=== PATIENT | male | born 1950 | race Two or more races ===

== ENCOUNTER 2017-04-08 11:06 | Inpatient (IN) | payer MEDICARE, OTHER ==
[~2017-04-08] VITALS: Ht 152.4 cm; Wt 89.8 kg
[~2017-04-08 11:06] MED LIST: ATIVAN1 MG ORAL; PEPCID40 MG PO; PREDNISONE10 MG ORAL; PRILOSEC20 MG ORAL; TRAMADOL HCL50 MG ORAL; [UNRECOGNIZED DRUG - REMARK]; allopurinol; benazepril PO; metformin PO
[2017-04-08 11:28] VITALS: BP 143/82
[2017-04-08] MEDS ORDERED: Ketorolac 30mg Inj IV ONE (11:30)
--- NOTE | 2017-04-08 11:33 | Emergency Room Report ---
History of Present Illness General Chief Complaint: General Complaint Source: Patient Present Illness HPI Patient presents with complaints of fever cough congestion Patient also reports headache Bodyache Patient's fevers higher at nighttime Denies any difficulty swallowing he does have a mild sore throat patient also complaining of right back and flank pain Headache with some component of his neck Denies any rash denies any recent travel Denies any photophobia Allergies: Coded Allergies: No Known Allergies (Unverified , 12/31/12) Patient History Past Medical History: see triage record Pertinent Family History: none Reviewed Nursing Documentation: PMH: Agreed, PSxH: Agreed Nursing Documentation-PMH Hx Cardiac Problems: Yes Hx Hypertension: Yes Hx Diabetes: Yes - TYPE II Hx Cancer: No Hx Gastrointestinal Problems: Yes - HX OF GASTRITIS, CHOLELITHIASIS Hx Dialysis: No History Of Psychiatric Problem: No Hx Neurological Problems: No Hx Cerebrovascular Accident: No Hx Seizures: No Review of Systems All Other Systems: negative except mentioned in HPI Physical Exam Vital Signs Date Time Temp Pulse Resp B/P (MAP) Pulse Ox O2 Delivery O2 Flow Rate FiO2 04/08/17 11:12 99.1 103 20 178/96 92 Room Air Sp02 EP Interpretation: reviewed, normal General Appearance: well appearing, no apparent distress Head: normocephalic, atraumatic Eyes: bilateral eye PERRL, bilateral eye EOMI ENT: hearing grossly normal, normal pharynx, TMs + canals normal, uvula midline Neck: full range of motion, supple, no meningismus, no bony tend Respiratory: lungs clear, normal breath sounds, no rhonchi, no respiratory distress, no retraction, no accessory muscle use Cardiovascular #1: normal peripheral pulses, regular rate, rhythm, no edema, no gallop, no JVD, no murmur Gastrointestinal: normal bowel sounds, non tender, soft, no mass, no organomegaly, non-distended, no guarding, no hernia, no pulsatile mass, no rebound Genitourinary: no CVA tenderness Musculoskeletal: normal inspection Neurologic: oriented x3, responsive, children's ministry director III-XII nml as tested, motor strength/ tone normal, sensory intact Psychiatric: mood/affect normal Skin: normal color, no rash, warm/dry, palpation normal Lymphatic: normal inspection, no adenopathy Medical Decision Making Diagnostic Impression: Primary Impression: Pneumonia ER Course Multiple differentials considered Including but not limited to meningitis, sepsis, pneumonia Patient has blood work initiated Patient does not show any signs of obvious meningitis/meningismal findings at this time Patient's x-ray imaging shows abnormal findings in the right upper lobe Concerning for infiltrate versus other Patient was given antibiotics at this time still felt fairly uncomfortable and therefore required admission Labs Test 04/08/17 11:43 04/08/17 12:50 White Blood Count 7.9 K/UL (4.8-10.8) Red Blood Count 4.24 M/UL (4.70-6.10) Hemoglobin 13.5 G/DL (14.2-18.0) Hematocrit 39.1 % (42.0-52.0) Mean Corpuscular Volume 92 FL (80-99) Mean Corpuscular Hemoglobin 31.7 PG (27.0-31.0) Mean Corpuscular Hemoglobin Concent 34.5 G/DL (32.0-36.0) Red Cell Distribution Width 11.8 % (11.6-14.8) Platelet Count 157 K/UL (150-450) Mean Platelet Volume 6.7 FL (6.5-10.1) Neutrophils (%) (Auto) 80.9 % (45.0-75.0) Lymphocytes (%) (Auto) 10.9 % (20.0-45.0) Monocytes (%) (Auto) 7.4 % (1.0-10.0) Eosinophils (%) (Auto) 0.4 % (0.0-3.0) Basophils (%) (Auto) 0.4 % (0.0-2.0) Sodium Level 136 MMOL/L (136-145) Potassium Level 4.0 MMOL/L (3.5-5.1) Chloride Level 101 MMOL/L (98-107) Carbon Dioxide Level 26 MMOL/L (21-32) Anion Gap 9 mmol/L (5-15) Blood Urea Nitrogen 16 mg/dL (7-18) Creatinine 0.8 MG/DL (0.55-1.30) Estimat Glomerular Filtration Rate > 60 mL/min (>60) Glucose Level 133 MG/DL (74-106) Calcium Level 8.6 MG/DL (8.5-10.1) Total Bilirubin 0.9 MG/DL (0.2-1.0) Aspartate Amino Transf (AST/SGOT) 19 U/L (15-37) Alanine Aminotransferase (ALT/SGPT) 32 U/L (12-78) Alkaline Phosphatase 50 U/L (46-116) Total Creatine Kinase 167 U/L (26-308) Creatine Kinase MB < 0.5 NG/ML (0.0-3.6) Creatine Kinase MB Relative Index 0.2 Total Protein 7.1 G/DL (6.4-8.2) Albumin 3.6 G/DL (3.4-5.0) Globulin 3.5 g/dL Albumin/Globulin Ratio 1.0 (1.0-2.7) Lipase 112 U/L (73-393) Urine Color Yellow Urine Appearance Clear Urine pH 5 (4.5-8.0) Urine Specific [place] 1.015 (1.005-1.035) Urine Protein 3+ (NEGATIVE) Urine Glucose (UA) Negative (NEGATIVE) Urine Ketones Negative (NEGATIVE) Urine Occult Blood 3+ (NEGATIVE) Urine Nitrite Negative (NEGATIVE) Urine Bilirubin Negative (NEGATIVE) Urine Urobilinogen Normal MG/DL (0.0-1.0) Urine Leukocyte Esterase Negative (NEGATIVE) Urine RBC 5-10 /HPF (0 - 0) Urine WBC 0-2 /HPF (0 - 0) Urine Squamous Epithelial Cells Occasional /LPF Urine Bacteria Occasional /HPF (NONE) Urine Mucus Few /LPF (NONE/OCC) Rhythm Strip Diag. Results EP Interpretation: yes Rate: 66 Rhythm: NSR, no PVC's, no ectopy Chest X-Ray Diagnostic Results Chest X-Ray Diagnostic Results : Chest X-Ray Ordered: Yes # of Views/Limited/Complete: 1 View Indication: Shortness of Breath EP Interpretation: Yes Interpretation: no effusion, no pneumothorax, other - right upper lobe marking, infiltrate vs other Impression: Other - right upper lobe marking Electronically Signed by: Jeremiah Julian DO Last Vital Signs Date Time Temp Pulse Resp B/P (MAP) Pulse Ox O2 Delivery O2 Flow Rate FiO2 04/08/17 11:12 99.1 103 20 178/96 92 Room Air Status: improved Disposition: ADMITTED INPATIENT Condition: Serious JEREMIAH JULIAN D.O. Apr 08, 2017 11:33
[2017-04-08 11:56] LABS: BASOPHILS % (AUTO) 0.4 % (0.0-2.0); EOSINOPHILS % (AUTO) 0.4 % (0.0-3.0); LYMPHOCYTES % (AUTO) 10.9 % (20.0-45.0); MEAN CORPUSCULAR HEMOGLOBIN 31.7 PG (27.0-31.0); MEAN CORPUSCULAR HGB CONC 34.5 G/DL (32.0-36.0); MEAN CORPUSCULAR VOLUME 92 FL (80-99); MEAN PLATELET VOLUME 6.7 FL (6.5-10.1); MONOCYTES % (AUTO) 7.4 % (1.0-10.0); NEUTROPHILS % (AUTO) 80.9 % (45.0-75.0); PLATELET COUNT 157 K/UL (150-450); RED BLOOD COUNT 4.24 M/UL (4.70-6.10); RED CELL DISTRIBUTION WIDTH 11.8 % (11.6-14.8); WHITE BLOOD COUNT 7.9 K/UL (4.8-10.8)
[2017-04-08 12:07] LABS: ANION GAP 9 mmol/L (5-15); CALCIUM 8.6 MG/DL (8.5-10.1); CARBON DIOXIDE 26 MMOL/L (21-32); CHLORIDE 101 MMOL/L (98-107); CREATININE 0.8 MG/DL (0.55-1.30); GLOMERULAR FILTRATION RATE > 60 mL/min (>60); SODIUM 136 MMOL/L (136-145)
[2017-04-08] MEDS ORDERED: LISINOPRIL5 MG ORAL (12:09)
--- NOTE | 2017-04-08 12:13 | Diagnostic Imaging Report ---
Indications: Headache headache Technique: Spiral acquisitions obtained through the brain. Angled axial and coronal 5 x 5 mm slices were reconstructed. Total dose length product 1421 mGycm. CTDI vol(s) 70 mGy. Dose reduction achieved using automated exposure control Comparison: None Findings: There is minimal age-related enlargement of the frontal parietal extra-axial CSF spaces. Normal size ventricles. No acute intracranial hemorrhage or edema. No mass effect or midline shift. Normal mccray-white differentiation. Mastoids are clear. Sinuses are clear. Intact calvarium Impression: Minimal age-related volume loss Negative for acute intracranial bleed or mass effect The CT scanner at [facility] is accredited by the [employer] and the scans are performed using protocols designed to limit radiation exposure to as low as reasonably achievable to attain images of sufficient resolution adequate for diagnostic evaluation.
[2017-04-08 12:22] LABS: ALANINE AMINOTRANSFERASE 32 U/L (12-78); ASPARTATE AMINO TRANSFERASE 19 U/L (15-37); CKMB < 0.5 NG/ML (0.0-3.6); LIPASE 112 U/L (73-393); TOTAL PROTEIN 7.1 G/DL (6.4-8.2)
[2017-04-08 13:04] LABS: APPEARANCE,URINE CLEAR; KETONES,URINE NEGATIVE (NEGATIVE); LEUKOCYTE ESTERASE ,URINE NEGATIVE (NEGATIVE); NITRITE,URINE NEGATIVE (NEGATIVE); PH,URINE 5 (4.5-8.0); PROTEIN,URINE 3+ (NEGATIVE); UROBILINOGEN,URINE NORMAL MG/DL (0.0-1.0)
[2017-04-08 13:22] LABS: BACTERIA,URINE OCCASIONAL /HPF; MUCUS,URINE FEW /LPF (NONE/OCC); SQUAMOUS EPITHELIAL CELL,UR OCCASIONAL /LPF (NONE/OCC); WBC,URINE 0-2 /HPF (0 - 0)
--- NOTE | 2017-04-08 13:26 | Diagnostic Imaging Report ---
Indication: SOB Technique: One view of the chest Comparison: none Findings: There is a right apical opacity which measures approximately 4 cm in diameter. There appears to be some associated pleural thickening. This is a new finding. The remainder of the lungs and pleural spaces are clear. Heart size is normal. Aorta is tortuous. Impression: Right apical mass versus infiltrate. Consider CT for better characterization graft Findings discussed by phone with Dr. Mao in the emergency room at the time of interpretation
[2017-04-08] MEDS ORDERED: Morphine Sulfate 4mg/ml Inj IVP ONE (13:45)
[2017-04-08 14:20] VITALS: BP 141/74
[2017-04-08 14:30] VITALS: BP 143/80
[2017-04-08] MEDS ORDERED: Promethazine/Codeine 5ml UD ORAL PRN (15:15)
[2017-04-08] MEDS ORDERED: Albuterol/Ipratropium 3ml neb HHN PRN (15:15)
[2017-04-08] MEDS ORDERED: Miralax 17gm pkt ORAL PRN (15:15)
[2017-04-08] MEDS ORDERED: LORazepam Inj 2mg/ml 1ml IV PRN (15:15)
[2017-04-08 16:00] VITALS: BP 143/80
[2017-04-08] MEDS: NovoLOG Insulin Flexpen SUBQ SCH ×2 (16:30→20:37)
[2017-04-08] MEDS ORDERED: Vancomycin 1.5 GM/D5W 250ML IVPB ONE (17:00)
[2017-04-08 20:00] VITALS: BP 148/83
[2017-04-08] MEDS ORDERED: Cefepime HCl 2 GM in D5W 110 ML IV SCH (20:00)
[2017-04-08] MEDS: Cefepime HCl 2 GM in D5W 55 ML IV SCH (20:35)
[2017-04-08] MEDS: Heparin 5000 units/ml inj SUBQ SCH (20:36)
--- NOTE | 2017-04-08 22:14 | History and Physical ---
History of Present Illness General Date patient seen: Apr 08, 2017 Reason for Hospitalization: General Complaint Present Illness HPI Patient presents with complaints of fever cough congestion Patient also reports headache Bodyache Patient's fevers higher at nighttime Denies any difficulty swallowing he does have a mild sore throat patient also complaining of right back and flank pain Headache with some component of his neck Denies any rash denies any recent travel Denies any photophobia Allergies: Coded Allergies: No Known Allergies (Unverified , 12/31/12) Medication History Scheduled Famotidine (Pepcid), 40 MG PO DAILY Lorazepam* (Ativan*), 1 MG ORAL BID Omeprazole (Prilosec), 20 MG ORAL DAILY, (Reported) Tramadol Hcl* (Ultram*), 50 MG ORAL Q12HR, (Reported) [benazepril], 20 MG PO DAILY, (Reported) [metformin], 500 MG PO BID, (Reported) Miscellaneous Medications [allopurinol], (Reported) [pill for diabetes], (Reported) Discontinued Medications Lisinopril (Lisinopril*), 5 MG ORAL DAILY, (Reported) Discontinued Reason: Pt stopped taking med Prednisone* (Prednisone*), 10 MG ORAL DAILY, (Reported) Discontinued Reason: Therapy completed Patient History Healthcare decision maker N Resuscitation status Full Code Advanced Directive on File Past Medical/Surgical History Past Medical/Surgical History: (1) History of hypertension (2) Gout (3) Diabetes mellitus Review of Systems Constitutional: Reports: sweats, malaise, weakness Respiratory: Reports: cough All Other Systems: negative except mentioned in HPI Physical Exam General Appearance: WD/WN Lines, tubes and drains: peripheral HEENT: normocephalic, atraumatic Neck: non-tender, normal alignment Respiratory/Chest: lungs clear, normal breath sounds Cardiovascular/Chest: normal peripheral pulses, regular rhythm, no gallop/ murmur Abdomen: soft Genitourinary/Rectal: normal genital exam Last 24 Hour Vital Signs Date Time Temp Pulse Resp B/P (MAP) Pulse Ox O2 Delivery O2 Flow Rate FiO2 04/08/17 16:00 99.0 77 18 143/80 98 Room Air 04/08/17 14:30 99.0 77 18 143/80 98 Room Air 04/08/17 14:22 100.6 82 20 141/74 95 Room Air 04/08/17 14:20 99.1 82 20 141/74 95 Room Air 04/08/17 11:28 100.6 97 20 143/82 95 Room Air 04/08/17 11:12 99.1 103 20 178/96 92 Room Air Intake and Output 04/08/17 04/09/17 19:00 07:00 Intake Total 1000 ml Balance 1000 ml Intake Oral 0 ml IV Total 1000 ml # Bowel Movements 1 Laboratory Tests Test 04/08/17 11:43 04/08/17 12:50 White Blood Count 7.9 K/UL (4.8-10.8) Red Blood Count 4.24 M/UL (4.70-6.10) L Hemoglobin 13.5 G/DL (14.2-18.0) L Hematocrit 39.1 % (42.0-52.0) L Mean Corpuscular Volume 92 FL (80-99) Mean Corpuscular Hemoglobin 31.7 PG (27.0-31.0) H Mean Corpuscular Hemoglobin Concent 34.5 G/DL (32.0-36.0) Red Cell Distribution Width 11.8 % (11.6-14.8) Platelet Count 157 K/UL (150-450) Mean Platelet Volume 6.7 FL (6.5-10.1) Neutrophils (%) (Auto) 80.9 % (45.0-75.0) H Lymphocytes (%) (Auto) 10.9 % (20.0-45.0) L Monocytes (%) (Auto) 7.4 % (1.0-10.0) Eosinophils (%) (Auto) 0.4 % (0.0-3.0) Basophils (%) (Auto) 0.4 % (0.0-2.0) Sodium Level 136 MMOL/L (136-145) Potassium Level 4.0 MMOL/L (3.5-5.1) Chloride Level 101 MMOL/L (98-107) Carbon Dioxide Level 26 MMOL/L (21-32) Anion Gap 9 mmol/L (5-15) Blood Urea Nitrogen 16 mg/dL (7-18) Creatinine 0.8 MG/DL (0.55-1.30) Estimat Glomerular Filtration Rate > 60 mL/min (>60) Glucose Level 133 MG/DL (74-106) H Calcium Level 8.6 MG/DL (8.5-10.1) Total Bilirubin 0.9 MG/DL (0.2-1.0) Aspartate Amino Transf (AST/SGOT) 19 U/L (15-37) Alanine Aminotransferase (ALT/SGPT) 32 U/L (12-78) Alkaline Phosphatase 50 U/L (46-116) Total Creatine Kinase 167 U/L (26-308) Creatine Kinase MB < 0.5 NG/ML (0.0-3.6) Creatine Kinase MB Relative Index 0.2 Total Protein 7.1 G/DL (6.4-8.2) Albumin 3.6 G/DL (3.4-5.0) Globulin 3.5 g/dL Albumin/Globulin Ratio 1.0 (1.0-2.7) Lipase 112 U/L (73-393) Urine Color Yellow Urine Appearance Clear Urine pH 5 (4.5-8.0) Urine Specific [place] 1.015 (1.005-1.035) Urine Protein 3+ (NEGATIVE) H Urine Glucose (UA) Negative (NEGATIVE) Urine Ketones Negative (NEGATIVE) Urine Occult Blood 3+ (NEGATIVE) H Urine Nitrite Negative (NEGATIVE) Urine Bilirubin Negative (NEGATIVE) Urine Urobilinogen Normal MG/DL (0.0-1.0) Urine Leukocyte Esterase Negative (NEGATIVE) Urine RBC 5-10 /HPF (0 - 0) H Urine WBC 0-2 /HPF (0 - 0) Urine Squamous Epithelial Cells Occasional /LPF Urine Bacteria Occasional /HPF (NONE) Urine Mucus Few /LPF (NONE/OCC) H Height (Feet): 5 Height (Inches): 0.00 Weight (Pounds): 198 Medications Current Medications Medications (Trade) Dose Ordered Sig/Tamiko Route PRN Reason Start Time Stop Time Status Last Admin Dose Admin Acetaminophen (Tylenol) 650 mg Q4H PRN ORAL T>100.5 04/08/17 15:15 05/08/17 15:14 04/08/17 20:38 Albuterol/ Ipratropium (Albuterol/ Ipratropium) 3 ml Q4H PRN HHN Shortness of Breath 04/08/17 15:15 04/13/17 15:14 Allopurinol (Zyloprim) 100 mg DAILY ORAL 04/09/17 09:00 05/09/17 08:59 Benazepril HCl (Lotensin) 20 mg DAILY ORAL 04/09/17 09:00 05/09/17 08:59 Cefepime HCl 2 gm/ Dextrose 55 ml @ 110 mls/hr EVERY 12 HOURS IV 04/08/17 20:00 04/15/17 19:59 04/08/17 20:35 Dextrose (Dextrose 50%) STAT PRN IV Hypoglycemia 04/08/17 15:30 05/08/17 15:29 Heparin Sodium (Porcine) (Heparin 5000 units/ml) 5,000 units EVERY 12 HOURS SUBQ 04/08/17 21:00 05/08/17 20:59 04/08/17 20:36 Insulin Aspart (NovoLOG) BEFORE MEALS AND HS SUBQ 04/08/17 16:30 05/08/17 16:29 04/08/17 20:37 Lorazepam (Ativan 2mg/ml 1ml) 2 mg Q2H PRN IV For Anxiety 04/08/17 15:15 04/15/17 15:14 Morphine Sulfate (Morphine Sulfate) 4 mg Q4H PRN IVP Severe Pain (Pain Scale 7-10) 04/08/17 15:15 04/15/17 15:14 Ondansetron HCl (Zofran) 4 mg Q6H PRN IVP Nausea & Vomiting 04/08/17 15:15 05/08/17 15:14 Pantoprazole (Protonix) 40 mg DAILY IV 04/09/17 09:00 05/09/17 08:59 Polyethylene Glycol (Miralax) 17 gm DAILYPRN PRN ORAL Constipation 04/08/17 15:15 05/08/17 15:14 Promethazine HCl/ Codeine (Phenergan with Codeine) 5 ml Q4H PRN ORAL For Cough 04/08/17 15:15 05/08/17 15:14 Sodium Chloride 1,000 ml @ 50 mls/hr Q20H IV 04/08/17 16:30 05/08/17 16:29 04/08/17 16:38 Tramadol HCl (Ultram) 50 mg Q12H PRN ORAL Moderate Pain (Pain Scale 4-6) 04/08/17 16:00 04/15/17 15:59 Vancomycin HCl (Vanco rx to dose) 1 ea DAILY PRN MISC . 04/08/17 15:30 05/08/17 15:29 Vancomycin/Sodium Chloride 250 ml @ 166.667 mls/hr Q12HR@0500,1700 IVPB 04/09/17 05:00 04/14/17 04:59 Assessment/Plan Problem List: (1) Pneumonia ICD Codes: J18.9 - Pneumonia, unspecified organism SNOMED: 832487747 (2) Diabetes mellitus ICD Codes: E11.9 - Type 2 diabetes mellitus without complications SNOMED: 60588163 (3) Gout ICD Codes: M10.9 - Gout, unspecified SNOMED: 67918297 (4) History of hypertension ICD Codes: Z86.79 - Personal history of other diseases of the circulatory system SNOMED: 540638329 Assessment/Plan check Ct check sputum IV abx monitor BP dvt porphylaxis/ LUIZ RENTERIA Apr 08, 2017 22:14
[2017-04-08] MEDS ORDERED: Vancomycin 1 GM in D5W 275 ML IV SCH (23:00)
[2017-04-09] VITALS: BP 137/86
[2017-04-09 04:00] VITALS: BP 142/84
[2017-04-09] MEDS: Vancomycin 750mg/NS 250ml IVPB SCH ×2 (05:00→18:10)
[2017-04-09] MEDS: NovoLOG Insulin Flexpen SUBQ SCH ×4 (06:52→22:35)
[2017-04-09 08:00] VITALS: BP 152/82
[2017-04-09 08:17] LABS: BASOPHILS % (AUTO) 0.3 % (0.0-2.0); EOSINOPHILS % (AUTO) 1.6 % (0.0-3.0); LYMPHOCYTES % (AUTO) 14.5 % (20.0-45.0); MEAN CORPUSCULAR HEMOGLOBIN 32.6 PG (27.0-31.0); MEAN CORPUSCULAR HGB CONC 35.2 G/DL (32.0-36.0); MEAN CORPUSCULAR VOLUME 92 FL (80-99); MEAN PLATELET VOLUME 7.2 FL (6.5-10.1); MONOCYTES % (AUTO) 9.5 % (1.0-10.0); NEUTROPHILS % (AUTO) 74.1 % (45.0-75.0); PLATELET COUNT 142 K/UL (150-450); RED BLOOD COUNT 3.74 M/UL (4.70-6.10); RED CELL DISTRIBUTION WIDTH 11.8 % (11.6-14.8); WHITE BLOOD COUNT 6.6 K/UL (4.8-10.8)
[2017-04-09 08:42] LABS: ANION GAP 7 mmol/L (5-15); CARBON DIOXIDE 26 MMOL/L (21-32); CHLORIDE 103 MMOL/L (98-107); CREATININE 0.8 MG/DL (0.55-1.30); GLOMERULAR FILTRATION RATE > 60 mL/min (>60); PHOSPHORUS 2.8 MG/DL (2.5-4.9); POTASSIUM 3.8 MMOL/L (3.5-5.1); SODIUM 136 MMOL/L (136-145)
[2017-04-09] MEDS: Heparin 5000 units/ml inj SUBQ SCH ×2 (09:00→21:00)
[2017-04-09] MEDS: Cefepime HCl 2 GM in D5W 55 ML IV SCH ×2 (09:00→22:36)
[2017-04-09] MEDS: Allopurinol 100mg Tab ORAL SCH (09:01)
[2017-04-09] MEDS: Benazepril 10mg tab ORAL SCH (09:01)
[2017-04-09] MEDS: Pantoprazole Inj IV SCH (09:01)
[2017-04-09] MEDS ORDERED: 1/2 NS 1000ml IV ONE (10:54)
[2017-04-09] MEDS ORDERED: NS Irrig 1000ml ONE (10:54)
[2017-04-09] MEDS ORDERED: Tubing IV Secondary IV ONE (10:54)
--- NOTE | 2017-04-09 10:58 | Diagnostic Imaging Report ---
Indication: Shortness of breath Technique: CT chest was performed utilizing automated exposure control without intravenous contrast material. Axial and coronal images were generated. CT dose: Total DLP 728 mGycm; CTDI vol 21.4 mGy Comparison: 06/13/15 Findings: There is an approximately 7 x 7.7 cm area of consolidation involving the right upper lobe with nodular groundglass densities at its inferior margin. A small right pleural effusion is present. There is a calcified granuloma in the right lower lobe. No significant pericardial effusion is identified. The heart size is normal. Atherosclerotic changes are present. Small mediastinal nodes are present measuring up to 1.2 cm in long axis. Gallstones are seen in the partially visualized upper abdomen. Degenerative changes of the spine are noted. Impression: Approximately 7 x 7.7 cm area of consolidation involving the right upper lobe with nodular groundglass at its inferior margin. Findings may be compatible with pneumonia but the possibility of underlying mass cannot be excluded. Clinical correlation recommended. Followup to resolution/further evaluation recommended. Small right pleural effusion. Right lower lobe calcified granuloma. Mild atherosclerotic changes. Cholelithiasis. The CT scanner at [facility] is accredited by the [employer] and the scans are performed using protocols designed to limit radiation exposure to as low as reasonably achievable to attain images of sufficient resolution adequate for diagnostic evaluation.
--- NOTE | 2017-04-09 10:59 | Pulmonology Progress Note ---
Assessment/Plan Problems: (1) Pneumonia (2) Diabetes mellitus (3) Gout (4) History of hypertension Assessment/Plan CT reviewed, Dense infiltrate/ mass in right upper lobe will do PPD and respiratory isolation CT guided biopsy. Pt agreed. continue abx f/u clinically sputum induction Subjective ROS Limited/Unobtainable: No Constitutional: Reports: no symptoms HEENT: Repors: no symptoms Respiratory: Reports: no symptoms Allergies: Coded Allergies: No Known Allergies (Unverified , 12/31/12) Objective Last 24 Hour Vital Signs Date Time Temp Pulse Resp B/P (MAP) Pulse Ox O2 Delivery O2 Flow Rate FiO2 04/09/17 09:01 152/82 04/09/17 08:00 98.9 83 18 152/82 94 Room Air 04/09/17 04:00 98.3 86 16 142/84 96 Room Air 04/09/17 00:00 98.8 82 17 137/86 96 Room Air 04/08/17 20:00 100.1 82 18 148/83 98 Room Air 04/08/17 16:00 99.0 77 18 143/80 98 Room Air 04/08/17 14:30 99.0 77 18 143/80 98 Room Air 04/08/17 14:22 100.6 82 20 141/74 95 Room Air 04/08/17 14:20 99.1 82 20 141/74 95 Room Air 04/08/17 11:28 100.6 97 20 143/82 95 Room Air 04/08/17 11:12 99.1 103 20 178/96 92 Room Air General Appearance: WD/WN HEENT: normocephalic Respiratory/Chest: chest wall non-tender, lungs clear Cardiovascular: normal peripheral pulses, normal rate Abdomen: normal bowel sounds, soft, non tender Genitourinary: normal external genitalia Extremities: no clubbing Skin: no rash, no lesions Laboratory Tests 04/08/17 11:43: White Blood Count 7.9, Red Blood Count 4.24L, Hemoglobin 13.5L, Hematocrit 39.1L , Mean Corpuscular Volume 92, Mean Corpuscular Hemoglobin 31.7H, Mean Corpuscular Hemoglobin Concent 34.5, Red Cell Distribution Width 11.8, Platelet Count 157, Mean Platelet Volume 6.7, Neutrophils (%) (Auto) 80.9H, Lymphocytes ( %) (Auto) 10.9L, Monocytes (%) (Auto) 7.4, Eosinophils (%) (Auto) 0.4, Basophils (%) (Auto) 0.4, Sodium Level 136, Potassium Level 4.0, Chloride Level 101, Carbon Dioxide Level 26, Anion Gap 9, Blood Urea Nitrogen 16, Creatinine 0.8, Estimat Glomerular Filtration Rate > 60, Glucose Level 133H, Calcium Level 8.6, Total Bilirubin 0.9, Aspartate Amino Transf (AST/SGOT) 19, Alanine Aminotransferase (ALT/SGPT) 32, Alkaline Phosphatase 50, Total Creatine Kinase 167, Creatine Kinase MB < 0.5, Creatine Kinase MB Relative Index 0.2, Total Protein 7.1, Albumin 3.6, Globulin 3.5, Albumin/Globulin Ratio 1.0, Lipase 112 04/08/17 12:50: Urine Color Yellow, Urine Appearance Clear, Urine pH 5, Urine Specific [place] 1.015, Urine Protein 3+H, Urine Glucose (UA) Negative, Urine Ketones Negative, Urine Occult Blood 3+H, Urine Nitrite Negative, Urine Bilirubin Negative, Urine Urobilinogen Normal, Urine Leukocyte Esterase Negative, Urine RBC 5-10H, Urine WBC 0-2, Urine Squamous Epithelial Cells Occasional, Urine Bacteria Occasional, Urine Mucus FewH 04/09/17 06:35: White Blood Count 6.6, Red Blood Count 3.74L, Hemoglobin 12.2L, Hematocrit 34.6L , Mean Corpuscular Volume 92, Mean Corpuscular Hemoglobin 32.6H, Mean Corpuscular Hemoglobin Concent 35.2, Red Cell Distribution Width 11.8, Platelet Count 142L, Mean Platelet Volume 7.2, Neutrophils (%) (Auto) 74.1, Lymphocytes ( %) (Auto) 14.5L, Monocytes (%) (Auto) 9.5, Eosinophils (%) (Auto) 1.6, Basophils (%) (Auto) 0.3, Sodium Level 136, Potassium Level 3.8, Chloride Level 103, Carbon Dioxide Level 26, Anion Gap 7, Blood Urea Nitrogen 17, Creatinine 0.8, Estimat Glomerular Filtration Rate > 60, Glucose Level 113H, Calcium Level 8.0L, Albumin 3.0L, Phosphorus Level 2.8 Current Medications Medications (Trade) Dose Ordered Sig/Tamiko Route PRN Reason Start Time Stop Time Status Last Admin Dose Admin Acetaminophen (Tylenol) 650 mg Q4H PRN ORAL T>100.5 04/08/17 15:15 05/08/17 15:14 04/09/17 07:51 Albuterol/ Ipratropium (Albuterol/ Ipratropium) 3 ml Q4H PRN HHN Shortness of Breath 04/08/17 15:15 04/13/17 15:14 Allopurinol (Zyloprim) 100 mg DAILY ORAL 04/09/17 09:00 05/09/17 08:59 04/09/17 09:01 Benazepril HCl (Lotensin) 20 mg DAILY ORAL 04/09/17 09:00 05/09/17 08:59 04/09/17 09:01 Cefepime HCl 2 gm/ Dextrose 55 ml @ 110 mls/hr EVERY 12 HOURS IV 04/08/17 20:00 04/15/17 19:59 04/09/17 09:00 Dextrose (Dextrose 50%) STAT PRN IV Hypoglycemia 04/08/17 15:30 05/08/17 15:29 Heparin Sodium (Porcine) (Heparin 5000 units/ml) 5,000 units EVERY 12 HOURS SUBQ 04/08/17 21:00 05/08/17 20:59 04/08/17 20:36 Insulin Aspart (NovoLOG) BEFORE MEALS AND HS SUBQ 04/08/17 16:30 05/08/17 16:29 04/09/17 06:52 Lorazepam (Ativan 2mg/ml 1ml) 2 mg Q2H PRN IV For Anxiety 04/08/17 15:15 04/15/17 15:14 Morphine Sulfate (Morphine Sulfate) 4 mg Q4H PRN IVP Severe Pain (Pain Scale 7-10) 04/08/17 15:15 04/15/17 15:14 Ondansetron HCl (Zofran) 4 mg Q6H PRN IVP Nausea & Vomiting 04/08/17 15:15 05/08/17 15:14 Pantoprazole (Protonix) 40 mg DAILY IV 04/09/17 09:00 05/09/17 08:59 04/09/17 09:01 Polyethylene Glycol (Miralax) 17 gm DAILYPRN PRN ORAL Constipation 04/08/17 15:15 05/08/17 15:14 Promethazine HCl/ Codeine (Phenergan with Codeine) 5 ml Q4H PRN ORAL For Cough 04/08/17 15:15 05/08/17 15:14 Sodium Chloride 1,000 ml @ 50 mls/hr Q20H IV 04/08/17 16:30 05/08/17 16:29 04/08/17 16:38 Tramadol HCl (Ultram) 50 mg Q12H PRN ORAL Moderate Pain (Pain Scale 4-6) 04/08/17 16:00 04/15/17 15:59 Vancomycin HCl (Vanco rx to dose) 1 ea DAILY PRN MISC . 04/08/17 15:30 05/08/17 15:29 Vancomycin/Sodium Chloride 250 ml @ 166.667 mls/hr Q12HR@0500,1700 IVPB 04/09/17 05:00 04/14/17 04:59 04/09/17 05:00 LUIZ RENTERIA Apr 09, 2017 10:59
[2017-04-09 12:00] VITALS: BP 147/90
[2017-04-09] MEDS ORDERED: PPD Tuberculin Skin Test 5TU IDERMAL ONE (12:00)
[2017-04-09 16:00] VITALS: BP 141/80
--- NOTE | 2017-04-09 17:53 | Consultation ---
Consult Note Consult Note ID DIC # [id number] JANESSA ARMANDO M.D. Apr 09, 2017 17:53
[2017-04-09 20:00] VITALS: BP 140/81
[2017-04-09] MEDS: Azithromycin 500 MG in D5W 275 ML IV SCH (20:25)
[2017-04-10] VITALS (7 sets, daily range): BP systolic 121–160; BP diastolic 76–90
[2017-04-10] MEDS: Vancomycin 750mg/NS 250ml IVPB SCH (05:00)
[2017-04-10 05:15] LABS: EOSINOPHILS % (AUTO) 1.4 % (0.0-3.0); MEAN CORPUSCULAR HGB CONC 35.3 G/DL (32.0-36.0); MEAN CORPUSCULAR VOLUME 91 FL (80-99); MEAN PLATELET VOLUME 6.2 FL (6.5-10.1); MONOCYTES % (AUTO) 7.6 % (1.0-10.0); PLATELET COUNT 165 K/UL (150-450); RED BLOOD COUNT 3.83 M/UL (4.70-6.10); RED CELL DISTRIBUTION WIDTH 11.2 % (11.6-14.8); WHITE BLOOD COUNT 6.1 K/UL (4.8-10.8)
[2017-04-10] MEDS: NovoLOG Insulin Flexpen SUBQ SCH ×4 (06:23→22:05)
[2017-04-10] MEDS ORDERED: Vancomycin 1.5 GM/D5W 250ML IVPB SCH (06:30)
[2017-04-10] MEDS: Cefepime HCl 2 GM in D5W 55 ML IV SCH ×2 (09:22→22:00)
[2017-04-10] MEDS: Allopurinol 100mg Tab ORAL SCH (09:29)
[2017-04-10] MEDS: Pantoprazole Inj IV SCH (09:29)
[2017-04-10] MEDS: Benazepril 10mg tab ORAL SCH (09:29)
[2017-04-10] MEDS: Heparin 5000 units/ml inj SUBQ SCH ×2 (09:39→21:00)
--- NOTE | 2017-04-10 11:19 | Diagnostic Imaging Report ---
Indication: Chest mass Technique: CT cervical spine was performed utilizing automated exposure control without intravenous contrast material. Axial and coronal images were generated. CT dose: Total DLP 732 mGycm; CTDI vol 22.1 mGy Comparison: CT of the chest 04/09/17 Findings: As compared to the prior examination, there is no significant interval change with redemonstration of consolidation involving the right upper lobe with adjacent inferior nodular groundglass densities. A small right pleural effusion is unchanged. There is a stable calcified granuloma in the right lower lobe. Mediastinal nodes measure up to 1.2 cm. The heart is unchanged. Atherosclerotic changes are present. Gallstones are present. Osseous structures are stable. Impression: Stable large area of consolidation involving the right upper lobe with nodular groundglass densities at its inferior margin. Again findings may be compatible with pneumonia but the possibility of underlying mass or bronchoalveolar carcinoma cannot be excluded. Again followup to resolution recommended. Further evaluation recommended as indicated. Other stable findings as above. The CT scanner at [facility] is accredited by the [employer] and the scans are performed using protocols designed to limit radiation exposure to as low as reasonably achievable to attain images of sufficient resolution adequate for diagnostic evaluation.
--- NOTE | 2017-04-10 14:33 | Pulmonology Progress Note ---
Assessment/Plan Problems: (1) Pneumonia (2) Diabetes mellitus (3) Gout (4) History of hypertension Assessment/Plan asymptoamtic ID consult appreciated PPD pending respiratory isolation CT guided biopsy. Pt agreed. continue abx f/u clinically sputum induction Subjective ROS Limited/Unobtainable: No Interval Events: asymptomatic Allergies: Coded Allergies: No Known Allergies (Unverified , 12/31/12) Objective Last 24 Hour Vital Signs Date Time Temp Pulse Resp B/P (MAP) Pulse Ox O2 Delivery O2 Flow Rate FiO2 04/10/17 12:00 97.3 81 19 145/85 93 Room Air 04/10/17 09:29 145/76 04/10/17 08:00 98.8 80 20 145/76 95 Room Air 04/10/17 06:29 76 140/90 04/10/17 04:25 Room Air 04/10/17 04:23 98.8 85 20 160/85 95 Room Air 04/10/17 00:00 98.2 84 18 152/89 95 Room Air 04/09/17 20:00 Room Air 04/09/17 20:00 97.3 83 19 140/81 93 Room Air 04/09/17 16:00 98.2 97 20 141/80 98 Room Air General Appearance: WD/WN HEENT: normocephalic Respiratory/Chest: chest wall non-tender, lungs clear Cardiovascular: normal rate Abdomen: normal bowel sounds, soft, non tender Extremities: no cyanosis Skin: no rash 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, no motor/sensory deficits, abnormal gait Microbiology Date/Time Source Procedure Growth Status 04/08/17 11:43 Blood Blood Culture - Preliminary NO GROWTH AFTER 24 HOURS Resulted 04/08/17 11:43 Blood Blood Culture - Preliminary NO GROWTH AFTER 24 HOURS Resulted 04/10/17 05:46 Nasopharynx Influenza Types A,B Antigen (ALEX) - Final Complete Laboratory Tests 04/10/17 04:50: White Blood Count 6.1, Red Blood Count 3.83L, Hemoglobin 12.3L, Hematocrit 34.8L , Mean Corpuscular Volume 91, Mean Corpuscular Hemoglobin 32.0H, Mean Corpuscular Hemoglobin Concent 35.3, Red Cell Distribution Width 11.2L, Platelet Count 165, Mean Platelet Volume 6.2L, Neutrophils (%) (Auto) 74.0, Lymphocytes (%) (Auto) 16.0L, Monocytes (%) (Auto) 7.6, Eosinophils (%) (Auto) 1.4, Basophils (%) (Auto) 1.0, Vancomycin Level Trough 4.8L, Coccidioides Antibody (Comp Fix) [Pending] Current Medications Medications (Trade) Dose Ordered Sig/Tamiko Route PRN Reason Start Time Stop Time Status Last Admin Dose Admin Acetaminophen (Tylenol) 650 mg Q4H PRN ORAL T>100.5 04/08/17 15:15 05/08/17 15:14 04/09/17 07:51 Acetaminophen (Tylenol) 650 mg Q4H PRN ORAL Mild Pain 04/09/17 11:30 05/09/17 11:29 Albuterol/ Ipratropium (Albuterol/ Ipratropium) 3 ml Q4H PRN HHN Shortness of Breath 04/08/17 15:15 04/13/17 15:14 Allopurinol (Zyloprim) 100 mg DAILY ORAL 04/09/17 09:00 05/09/17 08:59 04/10/17 09:29 Azithromycin 500 mg/Dextrose 275 ml @ 275 mls/hr DAILY@1800 IV 04/09/17 18:30 04/15/17 18:59 04/09/17 20:25 Benazepril HCl (Lotensin) 20 mg DAILY ORAL 04/09/17 09:00 05/09/17 08:59 04/10/17 09:29 Cefepime HCl 2 gm/ Dextrose 55 ml @ 110 mls/hr EVERY 12 HOURS IV 04/08/17 20:00 04/15/17 19:59 04/10/17 09:22 Dextrose (Dextrose 50%) STAT PRN IV Hypoglycemia 04/08/17 15:30 05/08/17 15:29 Heparin Sodium (Porcine) (Heparin 5000 units/ml) 5,000 units EVERY 12 HOURS SUBQ 04/08/17 21:00 05/08/17 20:59 04/10/17 09:39 Insulin Aspart (NovoLOG) BEFORE MEALS AND HS SUBQ 04/08/17 16:30 05/08/17 16:29 04/10/17 12:39 Lorazepam (Ativan 2mg/ml 1ml) 2 mg Q2H PRN IV For Anxiety 04/08/17 15:15 04/15/17 15:14 Morphine Sulfate (Morphine Sulfate) 4 mg Q4H PRN IVP Severe Pain (Pain Scale 7-10) 04/08/17 15:15 04/15/17 15:14 Ondansetron HCl (Zofran) 4 mg Q6H PRN IVP Nausea & Vomiting 04/08/17 15:15 05/08/17 15:14 Pantoprazole (Protonix) 40 mg DAILY IV 04/09/17 09:00 05/09/17 08:59 04/10/17 09:29 Polyethylene Glycol (Miralax) 17 gm DAILYPRN PRN ORAL Constipation 04/08/17 15:15 05/08/17 15:14 Promethazine HCl/ Codeine (Phenergan with Codeine) 5 ml Q4H PRN ORAL For Cough 04/08/17 15:15 05/08/17 15:14 Sodium Chloride 1,000 ml @ 50 mls/hr Q20H IV 04/08/17 16:30 05/08/17 16:29 04/09/17 15:30 Tramadol HCl (Ultram) 50 mg Q12H PRN ORAL Moderate Pain (Pain Scale 4-6) 04/08/17 16:00 04/15/17 15:59 Vancomycin HCl (Vanco rx to dose) 1 ea DAILY PRN MISC . 04/08/17 15:30 05/08/17 15:29 Vancomycin HCl/ Dextrose 250 ml @ 166.667 mls/hr Q12HR@0600,1800 IVPB 04/10/17 18:00 04/15/17 17:59 LUIZ RENTERIA Apr 10, 2017 14:33
--- NOTE | 2017-04-10 15:35 | Cardiology Report ---
APPROVED REPORT EKG Measurement Heart [id number] Normal sinus rhythm Normal ECG
[2017-04-10] MEDS: Azithromycin 500 MG in D5W 275 ML IV SCH (17:33)
[2017-04-10] MEDS: Vancomycin 1250mg/D5W 250ml IVPB SCH (18:32)
[2017-04-11] VITALS: BP 130/80
[2017-04-11 04:00] VITALS: BP 129/76
[2017-04-11] MEDS: NovoLOG Insulin Flexpen SUBQ SCH ×4 (06:14→20:36)
[2017-04-11] MEDS: Vancomycin 1250mg/D5W 250ml IVPB SCH ×2 (06:53→18:30)
[2017-04-11 07:13] LABS: BASOPHILS % (AUTO) 1.5 % (0.0-2.0); EOSINOPHILS % (AUTO) 2.9 % (0.0-3.0); LYMPHOCYTES % (AUTO) 19.4 % (20.0-45.0); MEAN CORPUSCULAR HEMOGLOBIN 31.8 PG (27.0-31.0); MEAN CORPUSCULAR HGB CONC 34.9 G/DL (32.0-36.0); MEAN CORPUSCULAR VOLUME 91 FL (80-99); MEAN PLATELET VOLUME 6.5 FL (6.5-10.1); MONOCYTES % (AUTO) 7.4 % (1.0-10.0); NEUTROPHILS % (AUTO) 68.8 % (45.0-75.0); PLATELET COUNT 212 K/UL (150-450); RED BLOOD COUNT 4.16 M/UL (4.70-6.10); RED CELL DISTRIBUTION WIDTH 11.3 % (11.6-14.8); WHITE BLOOD COUNT 7.1 K/UL (4.8-10.8)
--- NOTE | 2017-04-11 07:45 | Consultation ---
DATE OF CONSULTATION: 04/09/2017 INFECTIOUS DISEASE CONSULT CONSULTING PHYSICIAN: Jaycob Penaloza M.D. REQUESTING PHYSICIAN: Laura Lin M.D. REASON FOR CONSULTATION: Evaluation of the patient for pneumonia, rule out tuberculosis. HISTORY OF PRESENT ILLNESS: The patient is a 66-year-old male, who came to the hospital with chief complaint of cough and chest congestion x3 days. Also, the patient has headaches that has improved. Denies having nausea, vomiting, or photophobia. The patient's workup showed upper lobe infiltrate and the patient has been placed in airborne isolation to rule out possible tuberculosis. Infectious Disease consultation has been requested for further evaluation of the patient and antibiotic management. PAST MEDICAL HISTORY: 1. Hypertension. 2. History of diverticulosis. 3. History of gout. 4. History of GERD. 5. History of diabetes. 6. Anxiety. MEDICATIONS: IV vancomycin and cefepime. ALLERGIES: No known drug allergies. SOCIAL HISTORY: Negative for smoking. Drinks alcohol occasionally. No history of drug abuse. However, the patient used to smoke up to 10 years ago and history of alcohol abuse in the past, stopped three years ago. No history of smoking or drug abuse. PHYSICAL EXAMINATION: VITAL SIGNS: Temperature 100.1, pulse 86, respiratory rate 18, and blood pressure 141/80. HEENT: No pale conjunctivae. No icterus. NECK: No lymphadenopathy. CHEST: Coarse breathing sounds in bilateral lung blake. HEART: S1 and S2. ABDOMEN: Soft and obese. EXTREMITIES: No cyanosis at this time. NEUROLOGIC: Awake and alert. LABORATORY AND DIAGNOSTIC DATA: WBC 6.6, hemoglobin 12.2, platelet 142,000. UA unremarkable. BUN 17 and creatinine 0.8. ALT, AST, and alkaline phosphatase unremarkable. CT of the chest showed a 7 x cm consolidation involving the right upper lobe with nodular ground glass at the inferior, cannot rule out mass, small right pleural effusion, and right lower lobe calcified granuloma. CT of head, unremarkable. ASSESSMENT: The patient is a 66-year-old male with: 1. Low-grade fever. 2. Rule out influenza. 3. Right upper lobe mass versus pneumonia, rule out tuberculosis. 4. Headache, however, clinical exam and history is not suggestive of meningitis. The patient is improving. No photophobia, nausea, or vomiting. PLAN: 1. We will continue the patient on cefepime and vancomycin. We will add Zithromax for coverage of atypical. 2. Monitor CBC. 3. Monitor BMP. 4. We will send sputum for AFB and cultures, bacterial culture and fungal culture. So, we will follow serologies and we will follow cryptococcal antigen, histoplasma antibody and coccidiosis serology. 5. CEA. 6. Recheck HIV test. 7. We will send sputum for MTB PCR. 8. QuantiFERON gold TB. 9. Placed on airborne isolation for now. 10. Monitor blood culture. 11. Based on the patient's clinical course and labs, we will do further recommendation. Thank you, Dr. Lin for allowing me to see this patient. I will follow the patient with you during this hospitalization. Jaycob Penaloza M.D. DR: Gabo JOB#: [id number] CC:
[2017-04-11 07:51] LABS: ALANINE AMINOTRANSFERASE 30 U/L (12-78); ALBUMIN/GLOBULIN RATIO 0.9 (1.0-2.7); ANION GAP 10 mmol/L (5-15); ASPARTATE AMINO TRANSFERASE 22 U/L (15-37); CALCIUM 8.9 MG/DL (8.5-10.1); CARBON DIOXIDE 26 MMOL/L (21-32); CHLORIDE 103 MMOL/L (98-107); CREATININE 0.8 MG/DL (0.55-1.30); CRP QUANT 4.7 mg/dL (0.00-0.90); GLOMERULAR FILTRATION RATE > 60 mL/min (>60); MAGNESIUM 1.9 MG/DL (1.8-2.4); PHOSPHORUS 3.1 MG/DL (2.5-4.9); POTASSIUM 4.1 MMOL/L (3.5-5.1); SODIUM 139 MMOL/L (136-145)
[2017-04-11] MEDS: Heparin 5000 units/ml inj SUBQ SCH ×2 (08:36→20:32)
[2017-04-11 08:38] LABS: PROTHROMBIN TIME 10.4 SEC (9.30-11.50)
[2017-04-11 08:46] LABS: ERYTHROCYTE SEDIMENTATION RATE 52 MM/HR (0-20)
[2017-04-11] MEDS: Pantoprazole Inj IV SCH (08:53)
[2017-04-11] MEDS: Cefepime HCl 2 GM in D5W 55 ML IV SCH ×2 (08:53→20:31)
[2017-04-11] MEDS: Allopurinol 100mg Tab ORAL SCH (08:53)
[2017-04-11] MEDS: Benazepril 10mg tab ORAL SCH ×2 (09:36→09:43)
[2017-04-11] MEDS ORDERED: Lidocaine 2% MPF 5ml Vial INJ ONE (11:45)
[2017-04-11 12:00] VITALS: BP 126/74
[2017-04-11] MEDS ORDERED: Lidocaine 1% Plain 30 ml INJ ONE (13:00)
--- NOTE | 2017-04-11 13:00 | Brief Operative Note ---
Immediate Post Operative Note Operative Note Chief Complaint: SOB Pre-op Diagnosis: Lung mass R Procedure: CT guided R lung bx Post-op Diagnosis: Same Post-op Diagnosis: same as pre-op Findings: consistent w/pre-op dx studies Surgeon: Dontrell CEDENO Specimen: yes - 3 18 g cores. sent for histology and Cx Complications: none Condition: stable Fluids: none Implant(s) used?: No ETHAN CEDENO M.D. Apr 11, 2017 13:00
[2017-04-11] MEDS: traMADol 50mg tab ORAL PRN (13:52)
--- NOTE | 2017-04-11 14:01 | Pulmonology Progress Note ---
Assessment/Plan Problems: (1) Pneumonia (2) Diabetes mellitus (3) Gout (4) History of hypertension Assessment/Plan asymptoamtic ID consult appreciated PPD is [address] guided biopsy done today, d/w dr Gaona continue abx f/u clinically sputum induction sent one today Subjective ROS Limited/Unobtainable: No Constitutional: Reports: no symptoms HEENT: Repors: no symptoms Respiratory: Reports: no symptoms Allergies: Coded Allergies: No Known Allergies (Unverified , 12/31/12) Objective Last 24 Hour Vital Signs Date Time Temp Pulse Resp B/P (MAP) Pulse Ox O2 Delivery O2 Flow Rate FiO2 04/11/17 12:00 97.3 76 18 126/74 94 04/11/17 09:43 121/79 04/11/17 08:00 94 Room Air 04/11/17 04:00 96.5 73 17 129/76 96 Room Air 04/11/17 00:51 Room Air 04/11/17 00:00 98.0 80 21 130/80 96 Room Air 04/10/17 20:00 Room Air 04/10/17 20:00 98.4 81 21 132/83 95 Room Air 04/10/17 16:00 98.7 86 19 121/76 97 Room Air Intake and Output 04/11/17 04/12/17 19:00 07:00 Intake Total 160 ml Balance 160 ml IV Total 160 ml General Appearance: WD/WN HEENT: normocephalic, anicteric Respiratory/Chest: chest wall non-tender, lungs clear Cardiovascular: normal peripheral pulses, normal rate Abdomen: normal bowel sounds, soft, non tender Extremities: no cyanosis Skin: no rash, no lesions Microbiology Date/Time Source Procedure Growth Status 04/11/17 06:14 Sputum Gram Stain - Final Resulted 04/11/17 06:14 Sputum Sputum Culture Pending Resulted 04/10/17 05:46 Sputum AFB Specimen Processing Tissue - Final Resulted 04/10/17 05:46 Sputum Acid Fast Bacilli Smear - Final Resulted 04/10/17 05:46 Sputum Acid Fast Bacilli Culture Pending Resulted 04/10/17 05:46 Nasopharynx Influenza Types A,B Antigen (ALEX) - Final Complete Laboratory Tests 04/11/17 05:15: White Blood Count 7.1, Red Blood Count 4.16L, Hemoglobin 13.2L, Hematocrit 37.9L , Mean Corpuscular Volume 91, Mean Corpuscular Hemoglobin 31.8H, Mean Corpuscular Hemoglobin Concent 34.9, Red Cell Distribution Width 11.3L, Platelet Count 212, Mean Platelet Volume 6.5, Neutrophils (%) (Auto) 68.8, Lymphocytes (%) (Auto) 19.4L, Monocytes (%) (Auto) 7.4, Eosinophils (%) (Auto) 2.9, Basophils (%) (Auto) 1.5, Erythrocyte Sedimentation Rate 52H, Sodium Level 139, Potassium Level 4.1, Chloride Level 103, Carbon Dioxide Level 26, Anion Gap 10, Blood Urea Nitrogen 12, Creatinine 0.8, Estimat Glomerular Filtration Rate > 60, Glucose Level 122H, Calcium Level 8.9, Phosphorus Level 3.1, Magnesium Level 1.9, Total Bilirubin 0.6, Aspartate Amino Transf (AST/SGOT) 22, Alanine Aminotransferase (ALT/SGPT) 30, Alkaline Phosphatase 53, C-Reactive Protein, Quantitative 4.7H, Total Protein 7.0, Albumin 3.3L, Globulin 3.7, Albumin/Globulin Ratio 0.9L, TB Test (T-Spot) [Pending], TB Test Nil Control (T- Spot) [Pending], TB Test Panel A (T-Spot) [Pending], TB Test Panel B (T-Spot) [ Pending], TB Test Positive Control (T-Spot) [Pending] 04/11/17 07:55: Prothrombin Time 10.4, Prothromb Time International Ratio 1.0, Activated Partial Thromboplast Time 26 Current Medications Medications (Trade) Dose Ordered Sig/Tamiko Route PRN Reason Start Time Stop Time Status Last Admin Dose Admin Acetaminophen (Tylenol) 650 mg Q4H PRN ORAL T>100.5 04/08/17 15:15 05/08/17 15:14 04/09/17 07:51 Acetaminophen (Tylenol) 650 mg Q4H PRN ORAL Mild Pain 04/09/17 11:30 05/09/17 11:29 Albuterol/ Ipratropium (Albuterol/ Ipratropium) 3 ml Q4H PRN HHN Shortness of Breath 04/08/17 15:15 04/13/17 15:14 Allopurinol (Zyloprim) 100 mg DAILY ORAL 11/25/17 09:00 05/09/17 08:59 04/11/17 08:53 Azithromycin 500 mg/Dextrose 275 ml @ 275 mls/hr DAILY@1800 IV 04/09/17 18:30 04/15/17 18:59 04/10/17 17:33 Benazepril HCl (Lotensin) 20 mg DAILY ORAL 04/09/17 09:00 05/09/17 08:59 04/11/17 09:43 Cefepime HCl 2 gm/ Dextrose 55 ml @ 110 mls/hr EVERY 12 HOURS IV 04/08/17 20:00 04/15/17 19:59 04/11/17 08:53 Dextrose (Dextrose 50%) STAT PRN IV Hypoglycemia 04/08/17 15:30 05/08/17 15:29 Heparin Sodium (Porcine) (Heparin 5000 units/ml) 5,000 units EVERY 12 HOURS SUBQ 04/08/17 21:00 05/08/17 20:59 04/10/17 09:39 Insulin Aspart (NovoLOG) BEFORE MEALS AND HS SUBQ 04/08/17 16:30 05/08/17 16:29 04/11/17 13:48 Lorazepam (Ativan 2mg/ml 1ml) 2 mg Q2H PRN IV For Anxiety 04/08/17 15:15 04/15/17 15:14 Morphine Sulfate (Morphine Sulfate) 4 mg Q4H PRN IVP Severe Pain (Pain Scale 7-10) 04/08/17 15:15 04/15/17 15:14 Ondansetron HCl (Zofran) 4 mg Q6H PRN IVP Nausea & Vomiting 04/08/17 15:15 05/08/17 15:14 Pantoprazole (Protonix) 40 mg DAILY IV 04/09/17 09:00 05/09/17 08:59 04/11/17 08:53 Polyethylene Glycol (Miralax) 17 gm DAILYPRN PRN ORAL Constipation 04/08/17 15:15 05/08/17 15:14 Promethazine HCl/ Codeine (Phenergan with Codeine) 5 ml Q4H PRN ORAL For Cough 04/08/17 15:15 05/08/17 15:14 Sodium Chloride 1,000 ml @ 50 mls/hr Q20H IV 04/08/17 16:30 05/08/17 16:29 04/10/17 17:34 Temazepam (Restoril) 15 mg HSPRN PRN ORAL Insomnia 04/10/17 20:15 04/17/17 20:14 04/10/17 22:00 Tramadol HCl (Ultram) 50 mg Q12H PRN ORAL Moderate Pain (Pain Scale 4-6) 04/08/17 16:00 04/15/17 15:59 04/11/17 13:52 Vancomycin HCl (Vanco rx to dose) 1 ea DAILY PRN MISC . 04/08/17 15:30 05/08/17 15:29 Vancomycin HCl/ Dextrose 250 ml @ 166.667 mls/hr Q12HR@0600,1800 IVPB 04/10/17 18:00 04/15/17 17:59 04/11/17 06:53 LUIZ RENTERIA Apr 11, 2017 14:01
--- NOTE | 2017-04-11 14:14 | Infectious Diseases Prog Note ---
Assessment/Plan Assessment/Plan ASSESSMENT: The patient is a 66-year-old male with: 1. Low-grade fever.- improving -Flu neg -Bcx NTD 2 Right upper lobe mass versus pneumonia, rule out tuberculosis., r/o fungal PNA -neg: HIV ag/ab -AFB smear neg x1, MTB PCR p -pending: COcci ,histo, blasto, TB spot -sp cx p CT chest w/: Stable large area of consolidation involving the right upper lobe with nodular groundglass densities at its inferior margin. Again findings may be compatible with pneumonia but the possibility of underlying mass or bronchoalveolar carcinoma cannot be excluded. Again followup to resolution recommended. Further evaluation recommended as indicated. 4. Headache, however, clinical exam and history is not suggestive of meningitis. The patient is improving. No photophobia, nausea, or vomiting. PLAN: 1. Continue the patient on cefepime and vancomycin #4 and Azithromycin #3 pending sputum cultures. 2. Monitor CBC/BMP,temperatures 3 F/u sputum for AFB and cultures, bacterial culture and fungal culture, cryptococcal antigen, histoplasma antibody and coccidiosis serology, MTB PCR, TB spot 4. Continue airborne isolation for now. 5. f/u blood culture. Thank you, Dr. Lin for allowing me to see this patient. I will follow the patient with you during this hospitalization. Subjective Allergies: Coded Allergies: No Known Allergies (Unverified , 12/31/12) Subjective afebrile in >48hrs awaiting studies Objective Vital Signs Last 24 Hour Vital Signs Date Time Temp Pulse Resp B/P (MAP) Pulse Ox O2 Delivery O2 Flow Rate FiO2 04/11/17 12:00 97.3 76 18 126/74 94 04/11/17 09:43 121/79 04/11/17 08:00 94 Room Air 04/11/17 04:00 96.5 73 17 129/76 96 Room Air 04/11/17 00:51 Room Air 04/11/17 00:00 98.0 80 21 130/80 96 Room Air 04/10/17 20:00 Room Air 04/10/17 20:00 98.4 81 21 132/83 95 Room Air 04/10/17 16:00 98.7 86 19 121/76 97 Room Air Height (Feet): 5 Height (Inches): 0.00 Weight (Pounds): 198 Objective PHYSICAL EXAMINATION: HEENT: No pale conjunctivae. No icterus. NECK: No lymphadenopathy. CHEST: Coarse breathing sounds in bilateral lung blake. HEART: S1 and S2. ABDOMEN: Soft and obese. EXTREMITIES: No cyanosis at this time. NEUROLOGIC: Awake and alert. Microbiology Date/Time Source Procedure Growth Status 04/11/17 06:14 Sputum Gram Stain - Final Resulted 04/11/17 06:14 Sputum Sputum Culture Pending Resulted 04/10/17 05:46 Sputum AFB Specimen Processing Tissue - Final Resulted 04/10/17 05:46 Sputum Acid Fast Bacilli Smear - Final Resulted 04/10/17 05:46 Sputum Acid Fast Bacilli Culture Pending Resulted 04/10/17 05:46 Nasopharynx Influenza Types A,B Antigen (ALEX) - Final Complete Laboratory Tests Test 04/11/17 05:15 04/11/17 07:55 White Blood Count 7.1 K/UL (4.8-10.8) Red Blood Count 4.16 M/UL (4.70-6.10) L Hemoglobin 13.2 G/DL (14.2-18.0) L Hematocrit 37.9 % (42.0-52.0) L Mean Corpuscular Volume 91 FL (80-99) Mean Corpuscular Hemoglobin 31.8 PG (27.0-31.0) H Mean Corpuscular Hemoglobin Concent 34.9 G/DL (32.0-36.0) Red Cell Distribution Width 11.3 % (11.6-14.8) L Platelet Count 212 K/UL (150-450) Mean Platelet Volume 6.5 FL (6.5-10.1) Neutrophils (%) (Auto) 68.8 % (45.0-75.0) Lymphocytes (%) (Auto) 19.4 % (20.0-45.0) L Monocytes (%) (Auto) 7.4 % (1.0-10.0) Eosinophils (%) (Auto) 2.9 % (0.0-3.0) Basophils (%) (Auto) 1.5 % (0.0-2.0) Erythrocyte Sedimentation Rate 52 MM/HR (0-20) H Sodium Level 139 MMOL/L (136-145) Potassium Level 4.1 MMOL/L (3.5-5.1) Chloride Level 103 MMOL/L (98-107) Carbon Dioxide Level 26 MMOL/L (21-32) Anion Gap 10 mmol/L (5-15) Blood Urea Nitrogen 12 mg/dL (7-18) Creatinine 0.8 MG/DL (0.55-1.30) Estimat Glomerular Filtration Rate > 60 mL/min (>60) Glucose Level 122 MG/DL (74-106) H Calcium Level 8.9 MG/DL (8.5-10.1) Phosphorus Level 3.1 MG/DL (2.5-4.9) Magnesium Level 1.9 MG/DL (1.8-2.4) Total Bilirubin 0.6 MG/DL (0.2-1.0) Aspartate Amino Transf (AST/SGOT) 22 U/L (15-37) Alanine Aminotransferase (ALT/SGPT) 30 U/L (12-78) Alkaline Phosphatase 53 U/L (46-116) C-Reactive Protein, Quantitative 4.7 mg/dL (0.00-0.90) H Total Protein 7.0 G/DL (6.4-8.2) Albumin 3.3 G/DL (3.4-5.0) L Globulin 3.7 g/dL Albumin/Globulin Ratio 0.9 (1.0-2.7) L TB Test (T-Spot) Pending TB Test Nil Control (T-Spot) Pending TB Test Panel A (T-Spot) Pending TB Test Panel B (T-Spot) Pending TB Test Positive Control (T-Spot) Pending Prothrombin Time 10.4 SEC (9.30-11.50) Prothromb Time International Ratio 1.0 (0.9-1.1) Activated Partial Thromboplast Time 26 SEC (23-33) Current Medications Medications (Trade) Dose Ordered Sig/Tamiko Route PRN Reason Start Time Stop Time Status Last Admin Dose Admin Acetaminophen (Tylenol) 650 mg Q4H PRN ORAL T>100.5 04/08/17 15:15 05/08/17 15:14 04/09/17 07:51 Acetaminophen (Tylenol) 650 mg Q4H PRN ORAL Mild Pain 04/09/17 11:30 05/09/17 11:29 Albuterol/ Ipratropium (Albuterol/ Ipratropium) 3 ml Q4H PRN HHN Shortness of Breath 04/08/17 15:15 04/13/17 15:14 Allopurinol (Zyloprim) 100 mg DAILY ORAL 04/09/17 09:00 05/09/17 08:59 04/11/17 08:53 Azithromycin 500 mg/Dextrose 275 ml @ 275 mls/hr DAILY@1800 IV 04/09/17 18:30 04/15/17 18:59 04/10/17 17:33 Benazepril HCl (Lotensin) 20 mg DAILY ORAL 04/09/17 09:00 05/09/17 08:59 04/11/17 09:43 Cefepime HCl 2 gm/ Dextrose 55 ml @ 110 mls/hr EVERY 12 HOURS IV 04/08/17 20:00 04/15/17 19:59 04/11/17 08:53 Dextrose (Dextrose 50%) STAT PRN IV Hypoglycemia 04/08/17 15:30 05/08/17 15:29 Heparin Sodium (Porcine) (Heparin 5000 units/ml) 5,000 units EVERY 12 HOURS SUBQ 04/08/17 21:00 05/08/17 20:59 04/10/17 09:39 Insulin Aspart (NovoLOG) BEFORE MEALS AND HS SUBQ 04/08/17 16:30 05/08/17 16:29 04/11/17 13:48 Lorazepam (Ativan 2mg/ml 1ml) 2 mg Q2H PRN IV For Anxiety 04/08/17 15:15 04/15/17 15:14 Morphine Sulfate (Morphine Sulfate) 4 mg Q4H PRN IVP Severe Pain (Pain Scale 7-10) 04/08/17 15:15 04/15/17 15:14 Ondansetron HCl (Zofran) 4 mg Q6H PRN IVP Nausea & Vomiting 04/08/17 15:15 05/08/17 15:14 Pantoprazole (Protonix) 40 mg DAILY IV 04/09/17 09:00 05/09/17 08:59 04/11/17 08:53 Polyethylene Glycol (Miralax) 17 gm DAILYPRN PRN ORAL Constipation 04/08/17 15:15 05/08/17 15:14 Promethazine HCl/ Codeine (Phenergan with Codeine) 5 ml Q4H PRN ORAL For Cough 04/08/17 15:15 05/08/17 15:14 Sodium Chloride 1,000 ml @ 50 mls/hr Q20H IV 04/08/17 16:30 05/08/17 16:29 04/10/17 17:34 Temazepam (Restoril) 15 mg HSPRN PRN ORAL Insomnia 04/10/17 20:15 04/17/17 20:14 04/10/17 22:00 Tramadol HCl (Ultram) 50 mg Q12H PRN ORAL Moderate Pain (Pain Scale 4-6) 04/08/17 16:00 04/15/17 15:59 04/11/17 13:52 Vancomycin HCl (Vanco rx to dose) 1 ea DAILY PRN MISC . 04/08/17 15:30 05/08/17 15:29 Vancomycin HCl/ Dextrose 250 ml @ 166.667 mls/hr Q12HR@0600,1800 IVPB 04/10/17 18:00 04/15/17 17:59 04/11/17 06:53 Fartun Pitt M.D. Apr 11, 2017 14:14
[2017-04-11] MEDS ORDERED: Tubing IV Secondary IV ONE (14:44)
[2017-04-11] MEDS ORDERED: 1/2 NS 1000ml IV ONE (14:44)
--- NOTE | 2017-04-11 15:17 | Diagnostic Imaging Report ---
Indication: Status post CT-guided lung biopsy Technique: One view of the chest Comparison: 06/08/2016 Findings: Again demonstrated is right apical opacity, equivocally slightly less prominent than previously. The remainder the lungs and pleural spaces are clear. No pneumothorax. Normal heart size Impression: No evidence of pneumothorax, status post right lung biopsy
[2017-04-11 16:00] VITALS: BP 120/78
[2017-04-11 16:15] LABS: MTB PROCESSING Concentration (.)
[2017-04-11] MEDS: Azithromycin 500 MG in D5W 275 ML IV SCH (17:04)
[2017-04-11 20:00] VITALS: BP 145/80
[2017-04-12] VITALS: BP 124/65
[2017-04-12 04:07] VITALS: BP 125/70
[2017-04-12] MEDS: Vancomycin 1250mg/D5W 250ml IVPB SCH ×2 (05:06→19:08)
[2017-04-12] MEDS: traMADol 50mg tab ORAL PRN (05:06)
[2017-04-12] MEDS: NovoLOG Insulin Flexpen SUBQ SCH ×4 (06:14→21:10)
[2017-04-12 08:00] VITALS: BP 149/82
[2017-04-12] MEDS: Pantoprazole Inj IV SCH (08:12)
[2017-04-12] MEDS: Cefepime HCl 2 GM in D5W 55 ML IV SCH ×2 (08:12→20:59)
[2017-04-12] MEDS: Allopurinol 100mg Tab ORAL SCH (08:12)
[2017-04-12] MEDS: Heparin 5000 units/ml inj SUBQ SCH ×2 (08:14→21:09)
[2017-04-12] MEDS: Benazepril 10mg tab ORAL SCH (08:17)
[2017-04-12 10:20] LABS: CA 125 13.1 U/mL (Not Estab.); CA 27.29 9.7 U/mL (0.0-38.6); CA15-3 9.5 U/mL (0.0-25.0)
[2017-04-12 11:15] LABS: CRYPTOCOCCAL ANTIGEN SERUM Negative (Negative)
[2017-04-12] MEDS: Morphine Sulfate 4mg/ml Inj IVP PRN (11:51)
[2017-04-12 12:00] VITALS: BP 144/84
--- NOTE | 2017-04-12 12:24 | Infectious Diseases Prog Note ---
Assessment/Plan Assessment/Plan ASSESSMENT: The patient is a 66-year-old male with: 1. Low-grade fever.- improving -Flu neg -Bcx NTD 2 Right upper lobe mass versus pneumonia, rule out tuberculosis., r/o fungal PNA - s/p lung biopsy 04/11 -neg: HIV ag/ab -AFB smear neg x1, MTB PCR p -pending: COcci ,histo, blasto, TB spot -sp cx normal ingrid to datye CT chest w/: Stable large area of consolidation involving the right upper lobe with nodular groundglass densities at its inferior margin. Again findings may be compatible with pneumonia but the possibility of underlying mass or bronchoalveolar carcinoma cannot be excluded. Again followup to resolution recommended. Further evaluation recommended as indicated. 4. Headache, however, clinical exam and history is not suggestive of meningitis. The patient is improving. No photophobia, nausea, or vomiting. PLAN: 1. D/C IV Vancomycin #5 and Continue cefepime #5 and Azithromycin #4/5 pending sputum cultures. 2. Monitor CBC/BMP,temperatures 3 F/u sputum for AFB and cultures, bacterial culture and fungal culture, cryptococcal antigen, histoplasma antibody and coccidiosis serology, MTB PCR, TB spot -f/u lung tissue path and cultures 4. Continue airborne isolation for now. 5. f/u blood culture. Thank you, Dr. Lin for allowing me to see this patient. I will follow the patient with you during this hospitalization. Subjective Allergies: Coded Allergies: No Known Allergies (Unverified , 12/31/12) Subjective afebrile in >72hrs awaiting studies and AFB sputum s/p lung mass biopsy yesterday- tissue sent for path and cx Objective Vital Signs Last 24 Hour Vital Signs Date Time Temp Pulse Resp B/P (MAP) Pulse Ox O2 Delivery O2 Flow Rate FiO2 04/12/17 08:17 152/82 04/12/17 08:00 97.2 87 18 149/82 94 Room Air 04/12/17 04:07 98.2 82 18 125/70 97 04/12/17 00:00 97.9 78 20 124/65 95 Room Air 04/11/17 20:00 97.1 80 20 145/80 96 Room Air 04/11/17 16:00 97.9 77 18 120/78 93 Height (Feet): 5 Height (Inches): 0.00 Weight (Pounds): 198 Objective PHYSICAL EXAMINATION: HEENT: No pale conjunctivae. No icterus. NECK: No lymphadenopathy. CHEST: Coarse breathing sounds in bilateral lung blake. HEART: S1 and S2. ABDOMEN: Soft and obese. EXTREMITIES: No cyanosis at this time. NEUROLOGIC: Awake and alert. Microbiology Date/Time Source Procedure Growth Status 04/11/17 06:14 Sputum Gram Stain - Final Resulted 04/11/17 06:14 Sputum Sputum Culture - Preliminary NORMAL UPPER RESPIRATORY INGRID AT 24 ... Resulted 04/10/17 05:46 Sputum AFB Specimen Processing Tissue - Final Resulted 04/10/17 05:46 Sputum Acid Fast Bacilli Smear - Final Resulted 04/10/17 05:46 Sputum Acid Fast Bacilli Culture Pending Resulted 04/10/17 05:46 Nasopharynx Influenza Types A,B Antigen (ALEX) - Final Complete Laboratory Tests Test 04/11/17 17:16 04/12/17 04:30 Vancomycin Level Trough 10.7 ug/mL (5.0-12.0) Coccidioides Antibody (Comp Fix) Pending Current Medications Medications (Trade) Dose Ordered Sig/Tamiko Route PRN Reason Start Time Stop Time Status Last Admin Dose Admin Acetaminophen (Tylenol) 650 mg Q4H PRN ORAL T>100.5 04/08/17 15:15 05/08/17 15:14 04/09/17 07:51 Acetaminophen (Tylenol) 650 mg Q4H PRN ORAL Mild Pain 04/09/17 11:30 05/09/17 11:29 Albuterol/ Ipratropium (Albuterol/ Ipratropium) 3 ml Q4H PRN HHN Shortness of Breath 04/08/17 15:15 04/13/17 15:14 Allopurinol (Zyloprim) 100 mg DAILY ORAL 04/09/17 09:00 05/09/17 08:59 04/12/17 08:12 Azithromycin 500 mg/Dextrose 275 ml @ 275 mls/hr DAILY@1800 IV 04/09/17 18:30 04/15/17 18:59 04/11/17 17:04 Benazepril HCl (Lotensin) 20 mg DAILY ORAL 04/09/17 09:00 05/09/17 08:59 04/12/17 08:17 Cefepime HCl 2 gm/ Dextrose 55 ml @ 110 mls/hr EVERY 12 HOURS IV 04/08/17 20:00 04/15/17 19:59 04/12/17 08:12 Dextrose (Dextrose 50%) STAT PRN IV Hypoglycemia 04/08/17 15:30 05/08/17 15:29 Heparin Sodium (Porcine) (Heparin 5000 units/ml) 5,000 units EVERY 12 HOURS SUBQ 04/08/17 21:00 05/08/17 20:59 04/12/17 08:14 Insulin Aspart (NovoLOG) BEFORE MEALS AND HS SUBQ 04/08/17 16:30 05/08/17 16:29 04/12/17 11:54 Lorazepam (Ativan 2mg/ml 1ml) 2 mg Q2H PRN IV For Anxiety 04/08/17 15:15 04/15/17 15:14 Morphine Sulfate (Morphine Sulfate) 4 mg Q4H PRN IVP Severe Pain (Pain Scale 7-10) 04/08/17 15:15 04/15/17 15:14 04/12/17 11:51 Ondansetron HCl (Zofran) 4 mg Q6H PRN IVP Nausea & Vomiting 04/08/17 15:15 05/08/17 15:14 Pantoprazole (Protonix) 40 mg DAILY IV 04/09/17 09:00 05/09/17 08:59 04/12/17 08:12 Polyethylene Glycol (Miralax) 17 gm DAILYPRN PRN ORAL Constipation 04/08/17 15:15 05/08/17 15:14 Promethazine HCl/ Codeine (Phenergan with Codeine) 5 ml Q4H PRN ORAL For Cough 04/08/17 15:15 05/08/17 15:14 Sodium Chloride 1,000 ml @ 50 mls/hr Q20H IV 04/08/17 16:30 05/08/17 16:29 04/11/17 20:31 Temazepam (Restoril) 15 mg HSPRN PRN ORAL Insomnia 04/10/17 20:15 04/17/17 20:14 04/11/17 22:38 Tramadol HCl (Ultram) 50 mg Q12H PRN ORAL Moderate Pain (Pain Scale 4-6) 04/08/17 16:00 12/1/17 15:59 04/12/17 05:06 Vancomycin HCl (Vanco rx to dose) 1 ea DAILY PRN MISC . 04/08/17 15:30 05/08/17 15:29 Vancomycin HCl/ Dextrose 250 ml @ 166.667 mls/hr Q12HR@0600,1800 IVPB 04/10/17 18:00 04/15/17 17:59 04/12/17 05:06 Fartun Pitt M.D. Apr 12, 2017 12:24
[2017-04-12 13:11] LABS: BLASTOMYCES AB - ID Negative (Neg:<1:1)
[2017-04-12 16:00] VITALS: BP 150/89
[2017-04-12] MEDS: Azithromycin 500 MG in D5W 275 ML IV SCH (17:56)
--- NOTE | 2017-04-12 18:52 | Pulmonology Progress Note ---
Assessment/Plan Problems: (1) Pneumonia (2) Diabetes mellitus (3) Gout (4) History of hypertension Assessment/Plan asymptoamtic ID f/u reviewed and appreciated PPD is [address] guided biopsy done today, d/w dr Gaona continue abx f/u clinically sputum induction sent one today Subjective ROS Limited/Unobtainable: No Constitutional: Reports: no symptoms HEENT: Repors: no symptoms Allergies: Coded Allergies: No Known Allergies (Unverified , 12/31/12) Objective Last 24 Hour Vital Signs Date Time Temp Pulse Resp B/P (MAP) Pulse Ox O2 Delivery O2 Flow Rate FiO2 04/12/17 16:00 97.9 87 18 150/89 97 Room Air 04/12/17 12:00 96.6 88 18 144/84 95 Room Air 04/12/17 08:17 152/82 04/12/17 08:00 97.2 87 18 149/82 94 Room Air 04/12/17 04:07 98.2 82 18 125/70 97 04/12/17 00:00 97.9 78 20 124/65 95 Room Air 04/11/17 20:00 97.1 80 20 145/80 96 Room Air Intake and Output 04/12/17 04/13/17 19:00 07:00 Intake Total 260 ml Output Total 600 ml Balance -340 ml IV Total 260 ml Output Urine Total 600 ml General Appearance: WD/WN HEENT: normocephalic, atraumatic Respiratory/Chest: chest wall non-tender, lungs clear Cardiovascular: normal peripheral pulses, normal rate Abdomen: normal bowel sounds, soft, non tender Genitourinary: normal external genitalia Extremities: no clubbing 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 Resulted 04/11/17 06:14 Sputum AFB Specimen Processing Tissue - Final Resulted 04/11/17 06:14 Sputum Acid Fast Bacilli Smear - Final Resulted 04/11/17 06:14 Sputum Acid Fast Bacilli Culture Pending Resulted 04/10/17 05:46 Sputum AFB Specimen Processing Tissue - Final Resulted 04/10/17 05:46 Sputum Acid Fast Bacilli Smear - Final Resulted 04/10/17 05:46 Sputum Acid Fast Bacilli Culture Pending Resulted 04/10/17 05:46 Nasopharynx Influenza Types A,B Antigen (ALEX) - Final Complete Laboratory Tests 04/12/17 04:30: Coccidioides Antibody (Comp Fix) [Pending] Current Medications Medications (Trade) Dose Ordered Sig/Tamiko Route PRN Reason Start Time Stop Time Status Last Admin Dose Admin Acetaminophen (Tylenol) 650 mg Q4H PRN ORAL T>100.5 04/08/17 15:15 05/08/17 15:14 04/09/17 07:51 Acetaminophen (Tylenol) 650 mg Q4H PRN ORAL Mild Pain 04/09/17 11:30 05/09/17 11:29 Albuterol/ Ipratropium (Albuterol/ Ipratropium) 3 ml Q4H PRN HHN Shortness of Breath 04/08/17 15:15 04/13/17 15:14 Allopurinol (Zyloprim) 100 mg DAILY ORAL 04/09/17 09:00 05/09/17 08:59 04/12/17 08:12 Azithromycin 500 mg/Dextrose 275 ml @ 275 mls/hr DAILY@1800 IV 04/09/17 18:30 04/15/17 18:59 04/12/17 17:56 Benazepril HCl (Lotensin) 20 mg DAILY ORAL 04/09/17 09:00 05/09/17 08:59 04/12/17 08:17 Cefepime HCl 2 gm/ Dextrose 55 ml @ 110 mls/hr EVERY 12 HOURS IV 04/08/17 20:00 04/15/17 19:59 04/12/17 08:12 Dextrose (Dextrose 50%) STAT PRN IV Hypoglycemia 04/08/17 15:30 05/08/17 15:29 Heparin Sodium (Porcine) (Heparin 5000 units/ml) 5,000 units EVERY 12 HOURS SUBQ 04/08/17 21:00 05/08/17 20:59 04/12/17 08:14 Insulin Aspart (NovoLOG) BEFORE MEALS AND HS SUBQ 04/08/17 16:30 05/08/17 16:29 04/12/17 17:58 Lorazepam (Ativan 2mg/ml 1ml) 2 mg Q2H PRN IV For Anxiety 04/08/17 15:15 12/1/17 15:14 Morphine Sulfate (Morphine Sulfate) 4 mg Q4H PRN IVP Severe Pain (Pain Scale 7-10) 04/08/17 15:15 04/15/17 15:14 04/12/17 11:51 Ondansetron HCl (Zofran) 4 mg Q6H PRN IVP Nausea & Vomiting 04/08/17 15:15 05/08/17 15:14 Pantoprazole (Protonix) 40 mg DAILY IV 04/09/17 09:00 05/09/17 08:59 04/12/17 08:12 Polyethylene Glycol (Miralax) 17 gm DAILYPRN PRN ORAL Constipation 04/08/17 15:15 05/08/17 15:14 Promethazine HCl/ Codeine (Phenergan with Codeine) 5 ml Q4H PRN ORAL For Cough 04/08/17 15:15 05/08/17 15:14 Sodium Chloride 1,000 ml @ 50 mls/hr Q20H IV 04/08/17 16:30 05/08/17 16:29 04/11/17 20:31 Temazepam (Restoril) 15 mg HSPRN PRN ORAL Insomnia 04/10/17 20:15 04/17/17 20:14 04/11/17 22:38 Tramadol HCl (Ultram) 50 mg Q12H PRN ORAL Moderate Pain (Pain Scale 4-6) 04/08/17 16:00 04/15/17 15:59 04/12/17 05:06 Vancomycin HCl (Vanco rx to dose) 1 ea DAILY PRN MISC . 04/08/17 15:30 05/08/17 15:29 Vancomycin HCl/ Dextrose 250 ml @ 166.667 mls/hr Q12HR@0600,1800 IVPB 04/10/17 18:00 04/15/17 17:59 04/12/17 05:06 LUIZ RENTERIA Apr 12, 2017 18:52
[2017-04-12 19:55] VITALS: BP 136/71
[2017-04-12 21:55] LABS: HISTO AB MYCELIAL Negative (Neg:<1:2); HISTOPLASMA MYCELIAL ID AB Negative (Negative)
[2017-04-13] VITALS (7 sets, daily range): BP systolic 98–152; BP diastolic 53–96
[2017-04-13] MEDS: Vancomycin 1250mg/D5W 250ml IVPB SCH (05:07)
[2017-04-13] MEDS: NovoLOG Insulin Flexpen SUBQ SCH ×4 (06:08→20:44)
[2017-04-13] MEDS: Pantoprazole Inj IV SCH (09:07)
[2017-04-13] MEDS: Allopurinol 100mg Tab ORAL SCH (09:08)
[2017-04-13] MEDS: Benazepril 10mg tab ORAL SCH (09:08)
[2017-04-13] MEDS: Cefepime HCl 2 GM in D5W 55 ML IV SCH (09:09)
[2017-04-13] MEDS: Heparin 5000 units/ml inj SUBQ SCH ×2 (09:11→20:46)
[2017-04-13] MEDS: Morphine Sulfate 4mg/ml Inj IVP PRN ×3 (09:30→20:38)
--- NOTE | 2017-04-13 11:38 | Infectious Diseases Prog Note ---
Assessment/Plan Assessment/Plan ASSESSMENT: The patient is a 66-year-old male with: 1. Low-grade fever.- intermittent, ongoing -Flu neg -Bcx NTD 2 Right upper lobe mass versus pneumonia, rule out tuberculosis., r/o fungal PNA - s/p lung biopsy 04/11 -neg: HIV ag/ab -AFB smear neg x2, MTB PCR p -pending: COcci ,histo, blasto, TB spot, path -sp cx normal ingrid CT chest w/: Stable large area of consolidation involving the right upper lobe with nodular groundglass densities at its inferior margin. Again findings may be compatible with pneumonia but the possibility of underlying mass or bronchoalveolar carcinoma cannot be excluded. Again followup to resolution recommended. Further evaluation recommended as indicated. 4. Headache, however, clinical exam and history is not suggestive of meningitis. The patient is improving. No photophobia, nausea, or vomiting. PLAN: 1. Switch cefepime #6/7-10 to Ceftriaxone and continue Azithromycin #5/5 for presumed bacterial superimposed pNA -04/12 SP IV Vancomycin #5 2. Monitor CBC/BMP,temperatures 3 F/u sputum for AFB and cultures, bacterial culture and fungal culture, cryptococcal antigen, histoplasma antibody and coccidiosis serology, MTB PCR, TB spot -f/u lung tissue path and cultures 4. Continue airborne isolation for now. 5. f/u blood culture. Thank you, Dr. Lin for allowing me to see this patient. I will follow the patient with you during this hospitalization. Subjective Allergies: Coded Allergies: No Known Allergies (Unverified , 12/31/12) Subjective low grade fevers Tm 100.3 awaiting AFB sputum and lung path sp cx normal ingrid Objective Vital Signs Last 24 Hour Vital Signs Date Time Temp Pulse Resp B/P (MAP) Pulse Ox O2 Delivery O2 Flow Rate FiO2 04/13/17 09:08 152/83 04/13/17 08:15 97.2 85 21 152/83 97 Room Air 04/13/17 04:00 97.5 79 17 136/76 94 Room Air 04/13/17 00:00 100.2 87 18 126/79 94 Room Air 04/12/17 19:55 100.3 90 19 136/71 98 Room Air 04/12/17 16:00 97.9 87 18 150/89 97 Room Air 04/12/17 12:00 96.6 88 18 144/84 95 Room Air Height (Feet): 5 Height (Inches): 0.00 Weight (Pounds): 198 Objective PHYSICAL EXAMINATION: HEENT: No pale conjunctivae. No icterus. NECK: No lymphadenopathy. CHEST: Coarse breathing sounds in bilateral lung blake. HEART: S1 and S2. ABDOMEN: Soft and obese. EXTREMITIES: No cyanosis at this time. NEUROLOGIC: Awake and alert. Microbiology Date/Time Source Procedure Growth Status 04/11/17 06:14 Sputum Gram Stain - Final Complete 04/11/17 06:14 Sputum Sputum Culture - Final NORMAL UPPER RESPIRATORY INGRID PRESENT Complete 04/11/17 06:14 Sputum AFB Specimen Processing Tissue - Final Resulted 04/11/17 06:14 Sputum Acid Fast Bacilli Smear - Final Resulted 04/11/17 06:14 Sputum Acid Fast Bacilli Culture Pending Resulted Current Medications Medications (Trade) Dose Ordered Sig/Tamiko Route PRN Reason Start Time Stop Time Status Last Admin Dose Admin Acetaminophen (Tylenol) 650 mg Q4H PRN ORAL T>100.5 04/08/17 15:15 05/08/17 15:14 04/09/17 07:51 Acetaminophen (Tylenol) 650 mg Q4H PRN ORAL Mild Pain 04/09/17 11:30 05/09/17 11:29 Albuterol/ Ipratropium (Albuterol/ Ipratropium) 3 ml Q4H PRN HHN Shortness of Breath 04/08/17 15:15 04/13/17 15:14 Allopurinol (Zyloprim) 100 mg DAILY ORAL 04/09/17 09:00 05/09/17 08:59 04/13/17 09:08 Azithromycin 500 mg/Dextrose 275 ml @ 275 mls/hr DAILY@1800 IV 04/09/17 18:30 04/15/17 18:59 04/12/17 17:56 Benazepril HCl (Lotensin) 20 mg DAILY ORAL 04/09/17 09:00 05/09/17 08:59 04/13/17 09:08 Cefepime HCl 2 gm/ Dextrose 55 ml @ 110 mls/hr EVERY 12 HOURS IV 04/08/17 20:00 04/15/17 19:59 04/13/17 09:09 Dextrose (Dextrose 50%) STAT PRN IV Hypoglycemia 04/08/17 15:30 05/08/17 15:29 Heparin Sodium (Porcine) (Heparin 5000 units/ml) 5,000 units EVERY 12 HOURS SUBQ 04/08/17 21:00 05/08/17 20:59 04/13/17 09:11 Insulin Aspart (NovoLOG) BEFORE MEALS AND HS SUBQ 04/08/17 16:30 05/08/17 16:29 04/12/17 21:10 Lorazepam (Ativan 2mg/ml 1ml) 2 mg Q2H PRN IV For Anxiety 04/08/17 15:15 04/15/17 15:14 Morphine Sulfate (Morphine Sulfate) 4 mg Q4H PRN IVP Severe Pain (Pain Scale 7-10) 04/08/17 15:15 04/15/17 15:14 04/13/17 09:30 Ondansetron HCl (Zofran) 4 mg Q6H PRN IVP Nausea & Vomiting 04/08/17 15:15 05/08/17 15:14 Pantoprazole (Protonix) 40 mg DAILY IV 04/09/17 09:00 05/09/17 08:59 04/13/17 09:07 Polyethylene Glycol (Miralax) 17 gm DAILYPRN PRN ORAL Constipation 04/08/17 15:15 05/08/17 15:14 Promethazine HCl/ Codeine (Phenergan with Codeine) 5 ml Q4H PRN ORAL For Cough 04/08/17 15:15 05/08/17 15:14 Sodium Chloride 1,000 ml @ 50 mls/hr Q20H IV 04/08/17 16:30 05/08/17 16:29 04/12/17 20:58 Temazepam (Restoril) 15 mg HSPRN PRN ORAL Insomnia 04/10/17 20:15 04/17/17 20:14 04/12/17 23:48 Tramadol HCl (Ultram) 50 mg Q12H PRN ORAL Moderate Pain (Pain Scale 4-6) 04/08/17 16:00 04/15/17 15:59 04/12/17 05:06 Vancomycin HCl (Vanco rx to dose) 1 ea DAILY PRN MISC . 04/08/17 15:30 05/08/17 15:29 Vancomycin HCl/ Dextrose 250 ml @ 166.667 mls/hr Q12HR@0600,1800 IVPB 04/10/17 18:00 04/15/17 17:59 04/13/17 05:07 Fartun Pitt M.D. Apr 13, 2017 11:38
[2017-04-13 12:13] LABS: MTB DETECTION NAA Negative (Negative)
--- NOTE | 2017-04-13 17:01 | Pulmonology Progress Note ---
Assessment/Plan Problems: (1) Pneumonia (2) Diabetes mellitus (3) Gout (4) History of hypertension Assessment/Plan asymptoamtic ID f/u reviewed and appreciated PPD is [address] guided biopsy done today, d/w dr Gaona continue abx TB PCR negative called pathology, their voice mail is full sputum induction sent one today Subjective ROS Limited/Unobtainable: No Constitutional: Reports: no symptoms HEENT: Repors: no symptoms Respiratory: Reports: no symptoms Allergies: Coded Allergies: No Known Allergies (Unverified , 12/31/12) Objective Last 24 Hour Vital Signs Date Time Temp Pulse Resp B/P (MAP) Pulse Ox O2 Delivery O2 Flow Rate FiO2 04/13/17 16:29 98.1 04/13/17 16:00 98.1 78 20 137/86 95 Room Air 04/13/17 12:14 98.8 88 22 140/96 97 Room Air 04/13/17 09:08 152/83 04/13/17 08:15 97.2 85 21 152/83 97 Room Air 04/13/17 04:00 97.5 79 17 136/76 94 Room Air 04/13/17 00:00 100.2 87 18 126/79 94 Room Air 04/12/17 19:55 100.3 90 19 136/71 98 Room Air Intake and Output 04/13/17 04/14/17 19:00 07:00 Intake Total 935 ml Output Total 1600 ml Balance -665 ml Intake Oral 480 ml IV Total 455 ml Output Urine Total 1600 ml # Voids 4 General Appearance: WD/WN HEENT: normocephalic, atraumatic, mucous membranes moist Respiratory/Chest: chest wall non-tender, lungs clear Cardiovascular: normal peripheral pulses, regular rhythm Abdomen: normal bowel sounds, soft, non tender Genitourinary: normal external genitalia Extremities: no cyanosis Skin: no rash, no lesions Microbiology Date/Time Source Procedure Growth Status 04/12/17 05:30 Sputum AFB Specimen Processing Tissue - Final Resulted 04/12/17 05:30 Sputum Acid Fast Bacilli Smear - Final Resulted 04/12/17 05:30 Sputum Acid Fast Bacilli Culture Pending Resulted 04/11/17 06:14 Sputum Gram Stain - Final Complete 04/11/17 06:14 Sputum Sputum Culture - Final NORMAL UPPER RESPIRATORY MARKO PRESENT Complete 04/11/17 06:14 Sputum AFB Specimen Processing Tissue - Final Resulted 04/11/17 06:14 Sputum Acid Fast Bacilli Smear - Final Resulted 04/11/17 06:14 Sputum Acid Fast Bacilli Culture Pending Resulted Current Medications Medications (Trade) Dose Ordered Sig/Tamiko Route PRN Reason Start Time Stop Time Status Last Admin Dose Admin Acetaminophen (Tylenol) 650 mg Q4H PRN ORAL T>100.5 04/08/17 15:15 05/08/17 15:14 04/09/17 07:51 Acetaminophen (Tylenol) 650 mg Q4H PRN ORAL Mild Pain 04/09/17 11:30 05/09/17 11:29 Allopurinol (Zyloprim) 100 mg DAILY ORAL 04/09/17 09:00 05/09/17 08:59 04/13/17 09:08 Azithromycin (Zithromax) 500 mg ONCE ONCE ORAL 04/13/17 18:00 04/13/17 18:01 Benazepril HCl (Lotensin) 20 mg DAILY ORAL 04/09/17 09:00 05/09/17 08:59 04/13/17 09:08 Ceftriaxone Sodium 1 gm/ Dextrose 55 ml @ 110 mls/hr Q24H IVPB 04/13/17 21:00 04/20/17 20:59 Dextrose (Dextrose 50%) STAT PRN IV Hypoglycemia 04/08/17 15:30 05/08/17 15:29 Heparin Sodium (Porcine) (Heparin 5000 units/ml) 5,000 units EVERY 12 HOURS SUBQ 04/08/17 21:00 05/08/17 20:59 04/13/17 09:11 Insulin Aspart (NovoLOG) BEFORE MEALS AND HS SUBQ 04/08/17 16:30 05/08/17 16:29 04/13/17 12:32 Lorazepam (Ativan 2mg/ml 1ml) 2 mg Q2H PRN IV For Anxiety 04/08/17 15:15 04/15/17 15:14 Morphine Sulfate (Morphine Sulfate) 4 mg Q4H PRN IVP Severe Pain (Pain Scale 7-10) 04/08/17 15:15 04/15/17 15:14 04/13/17 15:59 Ondansetron HCl (Zofran) 4 mg Q6H PRN IVP Nausea & Vomiting 04/08/17 15:15 05/08/17 15:14 Pantoprazole (Protonix) 40 mg DAILY IV 04/09/17 09:00 05/09/17 08:59 04/13/17 09:07 Polyethylene Glycol (Miralax) 17 gm DAILYPRN PRN ORAL Constipation 04/08/17 15:15 05/08/17 15:14 Promethazine HCl/ Codeine (Phenergan with Codeine) 5 ml Q4H PRN ORAL For Cough 04/08/17 15:15 05/08/17 15:14 Sodium Chloride 1,000 ml @ 50 mls/hr Q20H IV 04/08/17 16:30 05/08/17 16:29 04/12/17 20:58 Temazepam (Restoril) 15 mg HSPRN PRN ORAL Insomnia 04/10/17 20:15 04/17/17 20:14 04/12/17 23:48 Tramadol HCl (Ultram) 50 mg Q12H PRN ORAL Moderate Pain (Pain Scale 4-6) 04/08/17 16:00 04/15/17 15:59 04/12/17 05:06 LUIZ RENTERIA Apr 13, 2017 17:01
[2017-04-13] MEDS ORDERED: Azithromycin 250mg tab ORAL ONE (18:00)
[2017-04-13] MEDS: cefTRIAXone 1 GM in D5W 55 ML IVPB SCH (20:37)
[2017-04-14 04:06] VITALS: BP 113/66
[2017-04-14] MEDS: NovoLOG Insulin Flexpen SUBQ SCH ×4 (06:17→21:00)
[2017-04-14 08:15] VITALS: BP 138/74
[2017-04-14] MEDS: Allopurinol 100mg Tab ORAL SCH (09:21)
[2017-04-14] MEDS: Benazepril 10mg tab ORAL SCH (09:21)
[2017-04-14] MEDS: Pantoprazole Inj IV SCH (09:22)
[2017-04-14] MEDS: Heparin 5000 units/ml inj SUBQ SCH ×2 (09:25→21:13)
--- NOTE | 2017-04-14 10:44 | Infectious Diseases Prog Note ---
Assessment/Plan Assessment/Plan ASSESSMENT: The patient is a 66-year-old male with: 1. Low-grade fever.- intermittent, improving -Flu neg -Bcx NTD 2 Right upper lobe mass versus pneumonia, rule out tuberculosis., r/o fungal PNA - s/p lung biopsy 04/11 -neg: HIV ag/ab, Cr Ag, Histoplasma Ab, Blastomyces ab. -AFB smear neg x3, MTB PCR neg -PPD+28mm -pending: COcciTB spot, path -sp cx normal ingrid CT chest w/: Stable large area of consolidation involving the right upper lobe with nodular groundglass densities at its inferior margin. Again findings may be compatible with pneumonia but the possibility of underlying mass or bronchoalveolar carcinoma cannot be excluded. Again followup to resolution recommended. Further evaluation recommended as indicated. 4. Headache, however, clinical exam and history is not suggestive of meningitis. The patient is improving. No photophobia, nausea, or vomiting. PLAN: 1. Continue Ceftriaxone abx d # 7/7-10 for presumed bacterial superimposed pNA -04/13 Cefepime #6, Azithromycin #5 -04/12 SP IV Vancomycin #5 2. Monitor CBC/BMP,temperatures 3 F/u sputum for AFB and cultures, bacterial culture and fungal culture, coccidiosis serology, TB spot -f/u lung tissue path and cultures 4. Continue airborne isolation for now. 5. f/u blood culture. Thank you, Dr. Lin for allowing me to see this patient. I will follow the patient with you during this hospitalization. Subjective Allergies: Coded Allergies: No Known Allergies (Unverified , 12/31/12) Subjective afebrile in 24hrs prelimiinary path shows acute on chronic inflammation non evidence of malignancy AFB cx smear neg x3 and MTB PCR neg x1 PPD +28mm sp cx normal ingrid Objective Vital Signs Last 24 Hour Vital Signs Date Time Temp Pulse Resp B/P (MAP) Pulse Ox O2 Delivery O2 Flow Rate FiO2 04/14/17 09:21 138/74 04/14/17 08:15 97.3 83 21 138/74 99 Room Air 04/14/17 04:06 98.1 74 20 113/66 98 Room Air 04/13/17 23:28 98.0 79 20 98/53 98 Room Air 04/13/17 20:10 Room Air 04/13/17 20:08 98.1 81 20 144/92 97 Room Air 04/13/17 16:29 98.1 04/13/17 16:00 98.1 78 20 137/86 95 Room Air 04/13/17 12:14 98.8 88 22 140/96 97 Room Air Height (Feet): 5 Height (Inches): 0.00 Weight (Pounds): 198 Objective PHYSICAL EXAMINATION: HEENT: No pale conjunctivae. No icterus. NECK: No lymphadenopathy. CHEST: Coarse breathing sounds in bilateral lung blake. HEART: S1 and S2. ABDOMEN: Soft and obese. EXTREMITIES: No cyanosis at this time. NEUROLOGIC: Awake and alert. Microbiology Date/Time Source Procedure Growth Status 04/12/17 05:30 Sputum AFB Specimen Processing Tissue - Final Resulted 04/12/17 05:30 Sputum Acid Fast Bacilli Smear - Final Resulted 04/12/17 05:30 Sputum Acid Fast Bacilli Culture Pending Resulted Current Medications Medications (Trade) Dose Ordered Sig/Tamiko Route PRN Reason Start Time Stop Time Status Last Admin Dose Admin Acetaminophen (Tylenol) 650 mg Q4H PRN ORAL T>100.5 04/08/17 15:15 05/08/17 15:14 04/09/17 07:51 Acetaminophen (Tylenol) 650 mg Q4H PRN ORAL Mild Pain 04/09/17 11:30 05/09/17 11:29 Allopurinol (Zyloprim) 100 mg DAILY ORAL 04/09/17 09:00 05/09/17 08:59 04/14/17 09:21 Benazepril HCl (Lotensin) 20 mg DAILY ORAL 04/09/17 09:00 05/09/17 08:59 04/14/17 09:21 Ceftriaxone Sodium 1 gm/ Dextrose 55 ml @ 110 mls/hr Q24H IVPB 04/13/17 21:00 04/20/17 20:59 04/13/17 20:37 Dextrose (Dextrose 50%) STAT PRN IV Hypoglycemia 04/08/17 15:30 05/08/17 15:29 Heparin Sodium (Porcine) (Heparin 5000 units/ml) 5,000 units EVERY 12 HOURS SUBQ 04/08/17 21:00 05/08/17 20:59 04/14/17 09:25 Insulin Aspart (NovoLOG) BEFORE MEALS AND HS SUBQ 04/08/17 16:30 05/08/17 16:29 04/13/17 20:44 Lorazepam (Ativan 2mg/ml 1ml) 2 mg Q2H PRN IV For Anxiety 04/08/17 15:15 04/15/17 15:14 Morphine Sulfate (Morphine Sulfate) 4 mg Q4H PRN IVP Severe Pain (Pain Scale 7-10) 04/08/17 15:15 04/15/17 15:14 04/13/17 20:38 Ondansetron HCl (Zofran) 4 mg Q6H PRN IVP Nausea & Vomiting 04/08/17 15:15 05/08/17 15:14 Pantoprazole (Protonix) 40 mg DAILY IV 04/09/17 09:00 05/09/17 08:59 04/14/17 09:22 Polyethylene Glycol (Miralax) 17 gm DAILYPRN PRN ORAL Constipation 04/08/17 15:15 05/08/17 15:14 Promethazine HCl/ Codeine (Phenergan with Codeine) 5 ml Q4H PRN ORAL For Cough 04/08/17 15:15 05/08/17 15:14 Sodium Chloride 1,000 ml @ 50 mls/hr Q20H IV 04/08/17 16:30 05/08/17 16:29 04/13/17 17:22 Temazepam (Restoril) 15 mg HSPRN PRN ORAL Insomnia 04/10/17 20:15 04/17/17 20:14 04/13/17 22:56 Tramadol HCl (Ultram) 50 mg Q12H PRN ORAL Moderate Pain (Pain Scale 4-6) 04/08/17 16:00 04/15/17 15:59 04/12/17 05:06 Fartun Pitt M.D. Apr 14, 2017 10:44
[2017-04-14 12:15] VITALS: BP 134/74
[2017-04-14 12:21] LABS: NIL (NEG) CONTROL SPOT COUNT 0 (0-9); PANEL A SPOT COUNT 0; PANEL B SPOT COUNT 1; POSITIVE CONTROL SPOT COUNT > 20; T SPOT TB NEGATIVE
[2017-04-14] MEDS ORDERED: 1/2 NS 1000ml IV ONE (13:34)
[2017-04-14 16:05] VITALS: BP 138/81
--- NOTE | 2017-04-14 16:58 | Pulmonology Progress Note ---
Assessment/Plan Problems: (1) Pneumonia (2) Diabetes mellitus (3) Gout (4) History of hypertension Assessment/Plan asymptoamtic ID f/u reviewed and appreciated PPD is [address] guided biopsy done today, d/w dr Gaona continue abx TB PCR negative called pathology, their voice mail is full sputum induction sent one today Subjective ROS Limited/Unobtainable: No Respiratory: Reports: productive cough, sputum, shortness of breath, wheezing, pleuritic pain Allergies: Coded Allergies: No Known Allergies (Unverified , 12/31/12) Objective Last 24 Hour Vital Signs Date Time Temp Pulse Resp B/P (MAP) Pulse Ox O2 Delivery O2 Flow Rate FiO2 04/14/17 16:05 98.6 85 21 138/81 99 Room Air 04/14/17 12:15 97.9 78 21 134/74 99 Room Air 04/14/17 09:21 138/74 04/14/17 08:15 97.3 83 21 138/74 99 Room Air 04/14/17 04:06 98.1 74 20 113/66 98 Room Air 04/13/17 23:28 98.0 79 20 98/53 98 Room Air 04/13/17 20:10 Room Air 04/13/17 20:08 98.1 81 20 144/92 97 Room Air Intake and Output 04/14/17 04/15/17 19:00 07:00 Intake Total 1095 ml Balance 1095 ml Intake Oral 720 ml IV Total 375 ml General Appearance: no acute distress HEENT: normocephalic, atraumatic, anicteric, PERRL Respiratory/Chest: chest wall non-tender, decreased breath sounds, accessory muscle use, rhonchi, expiratory wheezing, inspiratory wheezing Cardiovascular: normal peripheral pulses, normal rate, regular rhythm, no JVD Abdomen: normal bowel sounds, soft, non tender, no organomegaly, non distended , no mass Genitourinary: normal external genitalia Extremities: no cyanosis Skin: no rash, no lesions Neurologic/Psychiatric: ball racker II-XII grossly normal, no motor/sensory deficits Microbiology Date/Time Source Procedure Growth Status 04/12/17 05:30 Sputum AFB Specimen Processing Tissue - Final Resulted 04/12/17 05:30 Sputum Acid Fast Bacilli Smear - Final Resulted 04/12/17 05:30 Sputum Acid Fast Bacilli Culture Pending Resulted Current Medications Medications (Trade) Dose Ordered Sig/Tamiko Route PRN Reason Start Time Stop Time Status Last Admin Dose Admin Acetaminophen (Tylenol) 650 mg Q4H PRN ORAL T>100.5 04/08/17 15:15 05/08/17 15:14 04/09/17 07:51 Acetaminophen (Tylenol) 650 mg Q4H PRN ORAL Mild Pain 04/09/17 11:30 05/09/17 11:29 Allopurinol (Zyloprim) 100 mg DAILY ORAL 04/09/17 09:00 05/09/17 08:59 04/14/17 09:21 Benazepril HCl (Lotensin) 20 mg DAILY ORAL 04/09/17 09:00 05/09/17 08:59 04/14/17 09:21 Ceftriaxone Sodium 1 gm/ Dextrose 55 ml @ 110 mls/hr Q24H IVPB 04/13/17 21:00 04/20/17 20:59 04/13/17 20:37 Dextrose (Dextrose 50%) STAT PRN IV Hypoglycemia 04/08/17 15:30 05/08/17 15:29 Heparin Sodium (Porcine) (Heparin 5000 units/ml) 5,000 units EVERY 12 HOURS SUBQ 04/08/17 21:00 05/08/17 20:59 04/14/17 09:25 Insulin Aspart (NovoLOG) BEFORE MEALS AND HS SUBQ 04/08/17 16:30 05/08/17 16:29 04/14/17 12:49 Lorazepam (Ativan 2mg/ml 1ml) 2 mg Q2H PRN IV For Anxiety 04/08/17 15:15 04/15/17 15:14 Morphine Sulfate (Morphine Sulfate) 4 mg Q4H PRN IVP Severe Pain (Pain Scale 7-10) 04/08/17 15:15 04/15/17 15:14 04/13/17 20:38 Ondansetron HCl (Zofran) 4 mg Q6H PRN IVP Nausea & Vomiting 04/08/17 15:15 05/08/17 15:14 Pantoprazole (Protonix) 40 mg DAILY IV 04/09/17 09:00 05/09/17 08:59 04/14/17 09:22 Polyethylene Glycol (Miralax) 17 gm DAILYPRN PRN ORAL Constipation 04/08/17 15:15 05/08/17 15:14 Promethazine HCl/ Codeine (Phenergan with Codeine) 5 ml Q4H PRN ORAL For Cough 04/08/17 15:15 05/08/17 15:14 Sodium Chloride 1,000 ml @ 50 mls/hr Q20H IV 04/08/17 16:30 05/08/17 16:29 04/14/17 16:25 Temazepam (Restoril) 15 mg HSPRN PRN ORAL Insomnia 04/10/17 20:15 04/17/17 20:14 04/13/17 22:56 Tramadol HCl (Ultram) 50 mg Q12H PRN ORAL Moderate Pain (Pain Scale 4-6) 04/08/17 16:00 04/15/17 15:59 04/12/17 05:06 LUIZ RENTERIA Apr 14, 2017 16:58
[2017-04-14 20:00] VITALS: BP 127/84
[2017-04-14] MEDS: cefTRIAXone 1 GM in D5W 55 ML IVPB SCH (21:08)
[2017-04-15] VITALS: BP 125/84
[2017-04-15 04:00] VITALS: BP 131/71
[2017-04-15] MEDS: NovoLOG Insulin Flexpen SUBQ SCH ×4 (06:34→21:00)
[2017-04-15 07:15] LABS: BASOPHILS % (AUTO) 1.4 % (0.0-2.0); EOSINOPHILS % (AUTO) 3.8 % (0.0-3.0); LYMPHOCYTES % (AUTO) 23.2 % (20.0-45.0); MEAN CORPUSCULAR HEMOGLOBIN 31.6 PG (27.0-31.0); MEAN CORPUSCULAR HGB CONC 34.2 G/DL (32.0-36.0); MEAN CORPUSCULAR VOLUME 92 FL (80-99); MEAN PLATELET VOLUME 5.9 FL (6.5-10.1); MONOCYTES % (AUTO) 6.9 % (1.0-10.0); NEUTROPHILS % (AUTO) 64.7 % (45.0-75.0); PLATELET COUNT 272 K/UL (150-450); RED BLOOD COUNT 3.94 M/UL (4.70-6.10); RED CELL DISTRIBUTION WIDTH 11.3 % (11.6-14.8); WHITE BLOOD COUNT 6.8 K/UL (4.8-10.8)
--- NOTE | 2017-04-15 07:39 | Pulmonology Progress Note ---
Assessment/Plan Assessment/Plan ASSESSMENT RUL mass Possible PNA r/o malignancy r/o TB s/p lung biopsy 04/11 DM HTN gout PLAN OF CARE MS floor airborne isolation ID follows empiric abx sputum cx negative, blood cx negative, influenza screen negative CT chest noted Sputum AFB x 3 pending O2 HHN prn T spot, TB by PCR, HIV status all negative serology for Cocci pending a/tussive prn fup with lung tissue pathology results CXR 04/15 - Improving right apical opacity, likely reflects clearing pneumonia. gentle IVF BS management with SS of insulin BP management with ROSANNA and optimize further as needed continue Allopurinol DVT/GI prophylaxis case discussed and evaluated by supervising physician Subjective Allergies: Coded Allergies: No Known Allergies (Unverified , 12/31/12) Subjective afebrile, no leukocytosis no signs of respiratory distress + cough, minimally productive, no hemoptysis, no wheezing no chest pain Objective Last 24 Hour Vital Signs Date Time Temp Pulse Resp B/P (MAP) Pulse Ox O2 Delivery O2 Flow Rate FiO2 04/15/17 04:00 98.6 80 18 131/71 99 Room Air 04/15/17 00:00 98.9 79 18 125/84 96 Room Air 04/14/17 20:00 99.2 80 18 127/84 96 Room Air 04/14/17 16:05 98.6 85 21 138/81 99 Room Air 04/14/17 12:15 97.9 78 21 134/74 99 Room Air 04/14/17 09:21 138/74 04/14/17 08:15 97.3 83 21 138/74 99 Room Air General Appearance: WD/WN, no acute distress, other - A/A/O x 3 Azeri speaking obese male in NAD HEENT: normocephalic, atraumatic, anicteric, mucous membranes moist, EOMI, supple, no JVD Respiratory/Chest: chest wall non-tender, lungs clear, normal breath sounds, no respiratory distress, no accessory muscle use Cardiovascular: normal rate, regular rhythm, no JVD Abdomen: normal bowel sounds, soft, non tender - obese Extremities: no edema, pedal pulses normal Neurologic/Psychiatric: no motor/sensory deficits, alert, oriented x 3, responsive Musculoskeletal: normal muscle bulk Laboratory Tests 04/15/17 05:45: White Blood Count 6.8, Red Blood Count 3.94L, Hemoglobin 12.5L, Hematocrit 36.5L , Mean Corpuscular Volume 92, Mean Corpuscular Hemoglobin 31.6H, Mean Corpuscular Hemoglobin Concent 34.2, Red Cell Distribution Width 11.3L, Platelet Count 272, Mean Platelet Volume 5.9L, Neutrophils (%) (Auto) 64.7, Lymphocytes (%) (Auto) 23.2, Monocytes (%) (Auto) 6.9, Eosinophils (%) (Auto) 3.8H, Basophils (%) (Auto) 1.4, Erythrocyte Sedimentation Rate [Pending], Sodium Level [Pending], Potassium Level [Pending], Chloride Level [Pending], Carbon Dioxide Level [Pending], Blood Urea Nitrogen [Pending], Creatinine [ Pending], Estimat Glomerular Filtration Rate [Pending], Glucose Level [Pending] , Calcium Level [Pending], Phosphorus Level [Pending], Magnesium Level [Pending] , Total Bilirubin [Pending], Aspartate Amino Transf (AST/SGOT) [Pending], Alanine Aminotransferase (ALT/SGPT) [Pending], Alkaline Phosphatase [Pending], C -Reactive Protein, Quantitative [Pending], Total Protein [Pending], Albumin [ Pending], Globulin [Pending] Current Medications Medications (Trade) Dose Ordered Sig/Tamiko Route PRN Reason Start Time Stop Time Status Last Admin Dose Admin Acetaminophen (Tylenol) 650 mg Q4H PRN ORAL T>100.5 04/08/17 15:15 05/08/17 15:14 04/09/17 07:51 Acetaminophen (Tylenol) 650 mg Q4H PRN ORAL Mild Pain 04/09/17 11:30 05/09/17 11:29 Allopurinol (Zyloprim) 100 mg DAILY ORAL 04/09/17 09:00 05/09/17 08:59 04/14/17 09:21 Benazepril HCl (Lotensin) 20 mg DAILY ORAL 04/09/17 09:00 05/09/17 08:59 04/14/17 09:21 Ceftriaxone Sodium 1 gm/ Dextrose 55 ml @ 110 mls/hr Q24H IVPB 04/13/17 21:00 04/20/17 20:59 04/14/17 21:08 Dextrose (Dextrose 50%) STAT PRN IV Hypoglycemia 04/08/17 15:30 05/08/17 15:29 Heparin Sodium (Porcine) (Heparin 5000 units/ml) 5,000 units EVERY 12 HOURS SUBQ 04/08/17 21:00 05/08/17 20:59 04/14/17 21:13 Insulin Aspart (NovoLOG) BEFORE MEALS AND HS SUBQ 04/08/17 16:30 05/08/17 16:29 04/15/17 06:34 Lorazepam (Ativan 2mg/ml 1ml) 2 mg Q2H PRN IV For Anxiety 04/08/17 15:15 04/15/17 15:14 Morphine Sulfate (Morphine Sulfate) 4 mg Q4H PRN IVP Severe Pain (Pain Scale 7-10) 04/08/17 15:15 04/15/17 15:14 04/13/17 20:38 Ondansetron HCl (Zofran) 4 mg Q6H PRN IVP Nausea & Vomiting 04/08/17 15:15 05/08/17 15:14 Pantoprazole (Protonix) 40 mg DAILY IV 04/09/17 09:00 05/09/17 08:59 04/14/17 09:22 Polyethylene Glycol (Miralax) 17 gm DAILYPRN PRN ORAL Constipation 04/08/17 15:15 05/08/17 15:14 Promethazine HCl/ Codeine (Phenergan with Codeine) 5 ml Q4H PRN ORAL For Cough 04/08/17 15:15 05/08/17 15:14 Sodium Chloride 1,000 ml @ 50 mls/hr Q20H IV 04/08/17 16:30 05/08/17 16:29 04/14/17 16:25 Temazepam (Restoril) 15 mg HSPRN PRN ORAL Insomnia 04/10/17 20:15 04/17/17 20:14 04/14/17 21:08 Tramadol HCl (Ultram) 50 mg Q12H PRN ORAL Moderate Pain (Pain Scale 4-6) 04/08/17 16:00 04/15/17 15:59 04/12/17 05:06 Thien VeronicaE.J. Noble HospitalAnuja Goode NP Apr 15, 2017 07:39
[2017-04-15 07:42] LABS: ALANINE AMINOTRANSFERASE 31 U/L (12-78); ALBUMIN/GLOBULIN RATIO 0.9 (1.0-2.7); ANION GAP 6 mmol/L (5-15); ASPARTATE AMINO TRANSFERASE 16 U/L (15-37); CALCIUM 9.1 MG/DL (8.5-10.1); CARBON DIOXIDE 32 MMOL/L (21-32); CHLORIDE 102 MMOL/L (98-107); CREATININE 0.9 MG/DL (0.55-1.30); CRP QUANT 2.4 mg/dL (0.00-0.90); GLOMERULAR FILTRATION RATE > 60 mL/min (>60); PHOSPHORUS 3.5 MG/DL (2.5-4.9); POTASSIUM 4.5 MMOL/L (3.5-5.1); SODIUM 140 MMOL/L (136-145); TOTAL PROTEIN 6.7 G/DL (6.4-8.2)
[2017-04-15 08:00] VITALS: BP 135/78
[2017-04-15 08:43] LABS: ERYTHROCYTE SEDIMENTATION RATE 64 MM/HR (0-20)
[2017-04-15] MEDS: Heparin 5000 units/ml inj SUBQ SCH ×2 (09:02→21:22)
[2017-04-15] MEDS: Allopurinol 100mg Tab ORAL SCH (09:03)
[2017-04-15] MEDS: Pantoprazole Inj IV SCH (09:05)
[2017-04-15] MEDS: Benazepril 10mg tab ORAL SCH (09:05)
[2017-04-15 12:00] VITALS: BP 125/80
--- NOTE | 2017-04-15 12:17 | Infectious Diseases Prog Note ---
Assessment/Plan Assessment/Plan ASSESSMENT: The patient is a 66-year-old male with: 1. 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 -neg: HIV ag/ab, Cr Ag, Histoplasma Ab, Blastomyces ab. -AFB smear neg x3, MTB PCR neg -PPD+28mm, but TB Spot neg (hx of BCG) -pending: COcci,path -sp cx normal ingrid CT chest w/: Stable large area of consolidation involving the right upper lobe with nodular groundglass densities at its inferior margin. Again findings may be compatible with pneumonia but the possibility of underlying mass or bronchoalveolar carcinoma cannot be excluded. Again followup to resolution recommended. Further evaluation recommended as indicated. 4. Headache, however, clinical exam and history is not suggestive of meningitis. The patient is improving. No photophobia, nausea, or vomiting. PLAN: - Continue to monitor off abx -04/14 Ceftriaxone #7 -04/13 Cefepime #6, Azithromycin #5 -04/12 SP IV Vancomycin #5 -Await final path and Cocci serologies- unclear etiology thus far and patient now assymptomatic -if Biopsy neg and COcci ab neg then will probably need a 2nd more extensive biopsy (?VATS) vs ? tx empirically for TB pending final AFB sputum cx -f/u lung tissue path and cultures - Continue airborne isolation for now. Thank you, Dr. Lin for allowing me to see this patient. I will follow the patient with you during this hospitalization. Subjective Allergies: Coded Allergies: No Known Allergies (Unverified , 12/31/12) Subjective afebrile in 48 hrs prelimiinary path shows acute on chronic inflammation non evidence of malignancy ; final report pending AFB cx smear neg x3 and MTB PCR neg x1 PPD +28mmn but T spot neg (hx of BCG) sp cx normal ingrid Objective Vital Signs Last 24 Hour Vital Signs Date Time Temp Pulse Resp B/P (MAP) Pulse Ox O2 Delivery O2 Flow Rate FiO2 04/15/17 09:05 140/82 04/15/17 04:00 98.6 80 18 131/71 99 Room Air 04/15/17 00:00 98.9 79 18 125/84 96 Room Air 04/14/17 20:00 99.2 80 18 127/84 96 Room Air 04/14/17 16:05 98.6 85 21 138/81 99 Room Air Height (Feet): 5 Height (Inches): 0.00 Weight (Pounds): 198 Objective PHYSICAL EXAMINATION: HEENT: No pale conjunctivae. No icterus. NECK: No lymphadenopathy. CHEST: Coarse breathing sounds in bilateral lung blake. HEART: S1 and S2. ABDOMEN: Soft and obese. EXTREMITIES: No cyanosis at this time. NEUROLOGIC: Awake and alert. Laboratory Tests Test 04/15/17 05:45 White Blood Count 6.8 K/UL (4.8-10.8) Red Blood Count 3.94 M/UL (4.70-6.10) L Hemoglobin 12.5 G/DL (14.2-18.0) L Hematocrit 36.5 % (42.0-52.0) L Mean Corpuscular Volume 92 FL (80-99) Mean Corpuscular Hemoglobin 31.6 PG (27.0-31.0) H Mean Corpuscular Hemoglobin Concent 34.2 G/DL (32.0-36.0) Red Cell Distribution Width 11.3 % (11.6-14.8) L Platelet Count 272 K/UL (150-450) Mean Platelet Volume 5.9 FL (6.5-10.1) L Neutrophils (%) (Auto) 64.7 % (45.0-75.0) Lymphocytes (%) (Auto) 23.2 % (20.0-45.0) Monocytes (%) (Auto) 6.9 % (1.0-10.0) Eosinophils (%) (Auto) 3.8 % (0.0-3.0) H Basophils (%) (Auto) 1.4 % (0.0-2.0) Erythrocyte Sedimentation Rate 64 MM/HR (0-20) H Sodium Level 140 MMOL/L (136-145) Potassium Level 4.5 MMOL/L (3.5-5.1) Chloride Level 102 MMOL/L (98-107) Carbon Dioxide Level 32 MMOL/L (21-32) Anion Gap 6 mmol/L (5-15) Blood Urea Nitrogen 18 mg/dL (7-18) Creatinine 0.9 MG/DL (0.55-1.30) Estimat Glomerular Filtration Rate > 60 mL/min (>60) Glucose Level 114 MG/DL (74-106) H Calcium Level 9.1 MG/DL (8.5-10.1) Phosphorus Level 3.5 MG/DL (2.5-4.9) Magnesium Level 2.0 MG/DL (1.8-2.4) Total Bilirubin 0.4 MG/DL (0.2-1.0) Aspartate Amino Transf (AST/SGOT) 16 U/L (15-37) Alanine Aminotransferase (ALT/SGPT) 31 U/L (12-78) Alkaline Phosphatase 59 U/L (46-116) C-Reactive Protein, Quantitative 2.4 mg/dL (0.00-0.90) H Total Protein 6.7 G/DL (6.4-8.2) Albumin 3.2 G/DL (3.4-5.0) L Globulin 3.5 g/dL Albumin/Globulin Ratio 0.9 (1.0-2.7) L Current Medications Medications (Trade) Dose Ordered Sig/Tamiko Route PRN Reason Start Time Stop Time Status Last Admin Dose Admin Acetaminophen (Tylenol) 650 mg Q4H PRN ORAL T>100.5 04/08/17 15:15 05/08/17 15:14 04/09/17 07:51 Acetaminophen (Tylenol) 650 mg Q4H PRN ORAL Mild Pain 04/09/17 11:30 05/09/17 11:29 Allopurinol (Zyloprim) 100 mg DAILY ORAL 04/09/17 09:00 05/09/17 08:59 04/15/17 09:03 Benazepril HCl (Lotensin) 20 mg DAILY ORAL 04/09/17 09:00 05/09/17 08:59 04/15/17 09:05 Ceftriaxone Sodium 1 gm/ Dextrose 55 ml @ 110 mls/hr Q24H IVPB 04/13/17 21:00 04/20/17 20:59 04/14/17 21:08 Dextrose (Dextrose 50%) STAT PRN IV Hypoglycemia 04/08/17 15:30 05/08/17 15:29 Heparin Sodium (Porcine) (Heparin 5000 units/ml) 5,000 units EVERY 12 HOURS SUBQ 04/08/17 21:00 05/08/17 20:59 04/15/17 09:02 Insulin Aspart (NovoLOG) BEFORE MEALS AND HS SUBQ 04/08/17 16:30 05/08/17 16:29 04/15/17 12:01 Lorazepam (Ativan 2mg/ml 1ml) 2 mg Q2H PRN IV For Anxiety 04/08/17 15:15 04/15/17 15:14 Morphine Sulfate (Morphine Sulfate) 4 mg Q4H PRN IVP Severe Pain (Pain Scale 7-10) 04/08/17 15:15 04/15/17 15:14 04/13/17 20:38 Ondansetron HCl (Zofran) 4 mg Q6H PRN IVP Nausea & Vomiting 04/08/17 15:15 05/08/17 15:14 Pantoprazole (Protonix) 40 mg DAILY IV 04/09/17 09:00 05/09/17 08:59 04/15/17 09:05 Polyethylene Glycol (Miralax) 17 gm DAILYPRN PRN ORAL Constipation 04/08/17 15:15 05/08/17 15:14 Promethazine HCl/ Codeine (Phenergan with Codeine) 5 ml Q4H PRN ORAL For Cough 04/08/17 15:15 05/08/17 15:14 Sodium Chloride 1,000 ml @ 50 mls/hr Q20H IV 04/08/17 16:30 05/08/17 16:29 04/15/17 09:02 Temazepam (Restoril) 15 mg HSPRN PRN ORAL Insomnia 04/10/17 20:15 04/17/17 20:14 04/14/17 21:08 Tramadol HCl (Ultram) 50 mg Q12H PRN ORAL Moderate Pain (Pain Scale 4-6) 04/08/17 16:00 04/15/17 15:59 04/12/17 05:06 Fartun Pitt M.D. Apr 15, 2017 12:17
--- NOTE | 2017-04-15 13:52 | Diagnostic Imaging Report ---
Indication: DYSPNEA Technique: One view of the chest Comparison: 04/11/2017 Findings: As the previous study, interim decrease in density of the previously demonstrated right apical opacity, likely reflects clearing infiltrates. There is some residual opacity and pleural thickening, however. The remainder of the lungs and pleural spaces are clear. No new infiltrates. Left basilar nodular opacity most likely represents a nipple shadow, particularly as the nodules were evident in this area on recent chest CT. Impression: Improving right apical opacity, likely reflects clearing pneumonia. Further followup to resolution recommended.
[2017-04-15 16:00] VITALS: BP 129/77
[2017-04-15 20:00] VITALS: BP 139/82
[2017-04-15] MEDS ORDERED: Albuterol/Ipratropium 3ml neb HHN PRN (22:30)
[2017-04-16] VITALS: BP 130/73
[2017-04-16 04:00] VITALS: BP 134/78
[2017-04-16] MEDS: NovoLOG Insulin Flexpen SUBQ SCH ×4 (06:14→22:41)
[2017-04-16 07:08] LABS: BASOPHILS % (AUTO) 0.9 % (0.0-2.0); EOSINOPHILS % (AUTO) 3.8 % (0.0-3.0); LYMPHOCYTES % (AUTO) 26.1 % (20.0-45.0); MEAN CORPUSCULAR HEMOGLOBIN 30.9 PG (27.0-31.0); MEAN CORPUSCULAR HGB CONC 34.2 G/DL (32.0-36.0); MEAN CORPUSCULAR VOLUME 90 FL (80-99); MONOCYTES % (AUTO) 5.8 % (1.0-10.0); NEUTROPHILS % (AUTO) 63.4 % (45.0-75.0); PLATELET COUNT 305 K/UL (150-450); RED BLOOD COUNT 4.21 M/UL (4.70-6.10); RED CELL DISTRIBUTION WIDTH 10.9 % (11.6-14.8); WHITE BLOOD COUNT 7.3 K/UL (4.8-10.8)
[2017-04-16 07:28] LABS: ANION GAP 6 mmol/L (5-15); CALCIUM 9.5 MG/DL (8.5-10.1); CARBON DIOXIDE 29 MMOL/L (21-32); CHLORIDE 102 MMOL/L (98-107); CREATININE 0.9 MG/DL (0.55-1.30); GLOMERULAR FILTRATION RATE > 60 mL/min (>60); POTASSIUM 4.1 MMOL/L (3.5-5.1); SODIUM 137 MMOL/L (136-145)
[2017-04-16 08:00] VITALS: BP 129/78
--- NOTE | 2017-04-16 10:13 | Infectious Diseases Prog Note ---
Assessment/Plan Assessment/Plan ASSESSMENT: The patient is a 66-year-old male with: 1. 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 -neg: HIV ag/ab, Cr Ag, Histoplasma Ab, Blastomyces ab. -AFB smear neg x3, MTB PCR neg -PPD+28mm, but TB Spot neg (hx of BCG) -pending: COcci,path -sp cx normal ingrid CT chest w/: Stable large area of consolidation involving the right upper lobe with nodular groundglass densities at its inferior margin. Again findings may be compatible with pneumonia but the possibility of underlying mass or bronchoalveolar carcinoma cannot be excluded. Headache, however, clinical exam and history is not suggestive of meningitis. The patient is improving. No photophobia, nausea, or vomiting. PLAN: - Continue to monitor off abx -04/14 Ceftriaxone #7 -04/13 Cefepime #6, Azithromycin #5 -04/12 SP IV Vancomycin #5 -Await final path and Cocci serologies- unclear etiology thus far and patient now asymptomatic -if Biopsy neg and Cocci ab neg then will probably need a 2nd more extensive biopsy (?VATS) vs ? tx empirically for TB pending final AFB sputum cx -f/u lung tissue path and cultures - Continue airborne isolation for now. Subjective Constitutional: Denies: no symptoms, fever, chills, fatigue, anorexia, drenching sweats, other Allergies: Coded Allergies: No Known Allergies (Unverified , 12/31/12) Objective Vital Signs Last 24 Hour Vital Signs Date Time Temp Pulse Resp B/P (MAP) Pulse Ox O2 Delivery O2 Flow Rate FiO2 04/16/17 08:00 97.9 78 19 129/78 93 Room Air 04/16/17 04:00 Room Air 04/16/17 04:00 97.7 67 18 134/78 97 04/16/17 00:00 97.9 71 21 130/73 97 04/15/17 20:00 98.2 78 21 139/82 98 04/15/17 16:00 97.7 75 20 129/77 04/15/17 16:00 97 Room Air 04/15/17 14:00 96 Room Air 04/15/17 12:00 92 Room Air 04/15/17 12:00 97.9 75 20 125/80 92 Height (Feet): 5 Height (Inches): 0.00 Weight (Pounds): 198 HEENT: mucous membranes moist Respiratory/Chest: no accessory muscle use Cardiovascular: regularly irregular Abdomen: non distended Laboratory Tests Test 04/16/17 05:50 White Blood Count 7.3 K/UL (4.8-10.8) Red Blood Count 4.21 M/UL (4.70-6.10) L Hemoglobin 13.0 G/DL (14.2-18.0) L Hematocrit 38.0 % (42.0-52.0) L Mean Corpuscular Volume 90 FL (80-99) Mean Corpuscular Hemoglobin 30.9 PG (27.0-31.0) Mean Corpuscular Hemoglobin Concent 34.2 G/DL (32.0-36.0) Red Cell Distribution Width 10.9 % (11.6-14.8) L Platelet Count 305 K/UL (150-450) Mean Platelet Volume 6.0 FL (6.5-10.1) L Neutrophils (%) (Auto) 63.4 % (45.0-75.0) Lymphocytes (%) (Auto) 26.1 % (20.0-45.0) Monocytes (%) (Auto) 5.8 % (1.0-10.0) Eosinophils (%) (Auto) 3.8 % (0.0-3.0) H Basophils (%) (Auto) 0.9 % (0.0-2.0) Sodium Level 137 MMOL/L (136-145) Potassium Level 4.1 MMOL/L (3.5-5.1) Chloride Level 102 MMOL/L (98-107) Carbon Dioxide Level 29 MMOL/L (21-32) Anion Gap 6 mmol/L (5-15) Blood Urea Nitrogen 15 mg/dL (7-18) Creatinine 0.9 MG/DL (0.55-1.30) Estimat Glomerular Filtration Rate > 60 mL/min (>60) Glucose Level 107 MG/DL (74-106) H Calcium Level 9.5 MG/DL (8.5-10.1) Current Medications Medications (Trade) Dose Ordered Sig/Tamiko Route PRN Reason Start Time Stop Time Status Last Admin Dose Admin Acetaminophen (Tylenol) 650 mg Q4H PRN ORAL T>100.5 04/08/17 15:15 05/08/17 15:14 04/09/17 07:51 Acetaminophen (Tylenol) 650 mg Q4H PRN ORAL Mild Pain 04/09/17 11:30 05/09/17 11:29 Albuterol/ Ipratropium (Albuterol/ Ipratropium) 3 ml Q4H PRN HHN sob 04/15/17 22:30 04/20/17 22:29 Allopurinol (Zyloprim) 100 mg DAILY ORAL 04/09/17 09:00 05/09/17 08:59 04/15/17 09:03 Benazepril HCl (Lotensin) 20 mg DAILY ORAL 04/09/17 09:00 05/09/17 08:59 04/15/17 09:05 Dextrose (Dextrose 50%) STAT PRN IV Hypoglycemia 04/08/17 15:30 05/08/17 15:29 Heparin Sodium (Porcine) (Heparin 5000 units/ml) 5,000 units EVERY 12 HOURS SUBQ 04/08/17 21:00 05/08/17 20:59 04/15/17 21:22 Insulin Aspart (NovoLOG) BEFORE MEALS AND HS SUBQ 04/08/17 16:30 05/08/17 16:29 04/15/17 17:01 Ondansetron HCl (Zofran) 4 mg Q6H PRN IVP Nausea & Vomiting 04/08/17 15:15 05/08/17 15:14 Pantoprazole (Protonix) 40 mg DAILY IV 04/09/17 09:00 05/09/17 08:59 04/15/17 09:05 Polyethylene Glycol (Miralax) 17 gm DAILYPRN PRN ORAL Constipation 04/08/17 15:15 05/08/17 15:14 Promethazine HCl/ Codeine (Phenergan with Codeine) 5 ml Q4H PRN ORAL For Cough 04/08/17 15:15 05/08/17 15:14 Sodium Chloride 1,000 ml @ 50 mls/hr Q20H IV 04/08/17 16:30 05/08/17 16:29 04/16/17 02:13 Temazepam (Restoril) 15 mg HSPRN PRN ORAL Insomnia 04/10/17 20:15 04/17/17 20:14 04/15/17 21:22 JANESSA ARMANDO M.D. Apr 16, 2017 10:13
[2017-04-16] MEDS: Allopurinol 100mg Tab ORAL SCH (10:17)
[2017-04-16] MEDS: Heparin 5000 units/ml inj SUBQ SCH ×2 (10:17→22:40)
[2017-04-16] MEDS: Pantoprazole Inj IV SCH (10:23)
[2017-04-16] MEDS: Benazepril 10mg tab ORAL SCH (10:57)
[2017-04-16 12:00] VITALS: BP 148/81
--- NOTE | 2017-04-16 14:48 | Pulmonology Progress Note ---
Assessment/Plan Assessment/Plan ASSESSMENT RUL mass Possible PNA r/o malignancy r/o TB s/p lung biopsy 04/11 DM HTN gout PLAN OF CARE MS floor airborne isolation ID follows s/p abx, monitor off abx sputum cx negative, blood cx negative, influenza screen negative CT chest noted Sputum AFB x 3 negative O2 HHN prn T spot, TB by PCR, HIV status all negative serology for Cocci pending a/tussive prn pathology of lung tissue - negative for malignancy, no microorganism, inflammatory process with ill defined granulomas CXR 04/15 - Improving right apical opacity, likely reflects clearing pneumonia. CXR on Tuesday gentle IVF BS management with SS of insulin BP management with ROSANNA and optimize further as needed continue Allopurinol DVT/GI prophylaxis case discussed and evaluated by supervising physician Subjective Allergies: Coded Allergies: No Known Allergies (Unverified , 12/31/12) Subjective afebrile, no leukocytosis no signs of respiratory distress + cough, minimally productive, no hemoptysis, no wheezing no chest pain Objective Last 24 Hour Vital Signs Date Time Temp Pulse Resp B/P (MAP) Pulse Ox O2 Delivery O2 Flow Rate FiO2 04/16/17 12:00 97.9 74 19 148/81 97 Room Air 04/16/17 10:57 128/78 04/16/17 08:00 97.9 78 19 129/78 93 Room Air 04/16/17 04:00 Room Air 04/16/17 04:00 97.7 67 18 134/78 97 04/16/17 00:00 97.9 71 21 130/73 97 04/15/17 20:00 98.2 78 21 139/82 98 04/15/17 16:00 97.7 75 20 129/77 04/15/17 16:00 97 Room Air Intake and Output 04/16/17 04/17/17 19:00 07:00 Intake Total 490 ml Balance 490 ml Intake Oral 240 ml IV Total 250 ml Objective General Appearance: WD/WN, no acute distress, other - A/A/O x 3 Hebrew speaking obese male in NAD HEENT: normocephalic, atraumatic, anicteric, mucous membranes moist, EOMI, supple, no JVD Respiratory/Chest: chest wall non-tender, lungs clear, normal breath sounds, no respiratory distress, no accessory muscle use Cardiovascular: normal rate, regular rhythm, no JVD Abdomen: normal bowel sounds, soft, non tender - obese Extremities: no edema, pedal pulses normal Neurologic/Psychiatric: no motor/sensory deficits, alert, oriented x 3, responsive Musculoskeletal: normal muscle bulk Laboratory Tests 04/16/17 05:50: White Blood Count 7.3, Red Blood Count 4.21L, Hemoglobin 13.0L, Hematocrit 38.0L , Mean Corpuscular Volume 90, Mean Corpuscular Hemoglobin 30.9, Mean Corpuscular Hemoglobin Concent 34.2, Red Cell Distribution Width 10.9L, Platelet Count 305, Mean Platelet Volume 6.0L, Neutrophils (%) (Auto) 63.4, Lymphocytes (%) (Auto) 26.1, Monocytes (%) (Auto) 5.8, Eosinophils (%) (Auto) 3.8H, Basophils (%) (Auto) 0.9, Sodium Level 137, Potassium Level 4.1, Chloride Level 102, Carbon Dioxide Level 29, Anion Gap 6, Blood Urea Nitrogen 15, Creatinine 0.9, Estimat Glomerular Filtration Rate > 60, Glucose Level 107H, Calcium Level 9.5 Current Medications Medications (Trade) Dose Ordered Sig/Tamiko Route PRN Reason Start Time Stop Time Status Last Admin Dose Admin Acetaminophen (Tylenol) 650 mg Q4H PRN ORAL T>100.5 04/08/17 15:15 05/08/17 15:14 04/09/17 07:51 Acetaminophen (Tylenol) 650 mg Q4H PRN ORAL Mild Pain 04/09/17 11:30 05/09/17 11:29 Albuterol/ Ipratropium (Albuterol/ Ipratropium) 3 ml Q4H PRN HHN sob 04/15/17 22:30 04/20/17 22:29 Allopurinol (Zyloprim) 100 mg DAILY ORAL 04/09/17 09:00 05/09/17 08:59 04/16/17 10:17 Benazepril HCl (Lotensin) 20 mg DAILY ORAL 04/09/17 09:00 05/09/17 08:59 04/16/17 10:57 Dextrose (Dextrose 50%) STAT PRN IV Hypoglycemia 04/08/17 15:30 05/08/17 15:29 Heparin Sodium (Porcine) (Heparin 5000 units/ml) 5,000 units EVERY 12 HOURS SUBQ 04/08/17 21:00 05/08/17 20:59 04/16/17 10:17 Insulin Aspart (NovoLOG) BEFORE MEALS AND HS SUBQ 04/08/17 16:30 05/08/17 16:29 04/16/17 12:07 Ondansetron HCl (Zofran) 4 mg Q6H PRN IVP Nausea & Vomiting 04/08/17 15:15 05/08/17 15:14 Pantoprazole (Protonix) 40 mg DAILY IV 04/09/17 09:00 05/09/17 08:59 04/16/17 10:23 Polyethylene Glycol (Miralax) 17 gm DAILYPRN PRN ORAL Constipation 04/08/17 15:15 05/08/17 15:14 Promethazine HCl/ Codeine (Phenergan with Codeine) 5 ml Q4H PRN ORAL For Cough 04/08/17 15:15 05/08/17 15:14 Sodium Chloride 1,000 ml @ 50 mls/hr Q20H IV 04/08/17 16:30 05/08/17 16:29 04/16/17 02:13 Temazepam (Restoril) 15 mg HSPRN PRN ORAL Insomnia 04/10/17 20:15 04/17/17 20:14 04/15/17 21:22 [facility] CenterAnuja Goode NP Apr 16, 2017 14:48
[2017-04-16 19:05] VITALS: BP 137/82
[2017-04-16 23:39] VITALS: BP 116/74
[2017-04-17] VITALS (7 sets, daily range): BP systolic 122–139; BP diastolic 70–88
[2017-04-17] MEDS: NovoLOG Insulin Flexpen SUBQ SCH ×4 (06:06→21:23)
[2017-04-17 07:45] LABS: EOSINOPHILS % (AUTO) 3.2 % (0.0-3.0); LYMPHOCYTES % (AUTO) 28.3 % (20.0-45.0); MEAN CORPUSCULAR HEMOGLOBIN 31.9 PG (27.0-31.0); MEAN CORPUSCULAR HGB CONC 34.9 G/DL (32.0-36.0); MEAN CORPUSCULAR VOLUME 91 FL (80-99); MEAN PLATELET VOLUME 5.7 FL (6.5-10.1); MONOCYTES % (AUTO) 6.2 % (1.0-10.0); NEUTROPHILS % (AUTO) 61.4 % (45.0-75.0); PLATELET COUNT 276 K/UL (150-450); RED BLOOD COUNT 4.03 M/UL (4.70-6.10); RED CELL DISTRIBUTION WIDTH 11.3 % (11.6-14.8); WHITE BLOOD COUNT 6.7 K/UL (4.8-10.8)
[2017-04-17 07:57] LABS: ANION GAP 6 mmol/L (5-15); CALCIUM 9.3 MG/DL (8.5-10.1); CARBON DIOXIDE 31 MMOL/L (21-32); CHLORIDE 102 MMOL/L (98-107); GLOMERULAR FILTRATION RATE > 60 mL/min (>60); POTASSIUM 4.4 MMOL/L (3.5-5.1); SODIUM 139 MMOL/L (136-145)
[2017-04-17] MEDS: Benazepril 10mg tab ORAL SCH (09:05)
[2017-04-17] MEDS: Allopurinol 100mg Tab ORAL SCH (09:05)
[2017-04-17] MEDS: Pantoprazole Inj IV SCH (09:06)
[2017-04-17] MEDS: Heparin 5000 units/ml inj SUBQ SCH ×2 (09:13→21:25)
--- NOTE | 2017-04-17 13:35 | Pulmonology Progress Note ---
Assessment/Plan Assessment/Plan ASSESSMENT RUL mass Possible PNA r/o malignancy r/o TB s/p lung biopsy 04/11 DM HTN gout PLAN OF CARE MS floor airborne isolation ID follows s/p abx rx per ID continue to monitor off abx sputum cx negative, blood cx negative, influenza screen negative CT chest noted Sputum AFB x 3 negtaive O2 HHN prn positive PPD but T spot, TB by PCR, negative HIV status negative serology for Cocci pending a/tussive prn pathology of lung tissue - negative for malignancy, no microorganism, inflammatory process with ill defined granulomas CXR 04/15 - Improving right apical opacity, likely reflects clearing pneumonia. CXR in am gentle IVF BS management with SS of insulin BP management with ROSANNA and optimize further as needed continue Allopurinol DVT/GI prophylaxis will need department of health clearance discussed with ashley and his daughter ( over the [id number] case discussed and evaluated by supervising physician Subjective Allergies: Coded Allergies: No Known Allergies (Unverified , 12/31/12) Subjective afebrile, no leukocytosis no signs of respiratory distress + cough, minimally productive, no hemoptysis, no wheezing no chest pain Objective Last 24 Hour Vital Signs Date Time Temp Pulse Resp B/P (MAP) Pulse Ox O2 Delivery O2 Flow Rate FiO2 04/17/17 09:05 132/88 04/17/17 08:58 97.2 89 15 132/88 96 Room Air 04/17/17 08:00 97.2 89 20 132/88 96 Room Air 04/17/17 07:55 88 16 Room Air 21 04/17/17 04:00 97.7 70 20 125/74 97 Room Air 04/16/17 23:39 97.7 69 18 116/74 99 Room Air 04/16/17 19:05 97.7 79 18 137/82 94 Room Air 04/16/17 16:00 Objective General Appearance: WD/WN, no acute distress, other - A/A/O x 3 Albanian speaking obese male in NAD HEENT: normocephalic, atraumatic, anicteric, mucous membranes moist, EOMI, supple, no JVD Respiratory/Chest: chest wall non-tender, lungs clear, normal breath sounds, no respiratory distress, no accessory muscle use Cardiovascular: normal rate, regular rhythm, no JVD Abdomen: normal bowel sounds, soft, non tender - obese Extremities: no edema, pedal pulses normal Neurologic/Psychiatric: no motor/sensory deficits, alert, oriented x 3, responsive Musculoskeletal: normal muscle bulk Laboratory Tests 04/17/17 05:25: White Blood Count 6.7, Red Blood Count 4.03L, Hemoglobin 12.9L, Hematocrit 36.8L , Mean Corpuscular Volume 91, Mean Corpuscular Hemoglobin 31.9H, Mean Corpuscular Hemoglobin Concent 34.9, Red Cell Distribution Width 11.3L, Platelet Count 276, Mean Platelet Volume 5.7L, Neutrophils (%) (Auto) 61.4, Lymphocytes (%) (Auto) 28.3, Monocytes (%) (Auto) 6.2, Eosinophils (%) (Auto) 3.2H, Basophils (%) (Auto) 1.0, Sodium Level 139, Potassium Level 4.4, Chloride Level 102, Carbon Dioxide Level 31, Anion Gap 6, Blood Urea Nitrogen 16, Creatinine 1.0, Estimat Glomerular Filtration Rate > 60, Glucose Level 98, Calcium Level 9.3 Current Medications Medications (Trade) Dose Ordered Sig/Tamiko Route PRN Reason Start Time Stop Time Status Last Admin Dose Admin Acetaminophen (Tylenol) 650 mg Q4H PRN ORAL T>100.5 04/08/17 15:15 05/08/17 15:14 04/09/17 07:51 Acetaminophen (Tylenol) 650 mg Q4H PRN ORAL Mild Pain 04/09/17 11:30 05/09/17 11:29 Albuterol/ Ipratropium (Albuterol/ Ipratropium) 3 ml Q4H PRN HHN sob 04/15/17 22:30 04/20/17 22:29 Allopurinol (Zyloprim) 100 mg DAILY ORAL 04/09/17 09:00 05/09/17 08:59 04/17/17 09:05 Benazepril HCl (Lotensin) 20 mg DAILY ORAL 04/09/17 09:00 05/09/17 08:59 04/17/17 09:05 Dextrose (Dextrose 50%) STAT PRN IV Hypoglycemia 04/08/17 15:30 05/08/17 15:29 Heparin Sodium (Porcine) (Heparin 5000 units/ml) 5,000 units EVERY 12 HOURS SUBQ 04/08/17 21:00 05/08/17 20:59 04/17/17 09:13 Insulin Aspart (NovoLOG) BEFORE MEALS AND HS SUBQ 04/08/17 16:30 05/08/17 16:29 04/17/17 13:00 Ondansetron HCl (Zofran) 4 mg Q6H PRN IVP Nausea & Vomiting 04/08/17 15:15 05/08/17 15:14 Pantoprazole (Protonix) 40 mg DAILY IV 04/09/17 09:00 05/09/17 08:59 04/17/17 09:06 Polyethylene Glycol (Miralax) 17 gm DAILYPRN PRN ORAL Constipation 04/08/17 15:15 05/08/17 15:14 Promethazine HCl/ Codeine (Phenergan with Codeine) 5 ml Q4H PRN ORAL For Cough 04/08/17 15:15 05/08/17 15:14 Sodium Chloride 1,000 ml @ 50 mls/hr Q20H IV 04/08/17 16:30 05/08/17 16:29 04/16/17 22:38 Temazepam (Restoril) 15 mg HSPRN PRN ORAL Insomnia 04/10/17 20:15 04/17/17 20:14 04/16/17 22:37 Thien ([facility])Anuja NP Apr 17, 2017 13:34
[2017-04-17] MEDS ORDERED: 1/2 NS 1000ml IV ONE (14:50)
[2017-04-18 04:00] VITALS: BP 122/72
[2017-04-18] MEDS: NovoLOG Insulin Flexpen SUBQ SCH ×4 (06:30→20:30)
[2017-04-18 07:12] LABS: BASOPHILS % (AUTO) 1.3 % (0.0-2.0); LYMPHOCYTES % (AUTO) 27.4 % (20.0-45.0); MEAN CORPUSCULAR HEMOGLOBIN 32.5 PG (27.0-31.0); MEAN CORPUSCULAR HGB CONC 35.5 G/DL (32.0-36.0); MEAN CORPUSCULAR VOLUME 92 FL (80-99); MEAN PLATELET VOLUME 5.7 FL (6.5-10.1); MONOCYTES % (AUTO) 5.4 % (1.0-10.0); PLATELET COUNT 272 K/UL (150-450); RED BLOOD COUNT 3.96 M/UL (4.70-6.10); RED CELL DISTRIBUTION WIDTH 11.4 % (11.6-14.8); WHITE BLOOD COUNT 7.2 K/UL (4.8-10.8)
[2017-04-18 07:22] LABS: ANION GAP 7 mmol/L (5-15); CALCIUM 9.2 MG/DL (8.5-10.1); CARBON DIOXIDE 27 MMOL/L (21-32); CHLORIDE 103 MMOL/L (98-107); CREATININE 0.8 MG/DL (0.55-1.30); GLOMERULAR FILTRATION RATE > 60 mL/min (>60); POTASSIUM 4.1 MMOL/L (3.5-5.1); SODIUM 137 MMOL/L (136-145)
[2017-04-18 08:00] VITALS: BP 140/84
--- NOTE | 2017-04-18 08:42 | Diagnostic Imaging Report ---
Indication: Right apical lung mass versus infiltrate on prior imaging studies Technique: Informed consent obtained prior to commencement of the procedure. Procedure not performed. With the patient prone, spiral acquisitions obtained through the lung apices. Intended puncture site marked, sterilely prepped and draped. Sinuses with 1% lidocaine. Using a posterior approach in the first intercostal space, the right upper lobe lung mass was accessed using a 17-gauge guide needle. 18-gauge Achieve needle was inserted coaxially. Three 18-gauge core specimens were obtained. 2 were submitted for histology, and one for culture/AFB. Total dose length product 2762 mGycm. CTDIvol(s) 24 x 2, 29 x 9, 20 mGy. Radiation dose was minimized using automated exposure control Comparison: CT scan dated 04/09/2017 Findings: Intraprocedural images document needle placement at the periphery of the target lesion. Completion images post needle removal demonstrate no evidence of pneumothorax or hemorrhage. Impression: Apparently successful CT-guided biopsy of right upper lobe lesion, as described. Pathology report describes inflammatory changes no evidence of malignancy. This is concordant with the findings on CT as well as subsequent findings The CT scanner at [facility] is accredited by the [employer] and the scans are performed using protocols designed to limit radiation exposure to as low as reasonably achievable to attain images of sufficient resolution adequate for diagnostic evaluation.
[2017-04-18] MEDS: Allopurinol 100mg Tab ORAL SCH (09:48)
[2017-04-18] MEDS: Pantoprazole Inj IV SCH (09:48)
--- NOTE | 2017-04-18 09:53 | Infectious Diseases Prog Note ---
Assessment/Plan Assessment/Plan ASSESSMENT: The patient is a 66-year-old male with: 1. Low-grade fever., SP -Flu neg -Bcx Neg 2 Right upper lobe PNA- acute symptoms, now resolved/ asymptomatic. Repeat CT. CXR with essentially cleared infiltrate. Extensive w/u negative; Given acute symptoms and resolution with radiografic resolution, most likely this was a acute bacterial process. s/p Rx -CT chest 04/18: Since 04/10/2017 interim resolution of previous demonstrated right apical infiltrate. Minimal residual opacity in the area most likely represents scarring. No new or acute process. Evidence of old granulomatous disease, also previously described. Cholelithiasis, minimal perinephric fat stranding, also previously described -CXR 04/18: Previously demonstrated right apical infiltrate has essentially cleared, except for a small amount of pleural thickening -neg: HIV ag/ab, Cr Ag, Histoplasma Ab, Blastomyces ab. -AFB smear neg x3, MTB PCR neg -PPD+28mm, but TB Spot neg (hx of BCG) -pending: COcci ab -path: inflammatory process with ill-defined granulomas, AFB, GMS, immunohistochemical stains for AFB neg; neg for malignancy -sp cx normal ingrid -CXR 04/15: Improving right apical opacity, likely reflects clearing pneumonia. CT chest w04/10: Stable large area of consolidation involving the right upper lobe with nodular groundglass densities at its inferior margin. Again findings may be compatible with pneumonia but the possibility of underlying mass or bronchoalveolar carcinoma cannot be excluded. Headache, however, clinical exam and history is not suggestive of meningitis. The patient is improving. No photophobia, nausea, or vomiting. PLAN: - Ok to discharge home off abx -04/14 Ceftriaxone #7 -04/13 Cefepime #6, Azithromycin #5 -04/12 SP IV Vancomycin #5 - Can dc airborne precautions -F/u with PCP as outpatient -f/u pending cultures, COcci ab Discussed with Dr Lin, micro lab staff Subjective Allergies: Coded Allergies: No Known Allergies (Unverified , 12/31/12) Subjective remains afebrile VSS no leukocytosis Objective Vital Signs Last 24 Hour Vital Signs Date Time Temp Pulse Resp B/P (MAP) Pulse Ox O2 Delivery O2 Flow Rate FiO2 04/18/17 07:31 109 17 Room Air 21 04/18/17 04:00 97.5 79 18 122/72 97 04/17/17 23:56 97.5 68 18 132/70 95 04/17/17 21:40 79 17 Room Air 21 04/17/17 19:51 98.6 75 18 122/75 95 04/17/17 16:41 97.7 71 18 132/80 96 04/17/17 16:00 Room Air 04/17/17 12:00 Room Air 04/17/17 12:00 97.0 78 20 139/77 95 Height (Feet): 5 Height (Inches): 0.00 Weight (Pounds): 198 Objective PHYSICAL EXAMINATION: HEENT: No pale conjunctivae. No icterus. NECK: No lymphadenopathy. CHEST: Coarse breathing sounds in bilateral lung blake. HEART: S1 and S2. ABDOMEN: Soft and obese. EXTREMITIES: No cyanosis at this time. NEUROLOGIC: Awake and alert. Laboratory Tests Test 04/18/17 04:40 White Blood Count 7.2 K/UL (4.8-10.8) Red Blood Count 3.96 M/UL (4.70-6.10) L Hemoglobin 12.9 G/DL (14.2-18.0) L Hematocrit 36.3 % (42.0-52.0) L Mean Corpuscular Volume 92 FL (80-99) Mean Corpuscular Hemoglobin 32.5 PG (27.0-31.0) H Mean Corpuscular Hemoglobin Concent 35.5 G/DL (32.0-36.0) Red Cell Distribution Width 11.4 % (11.6-14.8) L Platelet Count 272 K/UL (150-450) Mean Platelet Volume 5.7 FL (6.5-10.1) L Neutrophils (%) (Auto) 63.0 % (45.0-75.0) Lymphocytes (%) (Auto) 27.4 % (20.0-45.0) Monocytes (%) (Auto) 5.4 % (1.0-10.0) Eosinophils (%) (Auto) 3.0 % (0.0-3.0) Basophils (%) (Auto) 1.3 % (0.0-2.0) Sodium Level 137 MMOL/L (136-145) Potassium Level 4.1 MMOL/L (3.5-5.1) Chloride Level 103 MMOL/L (98-107) Carbon Dioxide Level 27 MMOL/L (21-32) Anion Gap 7 mmol/L (5-15) Blood Urea Nitrogen 17 mg/dL (7-18) Creatinine 0.8 MG/DL (0.55-1.30) Estimat Glomerular Filtration Rate > 60 mL/min (>60) Glucose Level 106 MG/DL (74-106) Calcium Level 9.2 MG/DL (8.5-10.1) Current Medications Medications (Trade) Dose Ordered Sig/Tamiko Route PRN Reason Start Time Stop Time Status Last Admin Dose Admin Acetaminophen (Tylenol) 650 mg Q4H PRN ORAL T>100.5 04/08/17 15:15 05/08/17 15:14 04/09/17 07:51 Acetaminophen (Tylenol) 650 mg Q4H PRN ORAL Mild Pain 04/09/17 11:30 05/09/17 11:29 Albuterol/ Ipratropium (Albuterol/ Ipratropium) 3 ml Q4H PRN HHN sob 04/15/17 22:30 04/20/17 22:29 Allopurinol (Zyloprim) 100 mg DAILY ORAL 04/09/17 09:00 05/09/17 08:59 04/17/17 09:05 Benazepril HCl (Lotensin) 20 mg DAILY ORAL 04/09/17 09:00 05/09/17 08:59 04/17/17 09:05 Dextrose (Dextrose 50%) STAT PRN IV Hypoglycemia 04/08/17 15:30 05/08/17 15:29 Heparin Sodium (Porcine) (Heparin 5000 units/ml) 5,000 units EVERY 12 HOURS SUBQ 04/08/17 21:00 05/08/17 20:59 04/17/17 21:25 Insulin Aspart (NovoLOG) BEFORE MEALS AND HS SUBQ 04/08/17 16:30 05/08/17 16:29 04/17/17 21:23 Ondansetron HCl (Zofran) 4 mg Q6H PRN IVP Nausea & Vomiting 04/08/17 15:15 05/08/17 15:14 Pantoprazole (Protonix) 40 mg DAILY IV 04/09/17 09:00 05/09/17 08:59 04/17/17 09:06 Polyethylene Glycol (Miralax) 17 gm DAILYPRN PRN ORAL Constipation 04/08/17 15:15 05/08/17 15:14 Promethazine HCl/ Codeine (Phenergan with Codeine) 5 ml Q4H PRN ORAL For Cough 04/08/17 15:15 05/08/17 15:14 Sodium Chloride 1,000 ml @ 50 mls/hr Q20H IV 04/08/17 16:30 05/08/17 16:29 04/17/17 18:36 Temazepam (Restoril) 15 mg HSPRN PRN ORAL Insomnia 04/17/17 23:00 04/24/17 22:59 04/18/17 00:36 Fartun Pitt M.D. Apr 18, 2017 09:53
[2017-04-18] MEDS: Heparin 5000 units/ml inj SUBQ SCH ×2 (09:55→20:29)
[2017-04-18] MEDS: Benazepril 10mg tab ORAL SCH (09:56)
--- NOTE | 2017-04-18 11:14 | Diagnostic Imaging Report ---
Indication: SOB Technique: One view of the chest Comparison: none Findings: Interim further clearing of previously demonstrated right apical opacity, now essentially clear except for small amount of pleural thickening. No new infiltrates. Left basilar presumed nipple shadow is again noted Impression: Previously demonstrated right apical infiltrate has essentially cleared, except for a small amount of pleural thickening
[2017-04-18 12:00] VITALS: BP 135/84
--- NOTE | 2017-04-18 13:05 | Diagnostic Imaging Report ---
Clinical Indication: Right upper lobe infiltrate seen on prior CT scan Technique: Spiral acquisitions obtained through the chest. No IV contrast utilized, reason not stated. Multiplanar reconstructions generated. Total dose length product a 12 mGycm. CTDIvol(s) 22 mGy. Dose reduction achieved using automated exposure control Comparison: 04/10/2017 Findings:Previously demonstrated right upper lobe infiltrates have nearly completely resolved. There is now only some residual irregular opacity in the right lung apex, likely reflecting some scarring. There is minimal very faint groundglass opacity within the more inferior right upper lobe. The remainder of the lungs are clear. No new infiltrates. No masses or nodules. Previously demonstrated small right pleural effusion is no longer evident. Right lower lobe calcified granuloma is again demonstrated The thyroid is unremarkable. No mediastinal or hilar mass or adenopathy. Normal heart size. Normal esophagus. No pericardial effusion. No axillary or chest wall mass or adenopathy. Included upper abdomen demonstrates gallstones. Minimal perinephric fat stranding is demonstrated, left greater than right. There are questionably colonic diverticula. Impression: Since 04/10/2017 interim resolution of previous demonstrated right apical infiltrate. Minimal residual opacity in the area most likely represents scarring No new or acute process Evidence of old granulomatous disease, also previously described Cholelithiasis, minimal perinephric fat stranding, also previously described The CT scanner at [facility] is accredited by the [employer] and the scans are performed using protocols designed to limit radiation exposure to as low as reasonably achievable to attain images of sufficient resolution adequate for diagnostic evaluation.
[2017-04-18 16:00] VITALS: BP 141/86
--- NOTE | 2017-04-18 16:43 | Pulmonology Progress Note ---
Assessment/Plan Problems: (1) Pneumonia (2) Diabetes mellitus (3) Gout (4) History of hypertension Assessment/Plan pathology reviewed, was negative for AFB and granulomas dc respiratory isolation CT guided biopsy done today, d/w dr Candelaria dewitt abx TB PCR negative dc home when ok with department of health. Subjective ROS Limited/Unobtainable: No Interval Events: no new complains Constitutional: Reports: no symptoms HEENT: Repors: no symptoms Respiratory: Reports: no symptoms Allergies: Coded Allergies: No Known Allergies (Unverified , 12/31/12) Objective Last 24 Hour Vital Signs Date Time Temp Pulse Resp B/P (MAP) Pulse Ox O2 Delivery O2 Flow Rate FiO2 04/18/17 12:00 96.0 69 17 135/84 95 Room Air 04/18/17 09:56 140/84 04/18/17 08:00 97.2 76 18 140/84 96 Room Air 04/18/17 07:31 109 17 Room Air 21 04/18/17 04:00 97.5 79 18 122/72 97 04/17/17 23:56 97.5 68 18 132/70 95 04/17/17 21:40 79 17 Room Air 21 04/17/17 19:51 98.6 75 18 122/75 95 Intake and Output 04/18/17 04/19/17 19:00 07:00 Intake Total 650 ml Balance 650 ml Intake Oral 250 ml IV Total 400 ml # Voids 1 General Appearance: WD/WN HEENT: normocephalic, atraumatic Respiratory/Chest: chest wall non-tender, lungs clear Cardiovascular: normal peripheral pulses, normal rate Abdomen: normal bowel sounds, soft, non tender Genitourinary: normal external genitalia Extremities: no clubbing 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, no motor/sensory deficits Musculoskeletal: normal muscle bulk Laboratory Tests 04/18/17 04:40: White Blood Count 7.2, Red Blood Count 3.96L, Hemoglobin 12.9L, Hematocrit 36.3L , Mean Corpuscular Volume 92, Mean Corpuscular Hemoglobin 32.5H, Mean Corpuscular Hemoglobin Concent 35.5, Red Cell Distribution Width 11.4L, Platelet Count 272, Mean Platelet Volume 5.7L, Neutrophils (%) (Auto) 63.0, Lymphocytes (%) (Auto) 27.4, Monocytes (%) (Auto) 5.4, Eosinophils (%) (Auto) 3.0, Basophils (%) (Auto) 1.3, Sodium Level 137, Potassium Level 4.1, Chloride Level 103, Carbon Dioxide Level 27, Anion Gap 7, Blood Urea Nitrogen 17, Creatinine 0.8, Estimat Glomerular Filtration Rate > 60, Glucose Level 106, Calcium Level 9.2 Current Medications Medications (Trade) Dose Ordered Sig/Tamiko Route PRN Reason Start Time Stop Time Status Last Admin Dose Admin Acetaminophen (Tylenol) 650 mg Q4H PRN ORAL T>100.5 04/08/17 15:15 05/08/17 15:14 04/09/17 07:51 Acetaminophen (Tylenol) 650 mg Q4H PRN ORAL Mild Pain 04/09/17 11:30 05/09/17 11:29 Albuterol/ Ipratropium (Albuterol/ Ipratropium) 3 ml Q4H PRN HHN sob 04/15/17 22:30 04/20/17 22:29 Allopurinol (Zyloprim) 100 mg DAILY ORAL 04/09/17 09:00 05/09/17 08:59 04/18/17 09:48 Benazepril HCl (Lotensin) 20 mg DAILY ORAL 04/09/17 09:00 05/09/17 08:59 04/18/17 09:56 Dextrose (Dextrose 50%) STAT PRN IV Hypoglycemia 04/08/17 15:30 05/08/17 15:29 Heparin Sodium (Porcine) (Heparin 5000 units/ml) 5,000 units EVERY 12 HOURS SUBQ 04/08/17 21:00 05/08/17 20:59 04/18/17 09:55 Insulin Aspart (NovoLOG) BEFORE MEALS AND HS SUBQ 04/08/17 16:30 05/08/17 16:29 04/17/17 21:23 Ondansetron HCl (Zofran) 4 mg Q6H PRN IVP Nausea & Vomiting 04/08/17 15:15 05/08/17 15:14 Pantoprazole (Protonix) 40 mg DAILY IV 04/09/17 09:00 05/09/17 08:59 04/18/17 09:48 Polyethylene Glycol (Miralax) 17 gm DAILYPRN PRN ORAL Constipation 04/08/17 15:15 05/08/17 15:14 Promethazine HCl/ Codeine (Phenergan with Codeine) 5 ml Q4H PRN ORAL For Cough 04/08/17 15:15 05/08/17 15:14 Sodium Chloride 1,000 ml @ 50 mls/hr Q20H IV 04/08/17 16:30 05/08/17 16:29 04/17/17 18:36 Temazepam (Restoril) 15 mg HSPRN PRN ORAL Insomnia 04/17/17 23:00 04/24/17 22:59 04/18/17 00:36 LUIZ RENTERIA Apr 18, 2017 16:43
[2017-04-18 20:08] VITALS: BP 137/83
[2017-04-19] VITALS: BP 129/78
[2017-04-19 04:00] VITALS: BP 139/84
[2017-04-19] MEDS: NovoLOG Insulin Flexpen SUBQ SCH ×2 (06:30→11:30)
[2017-04-19 08:15] VITALS: BP 134/75
[2017-04-19] MEDS: Benazepril 10mg tab ORAL SCH (08:51)
[2017-04-19] MEDS: Allopurinol 100mg Tab ORAL SCH (08:51)
[2017-04-19] MEDS: Pantoprazole Inj IV SCH (08:51)
[2017-04-19] MEDS: Heparin 5000 units/ml inj SUBQ SCH (09:00)
--- NOTE | 2017-04-19 10:41 | Infectious Diseases Prog Note ---
Assessment/Plan Assessment/Plan ASSESSMENT: The patient is a 66-year-old male with: 1. Low-grade fever., SP -Flu neg -Bcx Neg 2 Right upper lobe PNA- acute symptoms, now resolved/ asymptomatic. Repeat CT. CXR with essentially cleared infiltrate. Extensive w/u negative; Given acute symptoms and resolution with radiographic resolution, most likely this was a acute bacterial process. s/p Rx -CT chest 04/18: Since 04/10/2017 interim resolution of previous demonstrated right apical infiltrate. Minimal residual opacity in the area most likely represents scarring. No new or acute process. Evidence of old granulomatous disease, also previously described. Cholelithiasis, minimal perinephric fat stranding, also previously described -CXR 04/18: Previously demonstrated right apical infiltrate has essentially cleared, except for a small amount of pleural thickening -neg: HIV ag/ab, Cr Ag, Histoplasma Ab, Blastomyces ab. -AFB smear neg x3, MTB PCR neg -PPD+28mm, but TB Spot neg (hx of BCG) -pending: COcci ab -path: inflammatory process with ill-defined granulomas, AFB, GMS, immunohistochemical stains for AFB neg; neg for malignancy -sp cx normal ingrid -CXR 04/15: Improving right apical opacity, likely reflects clearing pneumonia. CT chest w04/10: Stable large area of consolidation involving the right upper lobe with nodular groundglass densities at its inferior margin. Again findings may be compatible with pneumonia but the possibility of underlying mass or bronchoalveolar carcinoma cannot be excluded. Headache, however, clinical exam and history is not suggestive of meningitis. The patient is improving. No photophobia, nausea, or vomiting. PLAN: - Ok to discharge home off abx, awaiting Dept PH authorization -04/14 Ceftriaxone #7 -04/13 Cefepime #6, Azithromycin #5 -04/12 SP IV Vancomycin #5 - Can dc airborne precautions -F/u with PCP as outpatient -f/u pending cultures, COcci ab Discussed with Dr Lni Subjective Allergies: Coded Allergies: No Known Allergies (Unverified , 12/31/12) Subjective remains afebrile VSS no leukocytosis assymptomatic cx NTD Objective Vital Signs Last 24 Hour Vital Signs Date Time Temp Pulse Resp B/P (MAP) Pulse Ox O2 Delivery O2 Flow Rate FiO2 04/19/17 08:51 134/75 04/19/17 08:15 97.3 79 19 134/75 96 Room Air 04/19/17 06:44 76 16 Room Air 21 04/19/17 04:00 97.9 77 17 139/84 97 04/19/17 00:00 97.9 69 18 129/78 97 Room Air 04/18/17 20:08 97.7 69 20 137/83 95 04/18/17 19:05 101 17 Room Air 21 04/18/17 16:00 97.7 78 18 141/86 98 Room Air 04/18/17 12:00 96.0 69 17 135/84 95 Room Air Height (Feet): 5 Height (Inches): 0.00 Weight (Pounds): 198 Objective PHYSICAL EXAMINATION: HEENT: No pale conjunctivae. No icterus. NECK: No lymphadenopathy. CHEST: Coarse breathing sounds in bilateral lung blake. HEART: S1 and S2. ABDOMEN: Soft and obese. EXTREMITIES: No cyanosis at this time. NEUROLOGIC: Awake and alert. Current Medications Medications (Trade) Dose Ordered Sig/Tamiko Route PRN Reason Start Time Stop Time Status Last Admin Dose Admin Acetaminophen (Tylenol) 650 mg Q4H PRN ORAL T>100.5 04/08/17 15:15 05/08/17 15:14 04/09/17 07:51 Acetaminophen (Tylenol) 650 mg Q4H PRN ORAL Mild Pain 04/09/17 11:30 05/09/17 11:29 Albuterol/ Ipratropium (Albuterol/ Ipratropium) 3 ml Q4H PRN HHN sob 04/15/17 22:30 04/20/17 22:29 Allopurinol (Zyloprim) 100 mg DAILY ORAL 04/09/17 09:00 05/09/17 08:59 04/19/17 08:51 Benazepril HCl (Lotensin) 20 mg DAILY ORAL 04/09/17 09:00 05/09/17 08:59 04/19/17 08:51 Dextrose (Dextrose 50%) STAT PRN IV Hypoglycemia 04/08/17 15:30 05/08/17 15:29 Heparin Sodium (Porcine) (Heparin 5000 units/ml) 5,000 units EVERY 12 HOURS SUBQ 04/08/17 21:00 05/08/17 20:59 04/19/17 09:00 Insulin Aspart (NovoLOG) BEFORE MEALS AND HS SUBQ 04/08/17 16:30 05/08/17 16:29 04/18/17 20:30 Ondansetron HCl (Zofran) 4 mg Q6H PRN IVP Nausea & Vomiting 04/08/17 15:15 05/08/17 15:14 Pantoprazole (Protonix) 40 mg DAILY IV 04/09/17 09:00 05/09/17 08:59 04/19/17 08:51 Polyethylene Glycol (Miralax) 17 gm DAILYPRN PRN ORAL Constipation 04/08/17 15:15 05/08/17 15:14 Promethazine HCl/ Codeine (Phenergan with Codeine) 5 ml Q4H PRN ORAL For Cough 04/08/17 15:15 05/08/17 15:14 Sodium Chloride 1,000 ml @ 50 mls/hr Q20H IV 04/08/17 16:30 05/08/17 16:29 04/17/17 18:36 Temazepam (Restoril) 15 mg HSPRN PRN ORAL Insomnia 04/17/17 23:00 04/24/17 22:59 04/18/17 21:33 Fartun Pitt M.D. Apr 19, 2017 10:41
[2017-04-19 11:53] VITALS: BP 110/63
--- NOTE | 2017-04-19 15:21 | Pulmonology Progress Note ---
Assessment/Plan Problems: (1) Pneumonia (2) Diabetes mellitus (3) Gout (4) History of hypertension Assessment/Plan dc respiratory isolation DHS agreed to dc isolation BS controlled BP controlled asymptomatic dc home Subjective ROS Limited/Unobtainable: No Constitutional: Reports: no symptoms HEENT: Repors: no symptoms Respiratory: Reports: no symptoms Allergies: Coded Allergies: No Known Allergies (Unverified , 12/31/12) Objective Last 24 Hour Vital Signs Date Time Temp Pulse Resp B/P (MAP) Pulse Ox O2 Delivery O2 Flow Rate FiO2 04/19/17 11:53 98.9 88 22 110/63 99 Room Air 04/19/17 08:51 134/75 04/19/17 08:15 97.3 79 19 134/75 96 Room Air 04/19/17 06:44 76 16 Room Air 21 04/19/17 04:00 97.9 77 17 139/84 97 04/19/17 00:00 97.9 69 18 129/78 97 Room Air 04/18/17 20:08 97.7 69 20 137/83 95 04/18/17 19:05 101 17 Room Air 21 04/18/17 16:00 97.7 78 18 141/86 98 Room Air Intake and Output 04/19/17 04/20/17 19:00 07:00 Intake Total 480 ml Balance 480 ml Intake Oral 480 ml General Appearance: WD/WN HEENT: normocephalic, atraumatic Respiratory/Chest: chest wall non-tender, lungs clear Cardiovascular: normal peripheral pulses, normal rate Abdomen: normal bowel sounds, soft, non tender Genitourinary: normal external genitalia Skin: no rash Neurologic/Psychiatric: no motor/sensory deficits Lymphatic: no neck adenopathy Current Medications Medications (Trade) Dose Ordered Sig/Tamiko Route PRN Reason Start Time Stop Time Status Last Admin Dose Admin Acetaminophen (Tylenol) 650 mg Q4H PRN ORAL T>100.5 04/08/17 15:15 05/08/17 15:14 04/09/17 07:51 Acetaminophen (Tylenol) 650 mg Q4H PRN ORAL Mild Pain 04/09/17 11:30 05/09/17 11:29 Albuterol/ Ipratropium (Albuterol/ Ipratropium) 3 ml Q4H PRN HHN sob 04/15/17 22:30 04/20/17 22:29 Allopurinol (Zyloprim) 100 mg DAILY ORAL 04/09/17 09:00 05/09/17 08:59 04/19/17 08:51 Benazepril HCl (Lotensin) 20 mg DAILY ORAL 04/09/17 09:00 05/09/17 08:59 04/19/17 08:51 Dextrose (Dextrose 50%) STAT PRN IV Hypoglycemia 04/08/17 15:30 05/08/17 15:29 Heparin Sodium (Porcine) (Heparin 5000 units/ml) 5,000 units EVERY 12 HOURS SUBQ 04/08/17 21:00 05/08/17 20:59 04/19/17 09:00 Insulin Aspart (NovoLOG) BEFORE MEALS AND HS SUBQ 04/08/17 16:30 05/08/17 16:29 04/18/17 20:30 Ondansetron HCl (Zofran) 4 mg Q6H PRN IVP Nausea & Vomiting 04/08/17 15:15 05/08/17 15:14 Pantoprazole (Protonix) 40 mg DAILY IV 04/09/17 09:00 05/09/17 08:59 04/19/17 08:51 Polyethylene Glycol (Miralax) 17 gm DAILYPRN PRN ORAL Constipation 04/08/17 15:15 05/08/17 15:14 Promethazine HCl/ Codeine (Phenergan with Codeine) 5 ml Q4H PRN ORAL For Cough 04/08/17 15:15 05/08/17 15:14 Sodium Chloride 1,000 ml @ 50 mls/hr Q20H IV 04/08/17 16:30 05/08/17 16:29 04/17/17 18:36 Temazepam (Restoril) 15 mg HSPRN PRN ORAL Insomnia 04/17/17 23:00 04/24/17 22:59 04/18/17 21:33 LUIZ RENTERIA Apr 19, 2017 15:21
[2017-04-19 16:04] VITALS: BP 131/75
[2017-04-19] MEDS ORDERED: 1/2 NS 1000ml IV ONE (16:19)
--- NOTE | 2017-04-22 15:10 | Discharge Summary ---
Discharge Summary Hospital Course Date of Admission Apr 08, 2017 at 12:50 Date of Discharge Apr 19, 2017 at 16:20 Admitting Diagnosis PNEUMONIA, SEPSIS HPI Josue Pandya is a 66 year old male who was admitted on Apr 08, 2017 at 12 :50 for Pneumonia, Sepsis Hospital Course [id number] Discharge Discharge Disposition Patient was discharged to Home (01) Discharge Diagnoses: Karley Vinson NP Apr 22, 2017 15:09
--- NOTE | 2017-04-23 04:15 | Discharge Summary 2 SIG ---
DATE OF ADMISSION: 04/08/2017 DATE OF DISCHARGE: 04/19/2017 INDUSTRIAL TECHNOLOGY EDUCATION TEACHER: Fartun Pitt M.D. BRIEF HOSPITAL COURSE: The patient is a 66-year-old male, who presented to ED complaining of cough and chest congestion and also reported headaches and body aches. He was having fever which was higher at nighttime. Denies any recent travel. On evaluation at ED, chest x-ray showed right apical mass versus infiltrate. There was no leukocytosis, however, due to chest x-ray findings, the patient was admitted for possible pneumonia, rule out tuberculosis. He was placed on airborne isolation and tuberculosis workup was done. He was given cefepime and vancomycin and Zithromax was added. He had a chest CT that showed 7 x 7 area of consolidation in the right upper lobe with nodular ground-glass at its inferior margin. He was continued on respiratory isolation and on 04/11/2017, underwent CT-guided right lung mass biopsy by interventional radiology. He had PPD that measured 28 mm. He continued to have low-grade fever. Tuberculosis workup was pending. He had subsequent surveillance chest x-ray. AFB sputum was negative x3. Influenza screen was negative. Sputum culture was negative. Pathology report from lung mass showed inflammatory process with negative microorganisms, negative for malignancy. Subsequent chest x-ray showed interim resolution of previously demonstrated right apical infiltrate. Tuberculosis PCR was negative. T-SPOT was negative. The patient was cleared by [facility] from airborne isolation. He was eventually discharged home to follow up with PCP as an outpatient. FINAL DIAGNOSES: 1. Pneumonia. 2. Diabetes mellitus. 3. Gout. 4. Hypertension. 5. Headache. DISPOSITION: The patient was discharged home. DISCHARGE MEDICATIONS: Refer to medication list. FOLLOWUP: Follow up with PCP. Laura Lin M.D. I have been assigned to dictate discharge summary on this account and I was not involved in the patient's management. Karley Vinson N.P. DR: YE JOB#: [id number] CC: CAITLIN
== END 2017-04-19 16:20 | disposition home or self-care (01) | DRG 195 ==
LOC: EMR 11:46 → 3E 12:50 → EDBEDREQ 13:51 → 4E 04-09 12:30
PROC: 0BBC3ZX Excision of Right Upper Lung Lobe, Percutaneous Approach, Diagnostic (ICD-10-PCS; principal; 2017-04-11)
DX: J18.9 Pneumonia, unspecified organism (principal); I10 Essential (primary) hypertension; E11.9 Type 2 diabetes mellitus without complications; R91.8 Other nonspecific abnormal finding of lung field; M10.9 Gout, unspecified; K21.9 Gastro-esophageal reflux disease without esophagitis; R51 Headache
CPT/HCPCS: 36415; 70450; 71010; 71250; 71260; 80048; 80053; 80069; 80202; 81003; 82550; 82553; 82962; 83615; 83690; 83735; 84100; 85025; 85610; 85651; 85730; 86140; 86171; 86300; 86301; 86304; 86580; 86612; 86635; 86703; 86710; 87040; 87070; 87116; 87205; 87449; 87556; 93005; 94664; 99285; J1815; J2405

== ENCOUNTER 2018-03-18 22:22 | Inpatient (IN) | payer MEDICARE, MEDICAID ==
[~2018-03-18] VITALS: Ht 160 cm; Wt 87.5 kg
[~2018-03-18 22:22] MED LIST changes: +LISINOPRIL5 MG ORAL
[2018-03-18 23:08] LABS: BASOPHILS % (AUTO) 1.1 % (0.0-2.0); EOSINOPHILS % (AUTO) 0.5 % (0.0-3.0); HEMATOCRIT 38.6 % (42.0-52.0); HEMOGLOBIN 13.7 G/DL (14.2-18.0); LYMPHOCYTES % (AUTO) 11.3 % (20.0-45.0); MEAN CORPUSCULAR VOLUME 88 FL (80-99); MONOCYTES % (AUTO) 6.1 % (1.0-10.0); PLATELET COUNT 184 K/UL (150-450); RED BLOOD COUNT 4.39 M/UL (4.70-6.10); RED CELL DISTRIBUTION WIDTH 10.8 % (11.6-14.8); WHITE BLOOD COUNT 12.4 K/UL (4.8-10.8)
[2018-03-18] MEDS ORDERED: Morphine Sulfate 4mg/ml Inj (IV/IM USE ONLY) IVP ONE (23:15)
[2018-03-18 23:18] LABS: ANION GAP 7 mmol/L (5-15); BLOOD UREA NITROGEN 14 mg/dL (7-18); CARBON DIOXIDE 28 MMOL/L (21-32); CHLORIDE 97 MMOL/L (98-107); CREATININE 0.8 MG/DL (0.55-1.30); POTASSIUM 3.8 MMOL/L (3.5-5.1); SODIUM 132 MMOL/L (136-145)
[2018-03-18 23:29] LABS: ALANINE AMINOTRANSFERASE 53 U/L (12-78); ALBUMIN 3.9 G/DL (3.4-5.0); ALKALINE PHOSPHATASE 75 U/L (46-116); ASPARTATE AMINO TRANSFERASE 22 U/L (15-37); BILIRUBIN,TOTAL 1.3 MG/DL (0.2-1.0)
[2018-03-18 23:30] LABS: BILIRUBIN,DIRECT 0.4 MG/DL (0.0-0.3)
[2018-03-19] VITALS (8 sets, daily range): BP systolic 123–161; BP diastolic 78–98
[2018-03-19 00:55] LABS: APPEARANCE,URINE CLEAR; BILIRUBIN, URINE NEGATIVE (NEGATIVE); COLOR,URINE PALE YELLOW; GLUCOSE, URINE (UA) NEGATIVE (NEGATIVE); KETONES,URINE NEGATIVE (NEGATIVE); LEUKOCYTE ESTERASE ,URINE NEGATIVE (NEGATIVE); NITRITE,URINE NEGATIVE (NEGATIVE); PH,URINE 6.5 (4.5-8.0); PROTEIN,URINE 2+ (NEGATIVE); UROBILINOGEN,URINE NORMAL MG/DL (0.0-1.0)
[2018-03-19] MEDS ORDERED: Morphine Sulfate 4mg/ml Inj (IV/IM USE ONLY) ONE (01:11)
[2018-03-19] MEDS ORDERED: Morphine Sulfate 4mg/ml Inj (IV/IM USE ONLY) IVP ONE (01:15)
--- NOTE | 2018-03-19 01:29 | Emergency Room Report ---
History of Present Illness General Chief Complaint: Abdominal Pain Present Illness HPI This patient had lap beronica three days ago and c/o increased RUQ pain today. Surgery/surgeon not here. He does not know names of any meds. He denies fever, denies vomiting, c/o increased sharp, severe RUQ constant pain. Normal flatus. No urinary pain. No diarrhea. Allergies: Coded Allergies: No Known Allergies (Unverified , 12/31/12) Nursing Documentation-PMH Hx Cardiac Problems: Yes Hx Hypertension: Yes Hx Diabetes: Yes Hx Cancer: No Hx Gastrointestinal Problems: Yes - cholecystectomy 03/15/18 Hx Dialysis: No Hx Neurological Problems: No Hx Cerebrovascular Accident: No Hx Seizures: No Review of Systems Constitutional: Reports: no symptoms Eye: Reports: no symptoms ENT: Reports: no symptoms Respiratory: Reports: no symptoms Cardiovascular: Reports: no symptoms Gastrointestinal: Reports: see HPI, abdominal pain Genitourinary: Reports: no symptoms Musculoskeletal: Reports: no symptoms Skin: Reports: no symptoms Psychiatric: Reports: no symptoms Neurological: Reports: no symptoms Endocrine: Reports: no symptoms Hematologic/Lymphatic: Reports: no symptoms Allergic: Reports: no symptoms All Other Systems: negative except mentioned in HPI Physical Exam Vital Signs Date Time Temp Pulse Resp B/P (MAP) Pulse Ox O2 Delivery O2 Flow Rate FiO2 03/18/18 22:31 99.9 92 20 129/78 94 Room Air Sp02 EP Interpretation: reviewed, normal General Appearance: normal inspection, well appearing, no apparent distress, alert, GCS 15, non-toxic Head: normocephalic, atraumatic Eyes: bilateral eye normal inspection, bilateral eye PERRL, bilateral eye EOMI ENT: normal ENT inspection, hearing grossly normal, normal pharynx, no angioedema, normal voice, moist mucus membranes Neck: normal inspection, full range of motion, supple, no meningismus, no bony tend Respiratory: normal inspection, lungs clear, normal breath sounds, no rhonchi, no respiratory distress, no retraction, no accessory muscle use, no wheezing Cardiovascular #1: normal inspection, regular rate, rhythm, no edema Gastrointestinal: normal inspection, normal bowel sounds, soft, no mass, non- distended, other - three exp lap incisions no cellulitis, there is significant tenderness to palpation Musculoskeletal: gait/station normal, normal range of motion Neurologic: normal inspection, alert, oriented x3, responsive, motor strength/ tone normal Psychiatric: normal inspection, judgement/insight normal, memory normal Suicide Risk Assessment: Suicidal Ideation: No Had intent to initiate attempt: No Pt's plan for suicide attempt: No Has means to complete attempt: No Skin: normal inspection, normal color, no rash, warm/dry Medical Decision Making Diagnostic Impression: Primary Impression: Abdominal pain Additional Impression: Hx laparoscopic cholecystectomy ER Course There is significant tenderness to even light palpation RUQ. It is difficult to know if this is c/w post op day three or increased compared to expected. The patient says pain is worse than yesterday. No seriously abnormal labs but due to tenderness I think patient should have surgical evaluation and therefore will admit for pain control, IV antibiotics and surgery consult prn. CT/US obtained and noted. Rhythm Strip Diag. Results Rhythm Strip Time: 01:28 EP Interpretation: yes Rate: 86 Rhythm: NSR Last Vital Signs Date Time Temp Pulse Resp B/P (MAP) Pulse Ox O2 Delivery O2 Flow Rate FiO2 18 01:00 98.8 68 18 159/85 97 Room Air Status: unchanged Disposition: ADMITTED INPATIENT Condition: Serious Referrals: NON PHYSICIAN (PCP) Anish Navas M.D. Mar 19, 2018 01:29
[2018-03-19] MEDS ORDERED: Piperacillin/Tazobactam 3.375 GM in NS 110 ML IVPB ONE (01:30)
--- NOTE | 2018-03-19 01:53 | Diagnostic Imaging Report ---
EXAM: CT Abdomen and Pelvis Without Intravenous Contrast CLINICAL HISTORY: PAIN TECHNIQUE: Axial computed tomography images of the abdomen and pelvis without intravenous contrast. CTDI is 14.63 mGy and DLP is 711.5 mGy-cm. One or more of the following dose reduction techniques were used: automated exposure control, adjustment of the mA and/or kV according to patient size, use of iterative reconstruction technique. COMPARISON: Ultrasound 03/18/18 FINDINGS: Trace pleural fluid. Small hiatal hernia. Atelectasis. Findings compatible with recent cholecystectomy. Free fluid. There is more focal fluid and emphysema in the cholecystectomy bed. Would question whether some of this is surgical packing material. Suggest correlation with surgical history. Fluid collection of indeterminate sterility not entirely excluded No calcified choledocholithiasis. Allowing for free fluid, no convincing evidence for acute pancreatitis but will defer to enzymes. No appendicitis. No bowel obstruction. Portions of bowel underdistended limiting evaluation for wall thickening. Osseous degenerative changes. L5 pars defect. IMPRESSION: Trace pleural fluid. Cholecystectomy changes with free fluid and more focal fluid and emphysema in the cholecystectomy bed. Some of this could represent surgical material. Fluid collection of indeterminate sterility not entirely excluded. Correlate clinically. Other findings, as above. Critical Value Communications 03/19/18 01:12 Call From [facility] Dr. enamorado
[2018-03-19] MEDS ORDERED: Morphine Sulfate 2mg/ml Inj IVP PRN (03:45)
[2018-03-19] MEDS ORDERED: UNOBMED (04:04)
[2018-03-19] MEDS ORDERED: Sodium Chloride 500ML 500 ML IV PRN (04:30)
[2018-03-19] MEDS: D5NS 1,000 ML IV SCH ×2 (04:55→16:39)
[2018-03-19] MEDS ORDERED: Vancomycin 1.5 GM/D5W 250ML IVPB ONE (05:00)
[2018-03-19] MEDS ORDERED: Morphine Sulfate 4mg/ml Inj (IV/IM USE ONLY) IVP PRN (08:15)
--- NOTE | 2018-03-19 08:34 | History & Physical ---
History and Physical History & Physicial Seen and examined. Full Dictation in progress. Tamera Esteves MD Mar 19, 2018 08:34
[2018-03-19] MEDS ORDERED: Tubing IV Secondary IV ONE (08:42)
[2018-03-19] MEDS ORDERED: D5NS 1000ml IV ONE (08:42)
[2018-03-19] MEDS: Pantoprazole Inj IVP SCH (08:49)
[2018-03-19] MEDS: Heparin 5000 units/ml inj SUBQ SCH ×2 (08:52→20:13)
--- NOTE | 2018-03-19 09:25 | Infectious Diseases Prog Note ---
Assessment/Plan Problems: (1) S/P laparoscopic cholecystectomy Assessment & Plan: complicated with fluids collection at the gallbladder site , suspect seroma VS abscess , continue antibiotics , consider I&D and fluids culture (2) Sepsis Assessment & Plan: due to the above , continue antibiotics pending blood culture (3) Diabetes mellitus Assessment & Plan: recommend tight glycemic control to keep blood glucose between 100-140 (4) Abdominal pain Assessment & Plan: due to the above , continue antibiotics and pain management as needed Subjective Allergies: Coded Allergies: No Known Allergies (Unverified , 12/31/12) Objective Vital Signs Last 24 Hour Vital Signs Date Time Temp Pulse Resp B/P (MAP) Pulse Ox O2 Delivery O2 Flow Rate FiO2 03/19/18 08:48 123/78 03/19/18 08:00 97.3 86 16 123/78 (93) 99 03/19/18 04:49 Room Air 03/19/18 04:00 98.2 84 18 157/93 (114) 93 03/19/18 03:45 98.8 77 18 158/90 97 Room Air 03/19/18 03:00 98.8 77 18 158/90 97 Room Air 03/19/18 01:00 98.8 68 18 159/85 97 Room Air 03/19/18 00:00 99.9 80 18 149/88 94 Room Air 03/18/18 22:45 92 20 Room Air 03/18/18 22:31 99.9 92 20 129/78 94 Room Air Height (Feet): 5 Height (Inches): 4.00 Weight (Pounds): 194 Laboratory Tests Test 03/18/18 22:45 03/19/18 00:30 03/19/18 08:35 White Blood Count 12.4 K/UL (4.8-10.8) H Red Blood Count 4.39 M/UL (4.70-6.10) L Hemoglobin 13.7 G/DL (14.2-18.0) L Hematocrit 38.6 % (42.0-52.0) L Mean Corpuscular Volume 88 FL (80-99) Mean Corpuscular Hemoglobin 31.2 PG (27.0-31.0) H Mean Corpuscular Hemoglobin Concent 35.5 G/DL (32.0-36.0) Red Cell Distribution Width 10.8 % (11.6-14.8) L Platelet Count 184 K/UL (150-450) Mean Platelet Volume 7.1 FL (6.5-10.1) Neutrophils (%) (Auto) 81.0 % (45.0-75.0) H Lymphocytes (%) (Auto) 11.3 % (20.0-45.0) L Monocytes (%) (Auto) 6.1 % (1.0-10.0) Eosinophils (%) (Auto) 0.5 % (0.0-3.0) Basophils (%) (Auto) 1.1 % (0.0-2.0) Sodium Level 132 MMOL/L (136-145) L Potassium Level 3.8 MMOL/L (3.5-5.1) Chloride Level 97 MMOL/L (98-107) L Carbon Dioxide Level 28 MMOL/L (21-32) Anion Gap 7 mmol/L (5-15) Blood Urea Nitrogen 14 mg/dL (7-18) Creatinine 0.8 MG/DL (0.55-1.30) Estimat Glomerular Filtration Rate > 60 mL/min (>60) Glucose Level 169 MG/DL (74-106) H Calcium Level 9.0 MG/DL (8.5-10.1) Total Bilirubin 1.3 MG/DL (0.2-1.0) H Direct Bilirubin 0.4 MG/DL (0.0-0.3) H Aspartate Amino Transf (AST/SGOT) 22 U/L (15-37) Alanine Aminotransferase (ALT/SGPT) 53 U/L (12-78) Alkaline Phosphatase 75 U/L (46-116) Total Protein 7.9 G/DL (6.4-8.2) Albumin 3.9 G/DL (3.4-5.0) Globulin 4.0 g/dL Albumin/Globulin Ratio 1.0 (1.0-2.7) Lipase 94 U/L (73-393) Urine Color Pale yellow Urine Appearance Clear Urine pH 6.5 (4.5-8.0) Urine Specific [place] 1.010 (1.005-1.035) Urine Protein 2+ (NEGATIVE) H Urine Glucose (UA) Negative (NEGATIVE) Urine Ketones Negative (NEGATIVE) Urine Blood 1+ (NEGATIVE) H Urine Nitrite Negative (NEGATIVE) Urine Bilirubin Negative (NEGATIVE) Urine Urobilinogen Normal MG/DL (0.0-1.0) Urine Leukocyte Esterase Negative (NEGATIVE) Urine RBC 0-2 /HPF (0 - 0) H Urine WBC 0-2 /HPF (0 - 0) Urine Squamous Epithelial Cells None /LPF (NONE/OCC) Urine Bacteria None /HPF (NONE) Hemoglobin A1c Pending Current Medications Medications (Trade) Dose Ordered Sig/Tamiko Route PRN Reason Start Time Stop Time Status Last Admin Dose Admin Acetaminophen (Tylenol) 650 mg Q4H PRN ORAL Mild Pain/Temp > 100.5 03/19/18 03:45 04/18/18 03:44 Benazepril HCl (Lotensin) 20 mg DAILY ORAL 03/20/18 09:00 04/19/18 08:59 Benazepril HCl (Lotensin) 20 mg ONCE ORAL 03/19/18 08:30 03/19/18 09:30 03/19/18 08:48 Dextrose (Dextrose 50%) 25 ml Q30M PRN IV Hypoglycemia 03/19/18 08:15 04/18/18 08:14 Dextrose (Dextrose 50%) 50 ml Q30M PRN IV Hypoglycemia 03/19/18 08:15 04/18/18 08:14 Dextrose/Sodium Chloride 1,000 ml @ 100 mls/hr Q10H IV 03/19/18 05:00 04/18/18 04:59 03/19/18 04:55 Heparin Sodium (Porcine) (Heparin 5000 units/ml) 5,000 units EVERY 12 HOURS SUBQ 03/19/18 09:00 04/18/18 08:59 03/19/18 08:52 Insulin Aspart (NovoLOG) BEFORE MEALS AND HS SUBQ 03/19/18 11:30 04/18/18 11:29 Morphine Sulfate (Morphine Sulfate) 3 mg Q6H PRN IVP Severe Pain (Pain Scale 7-10) 03/19/18 08:15 03/26/18 08:14 03/19/18 08:49 Ondansetron HCl (Zofran) 4 mg Q4H PRN IVP Nausea & Vomiting 03/19/18 03:45 04/18/18 03:44 Pantoprazole (Protonix) 40 mg DAILY IVP 03/19/18 09:00 04/18/18 08:59 03/19/18 08:49 Piperacillin Sod/ Tazobactam Sod 3.375 gm/Sodium Chloride 110 ml @ 27.5 mls/hr Q8H IVPB 03/19/18 10:00 03/26/18 09:59 Sodium Chloride 500 ml @ 999 mls/hr Q31M PRN IV SYSTOLIC BLOOD PRESSURE <100 03/19/18 04:30 04/18/18 04:29 Vancomycin HCl (Vanco rx to dose) 1 ea DAILY PRN MISC Per rx protocol 03/19/18 03:45 04/18/18 03:44 Vancomycin HCl 1 gm/Dextrose 275 ml @ 183.708 mls/hr Q12H IVPB 03/19/18 17:00 03/24/18 16:59 Apryl Curry M.D. Mar 19, 2018 09:25
--- NOTE | 2018-03-19 10:03 | General Progress Note ---
Assessment/Plan Assessment/Plan GI CONSULT Assessment - Post lap beronica RUQ pain and TTP - Fluid/air in GB fossa, ? normal post op finding, ? bile leak, ? infection - DM - HTN Recommendations - surgical evaluation - HIDA, to r/o bile leak - abx per ID - If Bile leak on HIDA --> ERCP/Stent Thank you Ivelisse Butler MD Subjective Allergies: Coded Allergies: No Known Allergies (Unverified , 12/31/12) Objective Last 24 Hour Vital Signs Date Time Temp Pulse Resp B/P (MAP) Pulse Ox O2 Delivery O2 Flow Rate FiO2 03/19/18 09:19 97.3 03/19/18 08:48 123/78 03/19/18 08:00 97.3 86 16 123/78 (93) 99 03/19/18 04:49 Room Air 03/19/18 04:00 98.2 84 18 157/93 (114) 93 03/19/18 03:45 98.8 77 18 158/90 97 Room Air 03/19/18 03:00 98.8 77 18 158/90 97 Room Air 03/19/18 01:00 98.8 68 18 159/85 97 Room Air 03/19/18 00:00 99.9 80 18 149/88 94 Room Air 03/18/18 22:45 92 20 Room Air 03/18/18 22:31 99.9 92 20 129/78 94 Room Air Intake and Output 03/18/18 03/19/18 18:59 06:59 Intake Total 200 ml Balance 200 ml Intake IV Total 200 ml Laboratory Tests 03/18/18 22:45: White Blood Count 12.4H, Red Blood Count 4.39L, Hemoglobin 13.7L, Hematocrit 38.6L, Mean Corpuscular Volume 88, Mean Corpuscular Hemoglobin 31.2H, Mean Corpuscular Hemoglobin Concent 35.5, Red Cell Distribution Width 10.8L, Platelet Count 184, Mean Platelet Volume 7.1, Neutrophils (%) (Auto) 81.0H, Lymphocytes (%) (Auto) 11.3L, Monocytes (%) (Auto) 6.1, Eosinophils (%) (Auto) 0.5, Basophils (%) (Auto) 1.1, Sodium Level 132L, Potassium Level 3.8, Chloride Level 97L, Carbon Dioxide Level 28, Anion Gap 7, Blood Urea Nitrogen 14, Creatinine 0.8, Estimat Glomerular Filtration Rate > 60, Glucose Level 169H, Calcium Level 9.0, Total Bilirubin 1.3H, Direct Bilirubin 0.4H, Aspartate Amino Transf (AST/SGOT) 22, Alanine Aminotransferase (ALT/SGPT) 53, Alkaline Phosphatase 75, Total Protein 7.9, Albumin 3.9, Globulin 4.0, Albumin/Globulin Ratio 1.0, Lipase 94 03/19/18 00:30: Urine Color Pale yellow, Urine Appearance Clear, Urine pH 6.5, Urine Specific [place] 1.010, Urine Protein 2+H, Urine Glucose (UA) Negative, Urine Ketones Negative, Urine Blood 1+H, Urine Nitrite Negative, Urine Bilirubin Negative, Urine Urobilinogen Normal, Urine Leukocyte Esterase Negative, Urine RBC 0-2H, Urine WBC 0-2, Urine Squamous Epithelial Cells None, Urine Bacteria None 03/19/18 08:35: Hemoglobin A1c [Pending] Height (Feet): 5 Height (Inches): 4.00 Weight (Pounds): 194 Ivelisse Butler MD Mar 19, 2018 10:03
[2018-03-19] MEDS: Piperacillin/Tazobactam 3.375 GM in NS 110 ML IVPB SCH ×2 (10:24→19:11)
--- NOTE | 2018-03-19 10:34 | Diagnostic Imaging Report ---
EXAM: US Abdomen Limited, Right Upper Quadrant CLINICAL HISTORY: S/P CHOLECYSTECTOMY 3 DAYS TECHNIQUE: Real-time ultrasound of the right upper quadrant with image documentation. COMPARISON: No relevant prior studies available. FINDINGS: Limited by bowel gas. Cholecystectomy. Caliber of visualized CBD mildly prominent measuring about 7 mm where visualized. May be upper limits normal for age and cholecystectomy. Correlate with labs. If there is clinical evidence for biliary obstruction, MRCP or other follow-up obtained, as indicated. Pancreas and aorta obscured. Views of liver limited. The imaged liver is prominent in size measuring over 20 cm with suspected increased echogenicity. Right kidney unremarkable. IMPRESSION: Cholecystectomy. Caliber of visualized CBD mildly prominent measuring about 7 mm where visualized. May be upper limits normal for age and cholecystectomy. Correlate with labs. If there is clinical evidence for biliary obstruction, MRCP or other follow-up obtained, as indicated. Enlarged liver with suspected increased echogenicity.
[2018-03-19] MEDS: NovoLOG Insulin Flexpen SUBQ SCH ×3 (12:00→20:13)
--- NOTE | 2018-03-19 14:15 | History and Physical Report ---
DATE OF ADMISSION: 03/19/2018 SOURCE OF INFORMATION: The patient and EMR. HISTORY OF PRESENT ILLNESS: The patient is a 67-year-old male with a history of recent laparoscopic cholecystectomy in a community hospital. The patient presented with worsening abdominal pain two to three days after the surgery, getting worse and presented to the emergency room. At the time of evaluation, the patient had temperature reported 99.9 with a pulse rate of 90 with the initial blood work showing WBC of 12.4. The patient was admitted for the additional evaluation. REVIEW OF SYSTEMS: All 12 elements of review of systems reviewed, pertinent positive and negative as above. ALLERGIES: NKDA. FAMILY HISTORY: Reviewed and noncontributory. SOCIAL HISTORY: The patient reported that he is single. Denies using alcohol or drug abuse. PAST SURGICAL HISTORY: The patient denies having any other surgery besides the laparoscopic cholecystectomy five days ago. IMAGING: CT scan of abdomen and pelvis, dated March 19, 2018, shows free fluid with some changes. PHYSICAL EXAMINATION: VITAL SIGNS: Blood pressure of 130/80, temperature 98.2, pulse oximetry 98% on room air, respiratory rate 18. HEAD AND NECK: Atraumatic and normocephalic. CHEST: Clear to auscultation. HEART: S1, S2. Regular rate and rhythm. ABDOMEN: Soft. No organomegaly. Scars on prior surgery sites are visualized. Negative for rebound tenderness. MUSCULOSKELETAL: No gross focal motor deficit. NEUROLOGIC: Awake, alert, and oriented x3. LABORATORY DATA: Labs dated March 18, 2018 shows WBC 12.3, hemoglobin 13.7, and platelets of 184. Sodium 132, potassium 3.8, BUN 14, and creatinine 0.8. Total bilirubin of 1.3. Urine, 2+ protein. ASSESSMENT AND PLAN: 1. Abdominal pain, postsurgical post laparoscopic cholecystectomy. 2. SIRS. 3. Hyponatremia. 4. Diabetes type 2. 5. GI and DVT prophylaxis. PLAN OF CARE: We will continue with the empiric antibiotic regimen. On-call surgeon notified Dr. Pena will follow. Keep the patient NPO. We will follow. GI and Infectious Disease specialists are consulted. Tamera Esteves M.D. DR: SOLOMON JOB#: [id number] CC:
[2018-03-19] MEDS: Vancomycin 1gm/D5W 275ml IVPB SCH ×2 (16:49)
--- NOTE | 2018-03-19 21:29 | Consultation ---
DATE OF CONSULTATION: 03/19/2018 GASTROENTEROLOGY CONSULTATION CONSULTING PHYSICIAN: Ivelisse Butler M.D. REFERRING PHYSICIAN: Tamera Esteves M.D. CHIEF COMPLAINT: I was asked to see this patient by Dr. Tamera Esteves for evaluation of abdominal pain. HISTORY OF PRESENT ILLNESS: The patient is a pleasant 67-year-old man, who underwent laparoscopic cholecystectomy about 4 days ago. The patient apparently had had intermittent right upper quadrant abdominal pain for the past few months consistent with biliary colic. He has undergone recent colonoscopy in the last month or two as well as an endoscopy, and then subsequently because of worsening of his symptoms and ultrasound appearance, he underwent urgent laparoscopic cholecystectomy about 4 days ago. He was sent home, but then subsequently he has had worsening abdominal pain. He came to the emergency room where he was admitted. CT scan showed some degree of air and fluid in the gallbladder fossa and the patient does have some mild elevation in white count. PAST MEDICAL HISTORY: History of diabetes, history of high blood pressure, and history of obesity. FAMILY HISTORY: Noncontributory. SOCIAL HISTORY: The patient is in descent. His daughter who is here with him is looking after his affairs. ALLERGIES: None. REVIEW OF SYSTEMS: Otherwise negative. MEDICATIONS: See the chart list for details. PHYSICAL EXAMINATION: GENERAL: This is a pleasant man seen in his room with the daughter at bedside. HEENT: Normocephalic and atraumatic. Sclerae anicteric. Oropharynx clear. NECK: Supple. CHEST: Clear to auscultation. CARDIOVASCULAR: Revealed regular rate. ABDOMEN: Soft, obese with good bowel sounds. There is some [id number] right upper quadrant tenderness to palpation. Surgical scars were noted and they were appropriate. EXTREMITIES: Revealed no edema. LABORATORY AND DIAGNOSTIC DATA: Laboratory data and CT scan were noted. ASSESSMENT: This patient presents with worsening pain in his right upper quadrant and some degree of leukocytosis. The CT findings can be consistent with recent surgery and leukocytosis itself is not necessarily very significant, however, the patient's symptoms worsening would be a major concern for focus. Bile leak would be another differential and so would be an infection in the gallbladder fossa although this is somewhat early for that type of process. The patient should undergo HIDA scan to see if there is a leak in the area. If not, the patient can be managed conservatively as per nursing surgical services director's opinion. I will defer antibiotic management to ID consult. Should there be a bile leak, then ERCP can be done to place a stent for decompression. RECOMMENDATIONS: Per above discussion and per orders written in the chart. Thank you for asking me to participate in the care of this patient. Ivelisse Butler M.D. DR: Kimberlyn JOB#: [id number] CC:
[2018-03-20] VITALS: BP 135/77
[2018-03-20] MEDS: D5NS 1,000 ML IV SCH ×3 (01:07→20:48)
[2018-03-20] MEDS: Piperacillin/Tazobactam 3.375 GM in NS 110 ML IVPB SCH ×3 (01:12→18:47)
--- NOTE | 2018-03-20 03:30 | Consultation ---
DATE OF CONSULTATION: 03/19/2018 CONSULTING PHYSICIAN: Amanda Pena M.D. REQUESTING PHYSICIAN: Tamera Esteves M.D. REASON FOR CONSULTATION: Abdominal pain. HISTORY OF PRESENT ILLNESS: This is a 67-year-old male who presented to the emergency room early this morning or last night complaining of abdominal pain. He stated that he had abdominal pain and nausea on Tuesday, which was four days ago, and he sought consultation from a surgeon, and diagnosis of cholecystitis was made and the next day, which was Tuesday, he underwent laparoscopic cholecystectomy at [facility]. He was discharged to home the same day of the surgery with Tylenol No. 3, stool softener, and medication for vomiting, but no antibiotic. He stated that he had pain, and apparently yesterday the pain was more severe. Pain was located at the right upper quadrant and associated with nausea but no vomiting. He had normal bowel movement, but he felt he had a low-grade fever two days ago, but he denies cough, dysuria, or frequency. He denies any jaundice. PAST MEDICAL HISTORY: He denies allergies, asthma, cardiac and renal diseases. He has history of diabetes and hypertension. PAST SURGICAL HISTORY: Include laparoscopic cholecystectomy. MEDICATIONS: He takes metformin for diabetes and some kind of medicine for hypertension. SOCIAL HISTORY: The patient is a 67-year-old male, who is , father of five children. He is retired and denies smoking or drinking. REVIEW OF SYSTEMS: Complains of pain in both knees. PHYSICAL EXAMINATION: GENERAL: The patient appeared to be a well-developed, well-nourished 67-year-old male, lying on the bed, in no acute distress. HEENT: Head is normocephalic and atraumatic. Eyes, pupils are equal, round, and reactive to light. Mouth is clear. NECK: There is no palpable thyromegaly or adenopathy. CHEST: Clear to auscultation and percussion. HEART: There is no gallop or murmur. S1 and S2 are within normal limits. ABDOMEN: Soft, has a mild tenderness at the upper abdomen. There is no palpable organomegaly. Bowel sounds are audible. He has scar of the four small incision for laparoscopy. GENITAL: Deferred. EXTREMITIES: Within normal limits. LABORATORY DATA: CBC has shown WBC of 12,400 with mild left shift. Chemistry is within normal limits except for the glucose, which is 169. Total bilirubin is 1.3 with direct bilirubin of 0.4, but alkaline phosphatase is 75. The CT scan of the abdomen has shown some fluid and emphysema at the gallbladder fossa, which is slightly more than usual for post surgery. ASSESSMENT: Status post laparoscopic cholecystectomy. RECOMMENDATION: At this time, I do not see any problem, and I feel that the patient can be discharged home to be followed with his own surgeon. Amanda Pena M.D. DR: VINNIE JOB#: [id number] CC: CAITLIN
[2018-03-20 04:00] VITALS: BP 138/83
[2018-03-20] MEDS: Vancomycin 1gm/D5W 275ml IVPB SCH ×2 (05:11)
[2018-03-20] MEDS: NovoLOG Insulin Flexpen SUBQ SCH ×4 (05:58→20:49)
[2018-03-20 07:34] LABS: BASOPHILS % (AUTO) 0.9 % (0.0-2.0); EOSINOPHILS % (AUTO) 2.7 % (0.0-3.0); HEMATOCRIT 32.7 % (42.0-52.0); HEMOGLOBIN 12.1 G/DL (14.2-18.0); LYMPHOCYTES % (AUTO) 16.3 % (20.0-45.0); MEAN CORPUSCULAR VOLUME 86 FL (80-99); MONOCYTES % (AUTO) 8.8 % (1.0-10.0); NEUTROPHILS % (AUTO) 71.3 % (45.0-75.0); PLATELET COUNT 158 K/UL (150-450); RED BLOOD COUNT 3.79 M/UL (4.70-6.10); RED CELL DISTRIBUTION WIDTH 10.7 % (11.6-14.8); WHITE BLOOD COUNT 6.8 K/UL (4.8-10.8)
[2018-03-20 07:57] LABS: ALANINE AMINOTRANSFERASE 36 U/L (12-78); ALBUMIN/GLOBULIN RATIO 0.8 (1.0-2.7); ALKALINE PHOSPHATASE 69 U/L (46-116); ANION GAP 7 mmol/L (5-15); ASPARTATE AMINO TRANSFERASE 15 U/L (15-37); BILIRUBIN,TOTAL 1.3 MG/DL (0.2-1.0); BLOOD UREA NITROGEN 18 mg/dL (7-18); CALCIUM 8.6 MG/DL (8.5-10.1); CARBON DIOXIDE 28 MMOL/L (21-32); CHLORIDE 100 MMOL/L (98-107); CREATININE 1.7 MG/DL (0.55-1.30); POTASSIUM 3.7 MMOL/L (3.5-5.1); SODIUM 135 MMOL/L (136-145)
[2018-03-20 08:00] VITALS: BP 132/80
[2018-03-20 08:09] LABS: BILIRUBIN,DIRECT 0.4 MG/DL (0.0-0.3)
[2018-03-20] MEDS: Pantoprazole Inj IVP SCH (08:25)
[2018-03-20] MEDS: Heparin 5000 units/ml inj SUBQ SCH ×2 (09:00→20:50)
--- NOTE | 2018-03-20 10:56 | Diagnostic Imaging Report ---
Indication: Abdominal pain Comparison: None Single view of the abdomen obtained Findings: Bowel gas pattern is nonspecific. No mass, ectopic calcifications, or abnormal gas collections are identified. The bones are unremarkable. Cholecystectomy clips noted. Moderate fecal retention in the right hemicolon demonstrated. Impression: No acute findings
--- NOTE | 2018-03-20 10:58 | General Progress Note ---
Assessment/Plan Assessment/Plan S: My abdomen hurts O: appears to be in significant pain, No distress. PHYSICAL EXAMINATION: HEAD AND NECK: Atraumatic and normocephalic. CHEST: Clear to auscultation. HEART: S1, S2. Regular rate and rhythm. ABDOMEN: Soft. No organomegaly. Scars on prior surgery sites are visualized. Negative for rebound tenderness. positive for deep palpation tenderness MUSCULOSKELETAL: No gross focal motor deficit. NEUROLOGIC: Awake, alert, and oriented x3. Meds: including Dilaudid IV PRN . meds are reviewed and reconciled in the system ASSESSMENT AND PLAN: 1. Abdominal pain, postsurgical post laparoscopic cholecystectomy. 2. SIRS. 3. Hyponatremia. 4. Diabetes type 2. 5. GI and DVT prophylaxis. Plan: Pain not controlled. ! will check labs, Xray will follow GI and Surgery Rec. Subjective Allergies: Coded Allergies: No Known Allergies (Unverified , 12/31/12) Objective Last 24 Hour Vital Signs Date Time Temp Pulse Resp B/P (MAP) Pulse Ox O2 Delivery O2 Flow Rate FiO2 03/20/18 08:56 97.9 03/20/18 08:26 132/80 03/20/18 08:00 98.7 80 16 132/80 (97) 97 03/20/18 04:00 97.9 80 15 138/83 (101) 96 03/20/18 00:00 99.1 84 14 135/77 (96) 93 03/19/18 21:00 Room Air 03/19/18 20:00 98.4 90 20 134/84 (101) 95 03/19/18 16:00 97.0 87 16 161/93 (115) 97 03/19/18 15:20 98.2 03/19/18 12:00 98.2 81 14 147/98 (114) 94 Intake and Output 03/19/18 03/20/18 19:00 07:00 Intake Total 1363.0 ml 717.500 ml Balance 1363.0 ml 717.500 ml Intake Oral 478 ml 360 ml IV Total 885.0 ml 357.500 ml # Voids 1 1 Laboratory Tests 03/20/18 05:45: White Blood Count 6.8, Red Blood Count 3.79L, Hemoglobin 12.1L, Hematocrit 32.7L , Mean Corpuscular Volume 86, Mean Corpuscular Hemoglobin 31.8H, Mean Corpuscular Hemoglobin Concent 36.8H, Red Cell Distribution Width 10.7L, Platelet Count 158, Mean Platelet Volume 7.1, Neutrophils (%) (Auto) 71.3, Lymphocytes (%) (Auto) 16.3L, Monocytes (%) (Auto) 8.8, Eosinophils (%) (Auto) 2.7, Basophils (%) (Auto) 0.9, Sodium Level 135L, Potassium Level 3.7, Chloride Level 100, Carbon Dioxide Level 28, Anion Gap 7, Blood Urea Nitrogen 18, Creatinine 1.7#H, Estimat Glomerular Filtration Rate 40.3, Glucose Level 156H, Calcium Level 8.6, Total Bilirubin 1.3H, Direct Bilirubin 0.4H, Aspartate Amino Transf (AST/SGOT) 15, Alanine Aminotransferase (ALT/SGPT) 36, Alkaline Phosphatase 69, Total Protein 6.6, Albumin 3.0L, Globulin 3.6, Albumin/Globulin Ratio 0.8L Height (Feet): 5 Height (Inches): 4.00 Weight (Pounds): 194 Tamera Esteves MD Mar 20, 2018 10:58
--- NOTE | 2018-03-20 11:51 | GI Progress Note ---
Assessment/Plan Problems: (1) Abdominal pain ICD Codes: R10.9 - Unspecified abdominal pain SNOMED: 92155073 (2) Rule out Peritonitis (3) Abdominal pain ICD Codes: R10.9 - Unspecified abdominal pain SNOMED: 24195136 (4) History of cholecystectomy ICD Codes: Z90.49 - Acquired absence of other specified parts of digestive tract SNOMED: 34698731, 329312005 Status: stable Status Narrative Discussed with Dr. Simeon. Assessment/Plan Assessment - Post lap beronica RUQ pain and TTP - Fluid/air in GB fossa, ? normal post op finding, ? bile leak, ? infection - DM - HTN - KUB reviewed negative - surgical evaluation >> no intervention needed Recommendations - HIDA, to r/o bile leak - abx per ID - If Bile leak on HIDA --> will need ERCP/Stent The patient was seen and examined at bedside and all new and available data was reviewed in the patients chart. I agree with the above findings, impression and plan. (Patient seen earlier today. Signature stamp does not reflect patient encounter time.). - Kulwant Simeon MD Subjective Gastrointestinal/Abdominal: Reports: no symptoms Objective Last 24 Hour Vital Signs Date Time Temp Pulse Resp B/P (MAP) Pulse Ox O2 Delivery O2 Flow Rate FiO2 03/20/18 08:56 97.9 03/20/18 08:26 132/80 03/20/18 08:00 98.7 80 16 132/80 (97) 97 03/20/18 04:00 97.9 80 15 138/83 (101) 96 03/20/18 00:00 99.1 84 14 135/77 (96) 93 03/19/18 21:00 Room Air 03/19/18 20:00 98.4 90 20 134/84 (101) 95 03/19/18 16:00 97.0 87 16 161/93 (115) 97 03/19/18 15:20 98.2 03/19/18 12:00 98.2 81 14 147/98 (114) 94 Intake and Output 03/19/18 03/20/18 18:59 06:59 Intake Total 1363.0 ml 717.500 ml Balance 1363.0 ml 717.500 ml Intake Oral 478 ml 360 ml IV Total 885.0 ml 357.500 ml # Voids 1 1 Laboratory Tests Test 03/20/18 05:45 White Blood Count 6.8 K/UL (4.8-10.8) Red Blood Count 3.79 M/UL (4.70-6.10) L Hemoglobin 12.1 G/DL (14.2-18.0) L Hematocrit 32.7 % (42.0-52.0) L Mean Corpuscular Volume 86 FL (80-99) Mean Corpuscular Hemoglobin 31.8 PG (27.0-31.0) H Mean Corpuscular Hemoglobin Concent 36.8 G/DL (32.0-36.0) H Red Cell Distribution Width 10.7 % (11.6-14.8) L Platelet Count 158 K/UL (150-450) Mean Platelet Volume 7.1 FL (6.5-10.1) Neutrophils (%) (Auto) 71.3 % (45.0-75.0) Lymphocytes (%) (Auto) 16.3 % (20.0-45.0) L Monocytes (%) (Auto) 8.8 % (1.0-10.0) Eosinophils (%) (Auto) 2.7 % (0.0-3.0) Basophils (%) (Auto) 0.9 % (0.0-2.0) Sodium Level 135 MMOL/L (136-145) L Potassium Level 3.7 MMOL/L (3.5-5.1) Chloride Level 100 MMOL/L (98-107) Carbon Dioxide Level 28 MMOL/L (21-32) Anion Gap 7 mmol/L (5-15) Blood Urea Nitrogen 18 mg/dL (7-18) Creatinine 1.7 MG/DL (0.55-1.30) #H Estimat Glomerular Filtration Rate 40.3 mL/min (>60) Glucose Level 156 MG/DL (74-106) H Calcium Level 8.6 MG/DL (8.5-10.1) Total Bilirubin 1.3 MG/DL (0.2-1.0) H Direct Bilirubin 0.4 MG/DL (0.0-0.3) H Aspartate Amino Transf (AST/SGOT) 15 U/L (15-37) Alanine Aminotransferase (ALT/SGPT) 36 U/L (12-78) Alkaline Phosphatase 69 U/L (46-116) Total Protein 6.6 G/DL (6.4-8.2) Albumin 3.0 G/DL (3.4-5.0) L Globulin 3.6 g/dL Albumin/Globulin Ratio 0.8 (1.0-2.7) L Height (Feet): 5 Height (Inches): 4.00 Weight (Pounds): 194 General Appearance: alert Cardiovascular: normal rate Respiratory/Chest: no respiratory distress Abdominal Exam: no mass Jimbo Ramos ASSOCIATE DIRECTOR OF SALES Mar 20, 2018 11:51
[2018-03-20 12:00] VITALS: BP 129/78
--- NOTE | 2018-03-20 12:06 | Consultation ---
History of Present Illness General Date patient seen: Mar 19, 2018 Chief Complaint: Abdominal Pain Present Illness HPI 67-year-old male with a history of anxiety and insomnia and recent laparoscopic cholecystectomy in a community hospital. the pt stated that he was mot able to sleep at night and takes ativan however the medication is not strong and he wakes up in the middle of the night. the pt has anxiety as well he denied depressive sxs. Allergies: Coded Allergies: No Known Allergies (Unverified , 12/31/12) Medication History Scheduled Famotidine (Pepcid), 40 MG PO DAILY Lorazepam* (Ativan*), 1 MG ORAL BID Omeprazole (Prilosec), 20 MG ORAL DAILY, (Reported) Tramadol Hcl* (Ultram*), 50 MG ORAL Q12HR, (Reported) [benazepril], 20 MG PO DAILY, (Reported) [metformin], 500 MG PO BID, (Reported) Miscellaneous Medications Unable to Obtain Medications (Unable To Obtain Meds), (Reported) [allopurinol], (Reported) [pill for diabetes], (Reported) Patient History Limited by: medical condition History Provided By: Patient, Medical Record, PMD Healthcare decision maker Resuscitation status Full Code Advanced Directive on File No Past Medical/Surgical History Past Medical/Surgical History: (1) Chest pain (2) ACS (acute coronary syndrome) (3) Gout (4) History of hypertension (5) Pneumonia (6) Abdominal pain (7) Diabetes mellitus (8) Sepsis (9) Abdominal pain (10) Rule out Peritonitis Review of Systems Psychiatric: Reports: prior hx, anxiety, depressed feelings, emotional problems Physical Exam General Appearance: alert, mild distress Neurologic: oriented x 3, responsive, depressed affect Last 24 Hour Vital Signs Date Time Temp Pulse Resp B/P (MAP) Pulse Ox O2 Delivery O2 Flow Rate FiO2 03/20/18 08:56 97.9 03/20/18 08:26 132/80 03/20/18 08:00 98.7 80 16 132/80 (97) 97 03/20/18 04:00 97.9 80 15 138/83 (101) 96 03/20/18 00:00 99.1 84 14 135/77 (96) 93 03/19/18 21:00 Room Air 03/19/18 20:00 98.4 90 20 134/84 (101) 95 03/19/18 16:00 97.0 87 16 161/93 (115) 97 03/19/18 15:20 98.2 Intake and Output 03/19/18 03/20/18 18:59 06:59 Intake Total 1363.0 ml 717.500 ml Balance 1363.0 ml 717.500 ml Intake Oral 478 ml 360 ml IV Total 885.0 ml 357.500 ml # Voids 1 1 Laboratory Tests Test 03/20/18 05:45 White Blood Count 6.8 K/UL (4.8-10.8) Red Blood Count 3.79 M/UL (4.70-6.10) L Hemoglobin 12.1 G/DL (14.2-18.0) L Hematocrit 32.7 % (42.0-52.0) L Mean Corpuscular Volume 86 FL (80-99) Mean Corpuscular Hemoglobin 31.8 PG (27.0-31.0) H Mean Corpuscular Hemoglobin Concent 36.8 G/DL (32.0-36.0) H Red Cell Distribution Width 10.7 % (11.6-14.8) L Platelet Count 158 K/UL (150-450) Mean Platelet Volume 7.1 FL (6.5-10.1) Neutrophils (%) (Auto) 71.3 % (45.0-75.0) Lymphocytes (%) (Auto) 16.3 % (20.0-45.0) L Monocytes (%) (Auto) 8.8 % (1.0-10.0) Eosinophils (%) (Auto) 2.7 % (0.0-3.0) Basophils (%) (Auto) 0.9 % (0.0-2.0) Sodium Level 135 MMOL/L (136-145) L Potassium Level 3.7 MMOL/L (3.5-5.1) Chloride Level 100 MMOL/L (98-107) Carbon Dioxide Level 28 MMOL/L (21-32) Anion Gap 7 mmol/L (5-15) Blood Urea Nitrogen 18 mg/dL (7-18) Creatinine 1.7 MG/DL (0.55-1.30) #H Estimat Glomerular Filtration Rate 40.3 mL/min (>60) Glucose Level 156 MG/DL (74-106) H Calcium Level 8.6 MG/DL (8.5-10.1) Total Bilirubin 1.3 MG/DL (0.2-1.0) H Direct Bilirubin 0.4 MG/DL (0.0-0.3) H Aspartate Amino Transf (AST/SGOT) 15 U/L (15-37) Alanine Aminotransferase (ALT/SGPT) 36 U/L (12-78) Alkaline Phosphatase 69 U/L (46-116) Total Protein 6.6 G/DL (6.4-8.2) Albumin 3.0 G/DL (3.4-5.0) L Globulin 3.6 g/dL Albumin/Globulin Ratio 0.8 (1.0-2.7) L Height (Feet): 5 Height (Inches): 4.00 Weight (Pounds): 194 Medications Current Medications Medications (Trade) Dose Ordered Sig/Tamiko Route PRN Reason Start Time Stop Time Status Last Admin Dose Admin Acetaminophen (Tylenol) 650 mg Q4H PRN ORAL Mild Pain/Temp > 100.5 03/19/18 03:45 04/18/18 03:44 Benazepril HCl (Lotensin) 20 mg DAILY ORAL 03/20/18 09:00 04/19/18 08:59 03/20/18 08:26 Dextrose (Dextrose 50%) 25 ml Q30M PRN IV Hypoglycemia 03/19/18 08:15 04/18/18 08:14 Dextrose (Dextrose 50%) 50 ml Q30M PRN IV Hypoglycemia 03/19/18 08:15 04/18/18 08:14 Dextrose/Sodium Chloride 1,000 ml @ 100 mls/hr Q10H IV 03/19/18 05:00 04/18/18 04:59 03/20/18 01:07 Heparin Sodium (Porcine) (Heparin 5000 units/ml) 5,000 units EVERY 12 HOURS SUBQ 03/19/18 09:00 04/18/18 08:59 03/19/18 20:13 Hydromorphone HCl (Dilaudid) 2 mg TIDPRN PRN IVP Severe Pain (Pain Scale 7-10) 03/19/18 11:30 03/26/18 11:29 03/20/18 06:14 Insulin Aspart (NovoLOG) BEFORE MEALS AND HS SUBQ 03/19/18 11:30 12/4/18 11:29 03/20/18 05:58 Ondansetron HCl (Zofran) 4 mg Q4H PRN IVP Nausea & Vomiting 03/19/18 03:45 04/18/18 03:44 Pantoprazole (Protonix) 40 mg DAILY IVP 03/19/18 09:00 04/18/18 08:59 03/20/18 08:25 Piperacillin Sod/ Tazobactam Sod 3.375 gm/Sodium Chloride 110 ml @ 27.5 mls/hr Q8H IVPB 03/19/18 10:00 03/26/18 09:59 03/20/18 01:12 Sodium Chloride 500 ml @ 999 mls/hr Q31M PRN IV SYSTOLIC BLOOD PRESSURE <100 03/19/18 04:30 04/18/18 04:29 Vancomycin HCl (Vanco rx to dose) 1 ea DAILY PRN MISC Per rx protocol 03/19/18 03:45 04/18/18 03:44 Vancomycin HCl 1 gm/Dextrose 275 ml @ 183.708 mls/hr Q12H IVPB 03/19/18 17:00 03/24/18 16:59 03/20/18 05:11 Assessment/Plan Assessment/Plan anxiety d/o insomnia restoril ativan provided ro/Nando Ellington MD Mar 20, 2018 12:06
--- NOTE | 2018-03-20 13:11 | Diagnostic Imaging Report ---
Indication: Abdominal Pain. Status post cholecystectomy 5 days earlier. Technique: 5.4 mCi of technetium 99 m-Choletec was injected intravenously. Planar imaging of the abdomen was then performed every 5 minutes up to 30 minutes and every 10 minutes up to one hour. Oblique views were also obtained. Findings: There is prompt uptake within the liver with good washout of radiotracer from the liver on subsequent imaging. There is excretion into the biliary ducts. There is a small abnormal accumulation of tracer in the gallbladder fossa suspicious for a small bile leak. On delayed images some of the tracer material may be extending along the surface of the right lobe of the liver. Findings suspicious for a small bile leak. Small postoperative air and fluid focus noted in the gallbladder fossa on recent CT 03/19/2018 Bowel activity is demonstrated in a timely fashion indicating patency of the common bile duct. Impression: Findings are questionable for bile leak. Recommend repeating the CT with contrast material as more bile is expected to have accumulated since 03/19/2018 if there is indeed a leak.
--- NOTE | 2018-03-20 14:05 | Diagnostic Imaging Report ---
Indication:Abdominal pain Technique: Grayscale and duplex Doppler imaging of the abdomen performed. Comparison: None Findings: The liver is echogenic consistent with fatty infiltration. The gallbladder is absent. The pancreas, aorta and IVC are not seen. Both kidneys appear unremarkable. There are bilateral renal cysts. The spleen is normal in size. There is no biliary ductal dilatation identified. Doppler evaluation of the main portal vein shows patency. There is no ascites. No hydronephrosis seen. Impression: Fatty liver Bilateral renal cysts Pancreas and aorta not seen due to bowel gas
--- NOTE | 2018-03-20 14:08 | Infectious Diseases Prog Note ---
Assessment/Plan Problems: (1) S/P laparoscopic cholecystectomy Assessment & Plan: complicated with fluids collection at the gallbladder site , HIDA scan showed possible bill leak , suspect seroma VS abscess , continue antibiotics , consider I&D and fluids culture (2) Sepsis Assessment & Plan: due to the above , continue antibiotics pending blood culture (3) Diabetes mellitus Assessment & Plan: recommend tight glycemic control to keep blood glucose between 100-140 (4) Abdominal pain Assessment & Plan: due to the above , continue antibiotics and pain management as needed Subjective Constitutional: Reports: no symptoms HEENT: Reports: no symptoms Respiratory: Reports: no symptoms Breasts: Reports: no symptoms Cardiovascular: Reports: no symptoms Gastrointestinal/Abdominal: Reports: nausea, bloating, other - abdominal pain Genitourinary: Reports: no symptoms Neurologic: Reports: no symptoms Psychiatric: Reports: no symptoms Skin: Reports: no symptoms Endocrine: Reports: no symptoms Hematologic: Reports: no symptoms Musculoskeletal: Reports: no symptoms Allergies: Coded Allergies: No Known Allergies (Unverified , 12/31/12) Objective Vital Signs Last 24 Hour Vital Signs Date Time Temp Pulse Resp B/P (MAP) Pulse Ox O2 Delivery O2 Flow Rate FiO2 03/20/18 09:00 Room Air 03/20/18 08:56 97.9 03/20/18 08:26 132/80 03/20/18 08:00 98.7 80 16 132/80 (97) 97 03/20/18 04:00 97.9 80 15 138/83 (101) 96 03/20/18 00:00 99.1 84 14 135/77 (96) 93 03/19/18 21:00 Room Air 03/19/18 20:00 98.4 90 20 134/84 (101) 95 03/19/18 16:00 97.0 87 16 161/93 (115) 97 03/19/18 15:20 98.2 Height (Feet): 5 Height (Inches): 4.00 Weight (Pounds): 194 General Appearance: WD/WN, no acute distress HEENT: normocephalic, atraumatic, anicteric, mucous membranes moist, PERRL Respiratory/Chest: chest wall non-tender, lungs clear, normal breath sounds, no respiratory distress, no accessory muscle use Breasts: no masses Cardiovascular: normal peripheral pulses, normal rate, regular rhythm, no gallop/murmur, no JVD Abdomen: normal bowel sounds, soft, non tender, no organomegaly, non distended , no mass, no scars Genitourinary: normal external genitalia Extremities: no cyanosis, no clubbing Skin: no rash, no lesions, no ulcers Neurologic/Psychiatric: 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 II-XII grossly normal, abnormal gait, alert, oriented x 3, responsive Lymphatic: no neck adenopathy, no groin adenopathy Musculoskeletal: normal muscle bulk, no effusion Laboratory Tests Test 03/20/18 05:45 White Blood Count 6.8 K/UL (4.8-10.8) Red Blood Count 3.79 M/UL (4.70-6.10) L Hemoglobin 12.1 G/DL (14.2-18.0) L Hematocrit 32.7 % (42.0-52.0) L Mean Corpuscular Volume 86 FL (80-99) Mean Corpuscular Hemoglobin 31.8 PG (27.0-31.0) H Mean Corpuscular Hemoglobin Concent 36.8 G/DL (32.0-36.0) H Red Cell Distribution Width 10.7 % (11.6-14.8) L Platelet Count 158 K/UL (150-450) Mean Platelet Volume 7.1 FL (6.5-10.1) Neutrophils (%) (Auto) 71.3 % (45.0-75.0) Lymphocytes (%) (Auto) 16.3 % (20.0-45.0) L Monocytes (%) (Auto) 8.8 % (1.0-10.0) Eosinophils (%) (Auto) 2.7 % (0.0-3.0) Basophils (%) (Auto) 0.9 % (0.0-2.0) Sodium Level 135 MMOL/L (136-145) L Potassium Level 3.7 MMOL/L (3.5-5.1) Chloride Level 100 MMOL/L (98-107) Carbon Dioxide Level 28 MMOL/L (21-32) Anion Gap 7 mmol/L (5-15) Blood Urea Nitrogen 18 mg/dL (7-18) Creatinine 1.7 MG/DL (0.55-1.30) #H Estimat Glomerular Filtration Rate 40.3 mL/min (>60) Glucose Level 156 MG/DL (74-106) H Calcium Level 8.6 MG/DL (8.5-10.1) Total Bilirubin 1.3 MG/DL (0.2-1.0) H Direct Bilirubin 0.4 MG/DL (0.0-0.3) H Aspartate Amino Transf (AST/SGOT) 15 U/L (15-37) Alanine Aminotransferase (ALT/SGPT) 36 U/L (12-78) Alkaline Phosphatase 69 U/L (46-116) Total Protein 6.6 G/DL (6.4-8.2) Albumin 3.0 G/DL (3.4-5.0) L Globulin 3.6 g/dL Albumin/Globulin Ratio 0.8 (1.0-2.7) L Current Medications Medications (Trade) Dose Ordered Sig/Tamiko Route PRN Reason Start Time Stop Time Status Last Admin Dose Admin Acetaminophen (Tylenol) 650 mg Q4H PRN ORAL Mild Pain/Temp > 100.5 03/19/18 03:45 04/18/18 03:44 Benazepril HCl (Lotensin) 20 mg DAILY ORAL 03/20/18 09:00 04/19/18 08:59 03/20/18 08:26 Dextrose (Dextrose 50%) 25 ml Q30M PRN IV Hypoglycemia 03/19/18 08:15 04/18/18 08:14 Dextrose (Dextrose 50%) 50 ml Q30M PRN IV Hypoglycemia 03/19/18 08:15 04/18/18 08:14 Dextrose/Sodium Chloride 1,000 ml @ 100 mls/hr Q10H IV 03/19/18 05:00 04/18/18 04:59 03/20/18 01:07 Heparin Sodium (Porcine) (Heparin 5000 units/ml) 5,000 units EVERY 12 HOURS SUBQ 03/19/18 09:00 04/18/18 08:59 03/19/18 20:13 Hydromorphone HCl (Dilaudid) 2 mg TIDPRN PRN IVP Severe Pain (Pain Scale 7-10) 03/19/18 11:30 03/26/18 11:29 03/20/18 06:14 Insulin Aspart (NovoLOG) BEFORE MEALS AND HS SUBQ 03/19/18 11:30 04/18/18 11:29 03/20/18 05:58 Ondansetron HCl (Zofran) 4 mg Q4H PRN IVP Nausea & Vomiting 03/19/18 03:45 04/18/18 03:44 03/20/18 12:34 Pantoprazole (Protonix) 40 mg DAILY IVP 03/19/18 09:00 04/18/18 08:59 03/20/18 08:25 Piperacillin Sod/ Tazobactam Sod 3.375 gm/Sodium Chloride 110 ml @ 27.5 mls/hr Q8H IVPB 03/19/18 10:00 03/26/18 09:59 03/20/18 12:34 Sodium Chloride 500 ml @ 999 mls/hr Q31M PRN IV SYSTOLIC BLOOD PRESSURE <100 03/19/18 04:30 04/18/18 04:29 Apryl Curry M.D. Mar 20, 2018 14:08
--- NOTE | 2018-03-20 14:59 | General Surgery Progress Note ---
General Surgery-Progress Note Subjective Symptoms: pain same Objective Last 24 Hour Vital Signs Date Time Temp Pulse Resp B/P (MAP) Pulse Ox O2 Delivery O2 Flow Rate FiO2 03/20/18 12:00 97.7 77 17 129/78 (95) 98 03/20/18 09:00 Room Air 03/20/18 08:56 97.9 03/20/18 08:26 132/80 03/20/18 08:00 98.7 80 16 132/80 (97) 97 03/20/18 04:00 97.9 80 15 138/83 (101) 96 03/20/18 00:00 99.1 84 14 135/77 (96) 93 03/19/18 21:00 Room Air 03/19/18 20:00 98.4 90 20 134/84 (101) 95 03/19/18 16:00 97.0 87 16 161/93 (115) 97 03/19/18 15:20 98.2 I&O Intake and Output 03/19/18 03/20/18 18:59 06:59 Intake Total 1363.0 ml 717.500 ml Balance 1363.0 ml 717.500 ml Intake Oral 478 ml 360 ml IV Total 885.0 ml 357.500 ml # Voids 1 1 Respiratory: clear Abdomen: soft, tenderness, present bowel sounds Extremities: no tenderness Laboratory Tests Test 03/20/18 05:45 White Blood Count 6.8 K/UL (4.8-10.8) Red Blood Count 3.79 M/UL (4.70-6.10) L Hemoglobin 12.1 G/DL (14.2-18.0) L Hematocrit 32.7 % (42.0-52.0) L Mean Corpuscular Volume 86 FL (80-99) Mean Corpuscular Hemoglobin 31.8 PG (27.0-31.0) H Mean Corpuscular Hemoglobin Concent 36.8 G/DL (32.0-36.0) H Red Cell Distribution Width 10.7 % (11.6-14.8) L Platelet Count 158 K/UL (150-450) Mean Platelet Volume 7.1 FL (6.5-10.1) Neutrophils (%) (Auto) 71.3 % (45.0-75.0) Lymphocytes (%) (Auto) 16.3 % (20.0-45.0) L Monocytes (%) (Auto) 8.8 % (1.0-10.0) Eosinophils (%) (Auto) 2.7 % (0.0-3.0) Basophils (%) (Auto) 0.9 % (0.0-2.0) Sodium Level 135 MMOL/L (136-145) L Potassium Level 3.7 MMOL/L (3.5-5.1) Chloride Level 100 MMOL/L (98-107) Carbon Dioxide Level 28 MMOL/L (21-32) Anion Gap 7 mmol/L (5-15) Blood Urea Nitrogen 18 mg/dL (7-18) Creatinine 1.7 MG/DL (0.55-1.30) #H Estimat Glomerular Filtration Rate 40.3 mL/min (>60) Glucose Level 156 MG/DL (74-106) H Calcium Level 8.6 MG/DL (8.5-10.1) Total Bilirubin 1.3 MG/DL (0.2-1.0) H Direct Bilirubin 0.4 MG/DL (0.0-0.3) H Aspartate Amino Transf (AST/SGOT) 15 U/L (15-37) Alanine Aminotransferase (ALT/SGPT) 36 U/L (12-78) Alkaline Phosphatase 69 U/L (46-116) Total Protein 6.6 G/DL (6.4-8.2) Albumin 3.0 G/DL (3.4-5.0) L Globulin 3.6 g/dL Albumin/Globulin Ratio 0.8 (1.0-2.7) L Assessment Additional Comments abdominal pain etiology unknown Plan Additional Comments per G-I specialist Amanda Pena MD Mar 20, 2018 14:59
[2018-03-20 16:00] VITALS: BP 134/80
[2018-03-20] MEDS ORDERED: Isovue-300 100ml vial INJ PRN (16:00)
[2018-03-20 18:15] LABS: APPEARANCE,URINE CLEAR; BILIRUBIN, URINE NEGATIVE (NEGATIVE); GLUCOSE, URINE (UA) NEGATIVE (NEGATIVE); KETONES,URINE NEGATIVE (NEGATIVE); LEUKOCYTE ESTERASE ,URINE NEGATIVE (NEGATIVE); NITRITE,URINE NEGATIVE (NEGATIVE); PH,URINE 5 (4.5-8.0); PROTEIN,URINE 3+ (NEGATIVE); UROBILINOGEN,URINE NORMAL MG/DL (0.0-1.0)
[2018-03-20 18:18] LABS: COLOR,URINE YELLOW
[2018-03-20 20:00] VITALS: BP 126/77
--- NOTE | 2018-03-20 21:30 | Consultation ---
DATE OF CONSULTATION: 03/19/2018 INFECTIOUS DISEASE CONSULTATION CONSULTING PHYSICIAN: Apryl Curry M.D. REQUESTING PHYSICIAN: Tamera Esteves M.D. REASON FOR CONSULTATION: Gallbladder site fluid collection, possible abscess with sepsis. Recommendation for antibiotics treatment, status post recent laparoscopic cholecystectomy. HISTORY OF PRESENT ILLNESS: The patient is a 67-year-old male with past medical history of diabetes, hypertension, and cardiac disease who underwent laparoscopic cholecystectomy surgery in [facility] and was discharged home next day with no antibiotics and had no evidence of surgical site leakage or drainage as per the patient, presented to [facility] emergency room 3 days later with sudden onset of right upper quadrant abdominal pain associated with nausea and vomiting. His pain has been progressive since he was discharged from the hospital. In the emergency room, the patient had a CT scan of the abdomen and pelvis, showed cholecystectomy changes with free fluid and more focal fluid and emphysema in the cholecystectomy bed, fluid collection of indeterminate sterility, which was concerning for possible infectious process. So, he was started on antibiotics and Infectious Disease consultation was requested for antibiotic treatment and further management. REVIEW OF SYSTEMS: A 14-point of systems reviewed were all negative apart from the one I mentioned above in my H and P. PAST MEDICAL HISTORY: Significant for coronary artery disease, hypertension, and diabetes. PAST SURGICAL HISTORY: The patient had cholecystectomy laparoscopically 3 days ago before presentation in [facility]. FAMILY HISTORY: Not contributory. SOCIAL HISTORY: The patient is unemployed, lives with family. Denied using any drugs, tobacco, or alcohol. ALLERGIES: He has no known drug allergy. MEDICATIONS: The patient was started on vancomycin and Zosyn. For the rest of his medications, please refer to MAR. LABORATORY DATA: Labs showed white count of 12.4, hemoglobin of 13.7, and platelet count of 184,000. BUN of 14 and creatinine of 0.8. AST of 22 and ALT of 53. Urinalysis was negative for UTI with WBC 0 to 2, and no bacteria and negative nitrite. IMAGIN. CT scan of the abdomen and pelvis showed trace pleural fluid, cholecystectomy changes with free fluid and more focal fluid, and emphysema in the cholecystectomy bed. Some of this could represent surgical material. 2. Abdominal ultrasound showed cholecystectomy caliber of visualized common bile duct, mildly prominent, measuring about 7 mm. PHYSICAL EXAMINATION: VITAL SIGNS: Temperature 98.2, pulse 81, respirations 14, blood pressure 147/98, and saturation 94% on room air. GENERAL: A middle-aged male, Jordanian speaker, lying in bed. Awake and alert, complaining of right upper quadrant abdominal pain. HEENT: Normocephalic and atraumatic. Pupils are reactive to light. Moist oral mucosa. No exudate. NECK: Supple. No lymphadenopathy. CARDIOVASCULAR: Regular rate and rhythm. No murmur or gallop. LUNGS: Clear bilaterally. No wheezing or rhonchi. Normal breathing effort. ABDOMEN: Tender in the right upper quadrant. No rebound. No organomegaly. No ascites. Surgical site wound is dry and clean. EXTREMITIES: No edema. No cyanosis. ASSESSMENT AND RECOMMENDATION: 1. Status post laparoscopic cholecystectomy complicated with fluid collection at the gallbladder site, suspect seroma versus abscess. Continue antibiotics. Consider I and D and fluid culture. 2. Sepsis due to the above. Continue antibiotics, pending blood culture. 3. Diabetes. Recommend tight glycemic control to keep blood glucose between 100 to 140. 4. Abdominal pain due to the above. Continue antibiotics and pain management. May need drainage of the gallbladder fossa fluid to rule out infection. Thank you for the consultation. ID will continue to follow. Apryl Curry M.D. DR: ZOILA JOB#: [id number] CC: CAITLIN
--- NOTE | 2018-03-20 22:21 | Consultation ---
History of Present Illness General Date patient seen: Mar 21, 2018 Chief Complaint: Abdominal Pain Present Illness HPI anxiety and insomnia. no si/hi Allergies: Coded Allergies: No Known Allergies (Unverified , 12/31/12) Medication History Scheduled Famotidine (Pepcid), 40 MG PO DAILY Lorazepam* (Ativan*), 1 MG ORAL BID Omeprazole (Prilosec), 20 MG ORAL DAILY, (Reported) Tramadol Hcl* (Ultram*), 50 MG ORAL Q12HR, (Reported) [benazepril], 20 MG PO DAILY, (Reported) [metformin], 500 MG PO BID, (Reported) Miscellaneous Medications Unable to Obtain Medications (Unable To Obtain Meds), (Reported) [allopurinol], (Reported) [pill for diabetes], (Reported) Patient History History Provided By: Patient, Medical Record Healthcare decision maker Resuscitation status Full Code Advanced Directive on File No Review of Systems Psychiatric: Reports: prior hx, anxiety, depressed feelings Physical Exam General Appearance: no apparent distress, alert Neurologic: oriented x 3, responsive, depressed affect Last 24 Hour Vital Signs Date Time Temp Pulse Resp B/P (MAP) Pulse Ox O2 Delivery O2 Flow Rate FiO2 03/20/18 21:00 Room Air 03/20/18 20:00 99.3 89 20 126/77 (93) 93 03/20/18 16:00 98.0 73 18 134/80 (98) 97 03/20/18 15:58 97.7 03/20/18 12:00 97.7 77 17 129/78 (95) 98 03/20/18 09:00 Room Air 03/20/18 08:56 97.9 03/20/18 08:26 132/80 03/20/18 08:00 98.7 80 16 132/80 (97) 97 03/20/18 04:00 97.9 80 15 138/83 (101) 96 03/20/18 00:00 99.1 84 14 135/77 (96) 93 Intake and Output 03/19/18 03/20/18 19:00 07:00 Intake Total 1363.0 ml 717.500 ml Balance 1363.0 ml 717.500 ml Intake Oral 478 ml 360 ml IV Total 885.0 ml 357.500 ml # Voids 1 1 Laboratory Tests Test 03/20/18 05:45 11/5/18 15:00 White Blood Count 6.8 K/UL (4.8-10.8) Red Blood Count 3.79 M/UL (4.70-6.10) L Hemoglobin 12.1 G/DL (14.2-18.0) L Hematocrit 32.7 % (42.0-52.0) L Mean Corpuscular Volume 86 FL (80-99) Mean Corpuscular Hemoglobin 31.8 PG (27.0-31.0) H Mean Corpuscular Hemoglobin Concent 36.8 G/DL (32.0-36.0) H Red Cell Distribution Width 10.7 % (11.6-14.8) L Platelet Count 158 K/UL (150-450) Mean Platelet Volume 7.1 FL (6.5-10.1) Neutrophils (%) (Auto) 71.3 % (45.0-75.0) Lymphocytes (%) (Auto) 16.3 % (20.0-45.0) L Monocytes (%) (Auto) 8.8 % (1.0-10.0) Eosinophils (%) (Auto) 2.7 % (0.0-3.0) Basophils (%) (Auto) 0.9 % (0.0-2.0) Sodium Level 135 MMOL/L (136-145) L Potassium Level 3.7 MMOL/L (3.5-5.1) Chloride Level 100 MMOL/L (98-107) Carbon Dioxide Level 28 MMOL/L (21-32) Anion Gap 7 mmol/L (5-15) Blood Urea Nitrogen 18 mg/dL (7-18) Creatinine 1.7 MG/DL (0.55-1.30) #H Estimat Glomerular Filtration Rate 40.3 mL/min (>60) Glucose Level 156 MG/DL (74-106) H Calcium Level 8.6 MG/DL (8.5-10.1) Total Bilirubin 1.3 MG/DL (0.2-1.0) H Direct Bilirubin 0.4 MG/DL (0.0-0.3) H Aspartate Amino Transf (AST/SGOT) 15 U/L (15-37) Alanine Aminotransferase (ALT/SGPT) 36 U/L (12-78) Alkaline Phosphatase 69 U/L (46-116) Total Protein 6.6 G/DL (6.4-8.2) Albumin 3.0 G/DL (3.4-5.0) L Globulin 3.6 g/dL Albumin/Globulin Ratio 0.8 (1.0-2.7) L Urine Color Yellow Urine Appearance Clear Urine pH 5 (4.5-8.0) Urine Specific Hardy 1.015 (1.005-1.035) Urine Protein 3+ (NEGATIVE) H Urine Glucose (UA) Negative (NEGATIVE) Urine Ketones Negative (NEGATIVE) Urine Blood Negative (NEGATIVE) Urine Nitrite Negative (NEGATIVE) Urine Bilirubin Negative (NEGATIVE) Urine Urobilinogen Normal MG/DL (0.0-1.0) Urine Leukocyte Esterase Negative (NEGATIVE) Urine RBC 2-4 /HPF (0 - 0) H Urine WBC 0-2 /HPF (0 - 0) Urine Squamous Epithelial Cells None /LPF (NONE/OCC) Urine Amorphous Sediment Few /LPF (NONE) H Urine Bacteria Few /HPF (NONE) Urine Osmolality 271 mOsm/kg (429-449) L Urine Potassium Timed 29 mmol/L (12-62) Height (Feet): 5 Height (Inches): 4.00 Weight (Pounds): 194 Medications Current Medications Medications (Trade) Dose Ordered Sig/Tamiko Route PRN Reason Start Time Stop Time Status Last Admin Dose Admin Acetaminophen (Tylenol) 650 mg Q4H PRN ORAL Mild Pain/Temp > 100.5 03/19/18 03:45 04/18/18 03:44 Barium Sulfate (Readi-Cat 2) 450 ml NOW PRN ORAL Radiology Procedure 03/20/18 16:00 03/22/18 15:46 Benazepril HCl (Lotensin) 20 mg DAILY ORAL 03/20/18 09:00 04/19/18 08:59 03/20/18 08:26 Dextrose (Dextrose 50%) 25 ml Q30M PRN IV Hypoglycemia 03/19/18 08:15 04/18/18 08:14 Dextrose (Dextrose 50%) 50 ml Q30M PRN IV Hypoglycemia 03/19/18 08:15 04/18/18 08:14 Dextrose/Sodium Chloride 1,000 ml @ 100 mls/hr Q10H IV 03/19/18 05:00 04/18/18 04:59 03/20/18 20:48 Heparin Sodium (Porcine) (Heparin 5000 units/ml) 5,000 units EVERY 12 HOURS SUBQ 03/19/18 09:00 04/18/18 08:59 03/20/18 20:50 Hydromorphone HCl (Dilaudid) 2 mg TIDPRN PRN IVP Severe Pain (Pain Scale 7-10) 03/19/18 11:30 03/26/18 11:29 03/20/18 15:28 Insulin Aspart (NovoLOG) BEFORE MEALS AND HS SUBQ 03/19/18 11:30 04/18/18 11:29 03/20/18 20:49 Iopamidol (Isovue-300 100ml) 100 ml NOW PRN INJ Radiology Procedure 03/20/18 16:00 03/22/18 15:59 Ondansetron HCl (Zofran) 4 mg Q4H PRN IVP Nausea & Vomiting 03/19/18 03:45 04/18/18 03:44 03/20/18 12:34 Pantoprazole (Protonix) 40 mg DAILY IVP 03/19/18 09:00 04/18/18 08:59 03/20/18 08:25 Piperacillin Sod/ Tazobactam Sod 3.375 gm/Sodium Chloride 110 ml @ 27.5 mls/hr Q8H IVPB 03/19/18 10:00 03/26/18 09:59 03/20/18 18:47 Sodium Chloride 500 ml @ 999 mls/hr Q31M PRN IV SYSTOLIC BLOOD PRESSURE <100 03/19/18 04:30 04/18/18 04:29 Assessment/Plan Status: stable, progressing Assessment/Plan anxiety d/o insomnia restoril atdavid provided ro/Nando Ellington MD Mar 20, 2018 22:21
[2018-03-20] MEDS ORDERED: LORazepam 0.5mg tab ORAL PRN (22:30)
[2018-03-21] VITALS: BP 128/68
[2018-03-21] MEDS: Piperacillin/Tazobactam 3.375 GM in NS 110 ML IVPB SCH ×3 (01:30→20:50)
[2018-03-21 04:00] VITALS: BP 143/82
[2018-03-21] MEDS: NovoLOG Insulin Flexpen SUBQ SCH ×4 (06:00→20:42)
[2018-03-21] MEDS: D5NS 1,000 ML IV SCH ×2 (06:48→15:45)
[2018-03-21 07:55] LABS: EOSINOPHILS % (AUTO) 2.6 % (0.0-3.0); HEMATOCRIT 31.2 % (42.0-52.0); HEMOGLOBIN 10.8 G/DL (14.2-18.0); LYMPHOCYTES % (AUTO) 16.4 % (20.0-45.0); MEAN CORPUSCULAR VOLUME 87 FL (80-99); NEUTROPHILS % (AUTO) 72.1 % (45.0-75.0); PLATELET COUNT 176 K/UL (150-450); RED BLOOD COUNT 3.57 M/UL (4.70-6.10); RED CELL DISTRIBUTION WIDTH 10.6 % (11.6-14.8); WHITE BLOOD COUNT 6.4 K/UL (4.8-10.8)
[2018-03-21 08:00] VITALS: BP 145/82
[2018-03-21 08:13] LABS: ANION GAP 8 mmol/L (5-15); BLOOD UREA NITROGEN 23 mg/dL (7-18); CALCIUM 8.4 MG/DL (8.5-10.1); CARBON DIOXIDE 27 MMOL/L (21-32); CHLORIDE 103 MMOL/L (98-107); CREATININE 2.4 MG/DL (0.55-1.30); POTASSIUM 3.7 MMOL/L (3.5-5.1); SODIUM 138 MMOL/L (136-145)
[2018-03-21] MEDS: Heparin 5000 units/ml inj SUBQ SCH (09:00)
[2018-03-21] MEDS: Pantoprazole Inj IVP SCH (10:01)
--- NOTE | 2018-03-21 10:02 | Diagnostic Imaging Report ---
Indication: Abdominal pain Technique: Continuous helical transaxial imaging of the abdomen and pelvis was obtained from the lung bases to the pubic symphysis during intravenous contrast administration. Coronal 2-D reformats were also obtained. Study obtained in a Siemens sensation [address] Automatic Exposure Control was utilized. Total Dose length Product (DLP): 924.[address] Dose Index Volume (CTDIvol): 17.05 mGy Comparison: HIDA scan earlier today. CT scan 03/19/2018 (36 hours earlier) Findings: There is a relatively stable appearing gallbladder fluid collection measuring approximately 7.5 x 2.5 cm on transaxial images. The collection is stable compared to the CT from 36 hours earlier. However, there is increasing free fluid within the peritoneal cavity within the pelvis compared to the earlier CT. The earlier HIDA scan showed findings suspicious for intraperitoneal bile leak. There are CT findings corroborate this. Other findings are stable. The cholecystectomy clips again noted. Lung bases are clear. Small hiatal hernia noted. Aortoiliac calcifications are present. Normal appendix noted once again. Bladder is mildly distended. IMPRESSION: Increasing peritoneal fluid and the prominent gallbladder fossa fluid collection following relatively recent cholecystectomy. Positive HIDA scan with diagnosis of bile leak. Current CT findings support this diagnosis. Other findings stable. Findings were discussed via telephone with Dr. Pena. Note: Disregard the erroneous preliminary report under "ER note". The CT scanner at [facility] is accredited by the [employer] and the scans are performed using dose optimization techniques as appropriate to a performed exam including Automatic Exposure control.
[2018-03-21 12:00] VITALS: BP 142/84
--- NOTE | 2018-03-21 12:31 | General Progress Note ---
Assessment/Plan Assessment/Plan S: My abdomen hurts O: appears to be in significant pain, No distress. PHYSICAL EXAMINATION: HEAD AND NECK: Atraumatic and normocephalic. CHEST: Clear to auscultation. HEART: S1, S2. Regular rate and rhythm. ABDOMEN: Soft. No organomegaly. Scars on prior surgery sites are visualized. Negative for rebound tenderness. positive for deep palpation tenderness MUSCULOSKELETAL: No gross focal motor deficit. NEUROLOGIC: Awake, alert, and oriented x3. Meds: including Dilaudid IV PRN . meds are reviewed and reconciled in the system Increasing peritoneal fluid and the prominent gallbladder fossa fluid collection following relatively recent cholecystectomy. Positive HIDA scan with diagnosis of bile leak. Current CT findings support this diagnosis. ASSESSMENT AND PLAN: 1. Abdominal pain, postsurgical post laparoscopic cholecystectomy. Bile leakage? ! 2. ARF 3. Hyponatremia. 4. Diabetes type 2. 5. GI and DVT prophylaxis. Plan: Consult Nephro ordered Renal US will follow GI and Surgery Rec. Subjective Allergies: Coded Allergies: No Known Allergies (Unverified , 12/31/12) Objective Last 24 Hour Vital Signs Date Time Temp Pulse Resp B/P (MAP) Pulse Ox O2 Delivery O2 Flow Rate FiO2 03/21/18 10:03 138/83 03/21/18 09:19 Room Air 03/21/18 08:00 97.3 74 14 145/82 (103) 95 03/21/18 04:00 98.4 77 20 143/82 (102) 96 03/21/18 00:00 99.7 83 20 128/68 (88) 93 03/20/18 21:00 Room Air 03/20/18 20:00 99.3 89 20 126/77 (93) 93 03/20/18 16:00 98.0 73 18 134/80 (98) 97 03/20/18 15:58 97.7 Intake and Output 03/20/18 03/21/18 19:00 07:00 Intake Total 820 ml 620.0 ml Balance 820 ml 620.0 ml Intake Oral 820 ml IV Total 620.0 ml # Voids 2 Laboratory Tests 03/20/18 15:00: Urine Color Yellow, Urine Appearance Clear, Urine pH 5, Urine Specific Benson 1.015, Urine Protein 3+H, Urine Glucose (UA) Negative, Urine Ketones Negative, Urine Blood Negative, Urine Nitrite Negative, Urine Bilirubin Negative, Urine Urobilinogen Normal, Urine Leukocyte Esterase Negative, Urine RBC 2-4H, Urine WBC 0-2, Urine Squamous Epithelial Cells None, Urine Amorphous Sediment FewH, Urine Bacteria Few, Urine Osmolality 271L, Urine Potassium Timed 29 03/21/18 06:20: White Blood Count 6.4, Red Blood Count 3.57L, Hemoglobin 10.8L, Hematocrit 31.2L , Mean Corpuscular Volume 87, Mean Corpuscular Hemoglobin 30.3, Mean Corpuscular Hemoglobin Concent 34.6, Red Cell Distribution Width 10.6L, Platelet Count 176, Mean Platelet Volume 7.0, Neutrophils (%) (Auto) 72.1, Lymphocytes (%) (Auto) 16.4L, Monocytes (%) (Auto) 8.0, Eosinophils (%) (Auto) 2.6, Basophils (%) (Auto) 1.0, Sodium Level 138, Potassium Level 3.7, Chloride Level 103, Carbon Dioxide Level 27, Anion Gap 8, Blood Urea Nitrogen 23H, Creatinine 2.4H, Estimat Glomerular Filtration Rate 27.1, Glucose Level 135H, Calcium Level 8.4L Height (Feet): 5 Height (Inches): 4.00 Weight (Pounds): 194 Tamera Esteves MD Mar 21, 2018 12:31
--- NOTE | 2018-03-21 13:26 | General Surgery Progress Note ---
General Surgery-Progress Note Subjective Symptoms: pain same Additional Comments had long dicussion with radiologist and Dr. Simeon . CT has shown increase in the fluid in pelvis radiologist strongly feels that he has bile leakage Objective Last 24 Hour Vital Signs Date Time Temp Pulse Resp B/P (MAP) Pulse Ox O2 Delivery O2 Flow Rate FiO2 03/21/18 10:03 138/83 03/21/18 09:19 Room Air 03/21/18 08:00 97.3 74 14 145/82 (103) 95 03/21/18 04:00 98.4 77 20 143/82 (102) 96 03/21/18 00:00 99.7 83 20 128/68 (88) 93 03/20/18 21:00 Room Air 03/20/18 20:00 99.3 89 20 126/77 (93) 93 03/20/18 16:00 98.0 73 18 134/80 (98) 97 03/20/18 15:58 97.7 I&O Intake and Output 03/20/18 03/21/18 19:00 07:00 Intake Total 820 ml 620.0 ml Balance 820 ml 620.0 ml Intake Oral 820 ml IV Total 620.0 ml # Voids 2 Respiratory: clear Abdomen: soft, flat, tenderness, present bowel sounds Extremities: no tenderness Laboratory Tests Test 03/20/18 15:00 03/21/18 06:20 Urine Color Yellow Urine Appearance Clear Urine pH 5 (4.5-8.0) Urine Specific [place] 1.015 (1.005-1.035) Urine Protein 3+ (NEGATIVE) H Urine Glucose (UA) Negative (NEGATIVE) Urine Ketones Negative (NEGATIVE) Urine Blood Negative (NEGATIVE) Urine Nitrite Negative (NEGATIVE) Urine Bilirubin Negative (NEGATIVE) Urine Urobilinogen Normal MG/DL (0.0-1.0) Urine Leukocyte Esterase Negative (NEGATIVE) Urine RBC 2-4 /HPF (0 - 0) H Urine WBC 0-2 /HPF (0 - 0) Urine Squamous Epithelial Cells None /LPF (NONE/OCC) Urine Amorphous Sediment Few /LPF (NONE) H Urine Bacteria Few /HPF (NONE) Urine Osmolality 271 mOsm/kg (429-449) L Urine Potassium Timed 29 mmol/L (12-62) White Blood Count 6.4 K/UL (4.8-10.8) Red Blood Count 3.57 M/UL (4.70-6.10) L Hemoglobin 10.8 G/DL (14.2-18.0) L Hematocrit 31.2 % (42.0-52.0) L Mean Corpuscular Volume 87 FL (80-99) Mean Corpuscular Hemoglobin 30.3 PG (27.0-31.0) Mean Corpuscular Hemoglobin Concent 34.6 G/DL (32.0-36.0) Red Cell Distribution Width 10.6 % (11.6-14.8) L Platelet Count 176 K/UL (150-450) Mean Platelet Volume 7.0 FL (6.5-10.1) Neutrophils (%) (Auto) 72.1 % (45.0-75.0) Lymphocytes (%) (Auto) 16.4 % (20.0-45.0) L Monocytes (%) (Auto) 8.0 % (1.0-10.0) Eosinophils (%) (Auto) 2.6 % (0.0-3.0) Basophils (%) (Auto) 1.0 % (0.0-2.0) Sodium Level 138 MMOL/L (136-145) Potassium Level 3.7 MMOL/L (3.5-5.1) Chloride Level 103 MMOL/L (98-107) Carbon Dioxide Level 27 MMOL/L (21-32) Anion Gap 8 mmol/L (5-15) Blood Urea Nitrogen 23 mg/dL (7-18) H Creatinine 2.4 MG/DL (0.55-1.30) H Estimat Glomerular Filtration Rate 27.1 mL/min (>60) Glucose Level 135 MG/DL (74-106) H Calcium Level 8.4 MG/DL (8.5-10.1) L Assessment Additional Comments bile leakage Plan Additional Comments ERCP in AM by Amanda Ingram MD Mar 21, 2018 13:26
--- NOTE | 2018-03-21 14:43 | General Progress Note ---
Assessment/Plan Status: stable, progressing Assessment/Plan anxiety d/o insomnia restoril ativan provided ro/st Subjective Date patient seen: Mar 21, 2018 Neurologic/Psychiatric: Reports: anxiety Allergies: Coded Allergies: No Known Allergies (Unverified , 12/31/12) Objective Last 24 Hour Vital Signs Date Time Temp Pulse Resp B/P (MAP) Pulse Ox O2 Delivery O2 Flow Rate FiO2 03/21/18 12:00 97.5 75 14 142/84 (103) 99 03/21/18 10:03 138/83 03/21/18 09:19 Room Air 03/21/18 08:00 97.3 74 14 145/82 (103) 95 03/21/18 04:00 98.4 77 20 143/82 (102) 96 03/21/18 00:00 99.7 83 20 128/68 (88) 93 03/20/18 21:00 Room Air 03/20/18 20:00 99.3 89 20 126/77 (93) 93 03/20/18 16:00 98.0 73 18 134/80 (98) 97 03/20/18 15:58 97.7 Intake and Output 03/20/18 03/21/18 18:59 06:59 Intake Total 820 ml 620.0 ml Balance 820 ml 620.0 ml Intake Oral 820 ml IV Total 620.0 ml # Voids 2 Laboratory Tests 03/20/18 15:00: Urine Color Yellow, Urine Appearance Clear, Urine pH 5, Urine Specific [place] 1.015, Urine Protein 3+H, Urine Glucose (UA) Negative, Urine Ketones Negative, Urine Blood Negative, Urine Nitrite Negative, Urine Bilirubin Negative, Urine Urobilinogen Normal, Urine Leukocyte Esterase Negative, Urine RBC 2-4H, Urine WBC 0-2, Urine Squamous Epithelial Cells None, Urine Amorphous Sediment FewH, Urine Bacteria Few, Urine Osmolality 271L, Urine Potassium Timed 29 03/21/18 06:20: White Blood Count 6.4, Red Blood Count 3.57L, Hemoglobin 10.8L, Hematocrit 31.2L , Mean Corpuscular Volume 87, Mean Corpuscular Hemoglobin 30.3, Mean Corpuscular Hemoglobin Concent 34.6, Red Cell Distribution Width 10.6L, Platelet Count 176, Mean Platelet Volume 7.0, Neutrophils (%) (Auto) 72.1, Lymphocytes (%) (Auto) 16.4L, Monocytes (%) (Auto) 8.0, Eosinophils (%) (Auto) 2.6, Basophils (%) (Auto) 1.0, Sodium Level 138, Potassium Level 3.7, Chloride Level 103, Carbon Dioxide Level 27, Anion Gap 8, Blood Urea Nitrogen 23H, Creatinine 2.4H, Estimat Glomerular Filtration Rate 27.1, Glucose Level 135H, Calcium Level 8.4L Height (Feet): 5 Height (Inches): 4.00 Weight (Pounds): 194 General Appearance: no apparent distress, alert Neurologic: oriented x 3, responsive, depressed affect Nando Tony MD Mar 21, 2018 14:43
[2018-03-21] MEDS ORDERED: Albumin Human 5% 250ml IV ONE (15:00)
--- NOTE | 2018-03-21 15:06 | Consultation ---
Consult Note Consult Note asked to eval for rising Cr his patient had lap beronica one week ago and c/o increased RUQ pain today. Surgery /surgeon not here. He does not know names of any meds. He denies fever, denies vomiting, c/o increased sharp, severe RUQ constant pain. Normal flatus. No urinary pain. No diarrhea. examined- son translating data reviewed Normal Cr ramandeep to above 2 Assessment/Plan acute renal failure S/P laparoscopic cholecystectomy Sepsis Diabetes mellitus / Nephropaty ( Proteinuria) Abdominal pain DC Lotensin- Urine Na and Eosinophils Hydralazin prn for high BP Monitor renal parameters Avoid nephrotoxics Sukumar Carreon MD Mar 21, 2018 15:06
--- NOTE | 2018-03-21 15:32 | GI Progress Note ---
Assessment/Plan Problems: (1) Abdominal pain ICD Codes: R10.9 - Unspecified abdominal pain SNOMED: 53951890 (2) Rule out Peritonitis (3) Abdominal pain ICD Codes: R10.9 - Unspecified abdominal pain SNOMED: 46224394 (4) History of cholecystectomy ICD Codes: Z90.49 - Acquired absence of other specified parts of digestive tract SNOMED: 00905312, 516193216 Status: stable Status Narrative Discussed with Dr. Simeon. Assessment/Plan Assessment - CT reviewed suggestive of biliary leak Recommendations ERCP scheduled for tomorrow. maintain NPO + IVFs pain mgmt will follow with additional recs post procedure The patient was seen and examined at bedside and all new and available data was reviewed in the patients chart. I agree with the above findings, impression and plan. (Patient seen earlier today. Signature stamp does not reflect patient encounter time.). - Kulwant Simeon MD Subjective Gastrointestinal/Abdominal: Reports: abdominal pain Objective Last 24 Hour Vital Signs Date Time Temp Pulse Resp B/P (MAP) Pulse Ox O2 Delivery O2 Flow Rate FiO2 03/21/18 12:00 97.5 75 14 142/84 (103) 99 03/21/18 10:03 138/83 03/21/18 09:19 Room Air 03/21/18 08:00 97.3 74 14 145/82 (103) 95 03/21/18 04:00 98.4 77 20 143/82 (102) 96 03/21/18 00:00 99.7 83 20 128/68 (88) 93 03/20/18 21:00 Room Air 03/20/18 20:00 99.3 89 20 126/77 (93) 93 03/20/18 16:00 98.0 73 18 134/80 (98) 97 03/20/18 15:58 97.7 Intake and Output 03/20/18 03/21/18 19:00 07:00 Intake Total 820 ml 620.0 ml Balance 820 ml 620.0 ml Intake Oral 820 ml IV Total 620.0 ml # Voids 2 Laboratory Tests Test 03/21/18 06:20 White Blood Count 6.4 K/UL (4.8-10.8) Red Blood Count 3.57 M/UL (4.70-6.10) L Hemoglobin 10.8 G/DL (14.2-18.0) L Hematocrit 31.2 % (42.0-52.0) L Mean Corpuscular Volume 87 FL (80-99) Mean Corpuscular Hemoglobin 30.3 PG (27.0-31.0) Mean Corpuscular Hemoglobin Concent 34.6 G/DL (32.0-36.0) Red Cell Distribution Width 10.6 % (11.6-14.8) L Platelet Count 176 K/UL (150-450) Mean Platelet Volume 7.0 FL (6.5-10.1) Neutrophils (%) (Auto) 72.1 % (45.0-75.0) Lymphocytes (%) (Auto) 16.4 % (20.0-45.0) L Monocytes (%) (Auto) 8.0 % (1.0-10.0) Eosinophils (%) (Auto) 2.6 % (0.0-3.0) Basophils (%) (Auto) 1.0 % (0.0-2.0) Sodium Level 138 MMOL/L (136-145) Potassium Level 3.7 MMOL/L (3.5-5.1) Chloride Level 103 MMOL/L (98-107) Carbon Dioxide Level 27 MMOL/L (21-32) Anion Gap 8 mmol/L (5-15) Blood Urea Nitrogen 23 mg/dL (7-18) H Creatinine 2.4 MG/DL (0.55-1.30) H Estimat Glomerular Filtration Rate 27.1 mL/min (>60) Glucose Level 135 MG/DL (74-106) H Calcium Level 8.4 MG/DL (8.5-10.1) L Height (Feet): 5 Height (Inches): 4.00 Weight (Pounds): 194 General Appearance: WD/WN, no apparent distress, alert Cardiovascular: normal rate Respiratory/Chest: normal breath sounds, no respiratory distress Abdominal Exam: normal bowel sounds, non tender, soft Extremities: normal range of motion, non-tender Jimbo Ramos NP Mar 21, 2018 15:32
--- NOTE | 2018-03-21 15:48 | Infectious Diseases Prog Note ---
Assessment/Plan Problems: (1) S/P laparoscopic cholecystectomy Assessment & Plan: complicated with fluids collection at the gallbladder site , HIDA scan showed possible bill leak , suspect seroma VS abscess VS biloma , continue antibiotics , consider I&D and fluids culture. for ERCP tomorrow (2) Sepsis Assessment & Plan: due to the above , continue antibiotics pending blood culture (3) Diabetes mellitus Assessment & Plan: recommend tight glycemic control to keep blood glucose between 100-140 (4) Abdominal pain Assessment & Plan: due to the above , continue antibiotics and pain management as needed (5) MIKE (acute kidney injury) Assessment & Plan: suspect due to the above, continue hydration , avoid nephrotoxics , monitor renal function. Subjective Constitutional: Reports: no symptoms HEENT: Reports: no symptoms Respiratory: Reports: no symptoms Breasts: Reports: no symptoms Cardiovascular: Reports: no symptoms Gastrointestinal/Abdominal: Reports: bloating Genitourinary: Reports: no symptoms Neurologic: Reports: no symptoms Psychiatric: Reports: no symptoms Skin: Reports: no symptoms Endocrine: Reports: no symptoms Hematologic: Reports: no symptoms Musculoskeletal: Reports: no symptoms Allergies: Coded Allergies: No Known Allergies (Unverified , 12/31/12) Objective Vital Signs Last 24 Hour Vital Signs Date Time Temp Pulse Resp B/P (MAP) Pulse Ox O2 Delivery O2 Flow Rate FiO2 03/21/18 12:00 97.5 75 14 142/84 (103) 99 03/21/18 10:03 138/83 03/21/18 09:19 Room Air 03/21/18 08:00 97.3 74 14 145/82 (103) 95 03/21/18 04:00 98.4 77 20 143/82 (102) 96 03/21/18 00:00 99.7 83 20 128/68 (88) 93 03/20/18 21:00 Room Air 03/20/18 20:00 99.3 89 20 126/77 (93) 93 03/20/18 16:00 98.0 73 18 134/80 (98) 97 03/20/18 15:58 97.7 Height (Feet): 5 Height (Inches): 4.00 Weight (Pounds): 194 General Appearance: WD/WN, no acute distress HEENT: normocephalic, atraumatic, anicteric, mucous membranes moist, PERRL Respiratory/Chest: chest wall non-tender, lungs clear, normal breath sounds, no respiratory distress, no accessory muscle use Cardiovascular: normal peripheral pulses, normal rate, regular rhythm, no gallop/murmur, no JVD Abdomen: normal bowel sounds, no organomegaly, no mass, no scars, distended, tender Extremities: no cyanosis, no clubbing Skin: no rash, no lesions, no ulcers Neurologic/Psychiatric: alert, oriented x 3, responsive Microbiology Date/Time Source Procedure Growth Status 03/19/18 09:58 Blood Blood Culture - Preliminary NO GROWTH AFTER 24 HOURS Resulted 03/19/18 09:53 Blood Blood Culture - Preliminary NO GROWTH AFTER 24 HOURS Resulted Laboratory Tests Test 03/21/18 06:20 White Blood Count 6.4 K/UL (4.8-10.8) Red Blood Count 3.57 M/UL (4.70-6.10) L Hemoglobin 10.8 G/DL (14.2-18.0) L Hematocrit 31.2 % (42.0-52.0) L Mean Corpuscular Volume 87 FL (80-99) Mean Corpuscular Hemoglobin 30.3 PG (27.0-31.0) Mean Corpuscular Hemoglobin Concent 34.6 G/DL (32.0-36.0) Red Cell Distribution Width 10.6 % (11.6-14.8) L Platelet Count 176 K/UL (150-450) Mean Platelet Volume 7.0 FL (6.5-10.1) Neutrophils (%) (Auto) 72.1 % (45.0-75.0) Lymphocytes (%) (Auto) 16.4 % (20.0-45.0) L Monocytes (%) (Auto) 8.0 % (1.0-10.0) Eosinophils (%) (Auto) 2.6 % (0.0-3.0) Basophils (%) (Auto) 1.0 % (0.0-2.0) Sodium Level 138 MMOL/L (136-145) Potassium Level 3.7 MMOL/L (3.5-5.1) Chloride Level 103 MMOL/L (98-107) Carbon Dioxide Level 27 MMOL/L (21-32) Anion Gap 8 mmol/L (5-15) Blood Urea Nitrogen 23 mg/dL (7-18) H Creatinine 2.4 MG/DL (0.55-1.30) H Estimat Glomerular Filtration Rate 27.1 mL/min (>60) Glucose Level 135 MG/DL (74-106) H Calcium Level 8.4 MG/DL (8.5-10.1) L C-Reactive Protein, Quantitative Pending Current Medications Medications (Trade) Dose Ordered Sig/Tamiko Route PRN Reason Start Time Stop Time Status Last Admin Dose Admin Acetaminophen (Tylenol) 650 mg Q4H PRN ORAL Mild Pain/Temp > 100.5 03/19/18 03:45 04/18/18 03:44 Albumin Human 500 ml @ 0 mls/hr Q0M ONCE IV 03/21/18 16:00 03/21/18 16:01 Barium Sulfate (Readi-Cat 2) 450 ml NOW PRN ORAL Radiology Procedure 03/20/18 16:00 03/22/18 15:46 Dextrose (Dextrose 50%) 25 ml Q30M PRN IV Hypoglycemia 03/19/18 08:15 04/18/18 08:14 Dextrose (Dextrose 50%) 50 ml Q30M PRN IV Hypoglycemia 03/19/18 08:15 04/18/18 08:14 Dextrose/Sodium Chloride 1,000 ml @ 125 mls/hr Q8H IV 03/21/18 16:00 04/20/18 15:59 Hydralazine HCl (Apresoline) 25 mg Q4H PRN ORAL bp over 160 syst 03/21/18 15:00 04/20/18 14:59 Hydromorphone HCl (Dilaudid) 2 mg TIDPRN PRN IVP Severe Pain (Pain Scale 7-10) 03/19/18 11:30 03/26/18 11:29 03/20/18 15:28 Insulin Aspart (NovoLOG) BEFORE MEALS AND HS SUBQ 03/19/18 11:30 04/18/18 11:29 03/21/18 06:00 Iopamidol (Isovue-300 100ml) 100 ml NOW PRN INJ Radiology Procedure 03/20/18 16:00 03/22/18 15:59 Lorazepam (Ativan) 2 mg Q6H PRN ORAL For Anxiety 03/20/18 22:30 03/27/18 22:29 Ondansetron HCl (Zofran) 4 mg Q4H PRN IVP Nausea & Vomiting 03/19/18 03:45 04/18/18 03:44 03/20/18 12:34 Pantoprazole (Protonix) 40 mg DAILY IVP 03/19/18 09:00 04/18/18 08:59 03/21/18 10:01 Piperacillin Sod/ Tazobactam Sod 3.375 gm/Sodium Chloride 110 ml @ 27.5 mls/hr Q12HR IVPB 03/21/18 21:00 03/28/18 20:59 Sodium Chloride 500 ml @ 999 mls/hr Q31M PRN IV SYSTOLIC BLOOD PRESSURE <100 03/19/18 04:30 04/18/18 04:29 Tamsulosin HCl (Flomax) 0.4 mg BEDTIME ORAL 03/21/18 21:00 04/20/18 20:59 Temazepam (Restoril) 15 mg HSPRN PRN ORAL Insomnia 03/20/18 22:30 03/27/18 22:29 Apryl Curry M.D. Mar 21, 2018 15:48
[2018-03-21 16:00] VITALS: BP 130/82
[2018-03-21] MEDS ORDERED: Albumin Human 5% 500ml IV ONE (16:00)
--- NOTE | 2018-03-21 16:16 | Diagnostic Imaging Report ---
Indication:Elevated Bun and Creatinine. Technique: Grayscale and duplex Doppler imaging of the kidneys performed. Comparison: None Findings: The size, contour, and echogenicity of both kidneys are within normal limits. There is no hydronephrosis. Both kidneys measure between 12 and 13 cm in length. There is a left renal cyst measuring 1.4 cm and another cyst measuring 1.8 cm. The IVC and urinary bladder are unremarkable. IMPRESSION: No acute findings. Left renal cysts
[2018-03-21 20:00] VITALS: BP 147/93
[2018-03-21] MEDS: Tamsulosin 0.4mg cap ORAL SCH (20:42)
[2018-03-22] VITALS (10 sets, daily range): BP systolic 140–165; BP diastolic 77–90
[2018-03-22] MEDS: D5NS 1,000 ML IV SCH ×4 (00:10→17:19)
[2018-03-22] MEDS: NovoLOG Insulin Flexpen SUBQ SCH ×4 (06:25→20:55)
[2018-03-22 07:12] LABS: BASOPHILS % (AUTO) 1.3 % (0.0-2.0); EOSINOPHILS % (AUTO) 4.3 % (0.0-3.0); HEMATOCRIT 29.7 % (42.0-52.0); HEMOGLOBIN 10.6 G/DL (14.2-18.0); LYMPHOCYTES % (AUTO) 17.1 % (20.0-45.0); MEAN CORPUSCULAR VOLUME 87 FL (80-99); MONOCYTES % (AUTO) 6.4 % (1.0-10.0); NEUTROPHILS % (AUTO) 70.9 % (45.0-75.0); PLATELET COUNT 173 K/UL (150-450); RED CELL DISTRIBUTION WIDTH 10.6 % (11.6-14.8); WHITE BLOOD COUNT 5.8 K/UL (4.8-10.8)
[2018-03-22] MEDS ORDERED: Iothalamate Meglumine 60% 30ML INJ ONE ×2 (07:14→08:14)
[2018-03-22] MEDS ORDERED: NS 500ML IVPB ONE (07:35)
[2018-03-22 07:40] LABS: PHOSPHORUS 3.3 MG/DL (2.5-4.9)
[2018-03-22] MEDS ORDERED: Atropine Inj 1mg/10ml Syr IV PRN (07:45)
[2018-03-22] MEDS ORDERED: fentaNYL 100 mcg/2 mL IV PRN (07:45)
[2018-03-22] MEDS ORDERED: DiphenhydrAMINE 50mg/ml Inj IVP PRN (07:45)
[2018-03-22] MEDS ORDERED: Midazolam 2mg/2ml Inj IVP PRN (07:45)
--- NOTE | 2018-03-22 07:51 | Anethesia Preoperative Eval ---
Anesthesia Pre-op PMH/ROS General Date of Evaluation: Mar 22, 2018 Time of Evaluation: 07:10 Anesthesiologist: yvonne ASA Score: ASA 3 Mallampati Score Class I : Soft palate, uvula, fauces, pillars visible Class II: Soft palate, uvula, fauces visible Class III: Soft palate, base of uvula visible Class IV: Only hard plate visible Mallampati Classification: Class II Surgeon: brianna Surgical Procedure: ercp Anesthesia History: none Social History: alcohol use Family History: no anesthesia problems Allergies: Coded Allergies: No Known Allergies (Unverified , 12/31/12) Medications: see eMAR Patient NPO?: Yes NPO Date: Mar 22, 2018 NPO Time: 0000 Past Medical History Cardiovascular: Reports: HTN Gastrointestinal/Genitourinary: Reports: GERD Neurologic/Psychiatric: Reports: depression/anxiety Endocrine: Reports: DM Musculoskeletal/Integumentary: Reports: other - gout Other: obesity Anesthesia Pre-op Phys. Exam Physician Exam Last Vital Signs Date Time Temp Pulse Resp B/P (MAP) Pulse Ox O2 Delivery O2 Flow Rate FiO2 03/22/18 04:00 98.1 81 20 147/82 (103) 93 03/21/18 21:00 Room Air Constitutional: NAD Neurologic: CN 2-12 intact Cardiovascular: RRR Respiratory: CTA Gastrointestinal: S/NT/ND Airway Exam Mallampati Score: Class II MO: full Neck: flexible TMD: 2fb ROM: limited Teeth: missing Anesthesia Pre-op A/P Labs Hematology Test 03/22/18 06:50 White Blood Count 5.8 K/UL (4.8-10.8) Red Blood Count 3.40 M/UL (4.70-6.10) L Hemoglobin 10.6 G/DL (14.2-18.0) L Hematocrit 29.7 % (42.0-52.0) L Mean Corpuscular Volume 87 FL (80-99) Mean Corpuscular Hemoglobin 31.1 PG (27.0-31.0) H Mean Corpuscular Hemoglobin Concent 35.6 G/DL (32.0-36.0) Red Cell Distribution Width 10.6 % (11.6-14.8) L Platelet Count 173 K/UL (150-450) Mean Platelet Volume 6.3 FL (6.5-10.1) L Neutrophils (%) (Auto) 70.9 % (45.0-75.0) Lymphocytes (%) (Auto) 17.1 % (20.0-45.0) L Monocytes (%) (Auto) 6.4 % (1.0-10.0) Eosinophils (%) (Auto) 4.3 % (0.0-3.0) H Basophils (%) (Auto) 1.3 % (0.0-2.0) Coagulation Test 03/22/18 06:50 Prothrombin Time 10.9 SEC (9.30-11.50) Prothromb Time International Ratio 1.0 (0.9-1.1) Activated Partial Thromboplast Time 28 SEC (23-33) Chemistry Test 03/22/18 06:50 Sodium Level Pending Potassium Level Pending Chloride Level Pending Carbon Dioxide Level Pending Blood Urea Nitrogen Pending Creatinine Pending Estimat Glomerular Filtration Rate Pending Glucose Level Pending Hemoglobin A1c 6.8 % (4.3-6.0) H Uric Acid 6.9 MG/DL (2.6-7.2) Calcium Level Pending Phosphorus Level 3.3 MG/DL (2.5-4.9) Magnesium Level 2.1 MG/DL (1.8-2.4) Ferritin Pending Total Bilirubin Pending Gamma Glutamyl Transpeptidase 77 U/L (5-85) Aspartate Amino Transf (AST/SGOT) Pending Alanine Aminotransferase (ALT/SGPT) Pending Alkaline Phosphatase Pending Pro-B-Type Natriuretic Peptide 668 pg/mL (0-125) H Total Protein Pending Albumin Pending Globulin Pending Triglycerides Level Pending Cholesterol Level Pending LDL Cholesterol Pending HDL Cholesterol Pending Cholesterol/HDL Ratio Pending Lipase 120 U/L (73-393) Vitamin B12 Level Pending Folate Pending Thyroid Stimulating Hormone (TSH) Pending Risk Assessment & Plan Assessment: asa3 Plan: mac Status Change Before Surgery: No Pre-Antibiotics Drug: Alexandra Burnham MD Mar 22, 2018 07:50
[2018-03-22 07:56] LABS: ALANINE AMINOTRANSFERASE 33 U/L (12-78); ALBUMIN 3.1 G/DL (3.4-5.0); ALBUMIN/GLOBULIN RATIO 0.9 (1.0-2.7); ALKALINE PHOSPHATASE 76 U/L (46-116); ANION GAP 8 mmol/L (5-15); ASPARTATE AMINO TRANSFERASE 14 U/L (15-37); BILIRUBIN,TOTAL 0.9 MG/DL (0.2-1.0); BLOOD UREA NITROGEN 22 mg/dL (7-18); CALCIUM 8.6 MG/DL (8.5-10.1); CARBON DIOXIDE 27 MMOL/L (21-32); CHLORIDE 106 MMOL/L (98-107); CHOLESTEROL 149 MG/DL (< 200); FERRITIN 293 NG/ML (8-388); HDL CHOLESTEROL 29 MG/DL (40-60); POTASSIUM 3.9 MMOL/L (3.5-5.1); SODIUM 141 MMOL/L (136-145); TRIGLYCERIDES 133 MG/DL (30-150)
--- NOTE | 2018-03-22 08:04 | Pre-Procedure Note/Attestation ---
Pre-Procedure Note/Attestation Complete Prior to Procedure Planned Procedure: not applicable Procedure Narrative: ercp Indications for Procedure Pre-Operative Diagnosis: bile leak Attestation I attest that I discussed the nature of the procedure; its benefits; risks and complications; and alternatives (and the risks and benefits of such alternatives ), prior to the procedure, with the patient (or the patient's legal client representative). I attest that, if there was a reasonable possibility of needing a blood transfusion, the patient (or the patient's legal client representative) was given the [facility] standardized written summary, pursuant to the [place] Blood Safety Act ([place] Health and Safety Code # 1645, as amended). I attest that I re-evaluated the patient just prior to the surgery and that there has been no change in the patient's H&P, except as documented below: Kulwant Simeon MD Mar 22, 2018 08:04
--- NOTE | 2018-03-22 08:57 | Endoscopy Procedure Note ---
Endoscopy Procedure Note General Indication for Procedure: bile leak Procedures Performed: ERCP Operative Findings/Diagnosis: same Specimen: none Pt Tolerated Procedure Well: Yes Estimated Blood Loss: none Anesthesia Anesthesiologist: ashwin laureano Anesthesia: MAC Inserted Devices Implant(s) used?: No GI Core Measures 50 yrs or older w/o bx or poly: Not Applicable 10yrs. F/U not recommended: Not Applicable Kulwant Simeon MD Mar 22, 2018 08:57
--- NOTE | 2018-03-22 09:37 | Immediate Post-Op Evaluation ---
Immediate Post-Op Evalulation Immediate Post-Op Evalulation Procedure: ercp, removal of stones, stent placement Date of Evaluation: Mar 22, 2018 Time of Evaluation: 09:07 IV Fluids: 600ml 0.9ns Blood Products: none Estimated Blood Loss: negligible Blood Pressure Systolic: 165 Blood Pressure Diastolic: 88 Pulse Rate: 88 Respiratory Rate: 18 O2 Sat by Pulse Oximetry: 98 Temperature (Fahrenheit): 98.1 Pain Score (1-10): 0 Nausea: No Vomiting: No Complications none Patient Status: awake, reacts, patent Hydration Status: adequate Drug: Alexandra Burnham MD Mar 22, 2018 09:37
--- NOTE | 2018-03-22 09:39 | 48 Hour Post Anesthesia Eval ---
Post Anesthesia Evaluation Procedure: ercp, removal of stones, stent placement Blood Pressure Systolic: 158 0: 84 Pulse Rate: 81 Respiratory Rate: 18 Temperature (Fahrenheit): 98.0 O2 Sat by Pulse Oximetry: 98 Airway: patent Nausea: No Vomiting: No Pain Intensity: 0 Hydration Status: adequate Cardiopulmonary Status: stable Mental Status/LOC: patient returned to baseline Post-Anesthesia Complications: none Follow-up care needed: N/A Alexandra Ayala MD Mar 22, 2018 09:39
[2018-03-22] MEDS: Pantoprazole Inj IVP SCH (09:41)
[2018-03-22] MEDS: Piperacillin/Tazobactam 3.375 GM in NS 110 ML IVPB SCH ×2 (09:42→20:53)
--- NOTE | 2018-03-22 10:35 | General Progress Note ---
Assessment/Plan Assessment/Plan S: My abdomen hurts O: appears to be in NO significant pain, No distress. PHYSICAL EXAMINATION: HEAD AND NECK: Atraumatic and normocephalic. CHEST: Clear to auscultation. HEART: S1, S2. Regular rate and rhythm. ABDOMEN: Soft. No organomegaly. Scars on prior surgery sites are visualized. Negative for rebound tenderness. positive for deep palpation tenderness MUSCULOSKELETAL: No gross focal motor deficit. NEUROLOGIC: Awake, alert, and oriented x3. Meds: including Dilaudid IV PRN . meds are reviewed and reconciled in the system Increasing peritoneal fluid and the prominent gallbladder fossa fluid collection following relatively recent cholecystectomy. Positive HIDA scan with diagnosis of bile leak. Current CT findings support this diagnosis. ASSESSMENT AND PLAN: 1. Abdominal pain, postsurgical post laparoscopic cholecystectomy secondary to Bile leakage?! 2. ARF 3. Hyponatremia. 4. Diabetes type 2. 5. GI and DVT prophylaxis. Plan: post ERCP will follow GI and Surgery Rec. Subjective Allergies: Coded Allergies: No Known Allergies (Unverified , 12/31/12) Objective Last 24 Hour Vital Signs Date Time Temp Pulse Resp B/P (MAP) Pulse Ox O2 Delivery O2 Flow Rate FiO2 03/22/18 09:39 81 18 98 03/22/18 09:37 88 18 98 03/22/18 09:23 98.0 81 15 158/84 100 Nasal Cannula 3 03/22/18 09:10 86 13 158/90 99 Nasal Cannula 3 03/22/18 09:05 86 15 150/90 99 Nasal Cannula 3 03/22/18 09:00 Room Air 03/22/18 09:00 85 15 154/89 99 Nasal Cannula 3 03/22/18 08:55 98.8 88 18 165/88 98 Nasal Cannula 3 03/22/18 04:00 98.1 81 20 147/82 (103) 93 03/22/18 00:00 97.8 79 20 152/83 (106) 93 03/21/18 21:00 Room Air 03/21/18 20:00 98.8 75 20 147/93 (111) 94 03/21/18 18:18 97.5 03/21/18 16:00 98.1 71 16 130/82 (98) 98 03/21/18 12:00 97.5 75 14 142/84 (103) 99 Intake and Output 03/21/18 03/22/18 19:00 07:00 Intake Total 240 ml 1375 ml Balance 240 ml 1375 ml Intake Oral 240 ml IV Total 1375 ml # Voids 3 2 Laboratory Tests 03/22/18 06:50: White Blood Count 5.8, Red Blood Count 3.40L, Hemoglobin 10.6L, Hematocrit 29.7L , Mean Corpuscular Volume 87, Mean Corpuscular Hemoglobin 31.1H, Mean Corpuscular Hemoglobin Concent 35.6, Red Cell Distribution Width 10.6L, Platelet Count 173, Mean Platelet Volume 6.3L, Neutrophils (%) (Auto) 70.9, Lymphocytes (%) (Auto) 17.1L, Monocytes (%) (Auto) 6.4, Eosinophils (%) (Auto) 4.3H, Basophils (%) (Auto) 1.3, Prothrombin Time 10.9, Prothromb Time International Ratio 1.0, Activated Partial Thromboplast Time 28, Sodium Level 141, Potassium Level 3.9, Chloride Level 106, Carbon Dioxide Level 27, Anion Gap 8, Blood Urea Nitrogen 22H, Creatinine 2.0H, Estimat Glomerular Filtration Rate 33.4, Glucose Level 151H, Hemoglobin A1c 6.8H, Uric Acid 6.9, Calcium Level 8.6, Phosphorus Level 3.3, Magnesium Level 2.1, Ferritin 293, Total Bilirubin 0.9, Gamma Glutamyl Transpeptidase 77, Aspartate Amino Transf (AST/ SGOT) 14L, Alanine Aminotransferase (ALT/SGPT) 33, Alkaline Phosphatase 76, Pro- B-Type Natriuretic Peptide 668H, Total Protein 6.7, Albumin 3.1L, Globulin 3.6, Albumin/Globulin Ratio 0.9L, Triglycerides Level 133, Cholesterol Level 149, LDL Cholesterol 99, HDL Cholesterol 29L, Cholesterol/HDL Ratio 5.1H, Lipase 120 , Vitamin B12 Level 467, Folate 41.1, Thyroid Stimulating Hormone (TSH) 1.838 Height (Feet): 5 Height (Inches): 3.00 Weight (Pounds): 193 Tamera Esteves MD Mar 22, 2018 10:35
--- NOTE | 2018-03-22 11:01 | General Progress Note ---
Assessment/Plan Status: stable, progressing Assessment/Plan anxiety d/o insomnia restoril ativan provided ro/st Subjective Date patient seen: Mar 22, 2018 Neurologic/Psychiatric: Reports: anxiety Allergies: Coded Allergies: No Known Allergies (Unverified , 12/31/12) Subjective the pt is doing well no behavioral issues Objective Last 24 Hour Vital Signs Date Time Temp Pulse Resp B/P (MAP) Pulse Ox O2 Delivery O2 Flow Rate FiO2 03/22/18 09:39 81 18 98 03/22/18 09:37 88 18 98 03/22/18 09:23 98.0 81 15 158/84 100 Nasal Cannula 3 03/22/18 09:10 86 13 158/90 99 Nasal Cannula 3 03/22/18 09:05 86 15 150/90 99 Nasal Cannula 3 03/22/18 09:00 Room Air 03/22/18 09:00 85 15 154/89 99 Nasal Cannula 3 03/22/18 08:55 98.8 88 18 165/88 98 Nasal Cannula 3 03/22/18 04:00 98.1 81 20 147/82 (103) 93 03/22/18 00:00 97.8 79 20 152/83 (106) 93 03/21/18 21:00 Room Air 03/21/18 20:00 98.8 75 20 147/93 (111) 94 03/21/18 18:18 97.5 03/21/18 16:00 98.1 71 16 130/82 (98) 98 03/21/18 12:00 97.5 75 14 142/84 (103) 99 Intake and Output 03/21/18 03/22/18 19:00 07:00 Intake Total 240 ml 1375 ml Balance 240 ml 1375 ml Intake Oral 240 ml IV Total 1375 ml # Voids 3 2 Laboratory Tests 03/22/18 06:50: White Blood Count 5.8, Red Blood Count 3.40L, Hemoglobin 10.6L, Hematocrit 29.7L , Mean Corpuscular Volume 87, Mean Corpuscular Hemoglobin 31.1H, Mean Corpuscular Hemoglobin Concent 35.6, Red Cell Distribution Width 10.6L, Platelet Count 173, Mean Platelet Volume 6.3L, Neutrophils (%) (Auto) 70.9, Lymphocytes (%) (Auto) 17.1L, Monocytes (%) (Auto) 6.4, Eosinophils (%) (Auto) 4.3H, Basophils (%) (Auto) 1.3, Prothrombin Time 10.9, Prothromb Time International Ratio 1.0, Activated Partial Thromboplast Time 28, Sodium Level 141, Potassium Level 3.9, Chloride Level 106, Carbon Dioxide Level 27, Anion Gap 8, Blood Urea Nitrogen 22H, Creatinine 2.0H, Estimat Glomerular Filtration Rate 33.4, Glucose Level 151H, Hemoglobin A1c 6.8H, Uric Acid 6.9, Calcium Level 8.6, Phosphorus Level 3.3, Magnesium Level 2.1, Ferritin 293, Total Bilirubin 0.9, Gamma Glutamyl Transpeptidase 77, Aspartate Amino Transf (AST/ SGOT) 14L, Alanine Aminotransferase (ALT/SGPT) 33, Alkaline Phosphatase 76, Pro- B-Type Natriuretic Peptide 668H, Total Protein 6.7, Albumin 3.1L, Globulin 3.6, Albumin/Globulin Ratio 0.9L, Triglycerides Level 133, Cholesterol Level 149, LDL Cholesterol 99, HDL Cholesterol 29L, Cholesterol/HDL Ratio 5.1H, Lipase 120 , Vitamin B12 Level 467, Folate 41.1, Thyroid Stimulating Hormone (TSH) 1.838 Height (Feet): 5 Height (Inches): 3.00 Weight (Pounds): 193 General Appearance: no apparent distress, alert Neurologic: oriented x 3, responsive, depressed affect Nando Tony MD Mar 22, 2018 11:01
--- NOTE | 2018-03-22 12:29 | Nephrology Progress Note ---
Assessment/Plan Problem List: (1) MIKE (acute kidney injury) (2) Abdominal pain (3) Sepsis (4) Diabetes mellitus Assessment Acute renal failure cr lower S/P laparoscopic cholecystectomy Sepsis Diabetes mellitus / Nephropaty ( Proteinuria) Abdominal pain Plan DC Lotensin- Urine Na and Eosinophils Hydralazin prn for high BP Monitor renal parameters Avoid nephrotoxics per orders Subjective ROS Limited/Unobtainable: No Constitutional: Reports: malaise Objective Objective Last 24 Hour Vital Signs Date Time Temp Pulse Resp B/P (MAP) Pulse Ox O2 Delivery O2 Flow Rate FiO2 03/22/18 12:07 97.3 72 14 143/79 (100) 95 03/22/18 09:39 81 18 98 03/22/18 09:37 88 18 98 03/22/18 09:23 98.0 81 15 158/84 100 Nasal Cannula 3 03/22/18 09:10 86 13 158/90 99 Nasal Cannula 3 03/22/18 09:05 86 15 150/90 99 Nasal Cannula 3 03/22/18 09:00 Room Air 03/22/18 09:00 85 15 154/89 99 Nasal Cannula 3 03/22/18 08:55 98.8 88 18 165/88 98 Nasal Cannula 3 03/22/18 04:00 98.1 81 20 147/82 (103) 93 03/22/18 00:00 97.8 79 20 152/83 (106) 93 03/21/18 21:00 Room Air 03/21/18 20:00 98.8 75 20 147/93 (111) 94 03/21/18 18:18 97.5 03/21/18 16:00 98.1 71 16 130/82 (98) 98 Intake and Output 03/21/18 03/22/18 19:00 07:00 Intake Total 240 ml 1375 ml Balance 240 ml 1375 ml Intake Oral 240 ml IV Total 1375 ml # Voids 3 2 Laboratory Tests 03/22/18 06:50: White Blood Count 5.8, Red Blood Count 3.40L, Hemoglobin 10.6L, Hematocrit 29.7L , Mean Corpuscular Volume 87, Mean Corpuscular Hemoglobin 31.1H, Mean Corpuscular Hemoglobin Concent 35.6, Red Cell Distribution Width 10.6L, Platelet Count 173, Mean Platelet Volume 6.3L, Neutrophils (%) (Auto) 70.9, Lymphocytes (%) (Auto) 17.1L, Monocytes (%) (Auto) 6.4, Eosinophils (%) (Auto) 4.3H, Basophils (%) (Auto) 1.3, Prothrombin Time 10.9, Prothromb Time International Ratio 1.0, Activated Partial Thromboplast Time 28, Sodium Level 141, Potassium Level 3.9, Chloride Level 106, Carbon Dioxide Level 27, Anion Gap 8, Blood Urea Nitrogen 22H, Creatinine 2.0H, Estimat Glomerular Filtration Rate 33.4, Glucose Level 151H, Hemoglobin A1c 6.8H, Uric Acid 6.9, Calcium Level 8.6, Phosphorus Level 3.3, Magnesium Level 2.1, Ferritin 293, Total Bilirubin 0.9, Gamma Glutamyl Transpeptidase 77, Aspartate Amino Transf (AST/ SGOT) 14L, Alanine Aminotransferase (ALT/SGPT) 33, Alkaline Phosphatase 76, Pro- B-Type Natriuretic Peptide 668H, Total Protein 6.7, Albumin 3.1L, Globulin 3.6, Albumin/Globulin Ratio 0.9L, Triglycerides Level 133, Cholesterol Level 149, LDL Cholesterol 99, HDL Cholesterol 29L, Cholesterol/HDL Ratio 5.1H, Lipase 120 , Vitamin B12 Level 467, Folate 41.1, Thyroid Stimulating Hormone (TSH) 1.838 Height (Feet): 5 Height (Inches): 3.00 Weight (Pounds): 193 Cardiovascular: normal rate Respiratory/Chest: lungs clear Abdomen: distended Sukumar Carreon MD Mar 22, 2018 12:29
[2018-03-22 12:38] LABS: % IRON SATURATION 12 % (15-50); IRON 29 ug/dL (50-175); TOTAL IRON BINDING CAPACITY 247 ug/dL (250-450)
--- NOTE | 2018-03-22 12:57 | General Surgery Progress Note ---
General Surgery-Progress Note Subjective Symptoms: improved Objective Last 24 Hour Vital Signs Date Time Temp Pulse Resp B/P (MAP) Pulse Ox O2 Delivery O2 Flow Rate FiO2 03/22/18 12:07 97.3 72 14 143/79 (100) 95 03/22/18 09:39 81 18 98 03/22/18 09:37 88 18 98 03/22/18 09:23 98.0 81 15 158/84 100 Nasal Cannula 3 03/22/18 09:10 86 13 158/90 99 Nasal Cannula 3 03/22/18 09:05 86 15 150/90 99 Nasal Cannula 3 03/22/18 09:00 Room Air 03/22/18 09:00 85 15 154/89 99 Nasal Cannula 3 03/22/18 08:55 98.8 88 18 165/88 98 Nasal Cannula 3 03/22/18 04:00 98.1 81 20 147/82 (103) 93 03/22/18 00:00 97.8 79 20 152/83 (106) 93 03/21/18 21:00 Room Air 03/21/18 20:00 98.8 75 20 147/93 (111) 94 03/21/18 18:18 97.5 03/21/18 16:00 98.1 71 16 130/82 (98) 98 I&O Intake and Output 03/21/18 03/22/18 19:00 07:00 Intake Total 240 ml 1375 ml Balance 240 ml 1375 ml Intake Oral 240 ml IV Total 1375 ml # Voids 3 2 Respiratory: clear Abdomen: soft, flat, tenderness, present bowel sounds Extremities: no tenderness Laboratory Tests Test 03/22/18 06:50 White Blood Count 5.8 K/UL (4.8-10.8) Red Blood Count 3.40 M/UL (4.70-6.10) L Hemoglobin 10.6 G/DL (14.2-18.0) L Hematocrit 29.7 % (42.0-52.0) L Mean Corpuscular Volume 87 FL (80-99) Mean Corpuscular Hemoglobin 31.1 PG (27.0-31.0) H Mean Corpuscular Hemoglobin Concent 35.6 G/DL (32.0-36.0) Red Cell Distribution Width 10.6 % (11.6-14.8) L Platelet Count 173 K/UL (150-450) Mean Platelet Volume 6.3 FL (6.5-10.1) L Neutrophils (%) (Auto) 70.9 % (45.0-75.0) Lymphocytes (%) (Auto) 17.1 % (20.0-45.0) L Monocytes (%) (Auto) 6.4 % (1.0-10.0) Eosinophils (%) (Auto) 4.3 % (0.0-3.0) H Basophils (%) (Auto) 1.3 % (0.0-2.0) Prothrombin Time 10.9 SEC (9.30-11.50) Prothromb Time International Ratio 1.0 (0.9-1.1) Activated Partial Thromboplast Time 28 SEC (23-33) Sodium Level 141 MMOL/L (136-145) Potassium Level 3.9 MMOL/L (3.5-5.1) Chloride Level 106 MMOL/L (98-107) Carbon Dioxide Level 27 MMOL/L (21-32) Anion Gap 8 mmol/L (5-15) Blood Urea Nitrogen 22 mg/dL (7-18) H Creatinine 2.0 MG/DL (0.55-1.30) H Estimat Glomerular Filtration Rate 33.4 mL/min (>60) Glucose Level 151 MG/DL (74-106) H Hemoglobin A1c 6.8 % (4.3-6.0) H Uric Acid 6.9 MG/DL (2.6-7.2) Calcium Level 8.6 MG/DL (8.5-10.1) Phosphorus Level 3.3 MG/DL (2.5-4.9) Magnesium Level 2.1 MG/DL (1.8-2.4) Iron Level 29 ug/dL (50-175) L Total Iron Binding Capacity 247 ug/dL (250-450) L Percent Iron Saturation 12 % (15-50) L Unsaturated Iron Binding 218 ug/dL (112-346) Ferritin 293 NG/ML (8-388) Total Bilirubin 0.9 MG/DL (0.2-1.0) Gamma Glutamyl Transpeptidase 77 U/L (5-85) Aspartate Amino Transf (AST/SGOT) 14 U/L (15-37) L Alanine Aminotransferase (ALT/SGPT) 33 U/L (12-78) Alkaline Phosphatase 76 U/L (46-116) Pro-B-Type Natriuretic Peptide 668 pg/mL (0-125) H Total Protein 6.7 G/DL (6.4-8.2) Albumin 3.1 G/DL (3.4-5.0) L Globulin 3.6 g/dL Albumin/Globulin Ratio 0.9 (1.0-2.7) L Triglycerides Level 133 MG/DL (30-150) Cholesterol Level 149 MG/DL (< 200) LDL Cholesterol 99 mg/dL (<100) HDL Cholesterol 29 MG/DL (40-60) L Cholesterol/HDL Ratio 5.1 (3.3-4.4) H Lipase 120 U/L (73-393) Vitamin B12 Level 467 PG/ML (193-986) Folate 41.1 NG/ML (8.6-58.9) Thyroid Stimulating Hormone (TSH) 1.838 uiU/mL (0.358-3.740) Assessment Additional Comments abdominal pain possible bile leak Plan Additional Comments per Amanda Wyatt MD Mar 22, 2018 12:57
--- NOTE | 2018-03-22 13:47 | Diagnostic Imaging Report ---
Indication: Abdominal pain. ERCP. Findings: Fluoroscopically captured images of the right upper quadrant of the abdomen demonstrate an endoscope with cannulation of the common bile duct and injection of contrast material. Images show cholecystectomy clips nondilated biliary ducts with placement of a stent. Impression: ERCP as above
[2018-03-22] MEDS: HydrALAZINE 25mg tab ORAL SCH ×2 (14:23→21:03)
--- NOTE | 2018-03-22 16:06 | General Progress Note ---
Assessment/Plan Status: stable Assessment/Plan anxiety d/o insomnia restoril ativan provided ro/st Subjective Date patient seen: Mar 22, 2018 Neurologic/Psychiatric: Reports: anxiety, depressed Allergies: Coded Allergies: No Known Allergies (Unverified , 12/31/12) Subjective the pt is calm no behaviors Objective Last 24 Hour Vital Signs Date Time Temp Pulse Resp B/P (MAP) Pulse Ox O2 Delivery O2 Flow Rate FiO2 03/22/18 15:50 97.4 74 16 140/77 (98) 96 03/22/18 14:23 143/79 03/22/18 12:07 97.3 72 14 143/79 (100) 95 03/22/18 09:39 81 18 98 03/22/18 09:37 88 18 98 03/22/18 09:23 98.0 81 15 158/84 100 Nasal Cannula 3 03/22/18 09:10 86 13 158/90 99 Nasal Cannula 3 03/22/18 09:05 86 15 150/90 99 Nasal Cannula 3 03/22/18 09:00 Room Air 03/22/18 09:00 85 15 154/89 99 Nasal Cannula 3 03/22/18 08:55 98.8 88 18 165/88 98 Nasal Cannula 3 03/22/18 04:00 98.1 81 20 147/82 (103) 93 03/22/18 00:00 97.8 79 20 152/83 (106) 93 03/21/18 21:00 Room Air 03/21/18 20:00 98.8 75 20 147/93 (111) 94 03/21/18 18:18 97.5 Intake and Output 03/21/18 03/22/18 19:00 07:00 Intake Total 240 ml 1375 ml Balance 240 ml 1375 ml Intake Oral 240 ml IV Total 1375 ml # Voids 3 2 Laboratory Tests 03/22/18 06:50: White Blood Count 5.8, Red Blood Count 3.40L, Hemoglobin 10.6L, Hematocrit 29.7L , Mean Corpuscular Volume 87, Mean Corpuscular Hemoglobin 31.1H, Mean Corpuscular Hemoglobin Concent 35.6, Red Cell Distribution Width 10.6L, Platelet Count 173, Mean Platelet Volume 6.3L, Neutrophils (%) (Auto) 70.9, Lymphocytes (%) (Auto) 17.1L, Monocytes (%) (Auto) 6.4, Eosinophils (%) (Auto) 4.3H, Basophils (%) (Auto) 1.3, Prothrombin Time 10.9, Prothromb Time International Ratio 1.0, Activated Partial Thromboplast Time 28, Sodium Level 141, Potassium Level 3.9, Chloride Level 106, Carbon Dioxide Level 27, Anion Gap 8, Blood Urea Nitrogen 22H, Creatinine 2.0H, Estimat Glomerular Filtration Rate 33.4, Glucose Level 151H, Hemoglobin A1c 6.8H, Uric Acid 6.9, Calcium Level 8.6, Phosphorus Level 3.3, Magnesium Level 2.1, Iron Level 29L, Total Iron Binding Capacity 247L, Percent Iron Saturation 12L, Unsaturated Iron Binding 218, Ferritin 293, Total Bilirubin 0.9, Gamma Glutamyl Transpeptidase 77 , Aspartate Amino Transf (AST/SGOT) 14L, Alanine Aminotransferase (ALT/SGPT) 33 , Alkaline Phosphatase 76, Pro-B-Type Natriuretic Peptide 668H, Total Protein 6.7, Albumin 3.1L, Globulin 3.6, Albumin/Globulin Ratio 0.9L, Triglycerides Level 133, Cholesterol Level 149, LDL Cholesterol 99, HDL Cholesterol 29L, Cholesterol/HDL Ratio 5.1H, Lipase 120, Vitamin B12 Level 467, Folate 41.1, Thyroid Stimulating Hormone (TSH) 1.838 Height (Feet): 5 Height (Inches): 3.00 Weight (Pounds): 193 General Appearance: no apparent distress, alert Neurologic: oriented x 3, responsive, depressed affect Nando Tony MD Mar 22, 2018 16:06
--- NOTE | 2018-03-22 16:33 | Infectious Diseases Prog Note ---
Assessment/Plan Problems: (1) S/P laparoscopic cholecystectomy Assessment & Plan: complicated with fluids collection at the gallbladder site , HIDA scan showed possible bill leak , suspect seroma VS abscess VS biloma , continue antibiotics , consider I&D and fluids culture. ERCP showed obstructive stone which was retrieved and stent is placed (2) Sepsis Assessment & Plan: due to the above , continue antibiotics pending blood culture (3) Diabetes mellitus Assessment & Plan: recommend tight glycemic control to keep blood glucose between 100-140 (4) Abdominal pain Assessment & Plan: due to the above , continue antibiotics and pain management as needed (5) MIKE (acute kidney injury) Assessment & Plan: suspect due to the above, continue hydration , avoid nephrotoxics , monitor renal function. Subjective Constitutional: Reports: no symptoms HEENT: Reports: no symptoms Respiratory: Reports: no symptoms Breasts: Reports: no symptoms Cardiovascular: Reports: no symptoms Gastrointestinal/Abdominal: Reports: bloating Genitourinary: Reports: no symptoms Neurologic: Reports: no symptoms Psychiatric: Reports: no symptoms Skin: Reports: no symptoms Endocrine: Reports: no symptoms Hematologic: Reports: no symptoms Musculoskeletal: Reports: no symptoms Allergies: Coded Allergies: No Known Allergies (Unverified , 12/31/12) Objective Vital Signs Last 24 Hour Vital Signs Date Time Temp Pulse Resp B/P (MAP) Pulse Ox O2 Delivery O2 Flow Rate FiO2 03/22/18 15:50 97.4 74 16 140/77 (98) 96 03/22/18 14:23 143/79 03/22/18 12:07 97.3 72 14 143/79 (100) 95 03/22/18 09:39 81 18 98 03/22/18 09:37 88 18 98 03/22/18 09:23 98.0 81 15 158/84 100 Nasal Cannula 3 03/22/18 09:10 86 13 158/90 99 Nasal Cannula 3 03/22/18 09:05 86 15 150/90 99 Nasal Cannula 3 03/22/18 09:00 Room Air 03/22/18 09:00 85 15 154/89 99 Nasal Cannula 3 03/22/18 08:55 98.8 88 18 165/88 98 Nasal Cannula 3 03/22/18 04:00 98.1 81 20 147/82 (103) 93 03/22/18 00:00 97.8 79 20 152/83 (106) 93 03/21/18 21:00 Room Air 03/21/18 20:00 98.8 75 20 147/93 (111) 94 03/21/18 18:18 97.5 Height (Feet): 5 Height (Inches): 3.00 Weight (Pounds): 193 General Appearance: WD/WN, no acute distress HEENT: normocephalic, atraumatic, anicteric, mucous membranes moist, PERRL Respiratory/Chest: chest wall non-tender, lungs clear, normal breath sounds, no respiratory distress, no accessory muscle use Cardiovascular: normal peripheral pulses, normal rate, regular rhythm, no gallop/murmur, no JVD Abdomen: no organomegaly, non distended, no mass, no scars, hypoactive bowel sounds, tender Extremities: no cyanosis, no clubbing Skin: no rash, no lesions, no ulcers Neurologic/Psychiatric: alert, oriented x 3, responsive, normal mood/affect Lymphatic: no neck adenopathy, no groin adenopathy Laboratory Tests Test 03/22/18 06:50 White Blood Count 5.8 K/UL (4.8-10.8) Red Blood Count 3.40 M/UL (4.70-6.10) L Hemoglobin 10.6 G/DL (14.2-18.0) L Hematocrit 29.7 % (42.0-52.0) L Mean Corpuscular Volume 87 FL (80-99) Mean Corpuscular Hemoglobin 31.1 PG (27.0-31.0) H Mean Corpuscular Hemoglobin Concent 35.6 G/DL (32.0-36.0) Red Cell Distribution Width 10.6 % (11.6-14.8) L Platelet Count 173 K/UL (150-450) Mean Platelet Volume 6.3 FL (6.5-10.1) L Neutrophils (%) (Auto) 70.9 % (45.0-75.0) Lymphocytes (%) (Auto) 17.1 % (20.0-45.0) L Monocytes (%) (Auto) 6.4 % (1.0-10.0) Eosinophils (%) (Auto) 4.3 % (0.0-3.0) H Basophils (%) (Auto) 1.3 % (0.0-2.0) Prothrombin Time 10.9 SEC (9.30-11.50) Prothromb Time International Ratio 1.0 (0.9-1.1) Activated Partial Thromboplast Time 28 SEC (23-33) Sodium Level 141 MMOL/L (136-145) Potassium Level 3.9 MMOL/L (3.5-5.1) Chloride Level 106 MMOL/L (98-107) Carbon Dioxide Level 27 MMOL/L (21-32) Anion Gap 8 mmol/L (5-15) Blood Urea Nitrogen 22 mg/dL (7-18) H Creatinine 2.0 MG/DL (0.55-1.30) H Estimat Glomerular Filtration Rate 33.4 mL/min (>60) Glucose Level 151 MG/DL (74-106) H Hemoglobin A1c 6.8 % (4.3-6.0) H Uric Acid 6.9 MG/DL (2.6-7.2) Calcium Level 8.6 MG/DL (8.5-10.1) Phosphorus Level 3.3 MG/DL (2.5-4.9) Magnesium Level 2.1 MG/DL (1.8-2.4) Iron Level 29 ug/dL (50-175) L Total Iron Binding Capacity 247 ug/dL (250-450) L Percent Iron Saturation 12 % (15-50) L Unsaturated Iron Binding 218 ug/dL (112-346) Ferritin 293 NG/ML (8-388) Total Bilirubin 0.9 MG/DL (0.2-1.0) Gamma Glutamyl Transpeptidase 77 U/L (5-85) Aspartate Amino Transf (AST/SGOT) 14 U/L (15-37) L Alanine Aminotransferase (ALT/SGPT) 33 U/L (12-78) Alkaline Phosphatase 76 U/L (46-116) Pro-B-Type Natriuretic Peptide 668 pg/mL (0-125) H Total Protein 6.7 G/DL (6.4-8.2) Albumin 3.1 G/DL (3.4-5.0) L Globulin 3.6 g/dL Albumin/Globulin Ratio 0.9 (1.0-2.7) L Triglycerides Level 133 MG/DL (30-150) Cholesterol Level 149 MG/DL (< 200) LDL Cholesterol 99 mg/dL (<100) HDL Cholesterol 29 MG/DL (40-60) L Cholesterol/HDL Ratio 5.1 (3.3-4.4) H Lipase 120 U/L (73-393) Vitamin B12 Level 467 PG/ML (193-986) Folate 41.1 NG/ML (8.6-58.9) Thyroid Stimulating Hormone (TSH) 1.838 uiU/mL (0.358-3.740) Current Medications Medications (Trade) Dose Ordered Sig/Tamiko Route PRN Reason Start Time Stop Time Status Last Admin Dose Admin Acetaminophen (Tylenol) 650 mg Q4H PRN ORAL Mild Pain/Temp > 100.5 03/19/18 03:45 04/18/18 03:44 Dextrose (Dextrose 50%) 25 ml Q30M PRN IV Hypoglycemia 03/19/18 08:15 04/18/18 08:14 Dextrose (Dextrose 50%) 50 ml Q30M PRN IV Hypoglycemia 03/19/18 08:15 04/18/18 08:14 Dextrose/Sodium Chloride 1,000 ml @ 85 mls/hr [id number] IV 03/22/18 12:34 04/20/18 12:33 03/22/18 12:53 Hydralazine HCl (Apresoline) 25 mg Q4H PRN ORAL bp over 160 syst 03/21/18 15:00 04/20/18 14:59 Hydralazine HCl (Apresoline) 25 mg Q8HR ORAL 03/22/18 14:00 04/21/18 13:59 03/22/18 14:23 Hydromorphone HCl (Dilaudid) 2 mg TIDPRN PRN IVP Severe Pain (Pain Scale 7-10) 03/19/18 11:30 03/26/18 11:29 03/22/18 14:26 Insulin Aspart (NovoLOG) BEFORE MEALS AND HS SUBQ 03/19/18 11:30 04/18/18 11:29 03/22/18 12:29 Lorazepam (Ativan) 2 mg Q6H PRN ORAL For Anxiety 03/20/18 22:30 03/27/18 22:29 Ondansetron HCl (Zofran) 4 mg Q4H PRN IVP Nausea & Vomiting 03/19/18 03:45 04/18/18 03:44 03/20/18 12:34 Pantoprazole (Protonix) 40 mg BID ORAL 03/22/18 18:00 04/21/18 17:59 Piperacillin Sod/ Tazobactam Sod 3.375 gm/Sodium Chloride 110 ml @ 27.5 mls/hr Q12HR IVPB 03/21/18 21:00 03/28/18 20:59 03/22/18 09:42 Senna/Docusate Sodium (Roma-Colace) 1 tab TWICE A DAY ORAL 03/22/18 18:00 04/21/18 17:59 Sodium Chloride 500 ml @ 999 mls/hr Q31M PRN IV SYSTOLIC BLOOD PRESSURE <100 03/19/18 04:30 04/18/18 04:29 Tamsulosin HCl (Flomax) 0.4 mg BEDTIME ORAL 03/21/18 21:00 04/20/18 20:59 03/21/18 20:42 Temazepam (Restoril) 15 mg HSPRN PRN ORAL Insomnia 03/20/18 22:30 03/27/18 22:29 03/21/18 20:53 Apryl Curry M.D. Mar 22, 2018 16:33
[2018-03-22] MEDS: Docusate Sod/Senna tab ORAL SCH (17:19)
--- NOTE | 2018-03-22 18:00 | Procedure Note ---
DATE OF PROCEDURE: 03/22/2018 SURGEON: Kulwant Simeon M.D. PROCEDURE: ERCP with sphincterotomy, balloon-assisted cholangiogram, and stent placement. ANESTHESIA: Per Dr. Kauffman. INSTRUMENT: Olympus ERCP scope. INDICATION: Bile leak. The procedure, risks, benefits, and possible consequences, including hemorrhage, aspiration, perforation and infection, and alternative treatments, were explained to the patient/legal guardian by Dr. Kulwant Simeon and the patient/legal guardian understood and accepted these risks. DESCRIPTION OF PROCEDURE: After informed consent was obtained and the patient was adequately sedated, ERCP scope was advanced from the mouth into the second portion of duodenum. Using a sphincterotome, few times the pancreatic duct was cannulated, and injected twice After 3 or 4 times of pancreatic duct cannulation, we were able to cannulate the common bile duct. Initial cholangiogram showed common bile duct diameter of maybe about 6 to 7 mm. No obvious stone was seen in the common bile duct. Initial leak was not very obvious until we performed balloon occlusion cholangiogram, so we saw leakage at the cystic duct stump. Then over a guidewire, we performed 95% sphincterotomy. A 7-Qat[place] 9 cm stent was successfully placed in the distal common bile duct. The patient tolerated procedure very well without complication. SUMMARY OF FINDINGS: Bile leak at the cystic duct stump, status post ERCP, sphincterotomy, balloon occlusion cholangiogram and stenting. RECOMMENDATIONS: 1. Follow labs. 2. The patient needs to come back in 8 to 12 weeks for stent removal. I want to thank, Dr. Esteves, for this kind referral. Kulwant Simeon M.D. DR: Lee JOB#: [id number] CC: Tamera Esteves M.D.; Fax#: [phone] [facility]
[2018-03-22] MEDS: Tamsulosin 0.4mg cap ORAL SCH (20:54)
[2018-03-23] VITALS (8 sets, daily range): BP systolic 126–162; BP diastolic 63–94
[2018-03-23] MEDS: HydrALAZINE 25mg tab ORAL SCH ×3 (05:37→22:06)
[2018-03-23 06:22] LABS: BASOPHILS % (AUTO) 0.9 % (0.0-2.0); EOSINOPHILS % (AUTO) 2.8 % (0.0-3.0); HEMATOCRIT 34.7 % (42.0-52.0); LYMPHOCYTES % (AUTO) 16.9 % (20.0-45.0); MEAN CORPUSCULAR VOLUME 89 FL (80-99); MONOCYTES % (AUTO) 6.2 % (1.0-10.0); NEUTROPHILS % (AUTO) 73.2 % (45.0-75.0); PLATELET COUNT 222 K/UL (150-450); RED CELL DISTRIBUTION WIDTH 11.2 % (11.6-14.8); WHITE BLOOD COUNT 8.5 K/UL (4.8-10.8)
[2018-03-23 06:44] LABS: ALANINE AMINOTRANSFERASE 33 U/L (12-78); ALBUMIN 3.3 G/DL (3.4-5.0); ALBUMIN/GLOBULIN RATIO 0.8 (1.0-2.7); ALKALINE PHOSPHATASE 93 U/L (46-116); ANION GAP 10 mmol/L (5-15); ASPARTATE AMINO TRANSFERASE 22 U/L (15-37); BILIRUBIN,TOTAL 0.8 MG/DL (0.2-1.0); BLOOD UREA NITROGEN 19 mg/dL (7-18); CALCIUM 8.6 MG/DL (8.5-10.1); CARBON DIOXIDE 27 MMOL/L (21-32); CHLORIDE 105 MMOL/L (98-107); CREATININE 1.8 MG/DL (0.55-1.30); POTASSIUM 3.5 MMOL/L (3.5-5.1); SODIUM 142 MMOL/L (136-145)
[2018-03-23] MEDS: NovoLOG Insulin Flexpen SUBQ SCH ×4 (06:44→20:20)
[2018-03-23 07:06] LABS: PHOSPHORUS 3.6 MG/DL (2.5-4.9)
[2018-03-23] MEDS: Docusate Sod/Senna tab ORAL SCH ×2 (09:53→17:11)
[2018-03-23] MEDS: Piperacillin/Tazobactam 3.375 GM in NS 110 ML IVPB SCH ×2 (09:54→20:55)
--- NOTE | 2018-03-23 11:01 | General Progress Note ---
Assessment/Plan Assessment/Plan S: My abdomen is better O: appears to be in NO significant pain, No distress. PHYSICAL EXAMINATION: HEAD AND NECK: Atraumatic and normocephalic. CHEST: Clear to auscultation. HEART: S1, S2. Regular rate and rhythm. ABDOMEN: Soft. No organomegaly. Scars on prior surgery sites are visualized. Negative for rebound tenderness. positive for deep palpation tenderness MUSCULOSKELETAL: No gross focal motor deficit. NEUROLOGIC: Awake, alert, and oriented x3. Meds: including Dilaudid IV PRN . meds are reviewed and reconciled in the system Increasing peritoneal fluid and the prominent gallbladder fossa fluid collection following relatively recent cholecystectomy. Positive HIDA scan with diagnosis of bile leak. Current CT findings support this diagnosis. ASSESSMENT AND PLAN: 1. Abdominal pain, postsurgical post laparoscopic cholecystectomy secondary to Bile leak at the cystic duct stump, 2. ARF : Improving 3. Hyponatremia. 4. Diabetes type 2. 5. GI and DVT prophylaxis. Plan: post ERCP will follow GI and Surgery Rec. post ERCP: status post ERCP, sphincterotomy, balloon occlusion cholangiogram and stenting. Out patient followup after GI clearance Subjective Allergies: Coded Allergies: No Known Allergies (Unverified , 12/31/12) Objective Last 24 Hour Vital Signs Date Time Temp Pulse Resp B/P (MAP) Pulse Ox O2 Delivery O2 Flow Rate FiO2 03/23/18 08:00 99.0 79 18 141/63 (89) 94 03/23/18 05:37 114/51 03/23/18 04:00 97.2 80 19 126/82 (97) 97 03/23/18 00:00 98.8 77 20 156/89 (111) 98 03/22/18 21:03 143/89 03/22/18 21:00 Room Air 03/22/18 20:00 99.1 77 20 143/89 (107) 95 03/22/18 15:50 97.4 74 16 140/77 (98) 96 03/22/18 14:23 143/79 03/22/18 12:07 97.3 72 14 143/79 (100) 95 Intake and Output 03/22/18 03/23/18 19:00 07:00 Intake Total 1900.0 ml Output Total 250 ml Balance 1900.0 ml -250 ml Intake Oral 800 ml IV Total 1100.0 ml Output Urine Total 250 ml # Voids 6 3 Laboratory Tests 03/23/18 06:04: White Blood Count 8.5, Red Blood Count 3.90L, Hemoglobin 12.0L, Hematocrit 34.7L , Mean Corpuscular Volume 89, Mean Corpuscular Hemoglobin 30.8, Mean Corpuscular Hemoglobin Concent 34.6, Red Cell Distribution Width 11.2L, Platelet Count 222, Mean Platelet Volume 6.1L, Neutrophils (%) (Auto) 73.2, Lymphocytes (%) (Auto) 16.9L, Monocytes (%) (Auto) 6.2, Eosinophils (%) (Auto) 2.8, Basophils (%) (Auto) 0.9, Sodium Level 142, Potassium Level 3.5, Chloride Level 105, Carbon Dioxide Level 27, Anion Gap 10, Blood Urea Nitrogen 19H, Creatinine 1.8H, Estimat Glomerular Filtration Rate 37.7, Glucose Level 142H, Uric Acid 5.8, Calcium Level 8.6, Phosphorus Level 3.6, Magnesium Level 2.0, Total Bilirubin 0.8, Aspartate Amino Transf (AST/SGOT) 22, Alanine Aminotransferase (ALT/SGPT) 33, Alkaline Phosphatase 93, Total Protein 7.4, Albumin 3.3L, Globulin 4.1, Albumin/Globulin Ratio 0.8L Height (Feet): 5 Height (Inches): 3.00 Weight (Pounds): 193 Tamera Esteves MD Mar 23, 2018 11:01
--- NOTE | 2018-03-23 11:03 | Nephrology Progress Note ---
Assessment/Plan Problem List: (1) MIKE (acute kidney injury) (2) Abdominal pain (3) Sepsis (4) Diabetes mellitus Assessment Acute renal failure cr lower S/P laparoscopic cholecystectomy Sepsis Diabetes mellitus / Nephropaty ( Proteinuria) Abdominal pain Plan OFF Lotensin- Urine Na and Eosinophils Hydralazin prn for high BP Monitor renal parameters Avoid nephrotoxics per GI per orders Subjective ROS Limited/Unobtainable: No Constitutional: Reports: malaise Objective Objective Last 24 Hour Vital Signs Date Time Temp Pulse Resp B/P (MAP) Pulse Ox O2 Delivery O2 Flow Rate FiO2 03/23/18 08:00 99.0 79 18 141/63 (89) 94 03/23/18 05:37 114/51 03/23/18 04:00 97.2 80 19 126/82 (97) 97 03/23/18 00:00 98.8 77 20 156/89 (111) 98 03/22/18 21:03 143/89 03/22/18 21:00 Room Air 03/22/18 20:00 99.1 77 20 143/89 (107) 95 03/22/18 15:50 97.4 74 16 140/77 (98) 96 03/22/18 14:23 143/79 03/22/18 12:07 97.3 72 14 143/79 (100) 95 Intake and Output 03/22/18 03/23/18 19:00 07:00 Intake Total 1900.0 ml Output Total 250 ml Balance 1900.0 ml -250 ml Intake Oral 800 ml IV Total 1100.0 ml Output Urine Total 250 ml # Voids 6 3 Laboratory Tests 03/23/18 06:04: White Blood Count 8.5, Red Blood Count 3.90L, Hemoglobin 12.0L, Hematocrit 34.7L , Mean Corpuscular Volume 89, Mean Corpuscular Hemoglobin 30.8, Mean Corpuscular Hemoglobin Concent 34.6, Red Cell Distribution Width 11.2L, Platelet Count 222, Mean Platelet Volume 6.1L, Neutrophils (%) (Auto) 73.2, Lymphocytes (%) (Auto) 16.9L, Monocytes (%) (Auto) 6.2, Eosinophils (%) (Auto) 2.8, Basophils (%) (Auto) 0.9, Sodium Level 142, Potassium Level 3.5, Chloride Level 105, Carbon Dioxide Level 27, Anion Gap 10, Blood Urea Nitrogen 19H, Creatinine 1.8H, Estimat Glomerular Filtration Rate 37.7, Glucose Level 142H, Uric Acid 5.8, Calcium Level 8.6, Phosphorus Level 3.6, Magnesium Level 2.0, Total Bilirubin 0.8, Aspartate Amino Transf (AST/SGOT) 22, Alanine Aminotransferase (ALT/SGPT) 33, Alkaline Phosphatase 93, Total Protein 7.4, Albumin 3.3L, Globulin 4.1, Albumin/Globulin Ratio 0.8L 03/23/18 10:45: Urine Eosinophils [Pending] Height (Feet): 5 Height (Inches): 3.00 Weight (Pounds): 193 Cardiovascular: normal rate Respiratory/Chest: decreased breath sounds Abdomen: distended Sukumar Carreon MD Mar 23, 2018 11:03
--- NOTE | 2018-03-23 11:25 | GI Progress Note ---
Assessment/Plan Problems: (1) Abdominal pain ICD Codes: R10.9 - Unspecified abdominal pain SNOMED: 94668415 (2) Rule out Peritonitis (3) Abdominal pain ICD Codes: R10.9 - Unspecified abdominal pain SNOMED: 73671938 (4) History of cholecystectomy ICD Codes: Z90.49 - Acquired absence of other specified parts of digestive tract SNOMED: 15388558, 066528071 Status: stable, progressing Status Narrative Discussed with Dr. Simeon. Assessment/Plan S/p PROCEDURE: ERCP with sphincterotomy, balloon-assisted cholangiogram, and stent placement. CLD, adv diet as tolerated pain mgmt abx zofran prn patient will need repeat ERCP 8-12 weeks for stent removal, will see if we can bring back as outpatient. The patient was seen and examined at bedside and all new and available data was reviewed in the patients chart. I agree with the above findings, impression and plan. (Patient seen earlier today. Signature stamp does not reflect patient encounter time.). - Kulwant Simeon MD Subjective Subjective abdominal pain still present, but has improved Objective Last 24 Hour Vital Signs Date Time Temp Pulse Resp B/P (MAP) Pulse Ox O2 Delivery O2 Flow Rate FiO2 03/23/18 08:00 99.0 79 18 141/63 (89) 94 03/23/18 05:37 114/51 03/23/18 04:00 97.2 80 19 126/82 (97) 97 03/23/18 00:00 98.8 77 20 156/89 (111) 98 03/22/18 21:03 143/89 03/22/18 21:00 Room Air 03/22/18 20:00 99.1 77 20 143/89 (107) 95 03/22/18 15:50 97.4 74 16 140/77 (98) 96 03/22/18 14:23 143/79 03/22/18 12:07 97.3 72 14 143/79 (100) 95 Intake and Output 03/22/18 03/23/18 19:00 07:00 Intake Total 1900.0 ml Output Total 250 ml Balance 1900.0 ml -250 ml Intake Oral 800 ml IV Total 1100.0 ml Output Urine Total 250 ml # Voids 6 3 Laboratory Tests Test 03/23/18 06:04 11/8/18 10:45 White Blood Count 8.5 K/UL (4.8-10.8) Red Blood Count 3.90 M/UL (4.70-6.10) L Hemoglobin 12.0 G/DL (14.2-18.0) L Hematocrit 34.7 % (42.0-52.0) L Mean Corpuscular Volume 89 FL (80-99) Mean Corpuscular Hemoglobin 30.8 PG (27.0-31.0) Mean Corpuscular Hemoglobin Concent 34.6 G/DL (32.0-36.0) Red Cell Distribution Width 11.2 % (11.6-14.8) L Platelet Count 222 K/UL (150-450) Mean Platelet Volume 6.1 FL (6.5-10.1) L Neutrophils (%) (Auto) 73.2 % (45.0-75.0) Lymphocytes (%) (Auto) 16.9 % (20.0-45.0) L Monocytes (%) (Auto) 6.2 % (1.0-10.0) Eosinophils (%) (Auto) 2.8 % (0.0-3.0) Basophils (%) (Auto) 0.9 % (0.0-2.0) Sodium Level 142 MMOL/L (136-145) Potassium Level 3.5 MMOL/L (3.5-5.1) Chloride Level 105 MMOL/L (98-107) Carbon Dioxide Level 27 MMOL/L (21-32) Anion Gap 10 mmol/L (5-15) Blood Urea Nitrogen 19 mg/dL (7-18) H Creatinine 1.8 MG/DL (0.55-1.30) H Estimat Glomerular Filtration Rate 37.7 mL/min (>60) Glucose Level 142 MG/DL (74-106) H Uric Acid 5.8 MG/DL (2.6-7.2) Calcium Level 8.6 MG/DL (8.5-10.1) Phosphorus Level 3.6 MG/DL (2.5-4.9) Magnesium Level 2.0 MG/DL (1.8-2.4) Total Bilirubin 0.8 MG/DL (0.2-1.0) Aspartate Amino Transf (AST/SGOT) 22 U/L (15-37) Alanine Aminotransferase (ALT/SGPT) 33 U/L (12-78) Alkaline Phosphatase 93 U/L (46-116) Total Protein 7.4 G/DL (6.4-8.2) Albumin 3.3 G/DL (3.4-5.0) L Globulin 4.1 g/dL Albumin/Globulin Ratio 0.8 (1.0-2.7) L Urine Eosinophils Pending Height (Feet): 5 Height (Inches): 3.00 Weight (Pounds): 193 General Appearance: WD/WN, no apparent distress, alert Cardiovascular: normal rate Respiratory/Chest: normal breath sounds, no respiratory distress Abdominal Exam: normal bowel sounds, non tender, soft Extremities: normal range of motion, non-tender Jimbo Ramos NP Mar 23, 2018 11:25
[2018-03-23] MEDS: D5NS 1,000 ML IV SCH ×2 (12:06→15:46)
--- NOTE | 2018-03-23 12:27 | General Surgery Progress Note ---
General Surgery-Progress Note Subjective Symptoms: improved Objective Last 24 Hour Vital Signs Date Time Temp Pulse Resp B/P (MAP) Pulse Ox O2 Delivery O2 Flow Rate FiO2 03/23/18 09:00 Room Air 03/23/18 08:00 99.0 79 18 141/63 (89) 94 03/23/18 05:37 114/51 03/23/18 04:00 97.2 80 19 126/82 (97) 97 03/23/18 00:00 98.8 77 20 156/89 (111) 98 03/22/18 21:03 143/89 03/22/18 21:00 Room Air 03/22/18 20:00 99.1 77 20 143/89 (107) 95 03/22/18 15:50 97.4 74 16 140/77 (98) 96 03/22/18 14:23 143/79 I&O Intake and Output 03/22/18 03/23/18 19:00 07:00 Intake Total 1900.0 ml Output Total 250 ml Balance 1900.0 ml -250 ml Intake Oral 800 ml IV Total 1100.0 ml Output Urine Total 250 ml # Voids 6 3 Respiratory: clear Abdomen: soft, flat, non-tender, present bowel sounds Extremities: no tenderness Laboratory Tests Test 03/23/18 06:04 03/23/18 10:45 White Blood Count 8.5 K/UL (4.8-10.8) Red Blood Count 3.90 M/UL (4.70-6.10) L Hemoglobin 12.0 G/DL (14.2-18.0) L Hematocrit 34.7 % (42.0-52.0) L Mean Corpuscular Volume 89 FL (80-99) Mean Corpuscular Hemoglobin 30.8 PG (27.0-31.0) Mean Corpuscular Hemoglobin Concent 34.6 G/DL (32.0-36.0) Red Cell Distribution Width 11.2 % (11.6-14.8) L Platelet Count 222 K/UL (150-450) Mean Platelet Volume 6.1 FL (6.5-10.1) L Neutrophils (%) (Auto) 73.2 % (45.0-75.0) Lymphocytes (%) (Auto) 16.9 % (20.0-45.0) L Monocytes (%) (Auto) 6.2 % (1.0-10.0) Eosinophils (%) (Auto) 2.8 % (0.0-3.0) Basophils (%) (Auto) 0.9 % (0.0-2.0) Sodium Level 142 MMOL/L (136-145) Potassium Level 3.5 MMOL/L (3.5-5.1) Chloride Level 105 MMOL/L (98-107) Carbon Dioxide Level 27 MMOL/L (21-32) Anion Gap 10 mmol/L (5-15) Blood Urea Nitrogen 19 mg/dL (7-18) H Creatinine 1.8 MG/DL (0.55-1.30) H Estimat Glomerular Filtration Rate 37.7 mL/min (>60) Glucose Level 142 MG/DL (74-106) H Uric Acid 5.8 MG/DL (2.6-7.2) Calcium Level 8.6 MG/DL (8.5-10.1) Phosphorus Level 3.6 MG/DL (2.5-4.9) Magnesium Level 2.0 MG/DL (1.8-2.4) Total Bilirubin 0.8 MG/DL (0.2-1.0) Aspartate Amino Transf (AST/SGOT) 22 U/L (15-37) Alanine Aminotransferase (ALT/SGPT) 33 U/L (12-78) Alkaline Phosphatase 93 U/L (46-116) Total Protein 7.4 G/DL (6.4-8.2) Albumin 3.3 G/DL (3.4-5.0) L Globulin 4.1 g/dL Albumin/Globulin Ratio 0.8 (1.0-2.7) L Urine Eosinophils None seen (NONE SEEN) Assessment Additional Comments abdominal pain resolved Plan Additional Comments can be discharged Amanda Pena MD Mar 23, 2018 12:27
--- NOTE | 2018-03-23 14:37 | Infectious Diseases Prog Note ---
Assessment/Plan Problems: (1) S/P laparoscopic cholecystectomy Assessment & Plan: complicated with fluids collection at the gallbladder site , HIDA scan showed possible bill leak , suspect seroma VS abscess . ERCP showed obstructive stone which was retrieved and stent was placed, no evidence of bile leak . continue antibiotics empirically (2) Sepsis Assessment & Plan: due to the above , continue antibiotics pending blood culture (3) Diabetes mellitus Assessment & Plan: recommend tight glycemic control to keep blood glucose between 100-140 (4) Abdominal pain Assessment & Plan: due to the above , continue antibiotics and pain management as needed (5) MIKE (acute kidney injury) Assessment & Plan: suspect due to the above, continue hydration , avoid nephrotoxics , monitor renal function. Subjective Constitutional: Reports: no symptoms HEENT: Reports: no symptoms Respiratory: Reports: no symptoms Breasts: Reports: no symptoms Cardiovascular: Reports: no symptoms Gastrointestinal/Abdominal: Reports: no symptoms Genitourinary: Reports: no symptoms Neurologic: Reports: no symptoms Psychiatric: Reports: no symptoms Skin: Reports: no symptoms Endocrine: Reports: no symptoms Hematologic: Reports: no symptoms Musculoskeletal: Reports: no symptoms Allergies: Coded Allergies: No Known Allergies (Unverified , 12/31/12) Objective Vital Signs Last 24 Hour Vital Signs Date Time Temp Pulse Resp B/P (MAP) Pulse Ox O2 Delivery O2 Flow Rate FiO2 03/23/18 12:58 165/95 03/23/18 09:00 Room Air 03/23/18 08:00 99.0 79 18 141/63 (89) 94 03/23/18 05:37 114/51 03/23/18 04:00 97.2 80 19 126/82 (97) 97 03/23/18 00:00 98.8 77 20 156/89 (111) 98 03/22/18 21:03 143/89 03/22/18 21:00 Room Air 03/22/18 20:00 99.1 77 20 143/89 (107) 95 03/22/18 15:50 97.4 74 16 140/77 (98) 96 Height (Feet): 5 Height (Inches): 3.00 Weight (Pounds): 193 General Appearance: WD/WN, no acute distress HEENT: normocephalic, atraumatic, anicteric, mucous membranes moist, PERRL Respiratory/Chest: chest wall non-tender, lungs clear, normal breath sounds, no respiratory distress, no accessory muscle use Cardiovascular: normal peripheral pulses, normal rate, regular rhythm, no JVD Abdomen: normal bowel sounds, soft, non tender, no organomegaly, non distended , no mass, no scars Genitourinary: normal external genitalia Extremities: no cyanosis, no clubbing Skin: no rash, no lesions, no ulcers Neurologic/Psychiatric: alert, oriented x 3, responsive Lymphatic: no neck adenopathy, no groin adenopathy Laboratory Tests Test 03/23/18 06:04 03/23/18 10:45 White Blood Count 8.5 K/UL (4.8-10.8) Red Blood Count 3.90 M/UL (4.70-6.10) L Hemoglobin 12.0 G/DL (14.2-18.0) L Hematocrit 34.7 % (42.0-52.0) L Mean Corpuscular Volume 89 FL (80-99) Mean Corpuscular Hemoglobin 30.8 PG (27.0-31.0) Mean Corpuscular Hemoglobin Concent 34.6 G/DL (32.0-36.0) Red Cell Distribution Width 11.2 % (11.6-14.8) L Platelet Count 222 K/UL (150-450) Mean Platelet Volume 6.1 FL (6.5-10.1) L Neutrophils (%) (Auto) 73.2 % (45.0-75.0) Lymphocytes (%) (Auto) 16.9 % (20.0-45.0) L Monocytes (%) (Auto) 6.2 % (1.0-10.0) Eosinophils (%) (Auto) 2.8 % (0.0-3.0) Basophils (%) (Auto) 0.9 % (0.0-2.0) Sodium Level 142 MMOL/L (136-145) Potassium Level 3.5 MMOL/L (3.5-5.1) Chloride Level 105 MMOL/L (98-107) Carbon Dioxide Level 27 MMOL/L (21-32) Anion Gap 10 mmol/L (5-15) Blood Urea Nitrogen 19 mg/dL (7-18) H Creatinine 1.8 MG/DL (0.55-1.30) H Estimat Glomerular Filtration Rate 37.7 mL/min (>60) Glucose Level 142 MG/DL (74-106) H Uric Acid 5.8 MG/DL (2.6-7.2) Calcium Level 8.6 MG/DL (8.5-10.1) Phosphorus Level 3.6 MG/DL (2.5-4.9) Magnesium Level 2.0 MG/DL (1.8-2.4) Total Bilirubin 0.8 MG/DL (0.2-1.0) Aspartate Amino Transf (AST/SGOT) 22 U/L (15-37) Alanine Aminotransferase (ALT/SGPT) 33 U/L (12-78) Alkaline Phosphatase 93 U/L (46-116) Total Protein 7.4 G/DL (6.4-8.2) Albumin 3.3 G/DL (3.4-5.0) L Globulin 4.1 g/dL Albumin/Globulin Ratio 0.8 (1.0-2.7) L Urine Eosinophils None seen (NONE SEEN) Current Medications Medications (Trade) Dose Ordered Sig/Tamiko Route PRN Reason Start Time Stop Time Status Last Admin Dose Admin Acetaminophen (Tylenol) 650 mg Q4H PRN ORAL Mild Pain/Temp > 100.5 03/19/18 03:45 04/18/18 03:44 03/23/18 13:03 Dextrose (Dextrose 50%) 25 ml Q30M PRN IV Hypoglycemia 03/19/18 08:15 04/18/18 08:14 Dextrose (Dextrose 50%) 50 ml Q30M PRN IV Hypoglycemia 03/19/18 08:15 04/18/18 08:14 Dextrose/Sodium Chloride 1,000 ml @ 85 mls/hr [id number] IV 03/22/18 12:34 04/20/18 12:33 03/22/18 17:19 Hydralazine HCl (Apresoline) 25 mg Q4H PRN ORAL bp over 160 syst 03/21/18 15:00 04/20/18 14:59 Hydralazine HCl (Apresoline) 25 mg Q8HR ORAL 03/22/18 14:00 04/21/18 13:59 03/23/18 12:58 Hydromorphone HCl (Dilaudid) 2 mg TIDPRN PRN IVP Severe Pain (Pain Scale 7-10) 03/19/18 11:30 03/26/18 11:29 03/23/18 10:12 Insulin Aspart (NovoLOG) BEFORE MEALS AND HS SUBQ 03/19/18 11:30 04/18/18 11:29 03/23/18 11:50 Ondansetron HCl (Zofran) 4 mg Q4H PRN IVP Nausea & Vomiting 03/19/18 03:45 04/18/18 03:44 03/20/18 12:34 Pantoprazole (Protonix) 40 mg BID ORAL 03/22/18 18:00 04/21/18 17:59 03/23/18 09:53 Piperacillin Sod/ Tazobactam Sod 3.375 gm/Sodium Chloride 110 ml @ 27.5 mls/hr Q12HR IVPB 03/21/18 21:00 03/28/18 20:59 03/23/18 09:54 Senna/Docusate Sodium (Roma-Colace) 1 tab TWICE A DAY ORAL 03/22/18 18:00 04/21/18 17:59 03/23/18 09:53 Sodium Chloride 500 ml @ 999 mls/hr Q31M PRN IV SYSTOLIC BLOOD PRESSURE <100 03/19/18 04:30 04/18/18 04:29 Tamsulosin HCl (Flomax) 0.4 mg BEDTIME ORAL 03/21/18 21:00 04/20/18 20:59 03/22/18 20:54 Temazepam (Restoril) 15 mg HSPRN PRN ORAL Insomnia 03/20/18 22:30 03/27/18 22:29 03/22/18 22:21 Apryl Curry M.D. Mar 23, 2018 14:37
[2018-03-23] MEDS: Tamsulosin 0.4mg cap ORAL SCH (20:17)
[2018-03-23] MEDS: HydrALAZINE 25mg tab ORAL PRN (20:17)
[2018-03-24] VITALS: BP 145/83
[2018-03-24 04:00] VITALS: BP 143/77
[2018-03-24] MEDS: HydrALAZINE 25mg tab ORAL SCH ×3 (06:10→16:24)
[2018-03-24] MEDS: NovoLOG Insulin Flexpen SUBQ SCH ×3 (06:15→16:40)
[2018-03-24 06:31] LABS: BASOPHILS % (AUTO) 1.1 % (0.0-2.0); EOSINOPHILS % (AUTO) 3.2 % (0.0-3.0); HEMATOCRIT 29.7 % (42.0-52.0); HEMOGLOBIN 10.1 G/DL (14.2-18.0); LYMPHOCYTES % (AUTO) 12.7 % (20.0-45.0); MEAN CORPUSCULAR VOLUME 87 FL (80-99); MONOCYTES % (AUTO) 7.5 % (1.0-10.0); NEUTROPHILS % (AUTO) 75.5 % (45.0-75.0); PLATELET COUNT 189 K/UL (150-450); RED CELL DISTRIBUTION WIDTH 10.6 % (11.6-14.8); WHITE BLOOD COUNT 7.5 K/UL (4.8-10.8)
[2018-03-24 06:38] LABS: ALANINE AMINOTRANSFERASE 30 U/L (12-78); ALBUMIN 2.7 G/DL (3.4-5.0); ALBUMIN/GLOBULIN RATIO 0.8 (1.0-2.7); ALKALINE PHOSPHATASE 77 U/L (46-116); ANION GAP 4 mmol/L (5-15); ASPARTATE AMINO TRANSFERASE 15 U/L (15-37); BILIRUBIN,TOTAL 0.7 MG/DL (0.2-1.0); BLOOD UREA NITROGEN 14 mg/dL (7-18); CALCIUM 8.4 MG/DL (8.5-10.1); CARBON DIOXIDE 29 MMOL/L (21-32); CHLORIDE 105 MMOL/L (98-107); CREATININE 1.6 MG/DL (0.55-1.30); PHOSPHORUS 3.6 MG/DL (2.5-4.9); POTASSIUM 3.4 MMOL/L (3.5-5.1); SODIUM 138 MMOL/L (136-145)
[2018-03-24 08:13] VITALS: BP 142/72
[2018-03-24] MEDS: Piperacillin/Tazobactam 3.375 GM in NS 110 ML IVPB SCH (08:24)
[2018-03-24] MEDS: Docusate Sod/Senna tab ORAL SCH (08:25)
--- NOTE | 2018-03-24 08:44 | Nephrology Progress Note ---
Assessment/Plan Problem List: (1) MIKE (acute kidney injury) (2) Abdominal pain (3) Sepsis (4) Diabetes mellitus Assessment Acute renal failure cr lower S/P laparoscopic cholecystectomy Sepsis Diabetes mellitus / Nephropaty ( Proteinuria) Abdominal pain Plan OFF Lotensin- K supplement-Mag supp as needed Urine Na and Eosinophils Hydralazin prn for high BP Monitor renal parameters Avoid nephrotoxics per GI per orders Subjective ROS Limited/Unobtainable: No Constitutional: Reports: malaise Objective Objective Last 24 Hour Vital Signs Date Time Temp Pulse Resp B/P (MAP) Pulse Ox O2 Delivery O2 Flow Rate FiO2 03/24/18 08:13 98.2 92 20 142/72 (95) 95 03/24/18 06:10 143/77 03/24/18 04:00 99.0 98 18 143/77 (99) 96 03/24/18 01:00 99.7 03/24/18 00:00 100.2 90 18 145/83 (103) 95 03/23/18 22:30 148/78 (101) 03/23/18 22:06 155/89 03/23/18 21:00 Room Air 03/23/18 20:55 151/81 (104) 03/23/18 20:17 162/94 03/23/18 20:00 98.6 91 18 162/94 (116) 95 03/23/18 18:49 99.4 03/23/18 16:00 99.4 81 18 138/80 (99) 98 03/23/18 12:58 165/95 03/23/18 12:00 98.6 85 18 158/91 (113) 03/23/18 09:00 Room Air Intake and Output 03/23/18 03/24/18 19:00 07:00 Intake Total 1140.0 ml 390.0 ml Output Total 500 ml 1200 ml Balance 640.0 ml -810.0 ml Intake Oral 520 ml 250 ml IV Total 620.0 ml 140.0 ml Output Urine Total 500 ml 1200 ml Laboratory Tests 03/23/18 10:45: Urine Eosinophils None seen 03/24/18 05:45: White Blood Count 7.5, Red Blood Count 3.40L, Hemoglobin 10.1L, Hematocrit 29.7L , Mean Corpuscular Volume 87, Mean Corpuscular Hemoglobin 29.7, Mean Corpuscular Hemoglobin Concent 34.1, Red Cell Distribution Width 10.6L, Platelet Count 189, Mean Platelet Volume 6.2L, Neutrophils (%) (Auto) 75.5H, Lymphocytes (%) (Auto) 12.7L, Monocytes (%) (Auto) 7.5, Eosinophils (%) (Auto) 3.2H, Basophils (%) (Auto) 1.1, Sodium Level 138, Potassium Level 3.4L, Chloride Level 105, Carbon Dioxide Level 29, Anion Gap 4L, Blood Urea Nitrogen 14, Creatinine 1.6H, Estimat Glomerular Filtration Rate 43.2, Glucose Level 150H , Uric Acid 4.7, Calcium Level 8.4L, Phosphorus Level 3.6, Magnesium Level 1.7L , Total Bilirubin 0.7, Aspartate Amino Transf (AST/SGOT) 15, Alanine Aminotransferase (ALT/SGPT) 30, Alkaline Phosphatase 77, C-Reactive Protein, Quantitative 7.0H, Pro-B-Type Natriuretic Peptide 751H, Total Protein 6.2L, Albumin 2.7L, Globulin 3.5, Albumin/Globulin Ratio 0.8L 03/24/18 06:25: Urine Eosinophils None seen Height (Feet): 5 Height (Inches): 3.00 Weight (Pounds): 193 General Appearance: no apparent distress Cardiovascular: tachycardia Respiratory/Chest: decreased breath sounds Abdomen: distended Sukumar Carreon MD Mar 24, 2018 08:44
[2018-03-24] MEDS: D5NS 1,000 ML IV SCH (11:12)
[2018-03-24 11:35] VITALS: BP 161/90
[2018-03-24] MEDS ORDERED: POTASSIUM CHLO20 ME1 ORAL (12:13)
[2018-03-24] MEDS ORDERED: FLOMAX0.4 MG ORAL (12:13)
[2018-03-24] MEDS ORDERED: HYDRALAZINE HCL25 M1 ORAL (12:13)
--- NOTE | 2018-03-24 12:16 | General Progress Note ---
Assessment/Plan Assessment/Plan S: My abdomen is better O: appears to be in NO significant pain, No distress. PHYSICAL EXAMINATION: HEAD AND NECK: Atraumatic and normocephalic. CHEST: Clear to auscultation. HEART: S1, S2. Regular rate and rhythm. ABDOMEN: Soft. No organomegaly. Scars on prior surgery sites are visualized. Negative for rebound tenderness. positive for deep palpation tenderness MUSCULOSKELETAL: No gross focal motor deficit. NEUROLOGIC: Awake, alert, and oriented x3. Meds: including Dilaudid IV PRN . meds are reviewed and reconciled in the system Increasing peritoneal fluid and the prominent gallbladder fossa fluid collection following relatively recent cholecystectomy. Positive HIDA scan with diagnosis of bile leak. Current CT findings support this diagnosis. ASSESSMENT AND PLAN: 1. Abdominal pain, postsurgical post laparoscopic cholecystectomy secondary to Bile leak at the cystic duct stump, 2. ARF : Improving 3. Hyponatremia. 4. Diabetes type 2. 5. GI and DVT prophylaxis. Plan: post ERCP will follow GI and Surgery Rec. post ERCP: status post ERCP, sphincterotomy, balloon occlusion cholangiogram and stenting. Out patient followup after GI clearance Subjective Allergies: Coded Allergies: No Known Allergies (Unverified , 12/31/12) Objective Last 24 Hour Vital Signs Date Time Temp Pulse Resp B/P (MAP) Pulse Ox O2 Delivery O2 Flow Rate FiO2 03/24/18 11:35 98.0 82 20 161/90 (113) 94 03/24/18 09:00 Room Air 03/24/18 08:13 98.2 92 20 142/72 (95) 95 03/24/18 06:10 143/77 03/24/18 04:00 99.0 98 18 143/77 (99) 96 03/24/18 01:00 99.7 03/24/18 00:00 100.2 90 18 145/83 (103) 95 03/23/18 22:30 148/78 (101) 03/23/18 22:06 155/89 03/23/18 21:00 Room Air 03/23/18 20:55 151/81 (104) 03/23/18 20:17 162/94 03/23/18 20:00 98.6 91 18 162/94 (116) 95 03/23/18 18:49 99.4 03/23/18 16:00 99.4 81 18 138/80 (99) 98 03/23/18 12:58 165/95 Intake and Output 03/23/18 03/24/18 19:00 07:00 Intake Total 1140.0 ml 390.0 ml Output Total 500 ml 1200 ml Balance 640.0 ml -810.0 ml Intake Oral 520 ml 250 ml IV Total 620.0 ml 140.0 ml Output Urine Total 500 ml 1200 ml Laboratory Tests 03/24/18 05:45: White Blood Count 7.5, Red Blood Count 3.40L, Hemoglobin 10.1L, Hematocrit 29.7L , Mean Corpuscular Volume 87, Mean Corpuscular Hemoglobin 29.7, Mean Corpuscular Hemoglobin Concent 34.1, Red Cell Distribution Width 10.6L, Platelet Count 189, Mean Platelet Volume 6.2L, Neutrophils (%) (Auto) 75.5H, Lymphocytes (%) (Auto) 12.7L, Monocytes (%) (Auto) 7.5, Eosinophils (%) (Auto) 3.2H, Basophils (%) (Auto) 1.1, Sodium Level 138, Potassium Level 3.4L, Chloride Level 105, Carbon Dioxide Level 29, Anion Gap 4L, Blood Urea Nitrogen 14, Creatinine 1.6H, Estimat Glomerular Filtration Rate 43.2, Glucose Level 150H , Uric Acid 4.7, Calcium Level 8.4L, Phosphorus Level 3.6, Magnesium Level 1.7L , Total Bilirubin 0.7, Aspartate Amino Transf (AST/SGOT) 15, Alanine Aminotransferase (ALT/SGPT) 30, Alkaline Phosphatase 77, C-Reactive Protein, Quantitative 7.0H, Pro-B-Type Natriuretic Peptide 751H, Total Protein 6.2L, Albumin 2.7L, Globulin 3.5, Albumin/Globulin Ratio 0.8L 03/24/18 06:25: Urine Eosinophils None seen Height (Feet): 5 Height (Inches): 3.00 Weight (Pounds): 193 Tamera Esteves MD Mar 24, 2018 12:16
--- NOTE | 2018-03-24 12:31 | GI Progress Note ---
Assessment/Plan Problems: (1) Abdominal pain ICD Codes: R10.9 - Unspecified abdominal pain SNOMED: 61555700 (2) Rule out Peritonitis (3) Abdominal pain ICD Codes: R10.9 - Unspecified abdominal pain SNOMED: 99867974 (4) History of cholecystectomy ICD Codes: Z90.49 - Acquired absence of other specified parts of digestive tract SNOMED: 62748343, 378956389 Status: stable Status Narrative Discussed with Dr. Simeon. Assessment/Plan S/p PROCEDURE: ERCP with sphincterotomy, balloon-assisted cholangiogram, and stent placement. okay for DC per GI standpoint regular diet pain mgmt abx zofran prn patient will need repeat ERCP 8-12 weeks for stent removal, will see if we can bring back as outpatient. The patient was seen and examined at bedside and all new and available data was reviewed in the patients chart. I agree with the above findings, impression and plan. (Patient seen earlier today. Signature stamp does not reflect patient encounter time.). - Kulwant Simeon MD Subjective Subjective abdominal pain still present, but has improved Objective Last 24 Hour Vital Signs Date Time Temp Pulse Resp B/P (MAP) Pulse Ox O2 Delivery O2 Flow Rate FiO2 03/24/18 11:35 98.0 82 20 161/90 (113) 94 03/24/18 09:00 Room Air 03/24/18 08:13 98.2 92 20 142/72 (95) 95 03/24/18 06:10 143/77 03/24/18 04:00 99.0 98 18 143/77 (99) 96 03/24/18 01:00 99.7 03/24/18 00:00 100.2 90 18 145/83 (103) 95 03/23/18 22:30 148/78 (101) 03/23/18 22:06 155/89 03/23/18 21:00 Room Air 03/23/18 20:55 151/81 (104) 03/23/18 20:17 162/94 03/23/18 20:00 98.6 91 18 162/94 (116) 95 03/23/18 18:49 99.4 03/23/18 16:00 99.4 81 18 138/80 (99) 98 03/23/18 12:58 165/95 Intake and Output 03/23/18 03/24/18 19:00 07:00 Intake Total 1140.0 ml 390.0 ml Output Total 500 ml 1200 ml Balance 640.0 ml -810.0 ml Intake Oral 520 ml 250 ml IV Total 620.0 ml 140.0 ml Output Urine Total 500 ml 1200 ml Laboratory Tests Test 03/24/18 05:45 03/24/18 06:25 White Blood Count 7.5 K/UL (4.8-10.8) Red Blood Count 3.40 M/UL (4.70-6.10) L Hemoglobin 10.1 G/DL (14.2-18.0) L Hematocrit 29.7 % (42.0-52.0) L Mean Corpuscular Volume 87 FL (80-99) Mean Corpuscular Hemoglobin 29.7 PG (27.0-31.0) Mean Corpuscular Hemoglobin Concent 34.1 G/DL (32.0-36.0) Red Cell Distribution Width 10.6 % (11.6-14.8) L Platelet Count 189 K/UL (150-450) Mean Platelet Volume 6.2 FL (6.5-10.1) L Neutrophils (%) (Auto) 75.5 % (45.0-75.0) H Lymphocytes (%) (Auto) 12.7 % (20.0-45.0) L Monocytes (%) (Auto) 7.5 % (1.0-10.0) Eosinophils (%) (Auto) 3.2 % (0.0-3.0) H Basophils (%) (Auto) 1.1 % (0.0-2.0) Sodium Level 138 MMOL/L (136-145) Potassium Level 3.4 MMOL/L (3.5-5.1) L Chloride Level 105 MMOL/L (98-107) Carbon Dioxide Level 29 MMOL/L (21-32) Anion Gap 4 mmol/L (5-15) L Blood Urea Nitrogen 14 mg/dL (7-18) Creatinine 1.6 MG/DL (0.55-1.30) H Estimat Glomerular Filtration Rate 43.2 mL/min (>60) Glucose Level 150 MG/DL (74-106) H Uric Acid 4.7 MG/DL (2.6-7.2) Calcium Level 8.4 MG/DL (8.5-10.1) L Phosphorus Level 3.6 MG/DL (2.5-4.9) Magnesium Level 1.7 MG/DL (1.8-2.4) L Total Bilirubin 0.7 MG/DL (0.2-1.0) Aspartate Amino Transf (AST/SGOT) 15 U/L (15-37) Alanine Aminotransferase (ALT/SGPT) 30 U/L (12-78) Alkaline Phosphatase 77 U/L (46-116) C-Reactive Protein, Quantitative 7.0 mg/dL (0.00-0.90) H Pro-B-Type Natriuretic Peptide 751 pg/mL (0-125) H Total Protein 6.2 G/DL (6.4-8.2) L Albumin 2.7 G/DL (3.4-5.0) L Globulin 3.5 g/dL Albumin/Globulin Ratio 0.8 (1.0-2.7) L Urine Eosinophils None seen (NONE SEEN) Height (Feet): 5 Height (Inches): 3.00 Weight (Pounds): 193 General Appearance: WD/WN, no apparent distress, alert Cardiovascular: normal rate Respiratory/Chest: normal breath sounds, no respiratory distress Abdominal Exam: normal bowel sounds, non tender, soft Extremities: normal range of motion, non-tender Jimbo Ramos NP Mar 24, 2018 12:31
--- NOTE | 2018-03-24 15:24 | Infectious Diseases Prog Note ---
Assessment/Plan Problems: (1) S/P laparoscopic cholecystectomy Assessment & Plan: complicated with fluids collection at the gallbladder site , HIDA scan showed possible bill leak , suspect seroma VS abscess . ERCP showed obstructive stone which was retrieved and stent was placed, no evidence of bile leak . continue antibiotics empirically for now . follow up with GI (2) Diabetes mellitus Assessment & Plan: recommend tight glycemic control to keep blood glucose between 100-140 (3) Abdominal pain Assessment & Plan: improving, due to the above , continue antibiotics and pain management as needed (4) MIKE (acute kidney injury) Assessment & Plan: suspect due to the above, continue hydration , avoid nephrotoxics , monitor renal function. Subjective Constitutional: Reports: no symptoms HEENT: Reports: no symptoms Respiratory: Reports: no symptoms Breasts: Reports: no symptoms Cardiovascular: Reports: no symptoms Gastrointestinal/Abdominal: Reports: bloating Genitourinary: Reports: no symptoms Neurologic: Reports: no symptoms Psychiatric: Reports: no symptoms Skin: Reports: no symptoms Endocrine: Reports: no symptoms Hematologic: Reports: no symptoms Musculoskeletal: Reports: no symptoms Allergies: Coded Allergies: No Known Allergies (Unverified , 12/31/12) Objective Vital Signs Last 24 Hour Vital Signs Date Time Temp Pulse Resp B/P (MAP) Pulse Ox O2 Delivery O2 Flow Rate FiO2 03/24/18 13:59 156/92 03/24/18 11:35 98.0 82 20 161/90 (113) 94 03/24/18 09:00 Room Air 03/24/18 08:13 98.2 92 20 142/72 (95) 95 03/24/18 06:10 143/77 03/24/18 04:00 99.0 98 18 143/77 (99) 96 03/24/18 01:00 99.7 03/24/18 00:00 100.2 90 18 145/83 (103) 95 03/23/18 22:30 148/78 (101) 03/23/18 22:06 155/89 03/23/18 21:00 Room Air 03/23/18 20:55 151/81 (104) 03/23/18 20:17 162/94 03/23/18 20:00 98.6 91 18 162/94 (116) 95 03/23/18 18:49 99.4 03/23/18 16:00 99.4 81 18 138/80 (99) 98 Height (Feet): 5 Height (Inches): 3.00 Weight (Pounds): 193 General Appearance: WD/WN, no acute distress HEENT: normocephalic, atraumatic, anicteric, mucous membranes moist, PERRL Respiratory/Chest: chest wall non-tender, lungs clear, normal breath sounds, no respiratory distress, no accessory muscle use Cardiovascular: normal peripheral pulses, normal rate, regular rhythm, no gallop/murmur, no JVD Abdomen: normal bowel sounds, no organomegaly, non distended, no mass, no scars , hypoactive bowel sounds, distended Extremities: no cyanosis, no clubbing Skin: no rash, no lesions, no ulcers Neurologic/Psychiatric: alert, oriented x 3, responsive Lymphatic: no neck adenopathy, no groin adenopathy Musculoskeletal: normal muscle bulk, no effusion Laboratory Tests Test 03/24/18 05:45 03/24/18 06:25 White Blood Count 7.5 K/UL (4.8-10.8) Red Blood Count 3.40 M/UL (4.70-6.10) L Hemoglobin 10.1 G/DL (14.2-18.0) L Hematocrit 29.7 % (42.0-52.0) L Mean Corpuscular Volume 87 FL (80-99) Mean Corpuscular Hemoglobin 29.7 PG (27.0-31.0) Mean Corpuscular Hemoglobin Concent 34.1 G/DL (32.0-36.0) Red Cell Distribution Width 10.6 % (11.6-14.8) L Platelet Count 189 K/UL (150-450) Mean Platelet Volume 6.2 FL (6.5-10.1) L Neutrophils (%) (Auto) 75.5 % (45.0-75.0) H Lymphocytes (%) (Auto) 12.7 % (20.0-45.0) L Monocytes (%) (Auto) 7.5 % (1.0-10.0) Eosinophils (%) (Auto) 3.2 % (0.0-3.0) H Basophils (%) (Auto) 1.1 % (0.0-2.0) Sodium Level 138 MMOL/L (136-145) Potassium Level 3.4 MMOL/L (3.5-5.1) L Chloride Level 105 MMOL/L (98-107) Carbon Dioxide Level 29 MMOL/L (21-32) Anion Gap 4 mmol/L (5-15) L Blood Urea Nitrogen 14 mg/dL (7-18) Creatinine 1.6 MG/DL (0.55-1.30) H Estimat Glomerular Filtration Rate 43.2 mL/min (>60) Glucose Level 150 MG/DL (74-106) H Uric Acid 4.7 MG/DL (2.6-7.2) Calcium Level 8.4 MG/DL (8.5-10.1) L Phosphorus Level 3.6 MG/DL (2.5-4.9) Magnesium Level 1.7 MG/DL (1.8-2.4) L Total Bilirubin 0.7 MG/DL (0.2-1.0) Aspartate Amino Transf (AST/SGOT) 15 U/L (15-37) Alanine Aminotransferase (ALT/SGPT) 30 U/L (12-78) Alkaline Phosphatase 77 U/L (46-116) C-Reactive Protein, Quantitative 7.0 mg/dL (0.00-0.90) H Pro-B-Type Natriuretic Peptide 751 pg/mL (0-125) H Total Protein 6.2 G/DL (6.4-8.2) L Albumin 2.7 G/DL (3.4-5.0) L Globulin 3.5 g/dL Albumin/Globulin Ratio 0.8 (1.0-2.7) L Urine Eosinophils None seen (NONE SEEN) Current Medications Medications (Trade) Dose Ordered Sig/Tamiko Route PRN Reason Start Time Stop Time Status Last Admin Dose Admin Acetaminophen (Tylenol) 650 mg Q4H PRN ORAL Mild Pain/Temp > 100.5 03/19/18 03:45 04/18/18 03:44 03/23/18 23:51 Dextrose (Dextrose 50%) 25 ml Q30M PRN IV Hypoglycemia 03/19/18 08:15 04/18/18 08:14 Dextrose (Dextrose 50%) 50 ml Q30M PRN IV Hypoglycemia 03/19/18 08:15 04/18/18 08:14 Dextrose/Sodium Chloride 1,000 ml @ 85 mls/hr [id number] IV 03/22/18 12:34 04/20/18 12:33 03/24/18 11:12 Hydralazine HCl (Apresoline) 25 mg Q4H PRN ORAL bp over 160 syst 03/21/18 15:00 04/20/18 14:59 03/23/18 20:17 Hydralazine HCl (Apresoline) 25 mg Q8HR ORAL 03/22/18 14:00 04/21/18 13:59 03/24/18 13:59 Hydromorphone HCl (Dilaudid) 2 mg TIDPRN PRN IVP Severe Pain (Pain Scale 7-10) 03/19/18 11:30 03/26/18 11:29 03/24/18 14:00 Insulin Aspart (NovoLOG) BEFORE MEALS AND HS SUBQ 03/19/18 11:30 04/18/18 11:29 03/24/18 12:00 Ondansetron HCl (Zofran) 4 mg Q4H PRN IVP Nausea & Vomiting 03/19/18 03:45 04/18/18 03:44 03/20/18 12:34 Pantoprazole (Protonix) 40 mg BID ORAL 03/22/18 18:00 04/21/18 17:59 03/24/18 08:25 Piperacillin Sod/ Tazobactam Sod 3.375 gm/Sodium Chloride 110 ml @ 27.5 mls/hr Q12HR IVPB 03/21/18 21:00 03/28/18 20:59 03/24/18 08:24 Potassium Chloride (K-Dur) 40 meq DAILY ORAL 03/24/18 09:00 04/23/18 08:59 03/24/18 10:32 Senna/Docusate Sodium (Roma-Colace) 1 tab TWICE A DAY ORAL 03/22/18 18:00 04/21/18 17:59 03/24/18 08:25 Sodium Chloride 500 ml @ 999 mls/hr Q31M PRN IV SYSTOLIC BLOOD PRESSURE <100 03/19/18 04:30 04/18/18 04:29 Tamsulosin HCl (Flomax) 0.4 mg BEDTIME ORAL 03/21/18 21:00 04/20/18 20:59 03/23/18 20:17 Temazepam (Restoril) 15 mg HSPRN PRN ORAL Insomnia 03/20/18 22:30 03/27/18 22:29 03/23/18 22:02 Apryl Curry M.D. Mar 24, 2018 15:24
[2018-03-24 15:35] VITALS: BP 162/104
[2018-03-24] MEDS: HydrALAZINE 25mg tab ORAL PRN (16:25)
[2018-03-24] MEDS ORDERED: CEPHALEXIN500 MG ORAL (16:48)
[2018-03-24] MEDS ORDERED: TRAMADOL HCL50 MG ORAL (16:50)
[2018-03-24] MEDS ORDERED: LEVAQUIN500 MG ORAL ×2 (17:14→17:15)
[2018-03-24] MEDS ORDERED: METRONIDAZOLE500 MG ORAL (17:16)
[2018-03-24 17:17] VITALS: BP 147/81
[2018-03-24] MEDS ORDERED: D5NS 1000ml IV ONE (18:24)
[2018-03-24] MEDS ORDERED: Tubing IV Secondary IV ONE (18:24)
[2018-03-24] MEDS ORDERED: NS 275ml ONE (18:24)
--- NOTE | 2018-03-24 21:46 | Progress Note ---
DATE: 03/24/2018 SUBJECTIVE: The patient Korean speaking, calm, complained of anxiety. Denies any pain, no acute distress. He has low energy and fatigue. Sleep is adequate. MENTAL STATUS EXAMINATION: Alert and oriented times self, place, and situation. Mood is anxious. Affect is constricted. Congruent with mood. Thought process is concrete. Thought content, no suicidal or homicidal ideations. ASSESSMENT: Anxiety disorder. PLAN: 1. The patient will be continued on current medication. 2. Provide the patient with supportive therapy and reality orientation. Nando Tony M.D. DR: Stephan JOB#: [id number] CC:
--- NOTE | 2018-03-25 11:29 | Discharge Summary ---
Discharge Summary Discharge Summary _ DATE OF ADMISSION: 03/19/2018 DATE OF DISCHARGE: 03/24/2018 REASON FOR ADMISSION: 67 years old male with past medical history of hypertension, gastritis, diabetes. anxiety, recently undergone laparoscopic cholecystectomy and presented to emergency department with complains of right upper quadrant abdominal pain. He denied fever and vomiting . Pain described as sharp , severe and constant induration. Patient had bowel movement ,no diarrhea . Upon evaluation patient noted to be febrile. Abdominal ultrasound showed findings consistent with status post cholecystectomy. CT of the abdomen and pelvis showed cholecystectomy changes with free fluid and more focal fluid emphysema at cholecystectomy bed. Laboratory workup revealed leukocytosis. Total bilirubin 1.3 , direct bilirubin 0.4 ,stable AST , ALT and lipase. Sodium 132. Stable renal parameters. Urine +2 protein. Patient admitted with diagnoses of abdominal pain, status post recent laparoscopic cholecystectomy, SIRS,rule out peritonitis, hyponatremia, diabetes mellitus type 2. CONSULTANTS: ID specialist Dr. Curry GI specialist Dr. Simeon rigger third Dr. Carreon surgery Dr. Pena psychiatrist [facility]: Patient admitted and started on empiric antibiotic. Surgery , GI and ID consults were requested. Patient was kept nothing by mouth initially. DVT and GI prep prophylaxis initiated, Patient was on empiric antibiotics under ID management for possible peritonitis. Blood culture were negative. GI specialist closely followed along with surgeon. Per surgeon, there . was no need for surgical intervention. Patient undergone another abdominal ultrasound which revealed fatty liver and bilateral renal cysts , but pancreas and aorta were not seen due to bowel gas. No hydronephrosis. HIDA scan revealed findings , highly suspicious for bile leak. Subsequently patient undergone CT of the abdomen and pelvis with contrast, which supported the diagnosis of bile leak. Due to bile leak at the cystic duct stump, patient subsequently undergone ERCP with sphincterotomy, balloon-assisted cholangiogram and stent placement on 03/22. Patient will need to come back in 8-12 weeks for stent removal. Leukocytosis resolved, patient was afebrile. Infectious disease doctor recommended to continue oral antibiotic for additional 7 days at home to complete the course. [employer] was consulted when patient developed acute kidney injury with creatinine up to 1.7. Renal ultrasound revealed normal bilateral kidneys echogenicity and no hydronephrosis. Electrolytes were corrected as needed. Nephrotoxins were avoided. Patient was continued to be hydrated. Patient likely had diabetic nephropathy , as evidenced by proteinuria +2 in urine . Blood sugar was managed with sliding scale of insulin. Blood pressure was managed with current regimen and further optimized by rigger third. Pain management was addressed . Bowel regimen instituted . Psychiatry seen and evaluated patient, and recommended to continue current medications for anxiety. Reality orientation and supportive therapy provided. Patient clinically improved . LFT and bilirubin were closely monitored. LFT remained stable. Total bilirubin down to 0.7. Pain resolved. No fever, no leukocytosis, tolerated diet. All consultants cleared patient for discharge . Patient was subsequently discharged home with home health services . FINAL DIAGNOSES: Sepsis Bile leak at the cystic duct stump Status post recent laparoscopic cholecystectomy Status post ERCP with sphincterotomy, balloon-assisted cholangiogram and stent placement Abdominal pain , secondary to above - resolved Acute kidney injury -improving Diabetes mellitus with diabetic nephropathy/proteinuria Anxiety disorder DISCHARGE MEDICATIONS: See Medication Reconciliation list. DISCHARGE INSTRUCTIONS: Patient was discharged home with home health services. Follow up with primary care provider in one week. I have been assigned to dictate discharge summary for this account. I was not involved in the patient's management. Anuja Neumann NP Mar 25, 2018 11:29
== END 2018-03-24 18:25 | disposition home health service (06) | DRG 862 ==
LOC: EMR 23:37 → 4E 03-19 02:15 → EDBEDREQ 03-19 02:38
PROC: 0F798DZ Dilation of Common Bile Duct with Intraluminal Device, Via Natural or Artificial Opening Endoscopic (ICD-10-PCS; principal; 2018-03-22 08:14)
DX: T81.44XA Sepsis following a procedure, initial encounter (principal); A41.9 Sepsis, unspecified organism; E87.1 Hypo-osmolality and hyponatremia; N17.9 Acute kidney failure, unspecified; R10.11 Right upper quadrant pain; E11.21 Type 2 diabetes mellitus with diabetic nephropathy; F41.9 Anxiety disorder, unspecified; G47.00 Insomnia, unspecified
CPT/HCPCS: 36415; 74018; 74176; 74177; 74328; 76000; 76700; 76705; 76770; 78266; 80048; 80053; 80061; 81001; 81003; 82248; 82607; 82728; 82746; 82962; 82977; 83036; 83540; 83550; 83690; 83735; 83880; 83935; 84100; 84133; 84443; 84550; 85025; 85610; 85730; 86140; 87040; 89050; 94003; 94150; 96361; 96365; 96375; 96376; 99285; C9399; J1815; J2405; J8499

== ENCOUNTER 2018-05-17 13:32 | Emergency (ER) | payer MEDICARE, MEDICAID ==
[~2018-05-17] VITALS: Ht 157.5 cm; Wt 83.9 kg
[~2018-05-17 13:32] MED LIST changes: +CEPHALEXIN500 MG ORAL; +FLOMAX0.4 MG ORAL; +HYDRALAZINE HCL25 M1 ORAL; +LEVAQUIN500 MG ORAL; +METRONIDAZOLE500 MG ORAL; +POTASSIUM CHLO20 ME1 ORAL; +UNOBMED
--- NOTE | 2018-05-17 13:59 | Emergency Room Report ---
History of Present Illness General Chief Complaint: Dizziness Source: Patient Present Illness HPI Patient presents with RUQ pain and vomiting 4 days. Post beronica with complications. FORRESTER also Pain intermittent with max 6/10. Diarrhea = green. He is uncertain what the complication was with surgery. Apparently he is scheduled to have repeat appointment and evaluation by the surgeons this month. The patient states the headache is more related to anxiety. He feels some unsteadiness when he gets anxious. He drinks alcohol to treat his anxiety. There is been no alcohol ingestion recently. No fevers, chills, cough. No chest pain or palpitations. No skin rashes. He is not taking blood thinners at this time. There is no oncologic problem. The patient denies IV drug use. There is no recent head trauma. No syncope or near syncope. The patient has diabetes and states his sugars have sometimes been elevated. He is not sure what they are at this time. Allergies: Coded Allergies: No Known Allergies (Unverified , 12/31/12) Patient History Past Medical History: see triage record Past Surgical History: beronica Social History: Reports: alcohol use; Denies: smoking Social History Narrative from home Reviewed Nursing Documentation: PMH: Agreed; PSxH: Agreed Nursing Documentation-PMH Past Medical History: No History, Except For Hx Cardiac Problems: Yes Hx Hypertension: Yes Hx Diabetes: Yes Hx Cancer: No Hx Gastrointestinal Problems: Yes - Gastritis Hx Dialysis: No Hx Neurological Problems: No Hx Cerebrovascular Accident: No Hx Seizures: No Review of Systems All Other Systems: negative except mentioned in HPI Physical Exam Vital Signs Date Time Temp Pulse Resp B/P (MAP) Pulse Ox O2 Delivery O2 Flow Rate FiO2 05/17/18 13:37 98.8 97 22 135/84 94 Room Air Sp02 EP Interpretation: reviewed, normal General Appearance: well appearing, no apparent distress, GCS 15 Head: normocephalic, atraumatic Eyes: bilateral eye normal inspection, bilateral eye PERRL, bilateral eye EOMI ENT: moist mucus membranes Neck: full range of motion, supple, no bony tend Respiratory: lungs clear, normal breath sounds Cardiovascular #1: regular rate, rhythm Cardiovascular #2: 2+ radial (R) Gastrointestinal: normal inspection, normal bowel sounds, no mass, non- distended, no guarding, no rebound, tenderness - Right upper quadrant equals minimal Genitourinary: no CVA tenderness Musculoskeletal: back normal, gait/station normal, normal range of motion Neurologic: alert, oriented x3, sisal operator III-XII nml as tested, motor strength/tone normal, DTRs symmetric, sensory intact, cerebellar normal, normal gait, speech normal Psychiatric: anxious Skin: normal inspection, warm/dry Medical Decision Making Diagnostic Impression: Primary Impression: Abdominal pain Qualified Codes: R10.11 - Right upper quadrant pain Additional Impressions: Nausea & vomiting Qualified Codes: R11.2 - Nausea with vomiting, unspecified Anxiety Status post common bile duct stent ER Course Patient presents with right upper quadrant pain vomiting diarrhea and headache. Differential includes gastroenteritis, postsurgical complications, small bowel obstruction, UTI, pancreatitis amongst others. The patient will be evaluated with EKG, chest x-ray, abdominal x-ray and labs. The patient will be treated with IV hydration and analgesia. EKG without injury. Chest x-ray no infiltrates. CBC with minimal elevation of WBC - H/H normal. CMP with minimally elevated glucose. Lipase normal. Abdomen film paucity gas. No obstruction. Common bile duct stent in cholecystectomy clips. Patient improved with treatment here. Abdomen is soft without tenderness. He is more focused on treatment of anxiety. Results were discussed with the patient. Patient stable for outpatient observation and treatment. Laboratory Tests Test 05/17/18 14:00 White Blood Count 11.8 K/UL (4.8-10.8) H Red Blood Count 4.50 M/UL (4.70-6.10) L Hemoglobin 13.7 G/DL (14.2-18.0) L Hematocrit 40.7 % (42.0-52.0) L Mean Corpuscular Volume 90 FL (80-99) Mean Corpuscular Hemoglobin 30.4 PG (27.0-31.0) Mean Corpuscular Hemoglobin Concent 33.7 G/DL (32.0-36.0) Red Cell Distribution Width 12.6 % (11.6-14.8) Platelet Count 164 K/UL (150-450) Mean Platelet Volume 6.9 FL (6.5-10.1) Neutrophils (%) (Auto) 78.1 % (45.0-75.0) H Lymphocytes (%) (Auto) 14.9 % (20.0-45.0) L Monocytes (%) (Auto) 5.6 % (1.0-10.0) Eosinophils (%) (Auto) 0.6 % (0.0-3.0) Basophils (%) (Auto) 0.7 % (0.0-2.0) Prothrombin Time 9.8 SEC (9.30-11.50) Prothrombin Time INR 0.9 (0.9-1.1) PTT 27 SEC (23-33) Urine Color Pale yellow Urine Appearance Clear Urine pH 5 (4.5-8.0) Urine Specific [place] 1.010 (1.005-1.035) Urine Protein 1+ (NEGATIVE) H Urine Glucose (UA) Negative (NEGATIVE) Urine Ketones Negative (NEGATIVE) Urine Blood Negative (NEGATIVE) Urine Nitrite Negative (NEGATIVE) Urine Bilirubin Negative (NEGATIVE) Urine Urobilinogen Normal MG/DL (0.0-1.0) Urine Leukocyte Esterase Negative (NEGATIVE) Urine RBC 0-2 /HPF (0 - 0) H Urine WBC 0-2 /HPF (0 - 0) Urine Squamous Epithelial Cells None /LPF (NONE/OCC) Urine Bacteria None /HPF (NONE) Sodium Level 136 MMOL/L (136-145) Potassium Level 4.2 MMOL/L (3.5-5.1) Chloride Level 100 MMOL/L (98-107) Carbon Dioxide Level 27 MMOL/L (21-32) Anion Gap 9 mmol/L (5-15) Blood Urea Nitrogen 13 mg/dL (7-18) Creatinine 1.0 MG/DL (0.55-1.30) Estimate Glomerular Filtration Rate > 60 mL/min (>60) Glucose Level 137 MG/DL (74-106) H Calcium Level 9.8 MG/DL (8.5-10.1) Total Bilirubin 0.5 MG/DL (0.2-1.0) Aspartate Amino Transferase (AST) 26 U/L (15-37) Alanine Aminotransferase (ALT) 46 U/L (12-78) Alkaline Phosphatase 81 U/L (46-116) Troponin I 0.000 ng/mL (0.000-0.056) Total Protein 7.9 G/DL (6.4-8.2) Albumin 4.5 G/DL (3.4-5.0) Globulin 3.4 g/dL Albumin/Globulin Ratio 1.3 (1.0-2.7) Lipase 188 U/L (73-393) EKG Diagnostic Results Rate: normal Rhythm: NSR ST Segments: no acute changes - Nonspecific ST-T wave changes Rhythm Strip Diag. Results EP Interpretation: yes Rhythm: NSR, no PVC's, no ectopy Chest X-Ray Diagnostic Results Chest X-Ray Diagnostic Results : Chest X-Ray Ordered: Yes # of Views/Limited/Complete: 1 View Indication: Other Interpretation: no consolidation, no effusion, no pneumothorax Impression: No acute disease Electronically Signed by: Electronically signed by Harvey Hough MD Other X-Ray Diagnostic Results Other X-Ray Diagnostic Results : X-Ray ordered: Abdomen # of Views/Limited Vs Complete: 2 View Indication: Pain Interpretation: nonspecific bowel gas, no sbo, other - No masses. CBD stent and clips Impression: No acute disease Electronically Signed by: Electronically signed by Harvey Hough MD Last Vital Signs Date Time Temp Pulse Resp B/P (MAP) Pulse Ox O2 Delivery O2 Flow Rate FiO2 05/17/18 17:15 98.2 72 18 128/72 98 Room Air Status: improved Disposition: HOME, SELF-CARE Condition: Improved Scripts Ondansetron Odt* (ZOFRAN ODT*) 4 Mg Tab.rapdis 4 MG BC EVERY 8 HOURS for nausea and vomiting, #10 TAB 0 Refills Prov: Harvey Hough MD 05/17/18 Tramadol Hcl* (ULTRAM*) 50 Mg Tablet 50 MG ORAL Q6H PRN for For Pain, #10 TAB 0 Refills Prov: Harvey Hough MD 05/17/18 Hydroxyzine Pamoate (VISTARIL) 25 Mg Capsule 25 MG PO Q8HR PRN for anxiety, #10 CAP Prov: Harvey Hough MD 05/17/18 Harvey Hough MD May 17, 2018 13:59
[2018-05-17] MEDS ORDERED: Morphine Sulfate 2mg/ml Inj IVP ONE (14:00)
--- NOTE | 2018-05-17 14:00 | NUR ---
ED Nurse Note: Pt is amb a/ox, nad noted c/o dizziness x 3days now w/ abd pain6/10 radiates to the back, placed pt in bed 8, on monitor worker, hosp gown, inserted an iv access to left fa w/ 20g angiocath yumiko well, blood drawn and sent to lab, urine sent to lab, dr marcos at the bedside for eval. xray at the bedside, ekg done, given meds per md order @ 1430, will cont to monitor.
[2018-05-17] MEDS ORDERED: METFORMIN HCL850 M1 ORAL (14:01)
[2018-05-17] MEDS ORDERED: PREDNISONE5 MG ORAL (14:01)
[2018-05-17] MEDS ORDERED: COLCHICINE0.6 M1 PO (14:01)
[2018-05-17] MEDS ORDERED: ATORVASTATIN CA40 MG ORAL (14:01)
[2018-05-17] MEDS ORDERED: ALLOPURINOL300 M1 ORAL (14:01)
[2018-05-17] MEDS ORDERED: AMLODIPINE BESYL5 MG ORAL (14:01)
[2018-05-17] MEDS ORDERED: CHLORTHALIDONE25 MG ORAL (14:01)
[2018-05-17 14:31] LABS: BASOPHILS % (AUTO) 0.7 % (0.0-2.0); EOSINOPHILS % (AUTO) 0.6 % (0.0-3.0); HEMATOCRIT 40.7 % (42.0-52.0); HEMOGLOBIN 13.7 G/DL (14.2-18.0); LYMPHOCYTES % (AUTO) 14.9 % (20.0-45.0); MEAN CORPUSCULAR VOLUME 90 FL (80-99); MONOCYTES % (AUTO) 5.6 % (1.0-10.0); NEUTROPHILS % (AUTO) 78.1 % (45.0-75.0); PLATELET COUNT 164 K/UL (150-450); RED CELL DISTRIBUTION WIDTH 12.6 % (11.6-14.8); WHITE BLOOD COUNT 11.8 K/UL (4.8-10.8)
[2018-05-17 14:35] LABS: ANION GAP 9 mmol/L (5-15); BLOOD UREA NITROGEN 13 mg/dL (7-18); CALCIUM 9.8 MG/DL (8.5-10.1); CARBON DIOXIDE 27 MMOL/L (21-32); CHLORIDE 100 MMOL/L (98-107); POTASSIUM 4.2 MMOL/L (3.5-5.1); SODIUM 136 MMOL/L (136-145)
[2018-05-17 14:36] VITALS: BP 143/77
[2018-05-17 14:37] LABS: INR 0.9 (0.9-1.1)
[2018-05-17 14:42] LABS: ALANINE AMINOTRANSFERASE 46 U/L (12-78); ALBUMIN 4.5 G/DL (3.4-5.0); ALBUMIN/GLOBULIN RATIO 1.3 (1.0-2.7); ALKALINE PHOSPHATASE 81 U/L (46-116); ASPARTATE AMINO TRANSFERASE 26 U/L (15-37); BILIRUBIN,TOTAL 0.5 MG/DL (0.2-1.0)
[2018-05-17 14:52] LABS: APPEARANCE,URINE CLEAR; BILIRUBIN, URINE NEGATIVE (NEGATIVE); COLOR,URINE PALE YELLOW; GLUCOSE, URINE (UA) NEGATIVE (NEGATIVE); KETONES,URINE NEGATIVE (NEGATIVE); LEUKOCYTE ESTERASE ,URINE NEGATIVE (NEGATIVE); NITRITE,URINE NEGATIVE (NEGATIVE); PH,URINE 5 (4.5-8.0); PROTEIN,URINE 1+ (NEGATIVE); UROBILINOGEN,URINE NORMAL MG/DL (0.0-1.0)
--- NOTE | 2018-05-17 14:53 | Diagnostic Imaging Report ---
Indication: Chest pain Comparison: 04/18/2017 A single view chest radiograph was obtained. Findings: Cardiomediastinal appearance is within normal limits for age. The lungs are clear. Pulmonary vascularity is appropriate. The diaphragmatic contour is smooth and costophrenic angles are sharp. No pleural effusions are identified. The bones are unremarkable. Impression: No acute findings
--- NOTE | 2018-05-17 15:00 | NUR ---
HAND-OFF: Report given to Denis CAMACHO.
--- NOTE | 2018-05-17 15:28 | Diagnostic Imaging Report ---
Indication: Abdominal pain Comparison: None Single view of the abdomen obtained Findings: Very little bowel gas demonstrated. Bowel gas pattern is nonspecific as demonstrated. There is a CBD stent and cholecystectomy clips noted. IMPRESSION: No acute findings
[2018-05-17] MEDS ORDERED: TRAMADOL HCL50 MG ORAL (17:04)
[2018-05-17] MEDS ORDERED: ONDANSETRON ODT4 MG BC (17:04)
[2018-05-17] MEDS ORDERED: VISTARIL25 M1 PO (17:04)
[2018-05-17 17:15] VITALS: BP 128/72
--- NOTE | 2018-05-17 17:15 | NUR ---
ED Nurse Note: patient is being discharged from ED alert and oriented x4, ambulatory with a steady gait, VSS, patient acknowledged the need to follow up with PMD within a week if symptoms dont improve, patient's prescriptions in hand, ID band and IV line removed
== END 2018-05-17 17:15 | disposition home or self-care (01) ==
LOC: EMR 14:17
DX: R10.11 Right upper quadrant pain (principal); R11.2 Nausea with vomiting, unspecified; F41.9 Anxiety disorder, unspecified; Z98.890 Other specified postprocedural states; I10 Essential (primary) hypertension; E11.9 Type 2 diabetes mellitus without complications
CPT/HCPCS: 36415; 71045; 74018; 80053; 81003; 82962; 83690; 84484; 85025; 85610; 85730; 96361; 96374; 96375; 99284; J2270; J2405; S0028

== ENCOUNTER 2018-05-25 13:32 | Outpatient (CLI) | payer MEDICARE, MEDICAID ==
[~2018-05-25 13:32] MED LIST changes: +ALLOPURINOL300 M1 ORAL; +AMLODIPINE BESYL5 MG ORAL; +ATORVASTATIN CA40 MG ORAL; +CHLORTHALIDONE25 MG ORAL; +COLCHICINE0.6 M1 PO; +METFORMIN HCL850 M1 ORAL; +ONDANSETRON ODT4 MG BC; +PREDNISONE5 MG ORAL; +VISTARIL25 M1 PO
--- NOTE | 2018-05-25 15:08 | GI Initial Consult Note ---
History of Present Illness General Date patient seen: May 25, 2018 Time patient seen: 15:04 Referring physician: CLOVER Reason for Consultation: ERCP STENT REMOVAL Present Illness HPI 59-year-old male patient with a fall back in March s/p ERCP with sphincterotomy, balloon-assisted cholangiogram, and stent placement presents today with complaint of abdominal pain. No addition the patient also had a laparoscopic cholecystectomy back in March 2018 Home Meds Active Scripts Ondansetron Odt* (ZOFRAN ODT*) 4 Mg Tab.rapdis, 4 MG BC EVERY 8 HOURS for nausea and vomiting, #10 TAB 0 Refills Prov:Harvey Hough MD 05/17/18 Tramadol Hcl* (ULTRAM*) 50 Mg Tablet, 50 MG ORAL Q6H PRN for For Pain, #10 TAB 0 Refills Prov:Harvey Hough MD 05/17/18 Hydroxyzine Pamoate (VISTARIL) 25 Mg Capsule, 25 MG PO Q8HR PRN for anxiety, # 10 CAP Prov:Harvey Hough MD 05/17/18 Tamsulosin HCl (Flomax) 0.4 Mg Cap.er.24h, 0.4 MG ORAL BEDTIME for 10 Days, CAP Prov:Tamera Esteves MD 03/24/18 Potassium Chloride* (K-DUR*) 20 Meq Tab.er.prt, 40 MEQ ORAL DAILY for 10 Days, TAB Prov:Tamera Esteves MD 03/24/18 Hydralazine Hcl* (HYDRALAZINE HCL*) 25 Mg Tablet, 25 MG ORAL Q8HR for 10 Days, TAB Prov:Tamera Esteves MD 03/24/18 Famotidine (PEPCID) 40 Mg Tablet, 40 MG PO DAILY, #20 TAB 0 Refills Prov:Jeremiah Mao DO 01/01/13 Lorazepam* (ATIVAN*) 1 Mg Tablet, 1 MG ORAL BID, #10 TAB Prov:Jeremiah Mao DO 01/01/13 Reported Medications Metformin Hcl* (METFORMIN HCL*) 850 Mg Tablet, 850 MG ORAL DAILY, TAB 05/17/18 Colchicine (Colchicine) 0.6 Mg Capsule, 0.6 MG PO, CAP 05/17/18 Amlodipine Besylate* (AMLODIPINE BESYLATE*) 5 Mg Tablet, 5 MG ORAL DAILY, TAB 05/17/18 Atorvastatin Calcium* (ATORVASTATIN CALCIUM*) 40 Mg Tablet, 40 MG ORAL BEDTIME, TAB 05/17/18 Allopurinol* (ALLOPURINOL*) 300 Mg Tablet, 300 MG ORAL DAILY, TAB 05/17/18 Chlorthalidone* (CHLORTHALIDONE*) 25 Mg Tablet, 25 MG ORAL DAILY, TAB 05/17/18 Prednisone (Prednisone) 5 Mg/5 Ml Solution, 5 MG ORAL DAILY, #10 TAB 0 Refills 05/17/18 Metronidazole* (FLAGYL*) 500 Mg Tablet, 500 MG ORAL EVERY 8 HOURS for 7 Days, TAB 03/24/18 Levofloxacin* (LEVAQUIN*) 500 Mg Tablet, 500 MG ORAL DAILY for 7 Days, TAB 03/24/18 Tramadol Hcl* (ULTRAM*) 50 Mg Tablet, 50 MG ORAL Q4HR PRN for For Pain, #20 TAB 0 Refills 03/24/18 Unable to Obtain Medications (UNABLE TO OBTAIN MEDS) 1 Ea Ea 03/19/18 Omeprazole (PRILOSEC) 20 Mg Capsule.dr, 20 MG ORAL DAILY, CAP 06/14/15 [pill for diabetes] No Conflict Check 12/31/12 Tramadol Hcl* (ULTRAM*) 50 Mg Tablet, 50 MG ORAL Q12HR, #30 TAB 0 Refills 12/31/12 Med list reviewed/reconciled: Yes Allergies: Coded Allergies: No Known Allergies (Unverified , 12/31/12) Patient History History Provided By: Patient, Medical Record [facility] Narrative Hypertension GERD Anxiety Obesity past surgical history Status post ERCP March 2018 Status post cholecystectomy 2017 Pertinent Family History: none Social History: Denies: smoking, alcohol use, drug use, other Review of Systems All Other Systems: negative except mentioned in HPI Physical Exam Temperature 98.1 Blood pressure 150/87 Pulse 84 96% room air Sp02 EP Interpretation: reviewed, normal General Appearance: well appearing, no apparent distress, alert Head: normocephalic EENT: PERRL/EOMI, normal ENT inspection Neck: supple Respiratory: normal breath sounds, no respiratory distress Cardiovascular: normal rate Gastrointestinal: normal inspection, non tender, soft, normal bowel sounds, non -distended Rectal: deferred Genitourinary: deferred Musculoskeletal: normal inspection, back normal Neurologic: normal inspection, alert, oriented x3, responsive Psychiatric: normal inspection, judgement/insight normal, memory normal Skin: normal inspection, normal color, no rash, warm/dry, palpation normal, well hydrated Lymphatic: normal inspection, no adenopathy GI: Plan Problems: (1) Abdominal pain (2) Nausea & vomiting (3) Rule out Peritonitis (4) Diabetes mellitus (5) S/P laparoscopic cholecystectomy (6) History of cholecystectomy Plan ERCP to be scheduled tomorrow. -Patient instructed to become n.p.o. at midnight We will follow with additional recommendations post procedure Seen with Dr. Simeon. Thank you for this patient referral. The patient was seen and examined at bedside and all new and available data was reviewed in the patients chart. I agree with the above findings, impression and plan. (Patient seen earlier today. Signature stamp does not reflect patient encounter time.). - MD [facility] May 25, 2018 15:08
[2018-05-25 15:58] VITALS: BP 150/87
== END 2018-05-25 14:02 | disposition home or self-care (01) ==
LOC: PAN 13:32
DX: R10.9 Unspecified abdominal pain (principal); Z98.890 Other specified postprocedural states; R11.2 Nausea with vomiting, unspecified; E11.9 Type 2 diabetes mellitus without complications; Z90.49 Acquired absence of other specified parts of digestive tract; I10 Essential (primary) hypertension; K21.9 Gastro-esophageal reflux disease without esophagitis; F41.9 Anxiety disorder, unspecified; E66.9 Obesity, unspecified
CPT/HCPCS: 99213

== ENCOUNTER 2018-05-26 09:11 | Day surgery (SDC) | payer MEDICARE, MEDICAID ==
[2018-05-26] VITALS (11 sets, daily range): BP systolic 127–166; BP diastolic 83–99
[~2018-05-26] VITALS: Ht 157.5 cm; Wt 83.9 kg
--- NOTE | 2018-05-26 07:43 | Anethesia Preoperative Eval ---
Anesthesia Pre-op PMH/ROS General Date of Evaluation: May 26, 2018 Time of Evaluation: 07:36 Anesthesiologist: yvonne ASA Score: ASA 3 Mallampati Score Class I : Soft palate, uvula, fauces, pillars visible Class II: Soft palate, uvula, fauces visible Class III: Soft palate, base of uvula visible Class IV: Only hard plate visible Mallampati Classification: Class II Surgeon: brianna Diagnosis: bile leak, abdominal pain Surgical Procedure: ercp Anesthesia History: none Social History: alcohol use Family History: no anesthesia problems Allergies: Coded Allergies: No Known Allergies (Unverified , 12/31/12) Medications: see eMAR Patient NPO?: Yes Past Medical History Cardiovascular: Reports: HTN, other - acute coronary syndrome, chest pain Pulmonary: Reports: other - pneumonia Gastrointestinal/Genitourinary: Reports: other - acute kidney injury Endocrine: Reports: DM Hematology/Immune: Reports: other - sepsis Musculoskeletal/Integumentary: Reports: other - gout Anesthesia Pre-op Phys. Exam Physician Exam Constitutional: NAD Neurologic: CN 2-12 intact Cardiovascular: RRR Respiratory: CTA Gastrointestinal: S/NT/ND Airway Exam Mallampati Score: Class II MO: full Neck: flexible TMD: 2fb ROM: limited Anesthesia Pre-op A/P Labs Labs Test 05/26/18 10:06 White Blood Count 5.2 K/UL (4.8-10.8) Red Blood Count 4.05 M/UL (4.70-6.10) Hemoglobin 12.3 G/DL (14.2-18.0) Hematocrit 36.3 % (42.0-52.0) Mean Corpuscular Volume 90 FL (80-99) Mean Corpuscular Hemoglobin 30.5 PG (27.0-31.0) Mean Corpuscular Hemoglobin Concent 34.0 G/DL (32.0-36.0) Red Cell Distribution Width 12.8 % (11.6-14.8) Platelet Count 188 K/UL (150-450) Mean Platelet Volume 6.4 FL (6.5-10.1) Neutrophils (%) (Auto) 58.6 % (45.0-75.0) Lymphocytes (%) (Auto) 30.1 % (20.0-45.0) Monocytes (%) (Auto) 7.3 % (1.0-10.0) Eosinophils (%) (Auto) 3.3 % (0.0-3.0) Basophils (%) (Auto) 0.8 % (0.0-2.0) Sodium Level 139 MMOL/L (136-145) Potassium Level 3.9 MMOL/L (3.5-5.1) Chloride Level 103 MMOL/L (98-107) Carbon Dioxide Level 29 MMOL/L (21-32) Anion Gap 7 mmol/L (5-15) Blood Urea Nitrogen 11 mg/dL (7-18) Creatinine 0.9 MG/DL (0.55-1.30) Estimat Glomerular Filtration Rate > 60 mL/min (>60) Glucose Level 130 MG/DL (74-106) Calcium Level 9.0 MG/DL (8.5-10.1) Total Bilirubin 0.5 MG/DL (0.2-1.0) Aspartate Amino Transf (AST/SGOT) 20 U/L (15-37) Alanine Aminotransferase (ALT/SGPT) 35 U/L (12-78) Alkaline Phosphatase 69 U/L (46-116) Total Protein 6.8 G/DL (6.4-8.2) Albumin 3.8 G/DL (3.4-5.0) Globulin 3.0 g/dL Albumin/Globulin Ratio 1.3 (1.0-2.7) Studies Pre-op Studies: EKG - nsr Risk Assessment & Plan Assessment: asa3 Plan: mac Status Change Before Surgery: No Pre-Antibiotics Drug: Alexandra Burnham MD May 26, 2018 07:43
[~2018-05-26 09:11] MED LIST changes: +Atropine Inj 1mg/10ml Syr IV PRN; +DiphenhydrAMINE 50mg/ml Inj IVP PRN; +Midazolam 2mg/2ml Inj IVP PRN
[2018-05-26 10:32] LABS: BASOPHILS % (AUTO) 0.8 % (0.0-2.0); EOSINOPHILS % (AUTO) 3.3 % (0.0-3.0); HEMATOCRIT 36.3 % (42.0-52.0); HEMOGLOBIN 12.3 G/DL (14.2-18.0); LYMPHOCYTES % (AUTO) 30.1 % (20.0-45.0); MEAN CORPUSCULAR VOLUME 90 FL (80-99); MONOCYTES % (AUTO) 7.3 % (1.0-10.0); NEUTROPHILS % (AUTO) 58.6 % (45.0-75.0); PLATELET COUNT 188 K/UL (150-450); RED BLOOD COUNT 4.05 M/UL (4.70-6.10); RED CELL DISTRIBUTION WIDTH 12.8 % (11.6-14.8); WHITE BLOOD COUNT 5.2 K/UL (4.8-10.8)
[2018-05-26 10:38] LABS: ANION GAP 7 mmol/L (5-15); BLOOD UREA NITROGEN 11 mg/dL (7-18); CARBON DIOXIDE 29 MMOL/L (21-32); CHLORIDE 103 MMOL/L (98-107); CREATININE 0.9 MG/DL (0.55-1.30); POTASSIUM 3.9 MMOL/L (3.5-5.1); SODIUM 139 MMOL/L (136-145)
[2018-05-26 10:43] LABS: ALANINE AMINOTRANSFERASE 35 U/L (12-78); ALBUMIN 3.8 G/DL (3.4-5.0); ALBUMIN/GLOBULIN RATIO 1.3 (1.0-2.7); ALKALINE PHOSPHATASE 69 U/L (46-116); ASPARTATE AMINO TRANSFERASE 20 U/L (15-37); BILIRUBIN,TOTAL 0.5 MG/DL (0.2-1.0)
[2018-05-26] MEDS ORDERED: Iothalamate Meglumine 60% 30ML INJ ONE ×2 (10:44→11:36)
--- NOTE | 2018-05-26 11:01 | Pre-Procedure Note/Attestation ---
Pre-Procedure Note/Attestation Complete Prior to Procedure Planned Procedure: not applicable Procedure Narrative: ercp Indications for Procedure Pre-Operative Diagnosis: stent removal Attestation I attest that I discussed the nature of the procedure; its benefits; risks and complications; and alternatives (and the risks and benefits of such alternatives ), prior to the procedure, with the patient (or the patient's legal territory service representative). I attest that, if there was a reasonable possibility of needing a blood transfusion, the patient (or the patient's legal territory service representative) was given the [facility] standardized written summary, pursuant to the Андрей Ben Blood Safety Act ([place] Health and Safety Code # 1645, as amended). I attest that I re-evaluated the patient just prior to the surgery and that there has been no change in the patient's H&P, except as documented below: Kulwant Simeon MD May 26, 2018 11:01
--- NOTE | 2018-05-26 11:01 | Short Stay Surgery H&P ---
History of Present Illness History of Present Illness Chief Complaint see recent office note HPI Josue Pandya is a 67 year old male who was admitted on for Bio Leak And Abdominal Pain Patient History Allergies: Coded Allergies: No Known Allergies (Unverified , 12/31/12) Medication History Scheduled Allopurinol* (Allopurinol*), 300 MG ORAL DAILY, (Reported) Amlodipine Besylate* (Amlodipine Besylate*), 5 MG ORAL DAILY, (Reported) Atorvastatin Calcium* (Atorvastatin Calcium*), 40 MG ORAL BEDTIME, (Reported) Chlorthalidone* (Chlorthalidone*), 25 MG ORAL DAILY, (Reported) Omeprazole (Prilosec), 20 MG ORAL DAILY, (Reported) Tramadol Hcl* (Ultram*), 50 MG ORAL Q12HR, (Reported) Miscellaneous Medications Colchicine (Colchicine), 0.6 MG PO, (Reported) Discontinued Medications Famotidine (Pepcid), 40 MG PO DAILY Discontinued Reason: MD discontinued med Hydralazine Hcl* (Hydralazine Hcl*), 25 MG ORAL Q8HR Discontinued Reason: MD discontinued med Hydroxyzine Pamoate (Vistaril), 25 MG PO Q8HR PRN for anxiety Discontinued Reason: MD discontinued med Levofloxacin* (Levaquin*), 500 MG ORAL DAILY, (Reported) Discontinued Reason: Therapy completed Lorazepam* (Ativan*), 1 MG ORAL BID Discontinued Reason: MD discontinued med Metformin Hcl* (Metformin Hcl*), 850 MG ORAL DAILY, (Reported) Discontinued Reason: Therapy completed Metronidazole* (Flagyl*), 500 MG ORAL EVERY 8 HOURS, (Reported) Discontinued Reason: Therapy completed Ondansetron Odt* (Zofran Odt*), 4 MG BC EVERY 8 HOURS Discontinued Reason: MD discontinued med Potassium Chloride* (K-Dur*), 40 MEQ ORAL DAILY Discontinued Reason: MD discontinued med Prednisone (Prednisone), 5 MG ORAL DAILY, (Reported) Discontinued Reason: MD discontinued med Tamsulosin HCl (Flomax), 0.4 MG ORAL BEDTIME Discontinued Reason: MD discontinued med Physical Exam Vital Signs Last Vital Signs Date Time Temp Pulse Resp B/P (MAP) Pulse Ox O2 Delivery O2 Flow Rate FiO2 05/26/18 10:00 Room Air 05/26/18 09:54 97.1 67 18 144/90 97 Labs Laboratory Tests Test 05/26/18 10:06 White Blood Count 5.2 K/UL (4.8-10.8) Red Blood Count 4.05 M/UL (4.70-6.10) L Hemoglobin 12.3 G/DL (14.2-18.0) L Hematocrit 36.3 % (42.0-52.0) L Mean Corpuscular Volume 90 FL (80-99) Mean Corpuscular Hemoglobin 30.5 PG (27.0-31.0) Mean Corpuscular Hemoglobin Concent 34.0 G/DL (32.0-36.0) Red Cell Distribution Width 12.8 % (11.6-14.8) Platelet Count 188 K/UL (150-450) Mean Platelet Volume 6.4 FL (6.5-10.1) L Neutrophils (%) (Auto) 58.6 % (45.0-75.0) Lymphocytes (%) (Auto) 30.1 % (20.0-45.0) Monocytes (%) (Auto) 7.3 % (1.0-10.0) Eosinophils (%) (Auto) 3.3 % (0.0-3.0) H Basophils (%) (Auto) 0.8 % (0.0-2.0) Sodium Level 139 MMOL/L (136-145) Potassium Level 3.9 MMOL/L (3.5-5.1) Chloride Level 103 MMOL/L (98-107) Carbon Dioxide Level 29 MMOL/L (21-32) Anion Gap 7 mmol/L (5-15) Blood Urea Nitrogen 11 mg/dL (7-18) Creatinine 0.9 MG/DL (0.55-1.30) Estimat Glomerular Filtration Rate > 60 mL/min (>60) Glucose Level 130 MG/DL (74-106) H Calcium Level 9.0 MG/DL (8.5-10.1) Total Bilirubin 0.5 MG/DL (0.2-1.0) Aspartate Amino Transf (AST/SGOT) 20 U/L (15-37) Alanine Aminotransferase (ALT/SGPT) 35 U/L (12-78) Alkaline Phosphatase 69 U/L (46-116) Total Protein 6.8 G/DL (6.4-8.2) Albumin 3.8 G/DL (3.4-5.0) Globulin 3.0 g/dL Albumin/Globulin Ratio 1.3 (1.0-2.7) Plan Attestation Are the patient's medical conditions optimized for surgery? Kulwant Simeon MD May 26, 2018 11:01
[2018-05-26] MEDS ORDERED: Midazolam 2mg/2ml Inj ONE (11:24)
[2018-05-26] MEDS ORDERED: Lidocaine 1% MPF 10mg/ml 5ml ONE (11:24)
[2018-05-26] MEDS ORDERED: Propofol 200mg/20ml IV ONE (11:24)
[2018-05-26] MEDS ORDERED: fentaNYL 100 mcg/2 mL IV ONE (11:24)
--- NOTE | 2018-05-26 12:35 | Immediate Post-Op Evaluation ---
Immediate Post-Op Evalulation Immediate Post-Op Evalulation Procedure: ercp, stent removal, sphincterotomy Date of Evaluation: May 26, 2018 Time of Evaluation: 12:20 IV Fluids: 500ml 0.9ns Blood Products: none Estimated Blood Loss: negligible Blood Pressure Systolic: 143 Blood Pressure Diastolic: 93 Pulse Rate: 67 Respiratory Rate: 18 O2 Sat by Pulse Oximetry: 99 Temperature (Fahrenheit): 97.7 Pain Score (1-10): 0 Nausea: No Vomiting: No Complications none Patient Status: awake, reacts, patent Hydration Status: adequate Drug: Alexandra Burnham MD May 26, 2018 12:35
--- NOTE | 2018-05-26 12:37 | 48 Hour Post Anesthesia Eval ---
Post Anesthesia Evaluation Procedure: ercp, stent removal, sphincterotomy Date of Evaluation: May 26, 2018 Time of Evaluation: 12:22 Blood Pressure Systolic: 133 0: 86 Pulse Rate: 68 Respiratory Rate: 18 Temperature (Fahrenheit): 97.7 O2 Sat by Pulse Oximetry: 99 Airway: patent Nausea: No Vomiting: No Pain Intensity: 0 Hydration Status: adequate Cardiopulmonary Status: stable Mental Status/LOC: patient returned to baseline Post-Anesthesia Complications: none Follow-up care needed: N/A Alexandra Ayala MD May 26, 2018 12:37
[2018-05-26] MEDS: fentaNYL 100 mcg/2 mL IV PRN ×2 (12:46→13:02)
--- NOTE | 2018-05-26 13:36 | Endoscopy Procedure Note ---
Endoscopy Procedure Note General Indication for Procedure: stent removal Procedures Performed: ERCP Operative Findings/Diagnosis: same Specimen: none Pt Tolerated Procedure Well: Yes Estimated Blood Loss: none Anesthesia Anesthesiologist: yvonne Anesthesia: MAC Inserted Devices Implant(s) used?: No GI Core Measures 50 yrs or older w/o bx or poly: Not Applicable 10yrs. F/U not recommended: Not Applicable Kulwant Simeon MD May 26, 2018 13:36
--- NOTE | 2018-05-26 17:48 | Cardiology Report ---
APPROVED REPORT EKG Measurement Heart [id number] Normal sinus rhythm Normal ECG
--- NOTE | 2018-05-26 19:45 | Procedure Note ---
DATE OF PROCEDURE: 05/26/2018 SURGEON: Kulwant Simeon M.D. PROCEDURE: ERCP with stent removal and sphincterotomy, balloon occlusion cholangiogram. [facility]STR[facility]: Olympus adult flexible ERCP scope. REASON FOR PROCEDURE: The procedure, risks, benefits, and possible consequences, including hemorrhage, aspiration, perforation and infection, and alternative treatments, were explained to the patient/legal guardian by Dr. Kulwant Simeon and the patient/legal guardian understood and accepted these risks. INDICATION: Biliary stent, history of bile leak. DESCRIPTION OF PROCEDURE: After informed consent was obtained and the patient was adequately sedated, the Olympus ERCP scope was advanced from the mouth into the second portion of duodenum. Using a snare, this stent was removed successfully without any complication. Then, a balloon was used to cannulate the common bile duct. Initial cholangiogram showed no further bile leak from the common bile duct. We swept the duct multiple times, removed some sludge from distal common bile duct. No obvious stones. Then, we realized that the ampulla needs to have extension of the sphincterotomy because the drainage was not as adequate as we wanted to be. At this time, we switched to the sphincterotome and performed 90% sphincterotomy without any complication. The patient tolerated the procedure without complication. SUMMARY OF FINDINGS: 1. Status post ERCP, stent removal. 2. Balloon occlusion cholangiogram. 3. Extension of the sphincterotomy. RECOMMENDATIONS: The patient to be discharged when stable and follow as an outpatient. Kulwant Simeon M.D. DR: TENNILLE JOB#: [id number] CC:
== END 2018-05-26 14:25 | disposition home or self-care (01) ==
LOC: GAS 09:11
DX: K83.8 Other specified diseases of biliary tract (principal); I10 Essential (primary) hypertension; E11.9 Type 2 diabetes mellitus without complications; M10.9 Gout, unspecified
CPT/HCPCS: 36415; 43262; 43264; 43275; 80053; 82962; 85025; 93005; J2250; J2405; J2704; J3010; Q9961; 94003; 94150

== ENCOUNTER 2018-06-12 13:01 | Outpatient (CLI) | payer MEDICARE, MEDICAID ==
[2018-06-12 13:00] VITALS: BP 128/81
[~2018-06-12 13:01] MED LIST changes: -Atropine Inj 1mg/10ml Syr IV PRN; -DiphenhydrAMINE 50mg/ml Inj IVP PRN; -Midazolam 2mg/2ml Inj IVP PRN
--- NOTE | 2018-06-12 15:31 | GI Progress Note ---
Assessment/Plan Problems: (1) Abdominal pain ICD Codes: R10.9 - Unspecified abdominal pain SNOMED: 29198396 (2) Nausea & vomiting ICD Codes: R11.2 - Nausea with vomiting, unspecified SNOMED: 66533080 Status: stable Status Narrative Seen with Dr. Simeon Assessment/Plan Abdominal ultrasound ordered to evaluate for fatty liver Discussed with the patient about possible colonoscopy during next visit Return to clinic after imaging study above The patient was seen and examined at bedside and all new and available data was reviewed in the patients chart. I agree with the above findings, impression and plan. (Patient seen earlier today. Signature stamp does not reflect patient encounter time.). - Kulwant Simeon MD Subjective Subjective Patient status post ERCP with stent removal Still has complaint of abdominal pain, right upper quadrant, mainly severe last night Objective Temperature 97.7 blood pressure 128/81 Pulse 88 97% room air General Appearance: WD/WN, no apparent distress, alert Cardiovascular: normal rate Respiratory/Chest: normal breath sounds, no respiratory distress Abdominal Exam: normal bowel sounds, non tender, soft Extremities: normal range of motion, non-tender Jimbo Ramos NP Jun 12, 2018 15:31
== END 2018-06-12 13:31 | disposition home or self-care (01) ==
LOC: PAN 13:01
DX: R10.9 Unspecified abdominal pain (principal); R11.2 Nausea with vomiting, unspecified
CPT/HCPCS: 99212

== ENCOUNTER → 2018-06-19 | Outpatient (CLI) | payer MEDICARE, MEDICAID ==
--- NOTE | 2018-06-19 13:20 | Diagnostic Imaging Report ---
Indication: History of cholecystectomy. Abdominal pain Technique: Grayscale and duplex Doppler imaging of the abdomen performed. Comparison: CT 03/20/2018 Findings: The patient had a biliary stent and prior cholecystectomy. No obvious fluid collection demonstrated in the area of the gallbladder fossa. There is no biliary ductal dilatation identified. CBD measures about 6 mm. The CBD stent (if present) is not seen on this examination. Small nonshadowing echogenic foci noted. These are not likely to be stones. There is no hydronephrosis. Pancreas and aorta are poorly seen. Spleen is normal in size. Liver is unremarkable. Portal vein is patent by Doppler. IMPRESSION: No acute findings. Status post cholecystectomy. No biliary ductal dilatation or abnormal fluid collections demonstrated on this study.
== END | disposition home or self-care (01) ==
LOC: ULS 09:19
DX: R10.9 Unspecified abdominal pain (principal); Z90.49 Acquired absence of other specified parts of digestive tract
CPT/HCPCS: 76700

== ENCOUNTER 2018-09-07 14:05 | Outpatient (CLI) | payer MEDICARE, MEDICAID ==
--- NOTE | 2018-09-07 15:03 | General Progress Note ---
Assessment/Plan Problem List: (1) S/P laparoscopic cholecystectomy ICD Codes: Z90.49 - Acquired absence of other specified parts of digestive tract SNOMED: 42549497, 78712535, 243538459 (2) Abdominal pain ICD Codes: R10.9 - Unspecified abdominal pain SNOMED: 16783890 (3) Diabetes mellitus ICD Codes: E11.9 - Type 2 diabetes mellitus without complications SNOMED: 89369694 (4) History of hypertension ICD Codes: Z86.79 - Personal history of other diseases of the circulatory system SNOMED: 907297883 Assessment/Plan: s/p ercp and stent removal us reviewed flank pain tyl prn last cln per patient 1 year ago Subjective ROS Limited/Unobtainable: Yes Allergies: Coded Allergies: No Known Allergies (Unverified , 12/31/12) Objective General Appearance: alert EENT: normal ENT inspection Neck: supple Cardiovascular: normal rate Respiratory/Chest: lungs clear Abdomen: normal bowel sounds, non tender, soft Extremities: non-tender Kulwant Simeon MD Sep 07, 2018 15:03
== END 2018-09-07 15:51 | disposition home or self-care (01) ==
LOC: PAN 14:05
DX: R10.9 Unspecified abdominal pain (principal); E11.9 Type 2 diabetes mellitus without complications; I10 Essential (primary) hypertension; Z90.49 Acquired absence of other specified parts of digestive tract
CPT/HCPCS: 99212

== ENCOUNTER 2018-09-18 15:10 | Emergency (ER) | payer MEDICAID, MEDICARE ==
[~2018-09-18] VITALS: Ht 162.6 cm; Wt 88.5 kg
[2018-09-18 15:14] VITALS: BP 167/93
--- NOTE | 2018-09-18 15:22 | NUR ---
ED Nurse Note: Pt. AAOx4. ambulatory. came in to Er due to lower back pain since yesterday. denies trauma
--- NOTE | 2018-09-18 15:55 | Emergency Room Report ---
History of Present Illness General Chief Complaint: Lower Back Pain or Injury Present Illness HPI 68-year-old male presents to the emergency department complaining of acute onset of 7 out of 10 in severity pain to the right side of the posterior back since yesterday. Patient denies trauma or fall. Patient reports that he took tramadol which did not provide any relief. Patient states that he was having intermittent exacerbations of his pain and that he had some radiation towards the flank area. Patient denies fevers or chills, nausea or vomiting, urinary frequency, urgency, dysuria or hematuria. Denies history of renal calculi. Denies night sweats or hx of ca. denies recent spinal procedures. Denies numbness tingling or loss of sensation or gross motor movements of the extremities, incontinence of bowel or bladder. Denies CP, Palpitations, LOC, AMS , dizziness, Changes in Vision, weakness or a sudden severe headache. pain exacerbated with getting up and down, walking and sometimes standing. Denies relieving factors. Allergies: Coded Allergies: No Known Allergies (Unverified , 12/31/12) Patient History Past Medical History: see triage record Past Surgical History: none Pertinent Family History: none Reviewed Nursing Documentation: PMH: Agreed; PSxH: Agreed Nursing Documentation-PMH Hx Cardiac Problems: Yes Hx Hypertension: Yes Hx Diabetes: Yes Hx Cancer: No Hx Gastrointestinal Problems: Yes - GASTRITIS Hx Dialysis: No Hx Neurological Problems: No Hx Cerebrovascular Accident: No Hx Seizures: No Review of Systems All Other Systems: negative except mentioned in HPI Physical Exam Vital Signs Date Time Temp Pulse Resp B/P (MAP) Pulse Ox O2 Delivery O2 Flow Rate FiO2 09/18/18 15:14 98.1 72 16 94 Room Air 09/18/18 15:14 167/93 Sp02 EP Interpretation: reviewed, normal General Appearance: no apparent distress, alert, GCS 15, non-toxic Head: normocephalic, atraumatic Eyes: bilateral eye normal inspection, bilateral eye PERRL ENT: hearing grossly normal, normal voice Neck: full range of motion Respiratory: lungs clear, normal breath sounds, speaking full sentences Cardiovascular #1: regular rate, rhythm, no edema Gastrointestinal: normal bowel sounds, non tender, soft Rectal: deferred Genitourinary: normal inspection, CVA tenderness (R) Musculoskeletal: back normal, gait/station normal, normal range of motion, tender - Right sided lumbar paraspinal musculature tenderness to palpation,with some midline TTP, no obvious step-off Neurologic: alert, oriented x3, responsive, motor strength/tone normal, sensory intact, normal gait, speech normal, grossly normal Psychiatric: judgement/insight normal Skin: normal color, no rash, warm/dry, well hydrated Medical Decision Making PA Attestation Dr. Mao is my supervising Physician whom patient management has been discussed with. Diagnostic Impression: Primary Impression: Back pain Qualified Codes: M54.5 - Low back pain ER Course 68-year-old male presents to the emergency department complaining of acute onset of 7 out of 10 in severity pain to the right side of the posterior back since yesterday. Patient denies trauma or fall. Patient reports that he took tramadol which did not provide any relief. Patient states that he was having intermittent exacerbations of his pain and that he had some radiation towards the flank area. Patient denies fevers or chills, nausea or vomiting, urinary frequency, urgency, dysuria or hematuria. Denies history of renal calculi. Denies night sweats or hx of ca. denies recent spinal procedures. Denies numbness tingling or loss of sensation or gross motor movements of the extremities, incontinence of bowel or bladder. Denies CP, Palpitations, LOC, AMS , dizziness, Changes in Vision, weakness or a sudden severe headache. pain exacerbated with getting up and down, walking and sometimes standing. Denies relieving factors. Ddx considered but are not limited to Fracture, dislocation, contusion, Sprain/ Strain/Spasm, herniated disk, degenerative changes, epidural abscess, or neoplastic mets, renal calculi Vital signs: are WNL, pt. is afebrile H&PE are most consistent with most likely soft tissue muscle injury of the back however due to character of pain will r/o renal calculi - no saddle anesthesia, or neurological deficits, no urinary retention or incontinence. ORDERS: - CT Abdomen and Pelvis: unremarkable - UA: some RBC's otherwise WNL ED INTERVENTIONS: - lidoderm TP -Soma -Toradol IV Labs Test 09/18/18 16:55 Urine Color Pale yellow Urine Appearance Clear Urine pH 7 (4.5-8.0) Urine Specific [place] 1.005 (1.005-1.035) Urine Protein 1+ (NEGATIVE) Urine Glucose (UA) Negative (NEGATIVE) Urine Ketones Negative (NEGATIVE) Urine Blood Negative (NEGATIVE) Urine Nitrite Negative (NEGATIVE) Urine Bilirubin Negative (NEGATIVE) Urine Urobilinogen Normal MG/DL (0.0-1.0) Urine Leukocyte Esterase Negative (NEGATIVE) Urine RBC 0-2 /HPF (0 - 0) Urine WBC 0-2 /HPF (0 - 0) Urine Squamous Epithelial Cells None /LPF (NONE/OCC) Urine Bacteria Few /HPF (NONE) CT/MRI/US Diagnostic Results CT/MRI/US Diagnostic Results : Imaging Test Ordered: CT Abdomen and Pelvis Impression unremarkable other than Left unilateral L5 spondylolysis. --Per official radiology report- Please see report for specific details. Last Vital Signs Date Time Temp Pulse Resp B/P (MAP) Pulse Ox O2 Delivery O2 Flow Rate FiO2 09/18/18 15:14 98.1 72 16 167/93 94 Room Air Status: improved Disposition: HOME, SELF-CARE Condition: Stable Scripts Lidocaine (Lidoderm) 1 Each Adh..patch 1 PATCH TOPIC DAILY, #30 PATCH 0 Refills Patch(es) may remain in place for up to 12 hours in any 24-hour period. Prov: Marion Lambert 09/18/18 Methocarbamol* (ROBAXIN-750*) 750 Mg Tablet 750 MG PO QID, #28 TAB 0 Refills Prov: Marion Lambert 09/18/18 Patient Instructions: Back Pain, Adult Additional Instructions: Take medications as directed. Follow up with a Primary Care Provider in 3-5 days, even if your symptoms have resolved. --Please review list of primary care clinics, if you do not already have a primary care provider Return sooner to ED if new symptoms occur, or current symptoms become worse. Do not drink alcohol, drive, or operate heavy machinery while taking Robaxin as this may cause drowsiness. - Please note that this Emergency Department Report was dictated using [employer] production inspector technology software, occasionally this can lead to erroneous entry secondary to interpretation by the dictation equipment. Marion Lambert September 18, 2018 15:55
--- NOTE | 2018-09-18 15:59 | NUR ---
ED Nurse Note: Pt. went down to CT
--- NOTE | 2018-09-18 16:31 | Diagnostic Imaging Report ---
Indication: Abdominal pain Technique: Continuous helical transaxial imaging of the abdomen and pelvis was obtained from the lung bases to the pubic symphysis. No intravenous contrast was administered. Coronal 2-D reformats were also obtained. Automatic Exposure Control was utilized. Total Dose length Product (DLP): 815.[address] Dose Index Volume (CTDIvol): 16.58 mGy Comparison: 6 03/19/2018 Findings: The lung bases are clear. Cholecystectomy noted. There is no nephrolithiasis or hydronephrosis appreciated. Lung bases are clear. Appendix is normal. Bladder is unremarkable. There is no free fluid. Mild aortoiliac calcifications are present. Degenerative disc disease L5-S1 noted. There is facet arthropathy at this level. There is a left unilateral L5 pars interarticularis defect. IMPRESSION: No acute findings identified. Normal appendix Status post cholecystectomy Atherosclerotic disease Left unilateral L5 spondylolysis. The CT scanner at [facility] is accredited by the [employer] and the scans are performed using dose optimization techniques as appropriate to a performed exam including Automatic Exposure control.
[2018-09-18 17:10] LABS: APPEARANCE,URINE CLEAR; BILIRUBIN, URINE NEGATIVE (NEGATIVE); COLOR,URINE PALE YELLOW; GLUCOSE, URINE (UA) NEGATIVE (NEGATIVE); KETONES,URINE NEGATIVE (NEGATIVE); LEUKOCYTE ESTERASE ,URINE NEGATIVE (NEGATIVE); NITRITE,URINE NEGATIVE (NEGATIVE); PH,URINE 7 (4.5-8.0); PROTEIN,URINE 1+ (NEGATIVE); UROBILINOGEN,URINE NORMAL MG/DL (0.0-1.0)
[2018-09-18 19:03] VITALS: BP 158/69
[2018-09-18] MEDS ORDERED: Ketorolac 30mg Inj IV ONE (19:30)
[2018-09-18] MEDS ORDERED: LIDODERM700 M1 TOPIC (19:35)
[2018-09-18] MEDS ORDERED: ROBAXIN-750750 MG PO (19:35)
--- NOTE | 2018-09-18 19:45 | NUR ---
ED Nurse Note: pt cleared to be d/c per ER provider, pt discharge and aftercare instruction provided w/ prescription, pt education done via discussion and handout, pt advised to follow up with pcp or return to ed if changes in condition, pt verbalized understanding and agrees with plan, vss, ambulatory w/ steady gait, left w/ all belongings, pt states his son is driving him home. ID band removed. iv d/c.
[2018-09-18 19:46] VITALS: BP 129/87
== END 2018-09-18 19:47 | disposition home or self-care (01) ==
LOC: EMR 16:04
DX: M54.5 Low back pain (principal); I10 Essential (primary) hypertension; E11.9 Type 2 diabetes mellitus without complications; M47.9 Spondylosis, unspecified; Z90.49 Acquired absence of other specified parts of digestive tract; M51.37 Other intervertebral disc degeneration, lumbosacral region
CPT/HCPCS: 74176; 81003; 96361; 96374; 99284; J1885

== ENCOUNTER 2019-07-07 17:32 | Inpatient (IN) | payer MEDICARE, MEDICAID ==
[~2019-07-07] VITALS: Ht 160 cm; Wt 90.3 kg
[~2019-07-07 17:32] MED LIST changes: +BENAZEPRIL HCL20 MG ORAL; +FEROSUL325 M1 PO; +HYDROXYZINE HCL25 M1 PO; +LIDODERM700 M1 TOPIC; +LIPITOR80 MG ORAL; +LORATADINE10 M1 PO; +MELOXICAM15 MG PO; +ROBAXIN-750750 MG PO; +SENNA8.6 M2 PO; +VITAMIN C500 M1 ORAL; +VITAMIN D10000 UNIT PO
[2019-07-07 17:55] VITALS: BP 171/68
--- NOTE | 2019-07-07 17:55 | NUR ---
ED Nurse Note: Patient walked in to Er c/o severe abdominal pain. Stated was here at [facility] ER 1 month ago for the same reason, and was DC with medications. Per patient today pain was unberable, had BM yesterday. Patient AAOx4, VSS at this time.
--- NOTE | 2019-07-07 18:04 | Emergency Room Report ---
History of Present Illness General Chief Complaint: Abdominal Pain Source: Patient, Medical Record Present Illness HPI Presents with lower abdominal pain that is worsened over a month. When he gets that it is a 7/10. It causes weakness and he actually fell because of weakness in his legs that occurs with that. The patient states that when he is supine there is no abdominal pain. When he stands up the pain is bilateral radiating from the back around the lower abdomen and crampy. He felt it was worse with senna and iron. He stopped these medications and the pain is persisted. When he fell he scraped his right forearm. There is no loss of consciousness. He has difficulty urinating when he standing. He denies any lower extremities numbness. There are no fevers or chills. There is no vomiting or diarrhea. He denies dysuria. Patient is diabetic on metformin. He denies polyuria or polydipsia. Patient had a lung biopsy several years ago. He states he was never told the results. 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 The patient used to binge drink. He no longer uses alcohol. Patient admitted May of this year. Discharge diagnoses: (1) Nausea & vomiting (2) History of hypertension (3) Diabetes mellitus (4) Abdominal pain (5) Gout Ultrasound performed during that hospitalization: Fatty liver. Status post cholecystectomy. Allergies: Coded Allergies: No Known Allergies (Unverified , 12/31/12) Patient History Past Medical History: see triage record, old chart reviewed Past Surgical History: beronica, other - Lung biopsy Social History: Denies: smoking, alcohol use - Prior, drug use Social History Narrative with son Reviewed Nursing Documentation: PMH: Agreed; PSxH: Agreed Nursing Documentation-PMH Past Medical History: No History, Except For Hx Cardiac Problems: Yes - Bilateral knee surgery Hx Hypertension: Yes Hx Pacemaker: No Hx Asthma: No Hx COPD: No Hx Diabetes: Yes Hx Cancer: No Hx Gastrointestinal Problems: Yes - GASTRITIS Hx Dialysis: No Hx Neurological Problems: No Hx Cerebrovascular Accident: No Hx Seizures: No Review of Systems All Other Systems: negative except mentioned in HPI Physical Exam Vital Signs Date Time Temp Pulse Resp B/P (MAP) Pulse Ox O2 Delivery O2 Flow Rate FiO2 07/07/19 17:39 98.8 85 18 171/68 (102) 95 Room Air Sp02 EP Interpretation: reviewed, normal General Appearance: well appearing, no apparent distress, GCS 15 Head: normocephalic Eyes: bilateral eye normal inspection, bilateral eye PERRL, bilateral eye EOMI ENT: moist mucus membranes Neck: supple Respiratory: lungs clear, normal breath sounds Cardiovascular #1: regular rate, rhythm Cardiovascular #2: 2+ radial (R) Gastrointestinal: normal inspection, normal bowel sounds, non tender, no mass, non-distended, overweight Genitourinary: no CVA tenderness Musculoskeletal: back normal, normal range of motion, gait/station normal Neurologic: alert, motor strength/tone normal - Supine, oriented x3, sensory intact Psychiatric: mood/affect normal Skin: warm/dry, abrasion - Right forearm Medical Decision Making Diagnostic Impression: Primary Impression: T8 lytic lesion Additional Impressions: Abdominal pain Qualified Codes: R10.30 - Lower abdominal pain, unspecified Lower extremity weakness Qualified Codes: R29.898 - Other symptoms and signs involving the musculoskeletal system Hyperglycemia ER Course Patient presents with acute abdominal pain with weakness and edema. Differential includes diverticulitis, pancreatitis, urinary tract infection, aortic aneurysm amongst others. Evaluation with EKG, CT abdomen and pelvis and labs. EKG no injury. White count normal. Slight hyperglycemia. Urinalysis clear. CT abdomen and pelvis as below. T8 lytic lesion, concern over possible compressive phenomenon. Admit for evaluation and MRI. Due to the indolent nature of the pain and pain relief when supine doubt infectious etiology. Emergent MRI is not indicated. However MRI needs to be performed. Improved with treatment. ESR and C reactive protein negative. (Against infectious etiology.) Laboratory Tests Test 07/07/19 18:00 White Blood Count 6.6 K/UL (4.8-10.8) Red Blood Count 4.27 M/UL (4.70-6.10) L Hemoglobin 13.1 G/DL (14.2-18.0) L Hematocrit 37.1 % (42.0-52.0) L Mean Corpuscular Volume 87 FL (80-99) Mean Corpuscular Hemoglobin 30.7 PG (27.0-31.0) Mean Corpuscular Hemoglobin Concent 35.3 G/DL (32.0-36.0) Red Cell Distribution Width 12.4 % (11.6-14.8) Platelet Count 177 K/UL (150-450) Mean Platelet Volume 6.7 FL (6.5-10.1) Neutrophils (%) (Auto) 58.2 % (45.0-75.0) Lymphocytes (%) (Auto) 32.6 % (20.0-45.0) Monocytes (%) (Auto) 5.5 % (1.0-10.0) Eosinophils (%) (Auto) 2.7 % (0.0-3.0) Basophils (%) (Auto) 1.1 % (0.0-2.0) Prothrombin Time 9.9 SEC (9.30-11.50) Prothrombin Time INR 0.9 (0.9-1.1) Activated Partial Thromboplast Time 24 SEC (23-33) Urine Color Pale yellow Urine Appearance Slightly cloudy Urine pH 6.5 (4.5-8.0) Urine Specific [place] 1.015 (1.005-1.035) Urine Protein 2+ (NEGATIVE) H Urine Glucose (UA) Negative (NEGATIVE) Urine Ketones Negative (NEGATIVE) Urine Blood 2+ (NEGATIVE) H Urine Nitrite Negative (NEGATIVE) Urine Bilirubin Negative (NEGATIVE) Urine Urobilinogen Normal MG/DL (0.0-1.0) Urine Leukocyte Esterase Negative (NEGATIVE) Urine RBC 0 /HPF (0 - 0) Urine WBC 2-4 /HPF (0 - 0) Urine Squamous Epithelial Cells Occasional /LPF Urine Bacteria Few /HPF (NONE) Sodium Level 141 MMOL/L (136-145) Potassium Level 4.4 MMOL/L (3.5-5.1) Chloride Level 103 MMOL/L (98-107) Carbon Dioxide Level 28 MMOL/L (21-32) Anion Gap 11 mmol/L (5-15) Blood Urea Nitrogen 16 mg/dL (7-18) Creatinine 1.0 MG/DL (0.55-1.30) Estimate Glomerular Filtration Rate > 60 mL/min (>60) Glucose Level 192 MG/DL (74-106) H Calcium Level 9.3 MG/DL (8.5-10.1) Total Bilirubin 0.3 MG/DL (0.2-1.0) Aspartate Amino Transferase (AST) 23 U/L (15-37) Alanine Aminotransferase (ALT) 46 U/L (12-78) Alkaline Phosphatase 82 U/L (46-116) Total Creatine Kinase 217 U/L (26-308) Troponin I 0.021 ng/mL (0.000-0.056) Pro-B-Type Natriuretic Peptide 177 pg/mL (0-125) H Total Protein 7.0 G/DL (6.4-8.2) Albumin 4.1 G/DL (3.4-5.0) Globulin 2.9 g/dL Albumin/Globulin Ratio 1.4 (1.0-2.7) Lipase 167 U/L (73-393) EKG Diagnostic Results Rate: normal Rhythm: NSR ST Segments: no acute changes Rhythm Strip Diag. Results EP Interpretation: yes Rhythm: NSR, no PVC's, no ectopy CT/MRI/US Diagnostic Results CT/MRI/US Diagnostic Results : Imaging Test Ordered: CT abd/pelvis Impression T8 lytic lesion Status post cholecystectomy. No bowel dilation or free air. Fecalized appearing material in nondilated distal small bowel suggests possible slow, delayed, bowel transit. Normal caliber appendix without secondary signs. Possible mild diffuse bladder wall ill-definition and stranding at the seminal vesicles and prostate may be inflammatory or infectious, clinically correlate. Symmetric appearing nephrograms without hydronephrosis. Lytic lesion at T8 and associated right paraspinal intercostal and possibly intraspinal appearing soft tissue lesion again noted axial 8 and coronal 57. Last Vital Signs Date Time Temp Pulse Resp B/P (MAP) Pulse Ox O2 Delivery O2 Flow Rate FiO2 07/08/19 00:15 97.6 88 18 148/89 (108) 97 07/07/19 23:40 Room Air Status: improved Disposition: ADMITTED INPATIENT Condition: Serious Harvey Hough MD Jul 07, 2019 18:04
[2019-07-07 18:14] LABS: BASOPHILS % (AUTO) 1.1 % (0.0-2.0); EOSINOPHILS % (AUTO) 2.7 % (0.0-3.0); HEMATOCRIT 37.1 % (42.0-52.0); HEMOGLOBIN 13.1 G/DL (14.2-18.0); LYMPHOCYTES % (AUTO) 32.6 % (20.0-45.0); MEAN CORPUSCULAR VOLUME 87 FL (80-99); MONOCYTES % (AUTO) 5.5 % (1.0-10.0); NEUTROPHILS % (AUTO) 58.2 % (45.0-75.0); PLATELET COUNT 177 K/UL (150-450); RED BLOOD COUNT 4.27 M/UL (4.70-6.10); RED CELL DISTRIBUTION WIDTH 12.4 % (11.6-14.8); WHITE BLOOD COUNT 6.6 K/UL (4.8-10.8)
[2019-07-07] MEDS ORDERED: Morphine Sulfate 2mg/ml Inj(IV/IM USE ONLY) IVP ONE (18:15)
[2019-07-07] MEDS ORDERED: Omnipaque-300 100ml vial INJ PRN (18:15)
[2019-07-07 18:22] LABS: APPEARANCE,URINE SLIGHTLY CLOUDY; BILIRUBIN, URINE NEGATIVE (NEGATIVE); COLOR,URINE PALE YELLOW; GLUCOSE, URINE (UA) NEGATIVE (NEGATIVE); KETONES,URINE NEGATIVE (NEGATIVE); LEUKOCYTE ESTERASE ,URINE NEGATIVE (NEGATIVE); NITRITE,URINE NEGATIVE (NEGATIVE); PH,URINE 6.5 (4.5-8.0); PROTEIN,URINE 2+ (NEGATIVE); UROBILINOGEN,URINE NORMAL MG/DL (0.0-1.0)
[2019-07-07 18:23] LABS: INR 0.9 (0.9-1.1)
[2019-07-07 19:05] LABS: ANION GAP 11 mmol/L (5-15); BLOOD UREA NITROGEN 16 mg/dL (7-18); CALCIUM 9.3 MG/DL (8.5-10.1); CARBON DIOXIDE 28 MMOL/L (21-32); CHLORIDE 103 MMOL/L (98-107); POTASSIUM 4.4 MMOL/L (3.5-5.1); SODIUM 141 MMOL/L (136-145)
[2019-07-07 19:10] LABS: ALANINE AMINOTRANSFERASE 46 U/L (12-78); ALBUMIN 4.1 G/DL (3.4-5.0); ALBUMIN/GLOBULIN RATIO 1.4 (1.0-2.7); ALKALINE PHOSPHATASE 82 U/L (46-116); ASPARTATE AMINO TRANSFERASE 23 U/L (15-37); BILIRUBIN,TOTAL 0.3 MG/DL (0.2-1.0); CREATINE KINASE 217 U/L (26-308)
--- NOTE | 2019-07-07 19:15 | NUR ---
ED Nurse Note: Report received from JANICE Gibson. Pt is resting in bed at this time. No acute distress noted. Awaiting on CT. Will continue to monitor.
--- NOTE | 2019-07-07 19:56 | NUR ---
ED Nurse Note: Pt taken to CT.
--- NOTE | 2019-07-07 20:50 | Diagnostic Imaging Report ---
History: ABD PAIN Exam: CT ABDOMEN + PELVIS With Contrast Technique more: CTDI is 11.4 mGy and DLP is 545.60 mGy-cm. Technique more: One or more of the following dose reduction techniques were used: automated exposure control, adjustment of the mA and/or kV according to patient size, use of iterative reconstruction technique. Comparison: 06/02/2019 FINDINGS: The lung bases are clear. Abdominal solid organs and abdominal aorta appear within limits. Status post cholecystectomy. No bowel dilation or free air. Fecalized appearing material in nondilated distal small bowel suggests possible slow, delayed, bowel transit. Normal caliber appendix without secondary signs. Possible mild diffuse bladder wall ill- definition and stranding at the seminal vesicles and prostate may be inflammatory or infectious, clinically correlate. Symmetric appearing nephrograms without hydronephrosis. No free fluid. Lumbar spondylosis and L5 spondylolysis again noted. Lytic lesion at T8 and associated right paraspinal intercostal and possibly intraspinal appearing soft tissue lesion again noted axial 8 and coronal 57. IMPRESSION: Status post cholecystectomy. No bowel dilation or free air. Fecalized appearing material in nondilated distal small bowel suggests possible slow, delayed, bowel transit. Normal caliber appendix without secondary signs. Possible mild diffuse bladder wall ill-definition and stranding at the seminal vesicles and prostate may be inflammatory or infectious, clinically correlate. Symmetric appearing nephrograms without hydronephrosis. Lytic lesion at T8 and associated right paraspinal intercostal and possibly intraspinal appearing soft tissue lesion again noted axial 8 and coronal 57.
--- NOTE | 2019-07-07 22:00 | NUR ---
ED Nurse Note: Pt resting in bed at this time. No acute distress noted. Pt family bedside. Pt aware of admission and agrees. Awaiting on bed at this time.
--- NOTE | 2019-07-07 23:00 | NUR ---
ED Nurse Note: Pt own meds locked in medication box in ER medication room.
--- NOTE | 2019-07-07 23:05 | NUR ---
ED Nurse Note: Pt BP elevated at 159/105. ERMD aware, will carry out medication order prior to transporting patient to unit.
[2019-07-07 23:10] VITALS: BP 159/105
[2019-07-07 23:40] VITALS: BP 154/84
--- NOTE | 2019-07-07 23:40 | NUR ---
ED Nurse Note: Report given to JANICE Isabel. RN aware of pt BP.
--- NOTE | 2019-07-07 23:50 | NUR ---
ED Nurse Note: Pt stable for transfer to floor at this time per ERMD. No acute distress noted. Pt is asymptomatic with charted BP. Pt is aaox4. Pt taken to unit via gurney by [employer]. All belongings sent with pt.
[2019-07-08 00:15] VITALS: BP 148/89
[2019-07-08] MEDS: NovoLOG Insulin Flexpen SUBQ SCH ×4 (01:51→18:00)
[2019-07-08] MEDS: Morphine Sulfate 2mg/ml Inj(IV/IM USE ONLY) IVP PRN ×2 (01:54→10:33)
[2019-07-08 04:00] VITALS: BP 127/80
[2019-07-08] MEDS ORDERED: NovoLOG Insulin Flexpen SUBQ SCH (06:30)
--- NOTE | 2019-07-08 07:00 | NUR ---
nurse's notes: admission assessment done; orders initiated; no skin issues; ambulates with cane; need standby assist due to pain radiating to the lower extremities; polish speaking only but alert and oriented; kept npo; no pain at this time.
--- NOTE | 2019-07-08 07:30 | NUR ---
NURSE NOTES: Received report from Eden CAMACHO. Patient is awake and oriented, no acute distress noted, reporting abdominal discomfort in lower abdomen, patient noted to be distended, patient stated his last BM was yesterday. IV intact, patent, running IVF per order. Patient updated on plan of care for the day. Patient's own cane at bedside. Fall precautions maintained. Side rails upx2, bed low and locked, call light within reach.
[2019-07-08 08:00] VITALS: BP 136/83
[2019-07-08] MEDS ORDERED: Benazepril 10mg tab ORAL SCH (09:00)
[2019-07-08] MEDS ORDERED: Fleet's Enema 133ml RECTAL SCH (09:30)
[2019-07-08 12:00] VITALS: BP 151/86
--- NOTE | 2019-07-08 13:45 | NUR ---
NURSE NOTES: Patient had large and formed bowel movement.
--- NOTE | 2019-07-08 14:45 | History and Physical Report ---
DATE OF ADMISSION: 07/07/2019 HISTORY OF PRESENT ILLNESS: This is 69-year-old male who came to the emergency room for having abdominal pain, nausea, vomiting, unable to walk. The patient denies any fever or chills. He is currently lying in bed and his stomach distended and very distended and diffuse tenderness. PAST MEDICAL HISTORY: Significant for hypertension, obesity, arthritis. MEDICATIONS: See the list. ALLERGIES: NKA. FAMILY HISTORY: Noncontributory. SOCIAL HISTORY: Lives at home with the family. Denies any smoking and drinking. Denies any illegal drugs. REVIEW OF SYSTEMS: Generalized weakness, tired, fatigue, abdominal pain, unable to walk. PHYSICAL EXAMINATION: VITAL SIGNS: Blood pressure is 113/70, pulse 84, respirations 18 to 24, temperature no fever. HEENT: NAD. CHEST: Bilaterally clear. CARDIOVASCULAR: Regular rhythm. No gallop. No murmur. ABDOMEN: Distended. Decreased bowel sounds. EXTREMITIES: CCE. ASSESSMENT: 1. Small bowel obstruction. 2. Abdominal pain. 3. Recurrent nausea, vomiting. PLAN: We will keep him NPO. Consider GI consult. Continue Zofran. We will give Fleet Enema x1. Consider also Surgery consult. Order KUB. Elan Covarrubias M.D. DR: SHAMIR JOB#: [id number] CC:
[2019-07-08 16:00] VITALS: BP 157/89
[2019-07-08 17:30] LABS: HEMOGLOBIN 12.4 G/DL (14.2-18.0); MEAN CORPUSCULAR VOLUME 86 FL (80-99); PLATELET COUNT 166 K/UL (150-450); RED BLOOD COUNT 4.05 M/UL (4.70-6.10); RED CELL DISTRIBUTION WIDTH 12.2 % (11.6-14.8); WHITE BLOOD COUNT 5.3 K/UL (4.8-10.8)
[2019-07-08] MEDS ORDERED: Metoclopramide 10mg/2ml Inj IVP PRN (18:45)
--- NOTE | 2019-07-08 19:23 | NUR ---
NURSE NOTES: Received new diet order from Dr. Simeon. Order entered.
--- NOTE | 2019-07-08 19:25 | NUR ---
HAND-OFF: Report given to Leeann CAMACHO.
[2019-07-08 20:00] VITALS: BP 150/90
--- NOTE | 2019-07-08 20:06 | NUR ---
NURSE NOTES: Received patient in bed, awake, alert, oriented, Congolese speaking only, no acute distress noted, IV site is clean dry and intact, call light is within reach, bed is lowered, locked, alarm is on, will continue to monitor for comfort and safety.
--- NOTE | 2019-07-08 21:15 | Consultation ---
DATE OF CONSULTATION: 07/08/2019 TYPEWRITER REPAIRER PHYSICIAN: Kulwant Simeon M.D. REFERRING PHYSICIAN: Saul Covarrubias M.D. CHIEF COMPLAINT: Abdominal pain. HISTORY OF PRESENT ILLNESS: This is a very pleasant 69-year-old male known to me from prior admissions. Actually, last time I saw him, was over a year ago when I did an ERCP for him and removed two stents. The patient admitted again with complaint of abdominal pain. Apparently, CT showed evidence of maybe constipation as well as intestinal transient. The patient was distended this morning, got one dose of enema, had good bowel movement, and he feels better. PAST MEDICAL HISTORY: Significant for: 1. History of cholecystectomy. 2. ERCP with stent removal. 3. Chronic constipation. 4. Diabetes. 5. GERD. 6. Gout. 7. Vitamin D deficiency. 8. Degenerative joint disease. 9. Hypertension. PAST SURGICAL HISTORY: Cholecystectomy. ALLERGIES: No known drug allergies. MEDICATIONS: Please see medication reconciliation list. SOCIAL HISTORY: The patient denies any tobacco, alcohol, or drug abuse. FAMILY HISTORY: Noncontributory. REVIEW OF SYSTEMS: A 10-point review of systems was performed and pertinent positives in HPI. PHYSICAL EXAMINATION: GENERAL: The patient is a well-developed male, in no acute distress. VITAL SIGNS: Temperature 97.9, pulse 75, respirations 16, and blood pressure 157/89. HEENT: Normocephalic and atraumatic. Sclerae are anicteric. NECK: Supple. No evidence of obvious lymphadenopathy. CARDIOVASCULAR: Regular rate and rhythm. Plus S1 and S2. LUNGS: Decreased breath sounds bilaterally based on supine exam. ABDOMEN: Soft. Bowel sounds are present. Minimal tenderness to palpation diffusely. No rebound. No guarding. No peritoneal sign. EXTREMITIES: No cyanosis, no clubbing, no edema. LABORATORY DATA: White count is 5, hemoglobin 12, hematocrit 35, and platelets 168,000. Chem-7, sodium is 141, potassium 4.4, BUN 16, and creatinine 1.0. ASSESSMENT AND PLAN: This is a 69-year-old male with abdominal pain and constipation. Chart reviewed. I think this patient might benefit from a low dose of Reglan. I recommend the patient to follow as an outpatient for new motility drug in the market that we are going to try on him given CT showed evidence of low transient in the GI and Reglan has a lot of side effects, so the patient most probably will benefit from that new medication. Meanwhile, we are going to start him on low-dose IV Reglan of 2.5 mg every 6 hours. We will put him on bowel regimen, re-evaluate him tomorrow and make further recommendation as needed. I want to thank Dr. Covarrubias for this referral. Kulwant Simeon M.D. DR: Lee JOB#: [id number] CC:
[2019-07-08] MEDS: Miralax 17gm pkt ORAL SCH (21:19)
[2019-07-09] VITALS: BP 137/78
[2019-07-09] MEDS: NovoLOG Insulin Flexpen SUBQ SCH ×5 (00:24→23:44)
[2019-07-09 04:00] VITALS: BP 138/74
[2019-07-09 07:10] LABS: BASOPHILS % (AUTO) 1.3 % (0.0-2.0); EOSINOPHILS % (AUTO) 2.8 % (0.0-3.0); HEMATOCRIT 33.9 % (42.0-52.0); HEMOGLOBIN 12.7 G/DL (14.2-18.0); LYMPHOCYTES % (AUTO) 28.7 % (20.0-45.0); MEAN CORPUSCULAR VOLUME 83 FL (80-99); MONOCYTES % (AUTO) 5.1 % (1.0-10.0); NEUTROPHILS % (AUTO) 62.2 % (45.0-75.0); PLATELET COUNT 158 K/UL (150-450); RED BLOOD COUNT 4.09 M/UL (4.70-6.10); RED CELL DISTRIBUTION WIDTH 12.4 % (11.6-14.8); WHITE BLOOD COUNT 5.1 K/UL (4.8-10.8)
[2019-07-09 07:22] LABS: ALANINE AMINOTRANSFERASE 35 U/L (12-78); ALBUMIN 3.5 G/DL (3.4-5.0); ALBUMIN/GLOBULIN RATIO 1.2 (1.0-2.7); ALKALINE PHOSPHATASE 66 U/L (46-116); ANION GAP 8 mmol/L (5-15); ASPARTATE AMINO TRANSFERASE 22 U/L (15-37); BILIRUBIN,TOTAL 0.5 MG/DL (0.2-1.0); BLOOD UREA NITROGEN 11 mg/dL (7-18); CALCIUM 9.3 MG/DL (8.5-10.1); CARBON DIOXIDE 29 MMOL/L (21-32); CHLORIDE 105 MMOL/L (98-107); CREATININE 0.7 MG/DL (0.55-1.30); POTASSIUM 3.8 MMOL/L (3.5-5.1); SODIUM 142 MMOL/L (136-145)
--- NOTE | 2019-07-09 07:45 | NUR ---
NURSE NOTES: Pt lying in bed w/bed in lowest position and call light within reach. Pt A&Ox4, VSS, and in no apparent distress. IV site intact/asymptomatic w/IVF infusing and skin intact. Pt has no complaints or concerns at this time. Will continue to monitor.
[2019-07-09 08:00] VITALS: BP 170/89
[2019-07-09] MEDS: Docusate 100mg cap ORAL SCH ×2 (08:31→18:00)
--- NOTE | 2019-07-09 09:22 | Consultation ---
History of Present Illness General Chief Complaint: Abdominal Pain Present Illness Allergies: Coded Allergies: No Known Allergies (Unverified , 12/31/12) Medication History Scheduled Ascorbic Acid* (Vitamin C*), 500 MG ORAL DAILY, (Reported) Benazepril Hcl* (Benazepril Hcl*), 20 MG ORAL DAILY, (Reported) Cholecalciferol (Vitamin D3) (Vitamin D), 50,000 UNIT PO DAILY, (Reported) Ferrous Sulfate (Ferosul), 325 MG PO DAILY, (Reported) Loratadine (Loratadine), 10 MG PO DAILY, (Reported) Meloxicam* (Meloxicam*), 15 MG PO DAILY, (Reported) Metformin Hcl* (Metformin Hcl*), 850 MG ORAL BID, (Reported) Sennosides (Senna), 8.6 MG PO DAILY, (Reported) Miscellaneous Medications Colchicine (Colchicine), 0.6 MG PO, (Reported) Discontinued Medications Allopurinol* (Allopurinol*), 300 MG ORAL DAILY, (Reported) Discontinued Reason: Pt stopped taking med Amlodipine Besylate* (Amlodipine Besylate*), 5 MG ORAL DAILY, (Reported) Discontinued Reason: Pt stopped taking med Atorvastatin (Lipitor), 80 MG ORAL BEDTIME Discontinued Reason: Pt stopped taking med Hydroxyzine Hcl (Hydroxyzine Hcl), 25 MG PO DAILY, (Reported) Discontinued Reason: Pt stopped taking med Patient History Healthcare decision maker Resuscitation status Advanced Directive on File Physical Exam Last 24 Hour Vital Signs Date Time Temp Pulse Resp B/P (MAP) Pulse Ox O2 Delivery O2 Flow Rate FiO2 07/09/19 08:31 170/89 07/09/19 08:00 97.6 73 20 170/89 (116) 97 07/09/19 04:00 98.9 87 20 138/74 (95) 97 87 07/09/19 00:00 98.7 78 18 137/78 (97) 98 78 07/08/19 21:57 Room Air 07/08/19 21:56 97.9 07/08/19 20:00 98.1 78 16 150/90 (110) 98 78 07/08/19 16:00 97.9 75 16 157/89 (111) 96 07/08/19 12:00 98.2 72 16 151/86 (107) 95 Intake and Output 07/08/19 07/09/19 19:00 07:00 Intake Total 1200 ml Output Total 500 ml Balance 1200 ml -500 ml IV Total 1200 ml Output Urine Total 500 ml # Voids 3 # Bowel Movements 1 Laboratory Tests Test 07/08/19 16:18 07/08/19 17:00 07/09/19 05:20 Urine Total Protein Pending Urine Albumin (%) Pending Urine Qdudu-4-Ypnyuizno (%) Pending Urine Kgptg-8-Rwwqsyxhw (%) Pending Urine Beta-Globulin (%) Pending Urine Gamma Globulin (%) Pending Ur Protein Electrophoresis M-Bam Pending Urine Protein Electrophoresis Intrp Pending White Blood Count 5.3 K/UL (4.8-10.8) 5.1 K/UL (4.8-10.8) Red Blood Count 4.05 M/UL (4.70-6.10) L 4.09 M/UL (4.70-6.10) L Hemoglobin 12.4 G/DL (14.2-18.0) L 12.7 G/DL (14.2-18.0) L Hematocrit 35.0 % (42.0-52.0) L 33.9 % (42.0-52.0) L Mean Corpuscular Volume 86 FL (80-99) 83 FL (80-99) Mean Corpuscular Hemoglobin 30.5 PG (27.0-31.0) 31.1 PG (27.0-31.0) H Mean Corpuscular Hemoglobin Concent 35.3 G/DL (32.0-36.0) 37.6 G/DL (32.0-36.0) H Red Cell Distribution Width 12.2 % (11.6-14.8) 12.4 % (11.6-14.8) Platelet Count 166 K/UL (150-450) 158 K/UL (150-450) Mean Platelet Volume 6.3 FL (6.5-10.1) L 6.2 FL (6.5-10.1) L Neutrophils (%) (Auto) % (45.0-75.0) 62.2 % (45.0-75.0) Lymphocytes (%) (Auto) % (20.0-45.0) 28.7 % (20.0-45.0) Monocytes (%) (Auto) % (1.0-10.0) 5.1 % (1.0-10.0) Eosinophils (%) (Auto) % (0.0-3.0) 2.8 % (0.0-3.0) Basophils (%) (Auto) % (0.0-2.0) 1.3 % (0.0-2.0) Differential Total Cells Counted 100 Neutrophils % (Manual) 65 % (45-75) Lymphocytes % (Manual) 30 % (20-45) Monocytes % (Manual) 4 % (1-10) Eosinophils % (Manual) 1 % (0-3) Basophils % (Manual) 0 % (0-2) Band Neutrophils 0 % (0-8) Platelet Estimate Adequate Platelet Morphology Normal Hypochromasia 1+ Reticulocyte Count 0.6 % (0.5-2.0) Carcinoembryonic Antigen Pending CA 19-9 Antigen Pending Vitamin B12 Level 804 PG/ML (193-986) Thyroid Stimulating Hormone (TSH) 2.216 uiU/mL (0.358-3.740) Sodium Level 142 MMOL/L (136-145) Potassium Level 3.8 MMOL/L (3.5-5.1) Chloride Level 105 MMOL/L (98-107) Carbon Dioxide Level 29 MMOL/L (21-32) Anion Gap 8 mmol/L (5-15) Blood Urea Nitrogen 11 mg/dL (7-18) Creatinine 0.7 MG/DL (0.55-1.30) Estimat Glomerular Filtration Rate > 60 mL/min (>60) Glucose Level 119 MG/DL (74-106) H Calcium Level 9.3 MG/DL (8.5-10.1) Total Bilirubin 0.5 MG/DL (0.2-1.0) Aspartate Amino Transf (AST/SGOT) 22 U/L (15-37) Alanine Aminotransferase (ALT/SGPT) 35 U/L (12-78) Alkaline Phosphatase 66 U/L (46-116) Total Protein 6.3 G/DL (6.4-8.2) L Albumin 3.5 G/DL (3.4-5.0) Globulin 2.8 g/dL Albumin/Globulin Ratio 1.2 (1.0-2.7) Height (Feet): 5 Height (Inches): 3.00 Weight (Pounds): 209 Medications Current Medications Medications (Trade) Dose Ordered Sig/Tamiko Route PRN Reason Start Time Stop Time Status Last Admin Dose Admin Acetaminophen (Tylenol) 650 mg Q6H PRN ORAL Mild Pain/Temp > 100.5 07/08/19 01:15 08/07/19 01:14 07/08/19 21:19 Clonidine HCl (Catapres Tab) 0.1 mg Q6H PRN ORAL For High Blood Pressure 07/08/19 02:00 08/07/19 01:59 07/09/19 08:31 Dextrose (Dextrose 50%) 25 ml Q30M PRN IV Hypoglycemia 07/08/19 01:15 08/07/19 01:14 Dextrose (Dextrose 50%) 50 ml Q30M PRN IV Hypoglycemia 07/08/19 01:15 08/07/19 01:14 Docusate Sodium (Colace) 100 mg TWICE A DAY ORAL 07/09/19 09:00 08/08/19 08:59 07/09/19 08:31 Insulin Aspart (NovoLOG) Q6HR SUBQ 07/08/19 02:00 08/07/19 01:59 07/09/19 06:13 Metoclopramide HCl (Reglan) 2.5 mg Q6H PRN IVP Nausea & Vomiting 07/08/19 18:45 08/07/19 18:44 Morphine Sulfate (Morphine Sulfate) 1 mg Q6H PRN IVP For Pain 07/08/19 01:15 07/15/19 01:14 07/08/19 10:33 Ondansetron HCl (Zofran) 4 mg Q6H PRN IVP Nausea & Vomiting 07/08/19 01:15 08/07/19 01:14 Polyethylene Glycol (Miralax) 17 gm BEDTIME ORAL 07/08/19 21:00 08/07/19 20:59 07/08/19 21:19 Sodium Chloride 1,000 ml @ 100 mls/hr Q10H IV 07/08/19 02:00 08/07/19 01:59 07/09/19 08:31 Assessment/Plan Assessment/Plan: Hematology Consultation REQ MD: Elan Covarrubias Chief Complaint: Abdominal Pain Source: Patient, Medical Record RFC: Lytic lesion at T8 and associated right paraspinal intercostal and possibly intraspinal appearing soft tissue lesion again noted axial 8 and coronal 57. DOS: 07/09/2019 ID 69y old male presents with lower abdominal pain that is worsened over a month. When he gets that it is a 7/10. It causes weakness and he actually fell because of weakness in his legs that occurs with that. The patient states that when he is supine there is no abdominal pain. When he stands up the pain is bilateral radiating from the back around the lower abdomen and crampy. He felt it was worse with senna and iron. He stopped these medications and the pain is persisted. When he fell he scraped his right forearm. There is no loss of consciousness. He has difficulty urinating when he standing. He denies any lower extremities numbness. There are no fevers or chills. There is no vomiting or diarrhea. He denies dysuria. Patient is diabetic on metformin. He denies polyuria or polydipsia. Patient had a lung biopsy several years ago. He states he was never told the results. 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 The patient used to binge drink. He no longer uses alcohol. Patient admitted May of this year Noted with lytic lesion in spine requires w/u and gi consulted, tumor markers ordered Past Medical hx (1) Nausea & vomiting (2) History of hypertension (3) Diabetes mellitus (4) Abdominal pain (5) Gout Ultrasound performed during that hospitalization: Fatty liver. Status post cholecystectomy. Allergies: Coded Allergies: No Known Allergies (Unverified , 12/31/12) Patient History Past Medical History: see triage record, old chart reviewed Past Surgical History: beronica, other - Lung biopsy Social History: Denies: smoking, alcohol use - Prior, drug use Social History Narrative with son Reviewed Nursing Documentation: PMH: Agreed; PSxH: Agreed Past Medical History: No History, Except For Hx Cardiac Problems: Yes - Bilateral knee surgery Hx Hypertension: Yes Hx Pacemaker: No Hx Asthma: No Hx COPD: No Hx Diabetes: Yes Hx Cancer: No Hx Gastrointestinal Problems: Yes - GASTRITIS Hx Dialysis: No Hx Neurological Problems: No Hx Cerebrovascular Accident: No Hx Seizures: No Review of Systems All Other Systems: negative except mentioned in HPI PE Vitals: noted Gen: well appearing, no apparent distress, GCS 15 HEENT: nc, at Neck: supple Resp: lungs clear, normal breath sounds Cv: rrr, no mgr Gastrointestinal: normal inspection, normal bowel sounds, nt, nd Genitourinary: no CVA tenderness Musculoskeletal: back normal, normal range of motion, gait/station normal Neurologic: alert, motor strength/tone normal - Supine, oriented x3, sensory intact Psychiatric: mood/affect normal Skin: warm/dry, abrasion - Right forearm Labs: reviewed Imaging: noted as well Assessment and Recs: # Lytic lesion at T8 and associated right paraspinal intercostal and possibly intraspinal appearing soft tissue lesion again noted axial 8 and coronal 57 --> have ordered tumor markers --> will need mri of the spine as well --> recommend to get potential biopsy as well if tumor markers are negative --> also will get bone scan # Abdominal pain --> as per gi --> recs noted --> colace and senna prn --> low dose reglan # Lower extremity weakness --> r/o compression # History of cholecystectomy. --> s/p ERCP with stent removal. # Diabetes. # GERD. # Gout. # Vitamin D deficiency. # Degenerative joint disease. # Hypertension. Appreciate consultation and dw Skyler Bell MD Jul 09, 2019 09:22
--- NOTE | 2019-07-09 11:10 | GI Progress Note ---
Assessment/Plan Problems: (1) Diabetes mellitus ICD Codes: E11.9 - Type 2 diabetes mellitus without complications SNOMED: 62034252 (2) Nausea & vomiting ICD Codes: R11.2 - Nausea with vomiting, unspecified SNOMED: 01487712 (3) Abdominal pain ICD Codes: R10.9 - Unspecified abdominal pain SNOMED: 08018618 Qualifiers: Qualified Codes: R10.30 - Lower abdominal pain, unspecified (4) History of cholecystectomy ICD Codes: Z90.49 - Acquired absence of other specified parts of digestive tract SNOMED: 91279156, 317218725 Status: stable Status Narrative Discussed with Dr. Simeon. Assessment/Plan #abdominal pain 2/ constipation - CT reviewed, show slow transient in the GI - pain mgmt - bowel regimen - recent history of ERCP and colonoscopy x 1 year #decreased GI motility - low dose reglan - needs outpatient follow up for new motility drug - DM management - advance diet as tolerated #spinal lesion - follow up tumor markers - follow up oncology recommendations The patient was seen and examined at bedside and all new and available data was reviewed in the patients chart. I agree with the above findings, impression and plan. (Patient seen earlier today. Signature stamp does not reflect patient encounter time.). - Kulwant Simeon MD Subjective Subjective abdominal pain improved, but still present Objective Last 24 Hour Vital Signs Date Time Temp Pulse Resp B/P (MAP) Pulse Ox O2 Delivery O2 Flow Rate FiO2 07/09/19 09:00 Room Air 07/09/19 08:31 170/89 07/09/19 08:00 97.6 73 20 170/89 (116) 97 07/09/19 04:00 98.9 87 20 138/74 (95) 97 87 07/09/19 00:00 98.7 78 18 137/78 (97) 98 78 07/08/19 21:57 Room Air 07/08/19 21:56 97.9 07/08/19 20:00 98.1 78 16 150/90 (110) 98 78 07/08/19 16:00 97.9 75 16 157/89 (111) 96 07/08/19 12:00 98.2 72 16 151/86 (107) 95 Intake and Output 07/08/19 07/09/19 19:00 07:00 Intake Total 1200 ml Output Total 500 ml Balance 1200 ml -500 ml IV Total 1200 ml Output Urine Total 500 ml # Voids 3 # Bowel Movements 1 Laboratory Tests Test 07/08/19 16:18 07/08/19 17:00 07/09/19 05:20 Urine Total Protein Pending Urine Albumin (%) Pending Urine Gzxxx-3-Kseywjzpy (%) Pending Urine Jydee-4-Uzqzmppmj (%) Pending Urine Beta-Globulin (%) Pending Urine Gamma Globulin (%) Pending Ur Protein Electrophoresis M-Bam Pending Urine Protein Electrophoresis Intrp Pending White Blood Count 5.3 K/UL (4.8-10.8) 5.1 K/UL (4.8-10.8) Red Blood Count 4.05 M/UL (4.70-6.10) L 4.09 M/UL (4.70-6.10) L Hemoglobin 12.4 G/DL (14.2-18.0) L 12.7 G/DL (14.2-18.0) L Hematocrit 35.0 % (42.0-52.0) L 33.9 % (42.0-52.0) L Mean Corpuscular Volume 86 FL (80-99) 83 FL (80-99) Mean Corpuscular Hemoglobin 30.5 PG (27.0-31.0) 31.1 PG (27.0-31.0) H Mean Corpuscular Hemoglobin Concent 35.3 G/DL (32.0-36.0) 37.6 G/DL (32.0-36.0) H Red Cell Distribution Width 12.2 % (11.6-14.8) 12.4 % (11.6-14.8) Platelet Count 166 K/UL (150-450) 158 K/UL (150-450) Mean Platelet Volume 6.3 FL (6.5-10.1) L 6.2 FL (6.5-10.1) L Neutrophils (%) (Auto) % (45.0-75.0) 62.2 % (45.0-75.0) Lymphocytes (%) (Auto) % (20.0-45.0) 28.7 % (20.0-45.0) Monocytes (%) (Auto) % (1.0-10.0) 5.1 % (1.0-10.0) Eosinophils (%) (Auto) % (0.0-3.0) 2.8 % (0.0-3.0) Basophils (%) (Auto) % (0.0-2.0) 1.3 % (0.0-2.0) Differential Total Cells Counted 100 Neutrophils % (Manual) 65 % (45-75) Lymphocytes % (Manual) 30 % (20-45) Monocytes % (Manual) 4 % (1-10) Eosinophils % (Manual) 1 % (0-3) Basophils % (Manual) 0 % (0-2) Band Neutrophils 0 % (0-8) Platelet Estimate Adequate Platelet Morphology Normal Hypochromasia 1+ Reticulocyte Count 0.6 % (0.5-2.0) Carcinoembryonic Antigen Pending CA 19-9 Antigen Pending Vitamin B12 Level 804 PG/ML (193-986) Thyroid Stimulating Hormone (TSH) 2.216 uiU/mL (0.358-3.740) Sodium Level 142 MMOL/L (136-145) Potassium Level 3.8 MMOL/L (3.5-5.1) Chloride Level 105 MMOL/L (98-107) Carbon Dioxide Level 29 MMOL/L (21-32) Anion Gap 8 mmol/L (5-15) Blood Urea Nitrogen 11 mg/dL (7-18) Creatinine 0.7 MG/DL (0.55-1.30) Estimat Glomerular Filtration Rate > 60 mL/min (>60) Glucose Level 119 MG/DL (74-106) H Calcium Level 9.3 MG/DL (8.5-10.1) Total Bilirubin 0.5 MG/DL (0.2-1.0) Aspartate Amino Transf (AST/SGOT) 22 U/L (15-37) Alanine Aminotransferase (ALT/SGPT) 35 U/L (12-78) Alkaline Phosphatase 66 U/L (46-116) Total Protein 6.3 G/DL (6.4-8.2) L Albumin 3.5 G/DL (3.4-5.0) Globulin 2.8 g/dL Albumin/Globulin Ratio 1.2 (1.0-2.7) Height (Feet): 5 Height (Inches): 3.00 Weight (Pounds): 209 General Appearance: WD/WN, no apparent distress, alert, obese Cardiovascular: normal rate Respiratory/Chest: normal breath sounds, no respiratory distress Abdominal Exam: normal bowel sounds, non tender, soft Extremities: normal range of motion, non-tender Jimbo Ramos NP Jul 09, 2019 11:10
[2019-07-09 12:00] VITALS: BP 136/56
[2019-07-09 15:56] VITALS: BP 140/86
--- NOTE | 2019-07-09 17:15 | Diagnostic Imaging Report ---
Indication: History of cancer, evaluation for metastatic disease, abnormal findings on recent CT scan Technique: Limited views of the entire axial and appendicular skeleton. Comparison: None. Reference made to recent abdomen pelvis CT 07/07/2019 Findings: The thoracic spine demonstrate mild degenerative spondylosis changes. The T8 lesion described on recent CT scan is not radiographically evident. The chest radiograph demonstrates tortuous aorta. The right femur radiograph demonstrates a right knee prosthesis. The left knee radiograph demonstrates a left knee prosthesis. There are soft tissue calcifications in the medial ankles bilaterally. No definite osteolytic lesions are demonstrated. There are mild degenerative changes of the lumbar spine. Impression: Findings as noted. No plain radiographic evidence of osseous metastases.
--- NOTE | 2019-07-09 17:40 | NUR ---
NURSE NOTES: Notified Dr. White that pt's daughter would like him to go over results of bone scan once they become available; provided MD w/daughter's cell phone number. Will endorse to oncoming nurse.
--- NOTE | 2019-07-09 19:14 | NUR ---
HAND-OFF: Report given to JANICE Giordano. Endorsed that I spoke w/pt's daughter and she would still like for Dr. White to call her tomorrow morning for updates.
--- NOTE | 2019-07-09 19:16 | NUR ---
NURSE NOTES: Received report from Mazin CAMACHO. Rounding is done. Patient is a/o x 4, and went restroom and came back. IV site is intact and iv fluid is running. Bed is on alarm, locked, and lowest position. Call light within reach. Will continue to monitor.
[2019-07-09 20:00] VITALS: BP 156/87
--- NOTE | 2019-07-09 20:30 | Progress Note ---
DATE: 07/09/2019 SUBJECTIVE: This is a 69-year-old male currently doing better. Abdominal pain 00:11 Accu-Chek is high. OBJECTIVE: VITAL SIGNS: Blood pressure is 130/70, pulse 74, respirations 18. SKIN: Good skin turgor. HEENT: NAD. CHEST: Bilaterally clear. CARDIOVASCULAR: Regular rhythm. No gallop. No murmur. ABDOMEN: Distended. Decreased bowel sounds. EXTREMITIES: No CCE. NEUROLOGICAL: The patient has no focal deficit. ASSESSMENT: 1. Small bowel obstruction. 2. Abdominal pain. 3. Hypertension. 4. Diabetes. PLAN: 1. Continue sliding scale, Accu-Chek, NPO. 2. GI and Surgery is on case. Elan Covarrubias M.D. DR: Es JOB#: [id number] CC:
[2019-07-09] MEDS: Miralax 17gm pkt ORAL SCH (20:43)
[2019-07-10] VITALS (7 sets, daily range): BP systolic 127–171; BP diastolic 67–99
[2019-07-10] MEDS: Morphine Sulfate 2mg/ml Inj(IV/IM USE ONLY) IVP PRN ×2 (00:43→08:59)
[2019-07-10] MEDS: NovoLOG Insulin Flexpen SUBQ SCH ×4 (05:11→21:00)
--- NOTE | 2019-07-10 07:28 | NUR ---
HAND-OFF: Report given to Marion CAMACHO. Patient in stable condition.
[2019-07-10 07:38] LABS: ANION GAP 9 mmol/L (5-15); BLOOD UREA NITROGEN 13 mg/dL (7-18); CALCIUM 9.2 MG/DL (8.5-10.1); CARBON DIOXIDE 28 MMOL/L (21-32); CHLORIDE 103 MMOL/L (98-107); CREATININE 0.7 MG/DL (0.55-1.30); POTASSIUM 3.9 MMOL/L (3.5-5.1); SODIUM 140 MMOL/L (136-145)
--- NOTE | 2019-07-10 07:45 | NUR ---
NURSE NOTES: Pt lying in bed w/bed in lowest position and call light within reach. Pt A&Ox4, VSS, and in no apparent distress. IV site intact/asymptomatic & H/L'd and skin intact. Pt still c/o b/l lower abdominal pain when he stands/ambulates; will notify MD and continue to monitor.
[2019-07-10 07:48] LABS: BASOPHILS % (AUTO) 1.5 % (0.0-2.0); EOSINOPHILS % (AUTO) 3.6 % (0.0-3.0); HEMATOCRIT 34.2 % (42.0-52.0); HEMOGLOBIN 12.5 G/DL (14.2-18.0); LYMPHOCYTES % (AUTO) 38.2 % (20.0-45.0); MEAN CORPUSCULAR VOLUME 84 FL (80-99); MONOCYTES % (AUTO) 6.7 % (1.0-10.0); NEUTROPHILS % (AUTO) 50.1 % (45.0-75.0); PLATELET COUNT 161 K/UL (150-450); RED BLOOD COUNT 4.06 M/UL (4.70-6.10); WHITE BLOOD COUNT 4.8 K/UL (4.8-10.8)
[2019-07-10] MEDS: Docusate 100mg cap ORAL SCH ×2 (08:59→16:39)
--- NOTE | 2019-07-10 10:38 | GI Progress Note ---
Assessment/Plan Problems: (1) Diabetes mellitus ICD Codes: E11.9 - Type 2 diabetes mellitus without complications SNOMED: 57008183 (2) Nausea & vomiting ICD Codes: R11.2 - Nausea with vomiting, unspecified SNOMED: 02815082 (3) Abdominal pain ICD Codes: R10.9 - Unspecified abdominal pain SNOMED: 52679756 Qualifiers: Qualified Codes: R10.30 - Lower abdominal pain, unspecified (4) History of cholecystectomy ICD Codes: Z90.49 - Acquired absence of other specified parts of digestive tract SNOMED: 52433030, [id number] Status: stable Status Narrative Discussed with Dr. Simeon. Assessment/Plan #abdominal pain 2/ constipation - CT reviewed, show slow transient in the GI - pain mgmt - bowel regimen - recent history of ERCP and colonoscopy x 1 year - follow up KUB #decreased GI motility - low dose reglan - needs outpatient follow up for new motility drug - DM management - advance diet as tolerated #spinal lesion - follow up tumor markers - follow up oncology recommendations The patient was seen and examined at bedside and all new and available data was reviewed in the patients chart. I agree with the above findings, impression and plan. (Patient seen earlier today. Signature stamp does not reflect patient encounter time.). - Kulwant Simeon MD Subjective Subjective still has c/o of abdominal pain Objective Last 24 Hour Vital Signs Date Time Temp Pulse Resp B/P (MAP) Pulse Ox O2 Delivery O2 Flow Rate FiO2 07/10/19 09:00 Room Air 07/10/19 08:00 97.5 70 20 130/76 (94) 97 07/10/19 04:00 97.8 65 17 150/91 (110) 97 07/10/19 02:02 155/97 (116) 07/10/19 00:36 171/99 07/10/19 00:00 97.5 64 19 171/99 (123) 97 07/09/19 21:00 Room Air 07/09/19 20:00 97.7 68 20 156/87 (110) 98 07/09/19 15:56 97.8 69 20 140/86 (104) 96 07/09/19 12:00 97.5 69 20 136/56 (82) 97 Intake and Output 07/09/19 07/10/19 19:00 07:00 Intake Total 1400 ml 900 ml Output Total 800 ml Balance 1400 ml 100 ml Intake Oral 450 ml 300 ml IV Total 950 ml 600 ml Output Urine Total 800 ml # Voids 3 2 Laboratory Tests Test 07/10/19 05:05 White Blood Count 4.8 K/UL (4.8-10.8) Red Blood Count 4.06 M/UL (4.70-6.10) L Hemoglobin 12.5 G/DL (14.2-18.0) L Hematocrit 34.2 % (42.0-52.0) L Mean Corpuscular Volume 84 FL (80-99) Mean Corpuscular Hemoglobin 30.8 PG (27.0-31.0) Mean Corpuscular Hemoglobin Concent 36.5 G/DL (32.0-36.0) H Red Cell Distribution Width 13.0 % (11.6-14.8) Platelet Count 161 K/UL (150-450) Mean Platelet Volume 6.6 FL (6.5-10.1) Neutrophils (%) (Auto) 50.1 % (45.0-75.0) Lymphocytes (%) (Auto) 38.2 % (20.0-45.0) Monocytes (%) (Auto) 6.7 % (1.0-10.0) Eosinophils (%) (Auto) 3.6 % (0.0-3.0) H Basophils (%) (Auto) 1.5 % (0.0-2.0) Sodium Level 140 MMOL/L (136-145) Potassium Level 3.9 MMOL/L (3.5-5.1) Chloride Level 103 MMOL/L (98-107) Carbon Dioxide Level 28 MMOL/L (21-32) Anion Gap 9 mmol/L (5-15) Blood Urea Nitrogen 13 mg/dL (7-18) Creatinine 0.7 MG/DL (0.55-1.30) Estimat Glomerular Filtration Rate > 60 mL/min (>60) Glucose Level 133 MG/DL (74-106) H Calcium Level 9.2 MG/DL (8.5-10.1) Height (Feet): 5 Height (Inches): 3.00 Weight (Pounds): 209 General Appearance: WD/WN, no apparent distress, alert Cardiovascular: normal rate Respiratory/Chest: normal breath sounds, no respiratory distress Abdominal Exam: normal bowel sounds, non tender, soft Extremities: normal range of motion, non-tender Jimbo Ramos NP Jul 10, 2019 10:38
--- NOTE | 2019-07-10 13:51 | CDS Physician Query ---
Clarification is required for compliance, coding accuracy, and to reflect severity of illness for this patient Dear Dr. Elan Covarrubias Date: 07/10/2019 [facility] Bacon/CDS Name: Chela Marcum Clinical Documentation States: HNP: 69-year-old male who came to the emergency room for having abdominal pain, nausea, vomiting...Small bowel obstruction...NPO. Consider GI consult. Continue Zofran. We will give Fleet Enema x1. 07/09 GI note:#abdominal pain 06/17 constipation - CT reviewed, show slow transient in the GI...decreased GI motility...- needs outpatient follow up for new motility drug - DM management CT abd: Fecalized appearing material in nondilated distal small bowel suggests possible slow, delayed, bowel transit. Please respond to the following question: Is there a link between the diabetes and gastrointestinal symptoms for which the patient was admitted for? If so please state below. PHYSICIAN RESPONSE: [] Diabetic gastroparesis [] Diabetic intestinal enteropathy [] Other: [] Unknown Present on Admission: [] Yes [] No [] Clinically Undetermined Physician signature Date Please also document in your Progress Notes and/or Discharge Summary and indicate if the condition was present on admission. MTDD
--- NOTE | 2019-07-10 14:32 | NUR ---
RADIOLOGY DEPT., ABDOMEN X-RAY COMPLETED.-P.DYE
--- NOTE | 2019-07-10 14:46 | Diagnostic Imaging Report ---
Indication: Abdominal pain Comparison: None Single view of the abdomen obtained Findings: Bowel gas pattern is nonspecific. No mass, ectopic calcifications, or abnormal gas collections are identified. The bones are unremarkable. Multilevel vertebral endplate enthesophytes demonstrated. Cholecystectomy clips seen in the right upper quadrant of the abdomen. Impression: No acute findings
--- NOTE | 2019-07-10 17:15 | Progress Note ---
DATE: 07/10/2019 SUBJECTIVE: This is a 69-year-old male, came to the emergency room for having abdominal pain, nausea, vomiting, history of gout, and severe arthritis. The patient was back pain also. OBJECTIVE: VITAL SIGNS: His blood pressure is 152/86, pulse 72, respirations 20, temperature 97.1. HEENT: NAD. CHEST: Bilaterally clear. CARDIOVASCULAR: Regular rhythm. No gallop. No murmur. ABDOMEN: Soft. Mild tenderness. EXTREMITIES: CCE. The patient also had tenderness on lumbosacral spine. LABORATORY DATA: White counts are 4.8, hemoglobin 13, and hematocrit 34. Chemistry panel, sodium 140, potassium 3.9, BUN 13, creatinine 0.7, glucose 133. Urine is negative. Glucose 133. ASSESSMENT AND PLAN: 1. Small bowel obstruction. 2. Ileus. 3. Chronic back pain. 4. Hypertension. 5. Diabetes. PLAN: We will add Norvasc. Continue sliding scale and Accu-Chek. Add also lidocaine patch on lower back daily. PT and OT. X-ray of lumbosacral spine. Continue current treatment. Gastrointestinal is also on case. Elan Covarrubias M.D. DR: DEANNA JOB#: [id number] CC:
--- NOTE | 2019-07-10 17:21 | Hematology/Onc Progress Note ---
Assessment/Plan Assessment/Plan Assessment and Recs: # Lytic lesion at T8 and associated right paraspinal intercostal and possibly intraspinal appearing soft tissue lesion again noted axial 8 and coronal 57 --> have ordered tumor markers --> will need mri of the spine as well --> recommend to get potential biopsy as well if tumor markers are negative --> also will get bone scan # Abdominal pain --> as per gi --> recs noted --> colace and senna prn --> low dose reglan --> xr abd negative # Lower extremity weakness --> r/o compression --> bone scan negative # History of cholecystectomy. --> s/p ERCP with stent removal. # Diabetes. # GERD. # Gout. # Vitamin D deficiency. # Degenerative joint disease. # Hypertension. Appreciate consultation and dw Rn Subjective Allergies: Coded Allergies: No Known Allergies (Unverified , 12/31/12) Subjective 07/10: c/o abd pain, xr abd and bone scan both negative, no acute events Objective Objective Current Medications Medications (Trade) Dose Ordered Sig/Tamiko Route PRN Reason Start Time Stop Time Status Last Admin Dose Admin Acetaminophen (Tylenol) 650 mg Q6H PRN ORAL Mild Pain/Temp > 100.5 07/08/19 01:15 08/07/19 01:14 07/08/19 21:19 Amlodipine Besylate (Norvasc) 5 mg DAILY ORAL 07/11/19 09:00 08/10/19 08:59 Bisacodyl (Dulcolax) 10 mg DAILYPRN PRN RECTAL Constipation 07/10/19 10:45 08/09/19 10:44 07/10/19 15:48 Clonidine HCl (Catapres Tab) 0.1 mg Q6H PRN ORAL For High Blood Pressure 07/08/19 02:00 08/07/19 01:59 07/10/19 00:36 Dextrose (Dextrose 50%) 25 ml Q30M PRN IV Hypoglycemia 07/08/19 01:15 08/07/19 01:14 Dextrose (Dextrose 50%) 50 ml Q30M PRN IV Hypoglycemia 07/08/19 01:15 08/07/19 01:14 Docusate Sodium (Colace) 100 mg TWICE A DAY ORAL 07/09/19 09:00 08/08/19 08:59 07/10/19 16:39 Insulin Aspart (NovoLOG) AC+HS SUBQ 07/10/19 16:30 08/07/19 01:59 Lidocaine (Lidoderm 5% PATCH) 1 patch DAILY TDERMAL 07/10/19 14:30 08/09/19 14:29 07/10/19 15:42 Metoclopramide HCl (Reglan) 2.5 mg Q6H PRN IVP Nausea & Vomiting 07/08/19 18:45 08/07/19 18:44 Morphine Sulfate (Morphine Sulfate) 1 mg Q6H PRN IVP For Pain 07/08/19 01:15 07/15/19 01:14 07/10/19 08:59 Ondansetron HCl (Zofran) 4 mg Q6H PRN IVP Nausea & Vomiting 07/08/19 01:15 08/07/19 01:14 Polyethylene Glycol (Miralax) 17 gm BEDTIME ORAL 07/08/19 21:00 08/07/19 20:59 07/09/19 20:43 Last 24 Hour Vital Signs Date Time Temp Pulse Resp B/P (MAP) Pulse Ox O2 Delivery O2 Flow Rate FiO2 07/10/19 16:00 98.3 66 20 127/67 (87) 95 07/10/19 12:00 97.1 72 20 152/86 (108) 95 07/10/19 09:00 Room Air 07/10/19 08:00 97.5 70 20 130/76 (94) 97 07/10/19 04:00 97.8 65 17 150/91 (110) 97 07/10/19 02:02 155/97 (116) 07/10/19 00:36 171/99 07/10/19 00:00 97.5 64 19 171/99 (123) 97 07/09/19 21:00 Room Air 07/09/19 20:00 97.7 68 20 156/87 (110) 98 07/09/19 15:56 97.8 69 20 140/86 (104) 96 07/09/19 12:00 97.5 69 20 136/56 (82) 97 07/09/19 09:00 Room Air 07/09/19 08:31 170/89 07/09/19 08:00 97.6 73 20 170/89 (116) 97 07/09/19 04:00 98.9 87 20 138/74 (95) 97 87 07/09/19 00:00 98.7 78 18 137/78 (97) 98 78 07/08/19 21:57 Room Air 07/08/19 21:56 97.9 07/08/19 20:00 98.1 78 16 150/90 (110) 98 78 Intake and Output 07/09/19 07/10/19 19:00 07:00 Intake Total 1400 ml 900 ml Output Total 800 ml Balance 1400 ml 100 ml Intake Oral 450 ml 300 ml IV Total 950 ml 600 ml Output Urine Total 800 ml # Voids 3 2 Labs Test 07/07/19 18:00 07/08/19 16:18 07/08/19 17:00 07/09/19 05:20 White Blood Count 6.6 K/UL (4.8-10.8) 5.3 K/UL (4.8-10.8) 5.1 K/UL (4.8-10.8) Red Blood Count 4.27 M/UL (4.70-6.10) 4.05 M/UL (4.70-6.10) 4.09 M/UL (4.70-6.10) Hemoglobin 13.1 G/DL (14.2-18.0) 12.4 G/DL (14.2-18.0) 12.7 G/DL (14.2-18.0) Hematocrit 37.1 % (42.0-52.0) 35.0 % (42.0-52.0) 33.9 % (42.0-52.0) Mean Corpuscular Volume 87 FL (80-99) 86 FL (80-99) 83 FL (80-99) Mean Corpuscular Hemoglobin 30.7 PG (27.0-31.0) 30.5 PG (27.0-31.0) 31.1 PG (27.0-31.0) Mean Corpuscular Hemoglobin Concent 35.3 G/DL (32.0-36.0) 35.3 G/DL (32.0-36.0) 37.6 G/DL (32.0-36.0) Red Cell Distribution Width 12.4 % (11.6-14.8) 12.2 % (11.6-14.8) 12.4 % (11.6-14.8) Platelet Count 177 K/UL (150-450) 166 K/UL (150-450) 158 K/UL (150-450) Mean Platelet Volume 6.7 FL (6.5-10.1) 6.3 FL (6.5-10.1) 6.2 FL (6.5-10.1) Neutrophils (%) (Auto) 58.2 % (45.0-75.0) % (45.0-75.0) 62.2 % (45.0-75.0) Lymphocytes (%) (Auto) 32.6 % (20.0-45.0) % (20.0-45.0) 28.7 % (20.0-45.0) Monocytes (%) (Auto) 5.5 % (1.0-10.0) % (1.0-10.0) 5.1 % (1.0-10.0) Eosinophils (%) (Auto) 2.7 % (0.0-3.0) % (0.0-3.0) 2.8 % (0.0-3.0) Basophils (%) (Auto) 1.1 % (0.0-2.0) % (0.0-2.0) 1.3 % (0.0-2.0) Erythrocyte Sedimentation Rate 10 MM/HR (0-20) Prothrombin Time 9.9 SEC (9.30-11.50) Prothromb Time International Ratio 0.9 (0.9-1.1) Activated Partial Thromboplast Time 24 SEC (23-33) Urine Color Pale yellow Urine Appearance Slightly cloudy Urine pH 6.5 (4.5-8.0) Urine Specific [place] 1.015 (1.005-1.035) Urine Protein 2+ (NEGATIVE) Urine Glucose (UA) Negative (NEGATIVE) Urine Ketones Negative (NEGATIVE) Urine Blood 2+ (NEGATIVE) Urine Nitrite Negative (NEGATIVE) Urine Bilirubin Negative (NEGATIVE) Urine Urobilinogen Normal MG/DL (0.0-1.0) Urine Leukocyte Esterase Negative (NEGATIVE) Urine RBC 0 /HPF (0 - 0) Urine WBC 2-4 /HPF (0 - 0) Urine Squamous Epithelial Cells Occasional /LPF Urine Bacteria Few /HPF (NONE) Sodium Level 141 MMOL/L (136-145) 142 MMOL/L (136-145) Potassium Level 4.4 MMOL/L (3.5-5.1) 3.8 MMOL/L (3.5-5.1) Chloride Level 103 MMOL/L (98-107) 105 MMOL/L (98-107) Carbon Dioxide Level 28 MMOL/L (21-32) 29 MMOL/L (21-32) Anion Gap 11 mmol/L (5-15) 8 mmol/L (5-15) Blood Urea Nitrogen 16 mg/dL (7-18) 11 mg/dL (7-18) Creatinine 1.0 MG/DL (0.55-1.30) 0.7 MG/DL (0.55-1.30) Estimat Glomerular Filtration Rate > 60 mL/min (>60) > 60 mL/min (>60) Glucose Level 192 MG/DL (74-106) 119 MG/DL (74-106) Hemoglobin A1c 8.6 % (4.3-6.0) Calcium Level 9.3 MG/DL (8.5-10.1) 9.3 MG/DL (8.5-10.1) Total Bilirubin 0.3 MG/DL (0.2-1.0) 0.5 MG/DL (0.2-1.0) Aspartate Amino Transf (AST/SGOT) 23 U/L (15-37) 22 U/L (15-37) Alanine Aminotransferase (ALT/SGPT) 46 U/L (12-78) 35 U/L (12-78) Alkaline Phosphatase 82 U/L (46-116) 66 U/L (46-116) Total Creatine Kinase 217 U/L (26-308) Troponin I 0.021 ng/mL (0.000-0.056) C-Reactive Protein, Quantitative < 0.4 mg/dL (0.00-0.90) Pro-B-Type Natriuretic Peptide 177 pg/mL (0-125) Total Protein 7.0 G/DL (6.4-8.2) 6.3 G/DL (6.4-8.2) Albumin 4.1 G/DL (3.4-5.0) 3.5 G/DL (3.4-5.0) Globulin 2.9 g/dL 2.8 g/dL Albumin/Globulin Ratio 1.4 (1.0-2.7) 1.2 (1.0-2.7) Lipase 167 U/L (73-393) Prostate Specific Antigen 0.58 ng/mL (0.13-4.0) Differential Total Cells Counted 100 Neutrophils % (Manual) 65 % (45-75) Lymphocytes % (Manual) 30 % (20-45) Monocytes % (Manual) 4 % (1-10) Eosinophils % (Manual) 1 % (0-3) Basophils % (Manual) 0 % (0-2) Band Neutrophils 0 % (0-8) Platelet Estimate Adequate Platelet Morphology Normal Hypochromasia 1+ Reticulocyte Count 0.6 % (0.5-2.0) Carcinoembryonic Antigen 0.9 ng/mL (0.0-4.7) Vitamin B12 Level 804 PG/ML (193-986) Thyroid Stimulating Hormone (TSH) 2.216 uiU/mL (0.358-3.740) Test 07/10/19 05:05 White Blood Count 4.8 K/UL (4.8-10.8) Red Blood Count 4.06 M/UL (4.70-6.10) Hemoglobin 12.5 G/DL (14.2-18.0) Hematocrit 34.2 % (42.0-52.0) Mean Corpuscular Volume 84 FL (80-99) Mean Corpuscular Hemoglobin 30.8 PG (27.0-31.0) Mean Corpuscular Hemoglobin Concent 36.5 G/DL (32.0-36.0) Red Cell Distribution Width 13.0 % (11.6-14.8) Platelet Count 161 K/UL (150-450) Mean Platelet Volume 6.6 FL (6.5-10.1) Neutrophils (%) (Auto) 50.1 % (45.0-75.0) Lymphocytes (%) (Auto) 38.2 % (20.0-45.0) Monocytes (%) (Auto) 6.7 % (1.0-10.0) Eosinophils (%) (Auto) 3.6 % (0.0-3.0) Basophils (%) (Auto) 1.5 % (0.0-2.0) Sodium Level 140 MMOL/L (136-145) Potassium Level 3.9 MMOL/L (3.5-5.1) Chloride Level 103 MMOL/L (98-107) Carbon Dioxide Level 28 MMOL/L (21-32) Anion Gap 9 mmol/L (5-15) Blood Urea Nitrogen 13 mg/dL (7-18) Creatinine 0.7 MG/DL (0.55-1.30) Estimat Glomerular Filtration Rate > 60 mL/min (>60) Glucose Level 133 MG/DL (74-106) Calcium Level 9.2 MG/DL (8.5-10.1) Height (Feet): 5 Height (Inches): 3.00 Weight (Pounds): 209 Objective PE Vitals: noted Gen: well appearing, no apparent distress, GCS 15 HEENT: nc, at Neck: supple Resp: lungs clear, normal breath sounds Cv: rrr, no mgr Gastrointestinal: normal inspection, normal bowel sounds, nt, nd Genitourinary: no CVA tenderness Musculoskeletal: back normal, normal range of motion, gait/station normal Neurologic: alert, motor strength/tone normal - Supine, oriented x3, sensory intact Psychiatric: mood/affect normal Skin: warm/dry, abrasion - Right forearm Skyler White MD Jul 10, 2019 17:21
--- NOTE | 2019-07-10 19:35 | NUR ---
NURSE NOTES: Received report, rounds done. No distress noted. Family at bedside, patient sitting up in bed, visiting. Bed in low position, locked, side rails up x2, call light within reach. Will continue to monitor. Addendum: 07/11/19 at 0723 by Yennifer Denny RN Received report from AJNICE Retana
[2019-07-10] MEDS: Miralax 17gm pkt ORAL SCH (20:27)
[2019-07-11] VITALS: BP 134/75
[2019-07-11] MEDS: Morphine Sulfate 2mg/ml Inj(IV/IM USE ONLY) IVP PRN (01:07)
[2019-07-11 04:00] VITALS: BP 137/77
--- NOTE | 2019-07-11 06:05 | NUR ---
NURSE NOTES: Dr Rush here to see patient.
[2019-07-11] MEDS: NovoLOG Insulin Flexpen SUBQ SCH ×4 (06:30→21:00)
[2019-07-11 07:00] LABS: ANION GAP 10 mmol/L (5-15); BLOOD UREA NITROGEN 17 mg/dL (7-18); CALCIUM 9.6 MG/DL (8.5-10.1); CARBON DIOXIDE 28 MMOL/L (21-32); CHLORIDE 102 MMOL/L (98-107); CREATININE 0.8 MG/DL (0.55-1.30); POTASSIUM 3.8 MMOL/L (3.5-5.1); SODIUM 140 MMOL/L (136-145)
[2019-07-11 07:06] LABS: BASOPHILS % (AUTO) 0.7 % (0.0-2.0); HEMATOCRIT 37.1 % (42.0-52.0); HEMOGLOBIN 13.1 G/DL (14.2-18.0); LYMPHOCYTES % (AUTO) 33.2 % (20.0-45.0); MEAN CORPUSCULAR VOLUME 86 FL (80-99); MONOCYTES % (AUTO) 6.6 % (1.0-10.0); NEUTROPHILS % (AUTO) 55.5 % (45.0-75.0); PLATELET COUNT 178 K/UL (150-450); RED BLOOD COUNT 4.33 M/UL (4.70-6.10)
--- NOTE | 2019-07-11 07:24 | NUR ---
HAND-OFF: Report given to JANICE Keating. Rounds done.
[2019-07-11 08:00] VITALS: BP 151/92
[2019-07-11] MEDS: Docusate 100mg cap ORAL SCH ×2 (08:35→18:18)
--- NOTE | 2019-07-11 10:01 | GI Progress Note ---
Assessment/Plan Problems: (1) Diabetes mellitus ICD Codes: E11.9 - Type 2 diabetes mellitus without complications SNOMED: 31870652 (2) Nausea & vomiting ICD Codes: R11.2 - Nausea with vomiting, unspecified SNOMED: 95402384 (3) Abdominal pain ICD Codes: R10.9 - Unspecified abdominal pain SNOMED: 10062348 Qualifiers: Qualified Codes: R10.30 - Lower abdominal pain, unspecified (4) History of cholecystectomy ICD Codes: Z90.49 - Acquired absence of other specified parts of digestive tract SNOMED: 80012030, 663211162 Status: unchanged Status Narrative Discussed with Dr. Simeon. Assessment/Plan #abdominal pain 2/ constipation - CT reviewed, show slow transient in the GI - pain mgmt - bowel regimen, will place on linzess - mag citrate x1 today - recent history of ERCP and colonoscopy x 1 year - follow up KUB >> no acute process #decreased GI motility - low dose reglan - needs outpatient follow up for new motility drug - DM management - advance diet as tolerated #spinal lesion - follow up tumor markers - follow up oncology recommendations The patient was seen and examined at bedside and all new and available data was reviewed in the patients chart. I agree with the above findings, impression and plan. (Patient seen earlier today. Signature stamp does not reflect patient encounter time.). - Kulwant Simeon MD Subjective Subjective still has c/o of abdominal pain constipated Objective Last 24 Hour Vital Signs Date Time Temp Pulse Resp B/P (MAP) Pulse Ox O2 Delivery O2 Flow Rate FiO2 07/11/19 09:00 Room Air 07/11/19 08:37 69 151/92 07/11/19 08:00 98.3 69 20 151/92 (111) 94 07/11/19 04:00 97.3 62 16 137/77 (97) 96 07/11/19 00:00 98.2 81 17 134/75 (94) 96 07/10/19 21:00 Room Air 07/10/19 20:00 98.3 77 16 138/82 (100) 96 07/10/19 16:00 98.3 66 20 127/67 (87) 95 07/10/19 12:00 97.1 72 20 152/86 (108) 95 Intake and Output 07/10/19 07/11/19 19:00 07:00 Intake Total 960 ml 360 ml Balance 960 ml 360 ml Intake Oral 960 ml 360 ml # Voids 2 Laboratory Tests Test 07/11/19 04:35 White Blood Count 6.0 K/UL (4.8-10.8) Red Blood Count 4.33 M/UL (4.70-6.10) L Hemoglobin 13.1 G/DL (14.2-18.0) L Hematocrit 37.1 % (42.0-52.0) L Mean Corpuscular Volume 86 FL (80-99) Mean Corpuscular Hemoglobin 30.3 PG (27.0-31.0) Mean Corpuscular Hemoglobin Concent 35.4 G/DL (32.0-36.0) Red Cell Distribution Width 12.0 % (11.6-14.8) Platelet Count 178 K/UL (150-450) Mean Platelet Volume 6.9 FL (6.5-10.1) Neutrophils (%) (Auto) 55.5 % (45.0-75.0) Lymphocytes (%) (Auto) 33.2 % (20.0-45.0) Monocytes (%) (Auto) 6.6 % (1.0-10.0) Eosinophils (%) (Auto) 4.0 % (0.0-3.0) H Basophils (%) (Auto) 0.7 % (0.0-2.0) Sodium Level 140 MMOL/L (136-145) Potassium Level 3.8 MMOL/L (3.5-5.1) Chloride Level 102 MMOL/L (98-107) Carbon Dioxide Level 28 MMOL/L (21-32) Anion Gap 10 mmol/L (5-15) Blood Urea Nitrogen 17 mg/dL (7-18) Creatinine 0.8 MG/DL (0.55-1.30) Estimat Glomerular Filtration Rate > 60 mL/min (>60) Glucose Level 125 MG/DL (74-106) H Calcium Level 9.6 MG/DL (8.5-10.1) Height (Feet): 5 Height (Inches): 3.00 Weight (Pounds): 199 General Appearance: WD/WN, no apparent distress, alert Cardiovascular: normal rate Respiratory/Chest: normal breath sounds, no respiratory distress Abdominal Exam: normal bowel sounds, non tender, soft Extremities: normal range of motion, non-tender Jimbo Ramos NP Jul 11, 2019 10:01
--- NOTE | 2019-07-11 10:21 | NUR ---
RADIOLOGY DEPT., LUMBAR SPINE DONE.-P.DYE
[2019-07-11] MEDS ORDERED: Magnesium Citrate Liq Btl ORAL SCH (11:00)
[2019-07-11 12:00] VITALS: BP 134/87
--- NOTE | 2019-07-11 12:00 | Diagnostic Imaging Report ---
Indication: Back pain Comparison: None Findings: 3 views of the lumbar spine were obtained. Multilevel vertebral endplate osteophytes demonstrated throughout the visualized thoracic and lumbar spine. Alignment is normal. Sclerosis and hypertrophy of the lower lumbar facets noted. Surgical clips demonstrated in the right upper quadrant abdomen. IMPRESSION: Degenerative changes as described above
--- NOTE | 2019-07-11 13:17 | NUR ---
NURSE NOTES: ADMINISTERED CITRATE MAGNESIA X1 BOTTLE PRESCRIBED. PT. STATES THEY HAS SMALL BM. FLATUS PRESENT.
--- NOTE | 2019-07-11 15:48 | Hematology/Onc Progress Note ---
Assessment/Plan Assessment/Plan Assessment and Recs: # Lytic lesion at T8 and associated right paraspinal intercostal and possibly intraspinal appearing soft tissue lesion again noted axial 8 and coronal 57 --> have ordered tumor markers currently all negative --> will need mri of the spine as well --> recommend to get potential biopsy as well if tumor markers are negative --> also will get bone scan--NEGATIVE --> WILL NEED PET OUTPATIENT # Abdominal pain --> as per gi --> recs noted --> colace and senna prn --> low dose reglan --> xr abd negative # Lower extremity weakness --> r/o compression --> bone scan negative # History of cholecystectomy. --> s/p ERCP with stent removal. # Diabetes. # GERD. # Gout. # Vitamin D deficiency. # Degenerative joint disease. # Hypertension. Appreciate consultation and dw Rn Subjective Constitutional: Denies: no symptoms, chills, fever, malaise, weakness, other HEENT: Denies: no symptoms, eye pain, blurred vision, tearing, double vision, ear pain, ear discharge, nose pain, nose congestion, throat pain, throat swelling, mouth pain, mouth swelling, other Cardiovascular: Denies: no symptoms, chest pain, edema, irregular heart rate, lightheadedness, palpitations, syncope, other Respiratory: Denies: no symptoms, cough, shortness of breath, SOB with excertion, SOB at rest, sputum, wheezing, other Gastrointestinal/Abdominal: Denies: no symptoms, abdomen distended, abdominal pain, black stools, tarry stools, blood in stool, constipated, diarrhea, difficulty swallowing, nausea, poor appetite, poor fluid intake, rectal bleeding , vomiting, other Genitourinary: Denies: no symptoms, burning, discharge, frequency, flank pain, hematuria, incontinence, pain, urgency, other Hematologic/Lymphatic: Denies: no symptoms, anemia, easy bleeding, easy bruising, adenopathy, other Allergies: Coded Allergies: No Known Allergies (Unverified , 12/31/12) Subjective 07/10: c/o abd pain, xr abd and bone scan both negative, no acute events 07/11: no major changes, for spine lesion, tumor markers noted, bone scan neg Objective Objective Current Medications Medications (Trade) Dose Ordered Sig/Tamiko Route PRN Reason Start Time Stop Time Status Last Admin Dose Admin Acetaminophen (Tylenol) 650 mg Q6H PRN ORAL Mild Pain/Temp > 100.5 07/08/19 01:15 08/07/19 01:14 07/08/19 21:19 Amlodipine Besylate (Norvasc) 5 mg DAILY ORAL 07/11/19 09:00 08/10/19 08:59 07/11/19 08:37 Bisacodyl (Dulcolax) 10 mg DAILYPRN PRN RECTAL Constipation 07/10/19 10:45 08/09/19 10:44 07/11/19 08:34 Clonidine HCl (Catapres Tab) 0.1 mg Q6H PRN ORAL For High Blood Pressure 07/08/19 02:00 08/07/19 01:59 07/10/19 00:36 Dextrose (Dextrose 50%) 25 ml Q30M PRN IV Hypoglycemia 07/08/19 01:15 08/07/19 01:14 Dextrose (Dextrose 50%) 50 ml Q30M PRN IV Hypoglycemia 07/08/19 01:15 08/07/19 01:14 Docusate Sodium (Colace) 100 mg TWICE A DAY ORAL 07/09/19 09:00 08/08/19 08:59 07/11/19 08:35 Insulin Aspart (NovoLOG) AC+HS SUBQ 07/10/19 16:30 08/07/19 01:59 07/11/19 11:48 Lidocaine (Lidoderm 5% PATCH) 1 patch DAILY TDERMAL 07/10/19 14:30 08/09/19 14:29 07/11/19 08:34 Metoclopramide HCl (Reglan) 2.5 mg Q6H PRN IVP Nausea & Vomiting 07/08/19 18:45 08/07/19 18:44 Morphine Sulfate (Morphine Sulfate) 1 mg Q6H PRN IVP For Pain 07/08/19 01:15 07/15/19 01:14 07/11/19 01:07 Ondansetron HCl (Zofran) 4 mg Q6H PRN IVP Nausea & Vomiting 07/08/19 01:15 08/07/19 01:14 Polyethylene Glycol (Miralax) 17 gm BEDTIME ORAL 07/08/19 21:00 08/07/19 20:59 07/10/19 20:27 Last 24 Hour Vital Signs Date Time Temp Pulse Resp B/P (MAP) Pulse Ox O2 Delivery O2 Flow Rate FiO2 07/11/19 12:00 97.9 67 18 134/87 (103) 95 07/11/19 09:00 Room Air 07/11/19 08:37 69 151/92 07/11/19 08:00 98.3 69 20 151/92 (111) 94 07/11/19 04:00 97.3 62 16 137/77 (97) 96 07/11/19 00:00 98.2 81 17 134/75 (94) 96 07/10/19 21:00 Room Air 07/10/19 20:00 98.3 77 16 138/82 (100) 96 07/10/19 16:00 98.3 66 20 127/67 (87) 95 07/10/19 12:00 97.1 72 20 152/86 (108) 95 07/10/19 09:00 Room Air 07/10/19 08:00 97.5 70 20 130/76 (94) 97 07/10/19 04:00 97.8 65 17 150/91 (110) 97 07/10/19 02:02 155/97 (116) 07/10/19 00:36 171/99 07/10/19 00:00 97.5 64 19 171/99 (123) 97 07/09/19 21:00 Room Air 07/09/19 20:00 97.7 68 20 156/87 (110) 98 07/09/19 15:56 97.8 69 20 140/86 (104) 96 Intake and Output 07/10/19 07/11/19 19:00 07:00 Intake Total 960 ml 360 ml Balance 960 ml 360 ml Intake Oral 960 ml 360 ml # Voids 2 Labs Test 07/08/19 16:18 07/08/19 17:00 07/09/19 05:20 07/10/19 05:05 White Blood Count 5.3 K/UL (4.8-10.8) 5.1 K/UL (4.8-10.8) 4.8 K/UL (4.8-10.8) Red Blood Count 4.05 M/UL (4.70-6.10) 4.09 M/UL (4.70-6.10) 4.06 M/UL (4.70-6.10) Hemoglobin 12.4 G/DL (14.2-18.0) 12.7 G/DL (14.2-18.0) 12.5 G/DL (14.2-18.0) Hematocrit 35.0 % (42.0-52.0) 33.9 % (42.0-52.0) 34.2 % (42.0-52.0) Mean Corpuscular Volume 86 FL (80-99) 83 FL (80-99) 84 FL (80-99) Mean Corpuscular Hemoglobin 30.5 PG (27.0-31.0) 31.1 PG (27.0-31.0) 30.8 PG (27.0-31.0) Mean Corpuscular Hemoglobin Concent 35.3 G/DL (32.0-36.0) 37.6 G/DL (32.0-36.0) 36.5 G/DL (32.0-36.0) Red Cell Distribution Width 12.2 % (11.6-14.8) 12.4 % (11.6-14.8) 13.0 % (11.6-14.8) Platelet Count 166 K/UL (150-450) 158 K/UL (150-450) 161 K/UL (150-450) Mean Platelet Volume 6.3 FL (6.5-10.1) 6.2 FL (6.5-10.1) 6.6 FL (6.5-10.1) Neutrophils (%) (Auto) % (45.0-75.0) 62.2 % (45.0-75.0) 50.1 % (45.0-75.0) Lymphocytes (%) (Auto) % (20.0-45.0) 28.7 % (20.0-45.0) 38.2 % (20.0-45.0) Monocytes (%) (Auto) % (1.0-10.0) 5.1 % (1.0-10.0) 6.7 % (1.0-10.0) Eosinophils (%) (Auto) % (0.0-3.0) 2.8 % (0.0-3.0) 3.6 % (0.0-3.0) Basophils (%) (Auto) % (0.0-2.0) 1.3 % (0.0-2.0) 1.5 % (0.0-2.0) Differential Total Cells Counted 100 Neutrophils % (Manual) 65 % (45-75) Lymphocytes % (Manual) 30 % (20-45) Monocytes % (Manual) 4 % (1-10) Eosinophils % (Manual) 1 % (0-3) Basophils % (Manual) 0 % (0-2) Band Neutrophils 0 % (0-8) Other Cell Type Pathologist review Platelet Estimate Adequate Platelet Morphology Normal Hypochromasia 1+ Reticulocyte Count 0.6 % (0.5-2.0) Carcinoembryonic Antigen 0.9 ng/mL (0.0-4.7) Vitamin B12 Level 804 PG/ML (193-986) Thyroid Stimulating Hormone (TSH) 2.216 uiU/mL (0.358-3.740) Sodium Level 142 MMOL/L (136-145) 140 MMOL/L (136-145) Potassium Level 3.8 MMOL/L (3.5-5.1) 3.9 MMOL/L (3.5-5.1) Chloride Level 105 MMOL/L (98-107) 103 MMOL/L (98-107) Carbon Dioxide Level 29 MMOL/L (21-32) 28 MMOL/L (21-32) Anion Gap 8 mmol/L (5-15) 9 mmol/L (5-15) Blood Urea Nitrogen 11 mg/dL (7-18) 13 mg/dL (7-18) Creatinine 0.7 MG/DL (0.55-1.30) 0.7 MG/DL (0.55-1.30) Estimat Glomerular Filtration Rate > 60 mL/min (>60) > 60 mL/min (>60) Glucose Level 119 MG/DL (74-106) 133 MG/DL (74-106) Calcium Level 9.3 MG/DL (8.5-10.1) 9.2 MG/DL (8.5-10.1) Total Bilirubin 0.5 MG/DL (0.2-1.0) Aspartate Amino Transf (AST/SGOT) 22 U/L (15-37) Alanine Aminotransferase (ALT/SGPT) 35 U/L (12-78) Alkaline Phosphatase 66 U/L (46-116) Total Protein 6.3 G/DL (6.4-8.2) Albumin 3.5 G/DL (3.4-5.0) Globulin 2.8 g/dL Albumin/Globulin Ratio 1.2 (1.0-2.7) Test 07/11/19 04:35 White Blood Count 6.0 K/UL (4.8-10.8) Red Blood Count 4.33 M/UL (4.70-6.10) Hemoglobin 13.1 G/DL (14.2-18.0) Hematocrit 37.1 % (42.0-52.0) Mean Corpuscular Volume 86 FL (80-99) Mean Corpuscular Hemoglobin 30.3 PG (27.0-31.0) Mean Corpuscular Hemoglobin Concent 35.4 G/DL (32.0-36.0) Red Cell Distribution Width 12.0 % (11.6-14.8) Platelet Count 178 K/UL (150-450) Mean Platelet Volume 6.9 FL (6.5-10.1) Neutrophils (%) (Auto) 55.5 % (45.0-75.0) Lymphocytes (%) (Auto) 33.2 % (20.0-45.0) Monocytes (%) (Auto) 6.6 % (1.0-10.0) Eosinophils (%) (Auto) 4.0 % (0.0-3.0) Basophils (%) (Auto) 0.7 % (0.0-2.0) Sodium Level 140 MMOL/L (136-145) Potassium Level 3.8 MMOL/L (3.5-5.1) Chloride Level 102 MMOL/L (98-107) Carbon Dioxide Level 28 MMOL/L (21-32) Anion Gap 10 mmol/L (5-15) Blood Urea Nitrogen 17 mg/dL (7-18) Creatinine 0.8 MG/DL (0.55-1.30) Estimat Glomerular Filtration Rate > 60 mL/min (>60) Glucose Level 125 MG/DL (74-106) Calcium Level 9.6 MG/DL (8.5-10.1) Height (Feet): 5 Height (Inches): 3.00 Weight (Pounds): 199 Objective PE Vitals: noted Gen: well appearing, no apparent distress, GCS 15 HEENT: nc, at Neck: supple Resp: lungs clear, normal breath sounds Cv: rrr, no mgr Gastrointestinal: normal inspection, normal bowel sounds, nt, nd Genitourinary: no CVA tenderness Musculoskeletal: back normal, normal range of motion, gait/station normal Neurologic: alert, motor strength/tone normal - Supine, oriented x3, sensory intact Psychiatric: mood/affect normal Skin: warm/dry, abrasion - Right forearm Skyler White MD Jul 11, 2019 15:48
[2019-07-11 16:00] VITALS: BP 141/85
--- NOTE | 2019-07-11 17:52 | NUR ---
NURSE NOTES: PATIENT HAVING MORE BOWEL MOVEMENTS WHILE TAKING CIT[place] MAGNESIA. STATES ABDOMINAL PAIN IS IMPROVING.
--- NOTE | 2019-07-11 19:01 | NUR ---
HAND-OFF: Report given to LOUIS MALIN RN.
--- NOTE | 2019-07-11 19:01 | NUR ---
NURSE NOTES: Received report from JANICE Keating.
--- NOTE | 2019-07-11 19:05 | NUR ---
NURSE NOTES: Patient sitting up, visiting with family, No distress noted. Denies pain at this time. Bed in low position, locked, side rails up x2, call light within reach. Will continue to monitor.
--- NOTE | 2019-07-11 19:16 | NUR ---
HAND-OFF: Report given to RAFAEL PAGE RN.
[2019-07-11 20:00] VITALS: BP 126/71
[2019-07-11] MEDS: Miralax 17gm pkt ORAL SCH (20:51)
[2019-07-12] VITALS: BP 122/66
[2019-07-12 05:00] VITALS: BP 124/80
[2019-07-12] MEDS: NovoLOG Insulin Flexpen SUBQ SCH ×2 (06:12→11:30)
[2019-07-12 06:51] LABS: ANION GAP 7 mmol/L (5-15); BLOOD UREA NITROGEN 18 mg/dL (7-18); CALCIUM 9.3 MG/DL (8.5-10.1); CARBON DIOXIDE 30 MMOL/L (21-32); CHLORIDE 103 MMOL/L (98-107); CREATININE 0.8 MG/DL (0.55-1.30); POTASSIUM 3.9 MMOL/L (3.5-5.1); SODIUM 140 MMOL/L (136-145)
[2019-07-12 06:58] LABS: BASOPHILS % (AUTO) 1.1 % (0.0-2.0); EOSINOPHILS % (AUTO) 2.9 % (0.0-3.0); HEMATOCRIT 38.5 % (42.0-52.0); HEMOGLOBIN 13.6 G/DL (14.2-18.0); LYMPHOCYTES % (AUTO) 28.1 % (20.0-45.0); MEAN CORPUSCULAR VOLUME 86 FL (80-99); MONOCYTES % (AUTO) 7.6 % (1.0-10.0); NEUTROPHILS % (AUTO) 60.4 % (45.0-75.0); PLATELET COUNT 181 K/UL (150-450); RED BLOOD COUNT 4.47 M/UL (4.70-6.10); RED CELL DISTRIBUTION WIDTH 11.9 % (11.6-14.8)
--- NOTE | 2019-07-12 07:45 | NUR ---
HAND-OFF: Report given to JANICE Payan. Rounds done.
--- NOTE | 2019-07-12 07:57 | NUR ---
NURSE NOTES: Patient is awake and alert and oriented,respirations are unlabored.Patient sitting up,patient ate breakfast.Bed alarm on
[2019-07-12 08:00] VITALS: BP 142/86
[2019-07-12 08:36] VITALS: BP 142/86
[2019-07-12] MEDS: Docusate 100mg cap ORAL SCH (08:36)
--- NOTE | 2019-07-12 10:30 | NUR ---
NURSE NOTES: Spoke to regarding discharge and ok to discharge patient today. Order noted and carried out.
--- NOTE | 2019-07-12 11:00 | GI Progress Note ---
Assessment/Plan Problems: (1) Diabetes mellitus ICD Codes: E11.9 - Type 2 diabetes mellitus without complications SNOMED: 92274391 (2) Nausea & vomiting ICD Codes: R11.2 - Nausea with vomiting, unspecified SNOMED: 10221396 (3) Abdominal pain ICD Codes: R10.9 - Unspecified abdominal pain SNOMED: 40832538 Qualifiers: Qualified Codes: R10.30 - Lower abdominal pain, unspecified (4) History of cholecystectomy ICD Codes: Z90.49 - Acquired absence of other specified parts of digestive tract SNOMED: 50052931, 691012616 Status: stable Status Narrative Discussed with Dr. Simeon Assessment/Plan #abdominal pain 2/ constipation - CT reviewed, show slow transient in the GI - pain mgmt - bowel regimen, patient had 4 bowel movements yesterday - recent history of ERCP and colonoscopy x 1 year - follow up KUB >> no acute process - Outpatient follow-up with us #decreased GI motility - low dose reglan - needs outpatient follow up for new motility drug - DM management - advance diet as tolerated #spinal lesion - follow up tumor markers - follow up oncology recommendations The patient was seen and examined at bedside and all new and available data was reviewed in the patients chart. I agree with the above findings, impression and plan. (Patient seen earlier today. Signature stamp does not reflect patient encounter time.). - Kulwant Simeon MD Subjective Subjective Abdominal pain improved, but still present Had bowel movement x4 Objective Last 24 Hour Vital Signs Date Time Temp Pulse Resp B/P (MAP) Pulse Ox O2 Delivery O2 Flow Rate FiO2 07/12/19 09:00 Room Air 07/12/19 08:36 88 142/86 07/12/19 08:00 97.7 88 22 142/86 (104) 98 07/12/19 05:00 97.7 70 16 124/80 (95) 96 07/12/19 00:00 97.9 68 16 122/66 (84) 95 07/11/19 21:00 Room Air 07/11/19 20:00 98.5 78 18 126/71 (89) 95 07/11/19 16:00 98.2 75 20 141/85 (103) 93 07/11/19 12:00 97.9 67 18 134/87 (103) 95 Intake and Output 07/11/19 07/12/19 19:00 07:00 Intake Total 450 ml Balance 450 ml Intake Oral 450 ml # Voids 3 # Bowel Movements 3 1 Laboratory Tests Test 07/12/19 05:30 White Blood Count 6.0 K/UL (4.8-10.8) Red Blood Count 4.47 M/UL (4.70-6.10) L Hemoglobin 13.6 G/DL (14.2-18.0) L Hematocrit 38.5 % (42.0-52.0) L Mean Corpuscular Volume 86 FL (80-99) Mean Corpuscular Hemoglobin 30.3 PG (27.0-31.0) Mean Corpuscular Hemoglobin Concent 35.2 G/DL (32.0-36.0) Red Cell Distribution Width 11.9 % (11.6-14.8) Platelet Count 181 K/UL (150-450) Mean Platelet Volume 7.4 FL (6.5-10.1) Neutrophils (%) (Auto) 60.4 % (45.0-75.0) Lymphocytes (%) (Auto) 28.1 % (20.0-45.0) Monocytes (%) (Auto) 7.6 % (1.0-10.0) Eosinophils (%) (Auto) 2.9 % (0.0-3.0) Basophils (%) (Auto) 1.1 % (0.0-2.0) Sodium Level 140 MMOL/L (136-145) Potassium Level 3.9 MMOL/L (3.5-5.1) Chloride Level 103 MMOL/L (98-107) Carbon Dioxide Level 30 MMOL/L (21-32) Anion Gap 7 mmol/L (5-15) Blood Urea Nitrogen 18 mg/dL (7-18) Creatinine 0.8 MG/DL (0.55-1.30) Estimat Glomerular Filtration Rate > 60 mL/min (>60) Glucose Level 147 MG/DL (74-106) H Calcium Level 9.3 MG/DL (8.5-10.1) Height (Feet): 5 Height (Inches): 3.00 Weight (Pounds): 199 General Appearance: WD/WN, no apparent distress, alert Cardiovascular: normal rate Respiratory/Chest: normal breath sounds, no respiratory distress Abdominal Exam: normal bowel sounds, non tender, soft Extremities: normal range of motion, non-tender Jimbo Ramos NP Jul 12, 2019 11:00
--- NOTE | 2019-07-12 12:00 | NUR ---
NURSE NOTES: Patient discharged with discharge instructions given, patient will follow up with primary DR and patient was given DR Covarrubias card with telephone number .patient has own medication that was retrieved from in patient pharmacy Charge Nurse spoke with DR Covarrubias regarding home medication DR Covarrubias state he left prescription in the chart, prescription sent to outpatient pharmacy , patient will pick up operator prescription. patient will follow up with primary DR regarding home medication.IV removed and ID hospital band removed.Patient has personal belongings ,patient escorted down to [facility] patient daughter will take patient home.
--- NOTE | 2019-07-12 15:00 | Discharge Summary ---
DATE OF ADMISSION: 07/07/2019 DATE OF DISCHARGE: 07/12/2019 HOSPITAL COURSE: This is a 69-year-old male who came to the emergency room for having abdominal pain, nausea, vomiting. He came with abdominal pain and small bowel obstruction. The patient did very well. He got GI workup and stool softener. KUB workup is negative. The patient is physically doing better. The patient also found to have lower back pain and started lidocaine patch, which resolved the pain. The patient clinically improving. He is going to go home. He is tolerating diet. DISCHARGE DIAGNOSES: 1. Ileus. 2. Possible small bowel obstruction. 3. Gastritis. 4. Chronic back pain. 5. Nausea and vomiting, resolved. DIET: Regular diet. ACTIVITY: As tolerated. DISCHARGE MEDICATIONS: The patient was given a prescription for Lidoderm patch for lower back daily. He was given Colace 250 twice a day and Mobic 15 mg by mouth daily. Recommended follow up in office. Going to continue Norvasc 5 mg daily. Elan Covarrubias M.D. DR: Es JOB#: [id number] CC:
--- NOTE | 2019-07-12 15:43 | Hematology/Onc Progress Note ---
Assessment/Plan Assessment/Plan Assessment and Recs: # Lytic lesion at T8 and associated right paraspinal intercostal and possibly intraspinal appearing soft tissue lesion again noted axial 8 and coronal 57 --> have ordered tumor markers currently all negative --> will need mri of the spine as well --> recommend to get potential biopsy as well if tumor markers are negative --> also will get bone scan--NEGATIVE --> WILL NEED PET OUTPATIENT # Abdominal pain --> as per gi --> recs noted --> colace and senna prn --> low dose reglan --> xr abd negative # Lower extremity weakness --> r/o compression --> bone scan negative # History of cholecystectomy. --> s/p ERCP with stent removal. # Diabetes. # GERD. # Gout. # Vitamin D deficiency. # Degenerative joint disease. # Hypertension. Appreciate consultation and dw Rn Subjective Constitutional: Denies: no symptoms, chills, fever, malaise, weakness, other HEENT: Denies: no symptoms, eye pain, blurred vision, tearing, double vision, ear pain, ear discharge, nose pain, nose congestion, throat pain, throat swelling, mouth pain, mouth swelling, other Cardiovascular: Denies: no symptoms, chest pain, edema, irregular heart rate, lightheadedness, palpitations, syncope, other Respiratory: Denies: no symptoms, cough, shortness of breath, SOB with excertion, SOB at rest, sputum, wheezing, other Gastrointestinal/Abdominal: Denies: no symptoms, abdomen distended, abdominal pain, black stools, tarry stools, blood in stool, constipated, diarrhea, difficulty swallowing, nausea, poor appetite, poor fluid intake, rectal bleeding , vomiting, other Neurologic/Psychiatric: Denies: no symptoms, anxiety, depressed, emotional problems, headache, numbness, paresthesia, pre-existing deficit, seizure, tingling, tremors, weakness, other Endocrine: Denies: no symptoms, excessive sweating, flushing, intolerance to cold, intolerance to heat, increased hunger, increased thirst, increased urine, unexplained weight gain, unexplained weight loss, other Allergies: Coded Allergies: No Known Allergies (Unverified , 12/31/12) Subjective 07/10: c/o abd pain, xr abd and bone scan both negative, no acute events 07/11: no major changes, for spine lesion, tumor markers noted, bone scan neg 07/12: no night sweats, labs noted, tumor markers all neg, for dc today Objective Objective Last 24 Hour Vital Signs Date Time Temp Pulse Resp B/P (MAP) Pulse Ox O2 Delivery O2 Flow Rate FiO2 07/12/19 09:00 Room Air 07/12/19 08:36 88 142/86 07/12/19 08:00 97.7 88 22 142/86 (104) 98 07/12/19 05:00 97.7 70 16 124/80 (95) 96 07/12/19 00:00 97.9 68 16 122/66 (84) 95 07/11/19 21:00 Room Air 07/11/19 20:00 98.5 78 18 126/71 (89) 95 07/11/19 16:00 98.2 75 20 141/85 (103) 93 07/11/19 12:00 97.9 67 18 134/87 (103) 95 07/11/19 09:00 Room Air 07/11/19 08:37 69 151/92 07/11/19 08:00 98.3 69 20 151/92 (111) 94 07/11/19 04:00 97.3 62 16 137/77 (97) 96 07/11/19 00:00 98.2 81 17 134/75 (94) 96 07/10/19 21:00 Room Air 07/10/19 20:00 98.3 77 16 138/82 (100) 96 07/10/19 16:00 98.3 66 20 127/67 (87) 95 Intake and Output 07/11/19 07/12/19 19:00 07:00 Intake Total 450 ml Balance 450 ml Intake Oral 450 ml # Voids 3 # Bowel Movements 3 1 Labs Test 07/10/19 05:05 07/11/19 04:35 07/12/19 05:30 White Blood Count 4.8 K/UL (4.8-10.8) 6.0 K/UL (4.8-10.8) 6.0 K/UL (4.8-10.8) Red Blood Count 4.06 M/UL (4.70-6.10) 4.33 M/UL (4.70-6.10) 4.47 M/UL (4.70-6.10) Hemoglobin 12.5 G/DL (14.2-18.0) 13.1 G/DL (14.2-18.0) 13.6 G/DL (14.2-18.0) Hematocrit 34.2 % (42.0-52.0) 37.1 % (42.0-52.0) 38.5 % (42.0-52.0) Mean Corpuscular Volume 84 FL (80-99) 86 FL (80-99) 86 FL (80-99) Mean Corpuscular Hemoglobin 30.8 PG (27.0-31.0) 30.3 PG (27.0-31.0) 30.3 PG (27.0-31.0) Mean Corpuscular Hemoglobin Concent 36.5 G/DL (32.0-36.0) 35.4 G/DL (32.0-36.0) 35.2 G/DL (32.0-36.0) Red Cell Distribution Width 13.0 % (11.6-14.8) 12.0 % (11.6-14.8) 11.9 % (11.6-14.8) Platelet Count 161 K/UL (150-450) 178 K/UL (150-450) 181 K/UL (150-450) Mean Platelet Volume 6.6 FL (6.5-10.1) 6.9 FL (6.5-10.1) 7.4 FL (6.5-10.1) Neutrophils (%) (Auto) 50.1 % (45.0-75.0) 55.5 % (45.0-75.0) 60.4 % (45.0-75.0) Lymphocytes (%) (Auto) 38.2 % (20.0-45.0) 33.2 % (20.0-45.0) 28.1 % (20.0-45.0) Monocytes (%) (Auto) 6.7 % (1.0-10.0) 6.6 % (1.0-10.0) 7.6 % (1.0-10.0) Eosinophils (%) (Auto) 3.6 % (0.0-3.0) 4.0 % (0.0-3.0) 2.9 % (0.0-3.0) Basophils (%) (Auto) 1.5 % (0.0-2.0) 0.7 % (0.0-2.0) 1.1 % (0.0-2.0) Sodium Level 140 MMOL/L (136-145) 140 MMOL/L (136-145) 140 MMOL/L (136-145) Potassium Level 3.9 MMOL/L (3.5-5.1) 3.8 MMOL/L (3.5-5.1) 3.9 MMOL/L (3.5-5.1) Chloride Level 103 MMOL/L (98-107) 102 MMOL/L (98-107) 103 MMOL/L (98-107) Carbon Dioxide Level 28 MMOL/L (21-32) 28 MMOL/L (21-32) 30 MMOL/L (21-32) Anion Gap 9 mmol/L (5-15) 10 mmol/L (5-15) 7 mmol/L (5-15) Blood Urea Nitrogen 13 mg/dL (7-18) 17 mg/dL (7-18) 18 mg/dL (7-18) Creatinine 0.7 MG/DL (0.55-1.30) 0.8 MG/DL (0.55-1.30) 0.8 MG/DL (0.55-1.30) Estimat Glomerular Filtration Rate > 60 mL/min (>60) > 60 mL/min (>60) > 60 mL/min (>60) Glucose Level 133 MG/DL (74-106) 125 MG/DL (74-106) 147 MG/DL (74-106) Calcium Level 9.2 MG/DL (8.5-10.1) 9.6 MG/DL (8.5-10.1) 9.3 MG/DL (8.5-10.1) Height (Feet): 5 Height (Inches): 3.00 Weight (Pounds): 199 Objective PE Vitals: noted Gen: well appearing, no apparent distress, GCS 15 HEENT: nc, at Neck: supple Resp: lungs clear, normal breath sounds Cv: rrr, no mgr Gastrointestinal: normal inspection, normal bowel sounds, nt, nd Genitourinary: no CVA tenderness Musculoskeletal: back normal, normal range of motion, gait/station normal Neurologic: alert, motor strength/tone normal - Supine, oriented x3, sensory intact Psychiatric: mood/affect normal Skin: warm/dry, abrasion - Right forearm Skyler White MD Jul 12, 2019 15:43
== END 2019-07-12 12:15 | disposition home or self-care (01) | DRG 389 ==
LOC: EMR 18:05 → 3E 18:27 → EDBEDREQ 22:28 → 3E 07-08 07:02 → SDSOVERFLO 07-12 10:44 → 3E 07-12 10:46
DX: K56.7 Ileus, unspecified (principal); G95.89 Other specified diseases of spinal cord; K59.00 Constipation, unspecified; K56.609 Unspecified intestinal obstruction, unspecified as to partial versus complete obstruction; E11.9 Type 2 diabetes mellitus without complications; Z79.84 Long term (current) use of oral hypoglycemic drugs; I10 Essential (primary) hypertension; K29.70 Gastritis, unspecified, without bleeding; G89.29 Other chronic pain; M54.9 Dorsalgia, unspecified; K21.9 Gastro-esophageal reflux disease without esophagitis; M10.9 Gout, unspecified; Z90.49 Acquired absence of other specified parts of digestive tract
CPT/HCPCS: 36415; 72020; 74018; 74177; 77075; 80048; 80053; 81003; 82378; 82550; 82607; 82962; 83036; 83690; 83880; 84153; 84165; 84443; 84484; 85007; 85025; 85044; 85060; 85610; 85651; 85730; 86140; 93005; 96361; 96374; 96375; 99285; J1815; J2405; J7030